=== PATIENT | male | born 1940 | race Caucasian/White ===

== ENCOUNTER 2016-08-11 14:45 | Inpatient (IN) | payer OTHER ==
[2016-08-11 14:54] VITALS: BMI 21.6
--- NOTE | 2016-08-11 15:48 | PDOC ---
History of Present Illness - General History Source: Patient Exam Limitations: No Limitations - History of Present Illness Initial Comments: 08/11/16 16:45 The patient is a 76 year old male, with a significant past medical history of multiple falls, pacemaker, and HTN who was sent to the emergency department with worsening AMS over the past year. The patient is here with his son-in-law who notes his mental status has worsened and is unable to remember his name, where he is oriented, and often not finishing thoughts/sentences. Son-in-law reports also that he has not been able to remember to take his medication and has been falling multiple times lately and gait has been worsening over the past few weeks. Son-in-law denies any previous dementia diagnosis but knotes he is forgetful.. Son-in-law also notes that the patient has been urinating frequently. The patient denies any complaints of pain or discmofort. He denies any recent fevers, chills, headache or dizziness. He denies any recent nausea, vomit, diarrhea or constipation. He denies any recent chest pain or shortness of breath. Pts history may b elimited due to his dementia/mental status changes. Allergies: NKA Past surgical history: None reported. Social History: Nonsmoker. Denies EtOH use and recreational drug use. Primary Care Physician: <Artem Yadav - Last Filed: 08/11/16 16:45> <Jaylan Fletcher - Last Filed: 08/13/16 09:12> - General Chief Complaint: Altered Mental Status Stated Complaint: (PCP SENT) ASSESSMENT Time Seen by Provider: 08/11/16 15:33 Past History <Artem Yadav - Last Filed: 08/11/16 16:45> - Past Medical History Cardiac Disorders: Yes Dementia: Yes (AMS) HTN: Yes - Surgical History Cardiac Surgery: Yes (PACEMAKER) - Psycho/Social/Smoking Cessation Hx Anxiety: No Suicidal Ideation: No Smoking History: Never smoked Hx Alcohol Use: No Drug/Substance Use Hx: No Substance Use Type: None <Jaylan Fletcher - Last Filed: 08/13/16 09:12> - Past Medical History Allergies/Adverse Reactions: Allergies Allergy/AdvReac Type Severity Reaction Status Date / Time No Known Allergies Allergy Verified 08/11/16 14:54 Home Medications: Ambulatory Orders Atorvastatin Ca [Lipitor] 10 mg PO HS 08/11/16 Carvedilol 25 mg PO BID 08/11/16 Hydralazine HCl [Apresoline -] 25 mg PO BID 08/11/16 Isosorbide Mononitrate [Isosorbide Mononitrate ER] 30 mg PO DAILY 08/11/16 Levothyroxine [Synthroid -] 75 mcg PO DAILY 08/11/16 Review of Systems - Review of Systems Able to Perform ROS?: No (Dementia ) <Artem Yadav - Last Filed: 08/11/16 16:45> *Physical Exam - Vital Signs Last Vital Signs Temp Pulse Resp BP Pulse Ox 97.3 F L 98 H 20 174/96 100 08/11/16 14:49 08/11/16 14:49 08/11/16 14:49 08/11/16 14:49 08/11/16 14:49 - Physical Exam Comments: 08/11/16 16:45 GENERAL: The patient is awake and alert x 0. Nontoxic - in no acute distress. HEAD: Normocephalic, atraumatic. EYES: extraocular movements intact, pupils 3mm and symmetrically reactive, sclera anicteric, conjunctiva clear, visual lomeli intact ENT: Normal voice, Moist mucous membranes. NECK: Normal range of motion, supple LUNGS: Breath sounds equal, clear to auscultation bilaterally. No wheezes, no rhonchi, no rales. HEART: Regular rate and rhythm, without murmur, rub or gallop. ABDOMEN: large suprapubic mass that is minimally tender EXTREMITIES: Normal range of motion, no edema. NEUROLOGICAL: No facial asymmetry, Normal speech, movingall 4 extremities spontaneously and symmetrically PSYCH: Normal mood, normal affect. SKIN: Warm, Dry, normal turgor. <Artem Yadav - Last Filed: 08/11/16 16:45> - Vital Signs Last Vital Signs Temp Pulse Resp BP Pulse Ox 97.3 F L 98 H 20 174/96 100 08/11/16 14:49 08/11/16 14:49 08/11/16 14:49 08/11/16 14:49 08/11/16 14:49 <Jaylan Fletcher - Last Filed: 08/13/16 09:12> Heart Score/ECG Review - ECG Impressions Comment:: 08/11/16 17:16 Twelve-lead EKG was performed and reviewed by me. There is normal sinus rhythm with a normal rate. Rate of 88 The axis is normal. The intervals are normal. There are no ST or T wave abnormalities. <Jaylan Fletcher - Last Filed: 08/13/16 09:12> ED Treatment Course - LABORATORY CBC & Chemistry Diagram: 08/13/16 07:20 08/13/16 07:20 <Jaylan Fletcher - Last Filed: 08/13/16 09:12> Medical Decision Making - Medical Decision Making 08/11/16 16:41 76y M hx of htn, ams, sent by PMD for evaluation of worwsening mental status changes, unstable gait for a few months. pt also noted to be urinaty frequently , on exam pt had a large distended bladder seen on exam and on bedside ultrasound rivas was placed ?htn/ams/urinary sypmtoms --> normal pressure hydrocephalus? will obtain CT head will r/o urinary tract infection will ck cbc, cmp, cxr, ekg will dw PMD regarding disposition 08/11/16 17:[address] out [address] Cavazos to dispo patient 08/13/16 09:12 A portion of this note was documented by scribe services under my direction. I have reviewed the details of the note, within reason, and agree with the documentation with the following case summary and management plan written by me <Jaylan Fletcher - Last Filed: 08/13/16 09:12> *DC/Admit/Observation/Transfer - Attestations Scribe Attestion: 08/11/16 16:45 Documentation prepared by Artem Yadav, acting as biomedical equipment support specialist for Jaylan Fletcher MD. <Artem Yadav - Last Filed: 08/11/16 16:45> <Jaylan Fletcher - Last Filed: 08/13/16 09:12> Diagnosis at time of Disposition: Urine retention, Uremia Acute renal failure Qualifiers: Acute renal failure type: unspecified Qualified Code(s): N17.9 - Acute kidney failure, unspecified Altered mental status Qualifiers: Altered mental status type: delirium Qualified Code(s): R41.0 - Disorientation , unspecified - Discharge Dispostion Condition at time of disposition: Guarded - Referrals
[2016-08-11 16:56] LABS: BASOPHIL 0.6 % (0-2.0); EOSINOPHIL 0.4 % (0-4.5); MCH 28.9 pg (25.7-33.7); MCHC 33.2 g/dl (32.0-35.9); NEUTROPHILS 77.8 % (42.8-82.8); PLATELET COUNT 199 K/MM3 (134-434); RDW 15.5 % (11.9-15.9); WHITE BLOOD COUNT 7.5 K/mm3 (4.0-10.0)
[2016-08-11 17:30] LABS: URINE APPEARANCE CLEAR; URINE BILIRUBIN NEGATIVE (NEGATIVE); URINE COLOR LTYELLOW; URINE GLUCOSE (UA) NEGATIVE (NEGATIVE); URINE KETONE NEGATIVE (NEGATIVE); URINE LEUK ESTERASE NEGATIVE (NEGATIVE); URINE NITRITE NEGATIVE (NEGATIVE); URINE PROTEIN NEGATIVE (NEGATIVE); URINE UROBILINOGEN NEGATIVE E.U./dl (0.2-1.0)
[2016-08-11 17:31] LABS: ANION GAP 20 (8-16); BILIRUBIN,TOTAL 0.9 mg/dL (0.2-1.0); CALCIUM 8.9 mg/dL (8.5-10.1); CO2 19 mmol/L (21-32); GLUCOSE,RANDOM 101 mg/dL (74-106); SGOT/AST 13 U/L (15-37); SGPT/ALT 23 U/L (12-78); TOT PROT 7.8 g/dl (6.4-8.2)
[2016-08-11 17:36] LABS: ALK PHOS 62 U/L (45-117)
[2016-08-11 17:40] LABS: CREATININE 7.6 mg/dL (0.7-1.3)
--- NOTE | 2016-08-11 17:46 | PDOC ---
*Physical Exam - Vital Signs Last Vital Signs Temp Pulse Resp BP Pulse Ox 97.3 F L 98 H 20 174/96 100 08/11/16 14:49 08/11/16 14:49 08/11/16 14:49 08/11/16 14:49 08/11/16 14:49 ED Treatment Course - LABORATORY CBC & Chemistry Diagram: 08/11/16 16:39 08/11/16 16:39 - ADDITIONAL ORDERS Additional order review: Laboratory Results 08/11/16 16:39 Sodium 139 Potassium 4.6 Chloride 100 Carbon Dioxide 19 L Anion Gap 20 H BUN 109 H* Creatinine 7.6 H* Creat Clearance w eGFR 6.96 Random Glucose 101 Calcium 8.9 Total Bilirubin 0.9 AST 13 L ALT 23 Alkaline Phosphatase 62 Total Protein 7.8 Albumin 4.0 08/11/16 16:39 RBC 4.39 MCV 87.0 MCHC 33.2 RDW 15.5 MPV 9.0 Neutrophils % 77.8 Lymphocytes % 12.0 Monocytes % 9.2 Eosinophils % 0.4 Basophils % 0.6 Medical Decision Making - Medical Decision Making 08/11/16 17:48 Patient endorsed to me by Dr. Fletcher at 17:30, presenting with AMS. I was just notified of extremely elevated creatinine by the lab. Potassium is wnl. Confusion was likely due to uremia, and the failure is likely due to obstruction (bladder was extremely distended on arrival, improved with rivas placement. I have discussed with Dr. Garza. Will send urine lytes. 08/11/16 18:38 Case d/w Dr. Wilcox. Will admit. Results d/w patient and son-in-law at bedside. *DC/Admit/Observation/Transfer Diagnosis at time of Disposition: Urine retention, Uremia Acute renal failure Qualifiers: Acute renal failure type: unspecified Qualified Code(s): N17.9 - Acute kidney failure, unspecified Altered mental status Qualifiers: Altered mental status type: delirium Qualified Code(s): R41.0 - Disorientation , unspecified - Discharge Dispostion Condition at time of disposition: Guarded Admit: Yes - Referrals Referrals: Hi Wilcox MD [Primary Care Provider] - - Patient Instructions - Post Discharge Activity
[2016-08-11] MEDS ORDERED: SODIUM CHLORIDE 500 ML IV STA (17:47)
[2016-08-11 18:13] LABS: URINE BLOOD 1+ (NEGATIVE)
[2016-08-11 18:14] LABS: URINE MUCUS RARE; URINE RBC 1 /hpf (0-3); URINE WBC 1 /hpf (3-5)
[2016-08-11] MEDS ORDERED: ACETAMINOPHEN 325 MG TABLET (FP) PO PRN (18:36)
[2016-08-11] MEDS ORDERED: ATORVASTATIN CA 10 MG TABLET (FP) PO ONE ×2 (18:43→22:45)
[2016-08-11] MEDS: SODIUM CHLORIDE 1,000 ML IV SCH (19:00)
[2016-08-11] MEDS: hydrALAZINE HCL 25 MG TABLET (FP) PO SCH (22:52)
[2016-08-11] MEDS: CARVEDILOL 25 MG TABLET (FP) PO SCH (22:52)
[2016-08-11] MEDS: HEPARIN NA (PORCINE) 5,000 UNITS/ML 1ML VIAL SQ SCH (22:52)
[2016-08-12] MEDS: LEVOTHYROXINE NA 75 MCG TABLET (FP) PO SCH (06:31)
[2016-08-12 08:21] LABS: BASOPHIL 1.2 % (0-2.0); EOSINOPHIL 3.8 % (0-4.5); MCHC 33.6 g/dl (32.0-35.9); MEAN CELL VOLUME 86.3 fl (80-96); MEAN PLT VOLUME 8.9 fl (7.5-11.1); NEUTROPHILS 60.1 % (42.8-82.8); PLATELET COUNT 172 K/MM3 (134-434); RDW 15.1 % (11.9-15.9); WHITE BLOOD COUNT 5.2 K/mm3 (4.0-10.0)
[2016-08-12 08:30] LABS: ALBUMIN 3.1 g/dl (3.4-5.0); ANION GAP 12 (8-16); BILIRUBIN,TOTAL 0.7 mg/dL (0.2-1.0); CO2 21 mmol/L (21-32); CREATININE 4.4 mg/dL (0.7-1.3); GLUCOSE,RANDOM 90 mg/dL (74-106); SGOT/AST 11 U/L (15-37); SGPT/ALT 18 U/L (12-78); TOT PROT 6.2 g/dl (6.4-8.2)
[2016-08-12 08:33] LABS: ALK PHOS 49 U/L (45-117)
[2016-08-12 08:39] LABS: FREE T4 0.99 ng/dl (0.76-1.16); THYROID STIMULATING HORMONE 6.32 uIU/ml (0.358-3.74)
[2016-08-12] MEDS: HEPARIN NA (PORCINE) 5,000 UNITS/ML 1ML VIAL SQ SCH ×2 (09:15→22:31)
[2016-08-12] MEDS: CARVEDILOL 25 MG TABLET (FP) PO SCH ×2 (09:15→22:31)
[2016-08-12] MEDS: hydrALAZINE HCL 25 MG TABLET (FP) PO SCH ×2 (09:15→22:31)
[2016-08-12] MEDS: ISOSORBIDE MONONITRATE 30 MG TAB.SR.24H (FP) PO SCH (09:15)
[2016-08-12] MEDS: SODIUM CHLORIDE 1,000 ML IV SCH ×3 (10:45→20:35)
--- NOTE | 2016-08-12 11:05 | EKG ---
Test Reason : Blood Pressure : / mmHG Vent. Rate : 088 BPM Atrial Rate : 088 BPM P-R Int : 174 ms QRS Dur : 088 ms QT Int : 394 ms P-R-T Axes : 074 049 071 degrees QTc Int : 476 ms NORMAL SINUS RHYTHM ANTERIOR INFARCT , AGE UNDETERMINED ABNORMAL ECG WHEN COMPARED WITH ECG OF 02-JUN-2004 07:36, NON-SPECIFIC CHANGE IN ST SEGMENT IN LATERAL LEADS NONSPECIFIC T WAVE ABNORMALITY NO LONGER EVIDENT IN INFERIOR LEADS T WAVE INVERSION NO LONGER EVIDENT IN LATERAL LEADS Confirmed by ROBERT PANTOJA MD ([id number]) on 08/12/2016 11:05:09 AM Referred By: Confirmed By:ROBERT PANTOJA MD
--- NOTE | 2016-08-12 13:22 | CONSULT ---
Consult Consult Specialty:: Nephrology Reason for Consultation:: LOC - History of Present Illness Chief Complaint: sent in for altered mental status History of Present Illness: Pt is a 76 year old male with pmhx of falls, PPM, And HTN who was sent in for altered mental status. I was called to evaluate him for LOC. He was found to have a distended bladder. Rivas catheter was placed in ER and he had about 1900 cc of urine. His renal function is improving overnight. He appears more awake and alert today than he was yesterday. I did discuss the case with the ER physicians last night. He denies shortness of breath. - History Source History Provided By: Medical Record - Past Medical History Cardio/Vascular: Yes: HTN, Hyperlipdemia Endocrine: Yes: Hypothyroidism - Past Surgical History Past Surgical History: Yes: Permanent Pacemaker - Alcohol/Substance Use Hx Alcohol Use: No - Smoking History Smoking history: Never smoked Home Medications - Allergies Allergies/Adverse Reactions: Allergies Allergy/AdvReac Type Severity Reaction Status Date / Time No Known Allergies Allergy Verified 08/11/16 14:54 - Home Medications Home Medications: Ambulatory Orders Atorvastatin Ca [Lipitor] 10 mg PO HS 08/11/16 Carvedilol 25 mg PO BID 08/11/16 Hydralazine HCl [Apresoline -] 25 mg PO BID 08/11/16 Isosorbide Mononitrate [Isosorbide Mononitrate ER] 30 mg PO DAILY 08/11/16 Levothyroxine [Synthroid -] 75 mcg PO DAILY 08/11/16 Family Disease History - Family Disease History Family History: Unable to Obtain Review of Systems Unable to obtain ROS, reason: poor historian - Review of Systems Eyes: reports: No Symptoms HENT: reports: No Symptoms Neck: reports: No Symptoms Cardiovascular: reports: No Symptoms Respiratory: reports: No Symptoms Gastrointestinal: reports: No Symptoms Genitourinary: reports: No Symptoms Musculoskeletal: reports: No Symptoms Integumentary: reports: No Symptoms Physical Exam Vital Signs: Vital Signs Temperature 99.0 F 08/12/16 09:05 Pulse Rate 80 08/12/16 09:05 Respiratory Rate 18 08/12/16 09:05 Blood Pressure 133/70 08/12/16 09:05 O2 Sat by Pulse Oximetry (%) 96 08/11/16 20:03 Constitutional: Yes: Calm Eyes: Yes: Conjunctiva Clear HENT: Yes: Atraumatic Neck: Yes: Supple Cardiovascular: Yes: S1, S2 Respiratory: Yes: CTA Bilaterally Gastrointestinal: Yes: Normal Bowel Sounds, Soft Renal/: Yes: Rivas Present Musculoskeletal: Yes: WNL Extremities: Yes: WNL Edema: No Neurological: Yes: Oriented Psychiatric: Yes: Oriented Labs: CBC, BMP 08/12/16 06:35 08/12/16 06:35 Laboratory Tests 08/11/16 08/11/16 08/11/16 16:30 16:39 16:39 WBC 7.5 Hgb 12.7 Plt Count 199 Sodium Potassium Chloride Carbon Dioxide Anion Gap BUN 109 H* Creatinine 7.6 H* B-Natriuretic Peptide Urine Color Ltyellow Urine Appearance Clear Urine pH 5.0 Ur Specific [place] 1.010 Urine Protein Negative Urine Glucose (UA) Negative Urine Ketones Negative Urine Blood 1+ H Urine Nitrite Negative Urine Bilirubin Negative Urine Urobilinogen Negative Ur Leukocyte Esterase Negative 08/12/16 08/12/16 06:35 06:35 WBC 5.2 D Hgb 11.1 L D Plt Count 172 Sodium 143 Potassium 4.2 Chloride 110 H Carbon Dioxide 21 Anion Gap 12 BUN 86 H D Creatinine 4.4 H D B-Natriuretic Peptide 1140.72 H Urine Color Urine Appearance Urine pH Ur Specific [place] Urine Protein Urine Glucose (UA) Urine Ketones Urine Blood Urine Nitrite Urine Bilirubin Urine Urobilinogen Ur Leukocyte Esterase Imaging - Results Chest X-ray: Report Reviewed Cat Scan: Report Reviewed Problem List - Problems (1) Acute renal failure Code(s): N17.9 - ACUTE KIDNEY FAILURE, UNSPECIFIED Qualifiers: Acute renal failure type: unspecified Qualified Code(s): N17.9 - Acute kidney failure, unspecified (2) Altered mental status Code(s): R41.82 - ALTERED MENTAL STATUS, UNSPECIFIED Qualifiers: Altered mental status type: delirium Qualified Code(s): R41.0 - Disorientation, unspecified (3) Uremia Code(s): N19 - UNSPECIFIED KIDNEY FAILURE (4) Urine retention Code(s): R33.9 - RETENTION OF URINE, UNSPECIFIED (5) Hypertension Code(s): I10 - ESSENTIAL (PRIMARY) HYPERTENSION Assessment/Plan Current Medications Generic Name Dose Route Start Last Admin Trade Name Freq PRN Reason Stop Dose Admin Acetaminophen 650 mg 08/11/16 18:36 Tylenol - PO Q6H PRN FEVER OR PAIN Carvedilol 25 mg 08/11/16 22:00 08/12/16 09:15 Coreg - PO 25 mg BID NEYMAR Administration Heparin Sodium (Porcine) 5,000 unit 08/11/16 22:00 08/12/16 09:15 Heparin - SQ 5,000 unit BID NEYMAR Administration Hydralazine HCl 25 mg 08/11/16 22:00 08/12/16 09:15 Apresoline - PO 25 mg BID NEYMAR Administration Sodium Chloride 1,000 mls @ 100 mls/hr 08/11/16 18:45 08/12/16 10:45 Normal Saline - IV 100 mls/hr ASDIR NEYMAR Administration Isosorbide Mononitrate 30 mg 08/12/16 10:00 08/12/16 09:15 Imdur - PO 30 mg DAILY NEYMAR Administration Levothyroxine Sodium 75 mcg 08/12/16 07:00 08/12/16 06:31 Synthroid - PO 75 mcg DAILY@0700 NEYMAR Administration Impression 1. LOC 2. obstructive uropathy 3. HTN 4. altered mental status 5. hypothyroidism 6. PPM 7. hyperlipidemia Plan - LOC secondary to obstruction - monitor urine ouput and observe for post obstructive diuresis - agree with fluid overnight, will change ns to 1/2 ns - monitor blood pressure - check ultrasound kidneys and bladder - repeat labs in am - pt need a urology evaluation - keep rivas in place - will follow urine studies Dr Garza
[2016-08-12] MEDS ORDERED: SODIUM CHLORIDE 0.45% 1,000 ML IV SCH (13:30)
[2016-08-12] MEDS ORDERED: SODIUM CHLORIDE 500 ML IV STA (14:19)
--- NOTE | 2016-08-12 15:41 | HP ---
Admitting History and Physical - Primary Care Physician PCP: Hi Wilcox - Admission Chief Complaint: I feel fine History of Present Illness: Mr Cunha is a 76 year old male with suspected dementia who was brought in for 6 months of worsening mental status. I cannot obtain an HPI from the patient secondary to suspected dementia. He says today he feels well, he says that yesterday his stomach was distended on both sides but that has now resolved. When asked about other complaints, his responses become non-sensical. He does say he is feeling well today and asked how long he needs to stay in the hospital. The only other question he answers appropriately is when asked about surgeries he points to his pacemaker and says "this thing". History Source: Patient, Medical Record Limitations to Obtaining History: Clinical Condition - Past Medical History Cardiovascular: Yes: HTN, Hyperlipdemia Endocrine: Yes: Hypothyroidism - Past Surgical History Past Surgical History: Yes: Permanent Pacemaker - Smoking History Smoking history: Never smoked - Alcohol/Substance Use Hx Alcohol Use: No - Social History Usual Living Arrangement: Yes: With Child ADL: Family Assistance Home Medications - Allergies Allergies/Adverse Reactions: Allergies Allergy/AdvReac Type Severity Reaction Status Date / Time No Known Allergies Allergy Verified 08/11/16 14:54 - Home Medications Home Medications: Ambulatory Orders Atorvastatin Ca [Lipitor] 10 mg PO HS 08/11/16 Carvedilol 25 mg PO BID 08/11/16 Hydralazine HCl [Apresoline -] 25 mg PO BID 08/11/16 Isosorbide Mononitrate [Isosorbide Mononitrate ER] 30 mg PO DAILY 08/11/16 Levothyroxine [Synthroid -] 75 mcg PO DAILY 08/11/16 Family Disease History - Family Disease History Family History: Unable to Obtain Review of Systems Unable to obtain ROS, reason: dementia/uremia Physical Examination Vital Signs: Vital Signs Temperature 99.0 F 08/12/16 09:05 Pulse Rate 80 08/12/16 09:05 Respiratory Rate 18 08/12/16 09:05 Blood Pressure 133/70 08/12/16 09:05 O2 Sat by Pulse Oximetry (%) 96 08/11/16 20:03 Constitutional: Yes: No Distress, Calm, Thin Eyes: Yes: Conjunctiva Clear, PERRL HENT: Yes: Atraumatic, Normocephalic Cardiovascular: Yes: Regular Rate and Rhythm. No: Gallop, Murmur, Rub Respiratory: Yes: Regular, CTA Bilaterally. No: Rales, Rhonchi, Wheezes Gastrointestinal: Yes: Normal Bowel Sounds, Soft. No: Distention, Tenderness Extremities: Yes: WNL Edema: No Labs: CBC, BMP 08/12/16 06:35 08/12/16 06:35 Imaging - Results Chest X-ray: Report Reviewed, Image Reviewed Cat Scan: Report Reviewed EKG: Report Reviewed, Image Reviewed Problem List - Problems (1) Acute renal failure Assessment/Plan: -patient presents with ARF, unclear cause -nephrology consulted and case discussed -ultrasound ordered -continue IVF -renal function improved with hydration -monitor Code(s): N17.9 - ACUTE KIDNEY FAILURE, UNSPECIFIED Qualifiers: Acute renal failure type: unspecified Qualified Code(s): N17.9 - Acute kidney failure, unspecified (2) Acute metabolic encephalopathy Assessment/Plan: -secondary to ARF/uremia -monitor for improvement Code(s): G93.41 - METABOLIC ENCEPHALOPATHY (3) Hypertension Assessment/Plan: -continue coreg and hydralazine Code(s): I10 - ESSENTIAL (PRIMARY) HYPERTENSION (4) Hypothyroid Assessment/Plan: -elevated TSH but normal FT4 -continue synthroid Code(s): E03.9 - HYPOTHYROIDISM, UNSPECIFIED (5) Dementia Assessment/Plan: -unclear if history of dementia vs metabolic encephalopathy or combination of two -monitor for improvement Code(s): F03.90 - UNSPECIFIED DEMENTIA WITHOUT BEHAVIORAL DISTURBANCE
[2016-08-12 18:15] LABS: URINE APPEARANCE CLEAR; URINE BILIRUBIN NEGATIVE (NEGATIVE); URINE COLOR LTYELLOW; URINE GLUCOSE (UA) NEGATIVE (NEGATIVE); URINE KETONE NEGATIVE (NEGATIVE); URINE NITRITE NEGATIVE (NEGATIVE); URINE UROBILINOGEN NEGATIVE E.U./dl (0.2-1.0)
[2016-08-12 18:16] LABS: URINE BLOOD 3+ (NEGATIVE); URINE LEUK ESTERASE 1+ (NEGATIVE); URINE PROTEIN 1+ (NEGATIVE)
[2016-08-12 18:17] LABS: URINE BACTERIA RARE /hpf (NONE SEEN); URINE HYALINE CAST 1 /lpf; URINE MUCUS RARE; URINE RBC 20 /hpf (0-3); URINE WBC 14 /hpf (3-5)
[2016-08-13] MEDS: LEVOTHYROXINE NA 75 MCG TABLET (FP) PO SCH (06:22)
[2016-08-13] MEDS: SODIUM CHLORIDE 1,000 ML IV SCH ×2 (07:52→15:10)
[2016-08-13 08:29] LABS: BASOPHIL 1.3 % (0-2.0); EOSINOPHIL 4.4 % (0-4.5); MCH 28.9 pg (25.7-33.7); MCHC 32.7 g/dl (32.0-35.9); MEAN CELL VOLUME 88.1 fl (80-96); MEAN PLT VOLUME 8.7 fl (7.5-11.1); NEUTROPHILS 59.1 % (42.8-82.8); PLATELET COUNT 163 K/MM3 (134-434); RDW 15.9 % (11.9-15.9); WHITE BLOOD COUNT 5.5 K/mm3 (4.0-10.0)
[2016-08-13 09:01] LABS: ALK PHOS 48 U/L (45-117); ANION GAP 11 (8-16); BILIRUBIN,TOTAL 0.4 mg/dL (0.2-1.0); CALCIUM 7.7 mg/dL (8.5-10.1); CO2 21 mmol/L (21-32); CREATININE 2.5 mg/dL (0.7-1.3); GLUCOSE,RANDOM 155 mg/dL (74-106); MAGNESIUM 1.9 mg/dL (1.8-2.4); PHOSPHOROUS 3.1 mg/dL (2.5-4.9); SGOT/AST 13 U/L (15-37); SGPT/ALT 17 U/L (12-78)
[2016-08-13] MEDS: HEPARIN NA (PORCINE) 5,000 UNITS/ML 1ML VIAL SQ SCH ×2 (10:58→22:59)
[2016-08-13] MEDS: ISOSORBIDE MONONITRATE 30 MG TAB.SR.24H (FP) PO SCH (10:59)
[2016-08-13] MEDS: CARVEDILOL 25 MG TABLET (FP) PO SCH ×2 (10:59→22:58)
[2016-08-13] MEDS: hydrALAZINE HCL 25 MG TABLET (FP) PO SCH ×2 (10:59→22:58)
--- NOTE | 2016-08-13 12:34 | PN ---
Progress Note, Physician Chief Complaint: Patient says he is feeling fine. Denies cp, sob, n/v. Asking when he can go home. - Current Medication List Current Medications: Active Medications Acetaminophen (Tylenol -) 650 mg PO Q6H PRN PRN Reason: FEVER OR PAIN Carvedilol (Coreg -) 25 mg PO BID [facility] Last Admin: 08/13/16 10:59 Dose: 25 mg Heparin Sodium (Porcine) (Heparin -) 5,000 unit SQ BID [facility] Last Admin: 08/13/16 10:58 Dose: 5,000 unit Hydralazine HCl (Apresoline -) 25 mg PO BID [facility] Last Admin: 08/13/16 10:59 Dose: 25 mg Sodium Chloride (Normal Saline -) 1,000 mls @ 100 mls/hr IV ASDIR [facility] Last Admin: 08/13/16 07:52 Dose: 100 mls/hr Isosorbide Mononitrate (Imdur -) 30 mg PO DAILY [facility] Last Admin: 08/13/16 10:59 Dose: 30 mg Levothyroxine Sodium (Synthroid -) 75 mcg PO DAILY@0700 [facility] Last Admin: 08/13/16 06:22 Dose: 75 mcg - Objective Vital Signs: Vital Signs Temperature 98.2 F 08/13/16 10:45 Pulse Rate 74 08/13/16 10:45 Respiratory Rate 20 08/13/16 10:45 Blood Pressure 152/72 08/13/16 10:45 O2 Sat by Pulse Oximetry (%) 92 L 08/13/16 09:00 Constitutional: Yes: Well Nourished, No Distress, Calm Cardiovascular: Yes: Regular Rate and Rhythm. No: Gallop, Murmur, Rub Respiratory: Yes: Regular, CTA Bilaterally. No: Rales, Rhonchi, Wheezes Gastrointestinal: Yes: Normal Bowel Sounds, Soft. No: Distention, Tenderness Extremities: Yes: WNL Edema: No Labs: CBC, BMP 08/13/16 07:20 08/13/16 07:20 Problem List - Problems (1) Acute renal failure Code(s): N17.9 - ACUTE KIDNEY FAILURE, UNSPECIFIED Qualifiers: Acute renal failure type: unspecified Qualified Code(s): N17.9 - Acute kidney failure, unspecified (2) Acute metabolic encephalopathy Code(s): G93.41 - METABOLIC ENCEPHALOPATHY (3) Hypertension Code(s): I10 - ESSENTIAL (PRIMARY) HYPERTENSION (4) Hypothyroid Code(s): E03.9 - HYPOTHYROIDISM, UNSPECIFIED (5) Dementia Code(s): F03.90 - UNSPECIFIED DEMENTIA WITHOUT BEHAVIORAL DISTURBANCE Assessment/Plan Problems (1) Acute renal failure Assessment/Plan: -significantly improved -secondary to obstruction -case d/w nephrology -urology consulted -rivas to remain in place Code(s): N17.9 - ACUTE KIDNEY FAILURE, UNSPECIFIED Qualifiers: Acute renal failure type: unspecified Qualified Code(s): N17.9 - Acute kidney failure, unspecified (2) Acute metabolic encephalopathy Assessment/Plan: -mental status improving -as above Code(s): G93.41 - METABOLIC ENCEPHALOPATHY (3) Hypertension Assessment/Plan: -continue coreg and hydralazine Code(s): I10 - ESSENTIAL (PRIMARY) HYPERTENSION (4) Hypothyroid Assessment/Plan: -elevated TSH but normal FT4 -continue synthroid Code(s): E03.9 - HYPOTHYROIDISM, UNSPECIFIED (5) Dementia Assessment/Plan: -mental status improving -unclear if baseline -continue to monitor Code(s): F03.90 - UNSPECIFIED DEMENTIA WITHOUT BEHAVIORAL DISTURBANCE
--- NOTE | 2016-08-13 15:03 | CON.GU ---
Consult Consult Specialty:: urology Referred by:: medicine Reason for Consultation:: urinary retention and azotemia - History of Present Illness Chief Complaint: urinary retention and azotemia History of Present Illness: 76 year old male with altered mental status and chronic dementia, who presents in acute renal failure with urinary retention and BPH. Rivas cath is placed with brisk output and creatinine is decreasing - History Source History Provided By: Medical Record Limitations to Obtaining History: Dementia - Past Medical History Cardio/Vascular: Yes: HTN, Hyperlipdemia Renal/: Yes: BPH Endocrine: Yes: Hypothyroidism - Past Surgical History Past Surgical History: Yes: Permanent Pacemaker - Alcohol/Substance Use Hx Alcohol Use: No - Smoking History Smoking history: Never smoked - Social History ADL: Family Assistance Home Medications - Allergies Allergies/Adverse Reactions: Allergies Allergy/AdvReac Type Severity Reaction Status Date / Time No Known Allergies Allergy Verified 08/11/16 14:54 - Home Medications Home Medications: Ambulatory Orders Atorvastatin Ca [Lipitor] 10 mg PO HS 08/11/16 Carvedilol 25 mg PO BID 08/11/16 Hydralazine HCl [Apresoline -] 25 mg PO BID 08/11/16 Isosorbide Mononitrate [Isosorbide Mononitrate ER] 30 mg PO DAILY 08/11/16 Levothyroxine [Synthroid -] 75 mcg PO DAILY 08/11/16 Review of Systems Unable to obtain ROS, reason: dementia Physical Exam- Vital Signs: Vital Signs Temperature 98.2 F 08/13/16 10:45 Pulse Rate 74 08/13/16 10:45 Respiratory Rate 20 08/13/16 10:45 Blood Pressure 152/72 08/13/16 10:45 O2 Sat by Pulse Oximetry (%) 92 L 08/13/16 09:00 Constitutional: Yes: No Distress Kidneys: No: Flank Pain Left, FLank Pain Right Pelvis: No: Bladder Non Palpable, Bladder Distended Prostate Exam: Yes: Symmetrical, Other (enlarged) Labs: CBC, BMP 08/13/16 07:20 08/13/16 07:20 Imaging - Results Ultrasound: Report Reviewed Problem List - Problems (1) Benign localized hyperplasia of prostate with urinary retention Assessment/Plan: creatinine is improving with indwelling rivas. once creatinine nadirs, patient should be scheduled for a TURP. will follow Code(s): N40.1 - BENIGN PROSTATIC HYPERPLASIA WITH LOWER URINARY TRACT SYMP
--- NOTE | 2016-08-13 16:33 | PN ---
Progress Note, Physician History of Present Illness: Pt seen and examined at bedside. He is awake and alert. He has no complaints. - Current Medication List Current Medications: Active Medications Acetaminophen (Tylenol -) 650 mg PO Q6H PRN PRN Reason: FEVER OR PAIN Carvedilol (Coreg -) 25 mg PO BID [facility] Last Admin: 08/13/16 10:59 Dose: 25 mg Heparin Sodium (Porcine) (Heparin -) 5,000 unit SQ BID [facility] Last Admin: 08/13/16 10:58 Dose: 5,000 unit Hydralazine HCl (Apresoline -) 25 mg PO BID [facility] Last Admin: 08/13/16 10:59 Dose: 25 mg Sodium Chloride (Normal Saline -) 1,000 mls @ 100 mls/hr IV ASDIR [facility] Last Admin: 08/13/16 15:10 Dose: Not Given Isosorbide Mononitrate (Imdur -) 30 mg PO DAILY [facility] Last Admin: 08/13/16 10:59 Dose: 30 mg Levothyroxine Sodium (Synthroid -) 75 mcg PO DAILY@0700 [facility] Last Admin: 08/13/16 06:22 Dose: 75 mcg - Objective Vital Signs: Vital Signs Temperature 98.1 F 08/13/16 14:50 Pulse Rate 66 08/13/16 14:50 Respiratory Rate 22 08/13/16 14:50 Blood Pressure 138/64 08/13/16 14:50 O2 Sat by Pulse Oximetry (%) 92 L 08/13/16 09:00 Constitutional: Yes: Calm Eyes: Yes: Conjunctiva Clear HENT: Yes: Atraumatic Neck: Yes: Supple Cardiovascular: Yes: S1, S2 Respiratory: Yes: CTA Bilaterally Gastrointestinal: Yes: Normal Bowel Sounds, Soft Genitourinary: Yes: Rivas Present Musculoskeletal: Yes: WNL Edema: No Neurological: Yes: Oriented Psychiatric: Yes: Oriented Labs: CBC, BMP 08/13/16 07:20 08/13/16 07:20 Problem List - Problems (1) Acute renal failure Code(s): N17.9 - ACUTE KIDNEY FAILURE, UNSPECIFIED Qualifiers: Acute renal failure type: unspecified Qualified Code(s): N17.9 - Acute kidney failure, unspecified (2) Altered mental status Code(s): R41.82 - ALTERED MENTAL STATUS, UNSPECIFIED Qualifiers: Altered mental status type: delirium Qualified Code(s): R41.0 - Disorientation, unspecified (3) Uremia Code(s): N19 - UNSPECIFIED KIDNEY FAILURE (4) Urine retention Code(s): R33.9 - RETENTION OF URINE, UNSPECIFIED (5) Hypertension Code(s): I10 - ESSENTIAL (PRIMARY) HYPERTENSION Assessment/Plan Current Medications Generic Name Dose Route Start Last Admin Trade Name Freq PRN Reason Stop Dose Admin Acetaminophen 650 mg 08/11/16 18:36 Tylenol - PO Q6H PRN FEVER OR PAIN Carvedilol 25 mg 08/11/16 22:00 08/13/16 10:59 Coreg - PO 25 mg BID NEYMAR Administration Heparin Sodium (Porcine) 5,000 unit 08/11/16 22:00 08/13/16 10:58 Heparin - SQ 5,000 unit BID NEYMAR Administration Hydralazine HCl 25 mg 08/11/16 22:00 08/13/16 10:59 Apresoline - PO 25 mg BID [facility]YMAR Administration Sodium Chloride 1,000 mls @ 100 mls/hr 08/12/16 14:30 08/13/16 15:10 Normal Saline - IV Not Given ASDIR NEYMAR Isosorbide Mononitrate 30 mg 08/12/16 10:00 08/13/16 10:59 Imdur - PO 30 mg DAILY [facility] Administration Levothyroxine Sodium 75 mcg 08/12/16 07:00 08/13/16 06:22 Synthroid - PO 75 mcg DAILY@0700 NEY[facility] Administration Impression 1. LOC 2. obstructive uropathy 3. HTN 4. altered mental status 5. hypothyroidism 6. PPM 7. hyperlipidemia Plan - renal function is improving - monitor output - will change fluids to 1/2 ns (we kept him on NS yesterday as blood pressure was low) - urology input appreciated, will need TURP - monitor blood pressure - repeat labs in am - keep rivas in place Dr Garza
[2016-08-13] MEDS: SODIUM CHLORIDE 0.45% 1,000 ML IV SCH (17:10)
[2016-08-14] MEDS: LEVOTHYROXINE NA 75 MCG TABLET (FP) PO SCH (06:06)
[2016-08-14] MEDS: SODIUM CHLORIDE 0.45% 1,000 ML IV SCH ×3 (06:08→17:26)
[2016-08-14 07:44] LABS: BASOPHIL 0.9 % (0-2.0); EOSINOPHIL 3.7 % (0-4.5); MCH 28.8 pg (25.7-33.7); MEAN CELL VOLUME 87.5 fl (80-96); MEAN PLT VOLUME 8.9 fl (7.5-11.1); NEUTROPHILS 67.8 % (42.8-82.8); PLATELET COUNT 175 K/MM3 (134-434); RDW 16.1 % (11.9-15.9); WHITE BLOOD COUNT 6.4 K/mm3 (4.0-10.0)
[2016-08-14 08:29] LABS: ANION GAP 9 (8-16); CALCIUM 7.9 mg/dL (8.5-10.1); CO2 24 mmol/L (21-32); CREATININE 1.9 mg/dL (0.7-1.3); GLUCOSE,RANDOM 119 mg/dL (74-106); MAGNESIUM 1.8 mg/dL (1.8-2.4); PHOSPHOROUS 2.3 mg/dL (2.5-4.9)
--- NOTE | 2016-08-14 09:18 | PN ---
Progress Note (short form) - Note Progress Note: PATIENT COMFORTABLE / CONFUSED AT TIMES / WANTING TO GO HOME. NO RESPIRATORY / NO CARDIAC DISTRESS. Selected Entries 08/13/16 08/14/16 21:00 06:13 Temperature 98.2 F Pulse Rate 71 Respiratory 18 Rate Blood Pressure 144/98 O2 Sat by Pulse 96 Oximetry (%) Oxygen Delivery Room Air Method Laboratory Tests 08/14/16 08/14/16 06:00 06:00 WBC 6.4 RBC 4.00 Hgb 11.5 L Hct 34.9 L Plt Count 175 Sodium 145 Potassium 4.5 Chloride 112 H Carbon Dioxide 24 Anion Gap 9 BUN 41 H D Creatinine 1.9 H D Random Glucose 119 H D Calcium 7.9 L Phosphorus 2.3 L D Magnesium 1.8 P/E / AWAKE / SOMEWHAT AGITATED HEENT <> NECK SUPPLE COR <> S 1 S 2 HS DISTANT <> NO M OR G CHEST <> FEW SCATTERED RHONCHI AT BASES ABD <> SOFT / NONTENDER. EXT <> NO CALF TENDERNESS IMP <> BLADDER OUTLET OBSTRUCTION BPH LOC HTN HYPOTHYROIDISM DEMENTIA SSS / S/P PPM PLAN <> FOLLOWUP CARDIOLOGY CONSULT PRE-PROCEDURE REQUESTED. NO CHANGE IN MEDS UNLESS ORDERED BY CARDIOLOGY. ENDOCRINE CONSULT WITH DEMENTIA & HYPOTHYROIDISM.
--- NOTE | 2016-08-14 09:59 | CON.CARD ---
Consult Consult Specialty:: cardio Referred by:: roxie Reason for Consultation:: preop - History of Present Illness Chief Complaint: retention History of Present Illness: 76 yo male here with LOC and urinary retention. has BPH. rivas in, with plan for TURP per . we were asked to provide preop CV risk assessment +/- periop mgmt recs. not a reliable historian at the moment as he thinks he is kidnapped in someone' s house. ? if his memory is intact--states he has no cp or sob at home or here. 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--says it's at [address] (our practice)-- will check office records PMH: dementia falls s/p PPM HTN HPL - Past Medical History Cardio/Vascular: Yes: HTN, Hyperlipdemia Renal/: Yes: BPH Endocrine: Yes: Hypothyroidism - Past Surgical History Past Surgical History: Yes: Permanent Pacemaker - Alcohol/Substance Use Hx Alcohol Use: No - Smoking History Smoking history: Never smoked - Social History ADL: Family Assistance Home Medications - Allergies Allergies/Adverse Reactions: Allergies Allergy/AdvReac Type Severity Reaction Status Date / Time No Known Allergies Allergy Verified 08/11/16 14:54 - Home Medications Home Medications: Ambulatory Orders Atorvastatin Ca [Lipitor] 10 mg PO HS 08/11/16 Carvedilol 25 mg PO BID 08/11/16 Hydralazine HCl [Apresoline -] 25 mg PO BID 08/11/16 Isosorbide Mononitrate [Isosorbide Mononitrate ER] 30 mg PO DAILY 08/11/16 Levothyroxine [Synthroid -] 75 mcg PO DAILY 08/11/16 Family Disease History - Family Disease History Family History: Unable to Obtain Review of Systems - Review of Systems Constitutional: denies: Chills, Fever Eyes: denies: Eye Pain HENT: denies: Nasal Congestion Neck: denies: Stiffness Cardiovascular: denies: Palpitations Respiratory: denies: Orthopnea, PND Gastrointestinal: denies: Diarrhea, Rectal Bleeding Genitourinary: denies: Burning, Hematuria Musculoskeletal: denies: Muscle Pain Integumentary: denies: Rash Neurological: denies: Numbness, Seizure, Syncope Endocrine: denies: Excessive Sweating Hematology/Lymphatic: denies: Excessive Bleeding Vital Signs: Vital Signs Temperature 98.2 F 08/14/16 06:13 Pulse Rate 71 08/14/16 06:13 Respiratory Rate 18 08/14/16 06:13 Blood Pressure 144/98 08/14/16 06:13 O2 Sat by Pulse Oximetry (%) 96 08/13/16 21:00 Constitutional: Yes: Well Nourished, No Distress Eyes: No: Sclera Icterus HENT: No: Nasal Congestion Neck: No: Decreased ROM Respiratory: Yes: CTA Bilaterally. No: Accessory Muscle Use, Rales, Wheezes Gastrointestinal: Yes: Normal Bowel Sounds. No: Distention, Hepatomegaly, Palpable Mass, Tenderness Cardiovascular: Yes: Regular Rate and Rhythm JVD: No Carotid Bruit: No PMI: Non-Displaced Heart Sounds: Yes: S1, S2. No: Gallop Murmur: No: Systolic Murmur, Diastolic Murmur Musculoskeletal: Yes: Other (No kyphosis) Extremities: No: Cold, Cyanosis Edema: No Peripheral Pulses: 2+ Left Carotid, 2+ Right Carotid, 2+ Left Doralis Pedis, 2+ Right Dorsalis Pedis Integumentary: No: Jaundice Neurological: Yes: Alert. No: Oriented (x3) Psychiatric: No: Agitated - Other Data Labs, Other Data: CBC, BMP 08/14/16 06:00 08/14/16 06:00 Laboratory Tests 08/12/16 08/12/16 08/13/16 06:35 06:35 07:20 WBC Hgb Plt Count Sodium Potassium Carbon Dioxide BUN Creatinine AST 13 L ALT 17 B-Natriuretic Peptide 1140.72 H TSH 6.32 H 08/14/16 08/14/16 06:00 06:00 WBC 6.4 Hgb 11.5 L Plt Count 175 Sodium 145 Potassium 4.5 Carbon Dioxide 24 BUN 41 H D Creatinine 1.9 H D AST ALT B-Natriuretic Peptide TSH Imaging - Results Chest X-ray: Report Reviewed (clear lungs/pleura; + hyperinflation) Assessment/Plan CXR: clear ECG: NSR; ? old ASMI previously seen; prior TWIs anterolateral leads now normalized preop CV eval: -past CV history uncertain--no documented h/o CHF, CAD or CVA -hence at this time RCRI appears to be 0 -unknown functional status -no signs or sx's of active ischemic or structural heart dz, no murmur on exam and no chf findings -appears to be at low risk for periop CV complications from TURP, certainly no clinical predictors of high surgical risk -may proceed without further testing abnormal ECG: -nonspecific findings on 08/11 ecg vs prior (pseudonormalization of anterolateral T waves) -no sx's of ACS/angina -troponin negative--no further w/u indicated at present time -will review office records for completeness of care here (if he sees us for cardio) -can do routine echo but not required prior to surgery in absence of sx's of chf or other cv process LOC/acute urinary retention: -creat improving progressively s/p rivas -per HTN: -bp mostly controlled -cont home regimen HPL: -per ER med list pt on atorva at home, not receiving here -per outpt f/u with PMD h/o PPM: -? when/where last checked--routine outpt f/u rec'd hypothyroidism, TSH 6: -per pmd
[2016-08-14] MEDS: ISOSORBIDE MONONITRATE 30 MG TAB.SR.24H (FP) PO SCH (10:36)
[2016-08-14] MEDS: HEPARIN NA (PORCINE) 5,000 UNITS/ML 1ML VIAL SQ SCH ×2 (10:36→22:15)
[2016-08-14] MEDS: CARVEDILOL 25 MG TABLET (FP) PO SCH ×2 (10:36→22:15)
[2016-08-14] MEDS: hydrALAZINE HCL 25 MG TABLET (FP) PO SCH ×2 (10:36→22:15)
[2016-08-14 11:34] LABS: TROPONIN I < 0.02 ng/ml (0.00-0.05)
--- NOTE | 2016-08-14 16:50 | PN ---
Progress Note, Physician History of Present Illness: Pt seen and examined at bedside. He is awake and appears comfortable. - Current Medication List Current Medications: Active Medications Acetaminophen (Tylenol -) 650 mg PO Q6H PRN PRN Reason: FEVER OR PAIN Carvedilol (Coreg -) 25 mg PO BID [facility] Last Admin: 08/14/16 10:36 Dose: 25 mg Heparin Sodium (Porcine) (Heparin -) 5,000 unit SQ BID [facility] Last Admin: 08/14/16 10:36 Dose: 5,000 unit Hydralazine HCl (Apresoline -) 25 mg PO BID [facility] Last Admin: 08/14/16 10:36 Dose: 25 mg Sodium Chloride (1/2 Normal Saline) 1,000 mls @ 75 mls/hr IV ASDIR [facility] Last Admin: 08/14/16 06:08 Dose: 75 mls/hr Isosorbide Mononitrate (Imdur -) 30 mg PO DAILY [facility] Last Admin: 08/14/16 10:36 Dose: 30 mg Levothyroxine Sodium (Synthroid -) 75 mcg PO DAILY@0700 [facility] Last Admin: 08/14/16 06:06 Dose: 75 mcg - Objective Vital Signs: Vital Signs Temperature 97.9 F 08/14/16 16:06 Pulse Rate 73 08/14/16 16:06 Respiratory Rate 20 08/14/16 16:06 Blood Pressure 143/63 08/14/16 16:06 O2 Sat by Pulse Oximetry (%) 96 08/14/16 09:00 Constitutional: Yes: Calm Eyes: Yes: Conjunctiva Clear HENT: Yes: Atraumatic Neck: Yes: Supple Cardiovascular: Yes: S1, S2 Respiratory: Yes: CTA Bilaterally Gastrointestinal: Yes: Normal Bowel Sounds, Soft Genitourinary: Yes: Rivas Present Musculoskeletal: Yes: WNL Edema: No Neurological: Yes: Confusion Labs: CBC, BMP 08/14/16 06:00 08/14/16 06:00 Problem List - Problems (1) Acute renal failure Code(s): N17.9 - ACUTE KIDNEY FAILURE, UNSPECIFIED Qualifiers: Acute renal failure type: unspecified Qualified Code(s): N17.9 - Acute kidney failure, unspecified (2) Altered mental status Code(s): R41.82 - ALTERED MENTAL STATUS, UNSPECIFIED Qualifiers: Altered mental status type: delirium Qualified Code(s): R41.0 - Disorientation, unspecified (3) Uremia Code(s): N19 - UNSPECIFIED KIDNEY FAILURE (4) Urine retention Code(s): R33.9 - RETENTION OF URINE, UNSPECIFIED (5) Hypertension Code(s): I10 - ESSENTIAL (PRIMARY) HYPERTENSION Assessment/Plan Current Medications Generic Name Dose Route Start Last Admin Trade Name Freq PRN Reason Stop Dose Admin Acetaminophen 650 mg 08/11/16 18:36 Tylenol - PO Q6H PRN FEVER OR PAIN Carvedilol 25 mg 08/11/16 22:00 08/14/16 10:36 Coreg - PO 25 mg BID [facility] Administration Heparin Sodium (Porcine) 5,000 unit 08/11/16 22:00 08/14/16 10:36 Heparin - SQ 5,000 unit BID [facility]YMAR Administration Hydralazine HCl 25 mg 08/11/16 22:00 08/14/16 10:36 Apresoline - PO 25 mg BID [facility] Administration Sodium Chloride 1,000 mls @ 75 mls/hr 08/13/16 16:45 08/14/16 06:08 1/2 Normal Saline IV 75 mls/hr ASDIR [facility]YMAR Administration Isosorbide Mononitrate 30 mg 08/12/16 10:00 08/14/16 10:36 Imdur - PO 30 mg DAILY [facility] Administration Levothyroxine Sodium 75 mcg 08/12/16 07:00 08/14/16 06:06 Synthroid - PO 75 mcg DAILY@0700 [facility] Administration Impression 1. LOC 2. obstructive uropathy 3. HTN 4. altered mental status 5. hypothyroidism 6. PPM 7. hyperlipidemia Plan - renal function stabilizing - keep rivas in place - cont fluids - repeat labs in am - discussed with family - urology input appreciated, will need TURP - monitor blood pressure Dr Garza
[2016-08-15] MEDS: LEVOTHYROXINE NA 75 MCG TABLET (FP) PO SCH (06:11)
[2016-08-15] MEDS: SODIUM CHLORIDE 0.45% 1,000 ML IV SCH ×2 (06:13→16:05)
[2016-08-15 07:30] LABS: BASOPHIL 1.2 % (0-2.0); EOSINOPHIL 4.6 % (0-4.5); MCH 28.8 pg (25.7-33.7); MCHC 32.8 g/dl (32.0-35.9); MEAN CELL VOLUME 87.6 fl (80-96); MEAN PLT VOLUME 9.1 fl (7.5-11.1); PLATELET COUNT 195 K/MM3 (134-434); RDW 16.1 % (11.9-15.9); WHITE BLOOD COUNT 6.6 K/mm3 (4.0-10.0)
[2016-08-15 07:45] LABS: ANION GAP 9 (8-16); BILIRUBIN,TOTAL 0.3 mg/dL (0.2-1.0); CALCIUM 7.4 mg/dL (8.5-10.1); CO2 24 mmol/L (21-32); CREATININE 1.7 mg/dL (0.7-1.3); GLUCOSE,RANDOM 112 mg/dL (74-106); PHOSPHOROUS 2.2 mg/dL (2.5-4.9); SGOT/AST 14 U/L (15-37); SGPT/ALT 21 U/L (12-78)
[2016-08-15 07:46] LABS: ALK PHOS 61 U/L (45-117)
--- NOTE | 2016-08-15 08:02 | PN ---
Progress Note (short form) - Note Progress Note: PATIENT FOR TURP IN AM. MARTINEZ IN PLACE . PATIENT IN NO DISTRESS. PERIODS OF CONFUSION AND AGITATION WORSE THAN YESTERDAY. CARDIOLOGY NOTE APPRECIATED . MEDICALLY & CARDIAC CLEARED FOR PROCEDURE. BP ELEVATED POSSIBLY A RESULT OF AGITATION. Selected Entries Laboratory Tests Selected Entries 08/15/16 06:00 Temperature 98.3 F Pulse Rate 81 Respiratory 20 Rate Blood Pressure 176/75 Laboratory Tests 08/15/16 08/15/16 06:00 06:00 WBC 6.6 RBC 3.80 L Hgb 10.9 L Hct 33.3 L Plt Count 195 Sodium 145 Potassium 4.4 Chloride 112 H Carbon Dioxide 24 Anion Gap 9 BUN 33 H Creatinine 1.7 H Random Glucose 112 H Calcium 7.4 L Phosphorus 2.2 L Total Bilirubin 0.3 D AST 14 L ALT 21 D Alkaline Phosphatase 61 D Total Protein 6.0 L Albumin 3.0 L P/E <> AGITATED / IN CHAIR / IN HALLWAY. HEENT <> NECK SUPPLE / CAROTIDS 2 + COR <> S 1 S 2 NO M / NO GALLOPS. CHEST <> RHONCHI AT BASES. ABD <> SOFT / NONTENDER. EXT <> NO CALF TENDERNESS / NO STASIS EDEMA IMP <> BLADDER OUTLET OBSTRUCTION BPH LOC HTN HYPOTHYROIDISM DEMENTIA SSS / S/P PPM PLAN <> FOLLOWUP / FOR TURP CARDIOLOGY FOLLOWUP RENAL CONSULT REQUESTED <> ADJUST IV FLUIDS / BP ELEVATION / LOW PHOSPHOROUS. XANAX ORDERED FOR AGITATION. FOLLOW BP TODAY. NEURO CONSULT REQUESTED .
[2016-08-15] MEDS: ALPRAZolam 0.25 MG TABLET PO PRN ×3 (08:18→21:31)
[2016-08-15] MEDS: ISOSORBIDE MONONITRATE 30 MG TAB.SR.24H (FP) PO SCH (10:03)
[2016-08-15] MEDS: CARVEDILOL 25 MG TABLET (FP) PO SCH ×2 (10:03→21:33)
[2016-08-15] MEDS: hydrALAZINE HCL 25 MG TABLET (FP) PO SCH ×2 (10:03→21:34)
[2016-08-15] MEDS: HEPARIN NA (PORCINE) 5,000 UNITS/ML 1ML VIAL SQ SCH ×2 (10:03→21:34)
--- NOTE | 2016-08-15 15:43 | PN ---
Progress Note, Physician History of Present Illness: Pt seen and examined at bedside. He remains confused. - Current Medication List Current Medications: Active Medications Acetaminophen (Tylenol -) 650 mg PO Q6H PRN PRN Reason: FEVER OR PAIN Alprazolam (Xanax -) 0.25 mg PO Q8H PRN PRN Reason: ANXIETY Last Admin: 08/15/16 08:18 Dose: 0.25 mg Carvedilol (Coreg -) 25 mg PO BID [facility] Last Admin: 08/15/16 10:03 Dose: 25 mg Heparin Sodium (Porcine) (Heparin -) 5,000 unit SQ BID [facility] Last Admin: 08/15/16 10:03 Dose: 5,000 unit Hydralazine HCl (Apresoline -) 25 mg PO BID [facility] Last Admin: 08/15/16 10:03 Dose: 25 mg Sodium Chloride (1/2 Normal Saline) 1,000 mls @ 83 mls/hr IV ASDIR [facility] Last Admin: 08/15/16 06:13 Dose: 83 mls/hr Isosorbide Mononitrate (Imdur -) 30 mg PO DAILY [facility] Last Admin: 08/15/16 10:03 Dose: 30 mg Levothyroxine Sodium (Synthroid -) 75 mcg PO DAILY@0700 [facility] Last Admin: 08/15/16 06:11 Dose: 75 mcg - Objective Vital Signs: Vital Signs Temperature 98.0 F 08/15/16 09:00 Pulse Rate 68 08/15/16 09:00 Respiratory Rate 20 08/15/16 09:00 Blood Pressure 178/66 08/15/16 09:00 O2 Sat by Pulse Oximetry (%) 97 08/15/16 10:00 Constitutional: Yes: Calm Eyes: Yes: Conjunctiva Clear HENT: Yes: Atraumatic Cardiovascular: Yes: S1, S2 Respiratory: Yes: CTA Bilaterally Gastrointestinal: Yes: Soft Genitourinary: Yes: Bernal Present Musculoskeletal: Yes: WNL Edema: No Neurological: Yes: Confusion Labs: CBC, BMP 08/15/16 06:00 08/15/16 06:00 Problem List - Problems (1) Acute renal failure Code(s): N17.9 - ACUTE KIDNEY FAILURE, UNSPECIFIED Qualifiers: Acute renal failure type: unspecified Qualified Code(s): N17.9 - Acute kidney failure, unspecified (2) Altered mental status Code(s): R41.82 - ALTERED MENTAL STATUS, UNSPECIFIED Qualifiers: Altered mental status type: delirium Qualified Code(s): R41.0 - Disorientation, unspecified (3) Uremia Code(s): N19 - UNSPECIFIED KIDNEY FAILURE (4) Urine retention Code(s): R33.9 - RETENTION OF URINE, UNSPECIFIED (5) Hypertension Code(s): I10 - ESSENTIAL (PRIMARY) HYPERTENSION Assessment/Plan Current Medications Generic Name Dose Route Start Last Admin Trade Name Freq PRN Reason Stop Dose Admin Acetaminophen 650 mg 08/11/16 18:36 Tylenol - PO Q6H PRN FEVER OR PAIN Alprazolam 0.25 mg 08/15/16 08:02 08/15/16 08:18 Xanax - PO 0.25 mg Q8H PRN Administration ANXIETY Carvedilol 25 mg 08/11/16 22:00 08/15/16 10:03 Coreg - PO 25 mg BID [facility] Administration Heparin Sodium (Porcine) 5,000 unit 08/11/16 22:00 08/15/16 10:03 Heparin - SQ 5,000 unit BID [facility] Administration Hydralazine HCl 25 mg 08/11/16 22:00 08/15/16 10:03 Apresoline - PO 25 mg BID [facility] Administration Sodium Chloride 1,000 mls @ 83 mls/hr 08/14/16 16:51 08/15/16 06:13 1/2 Normal Saline IV 83 mls/hr ASDIR [facility]MAR Administration Isosorbide Mononitrate 30 mg 08/12/16 10:00 08/15/16 10:03 Imdur - PO 30 mg DAILY [facility] Administration Levothyroxine Sodium 75 mcg 08/12/16 07:00 08/15/16 06:11 Synthroid - PO 75 mcg DAILY@0700 [facility] Administration Impression 1. LOC 2. obstructive uropathy 3. HTN 4. altered mental status 5. hypothyroidism 6. PPM 7. hyperlipidemia Plan - renal function is improving - can decrease rate of fluids - urology follow up - repeat labs in am - TURP this week - monitor blood pressure Dr Garza
[2016-08-15] MEDS ORDERED: diazePAM 5 MG TABLET PO ONE (23:45)
[2016-08-16] MEDS: SODIUM CHLORIDE 0.45% 1,000 ML IV SCH (04:15)
[2016-08-16] MEDS: LEVOTHYROXINE NA 75 MCG TABLET (FP) PO SCH ×2 (06:25→08:04)
[2016-08-16 08:09] LABS: ANION GAP 9 (8-16); CALCIUM 7.7 mg/dL (8.5-10.1); CO2 23 mmol/L (21-32); GLUCOSE,RANDOM 112 mg/dL (74-106)
[2016-08-16 08:10] LABS: CREATININE 1.8 mg/dL (0.7-1.3)
[2016-08-16 10:36] LABS: INR 1.13 (0.82-1.09); PROTHROMBIN TIME (PATIENT) 12.5 SEC (9.98-11.88)
[2016-08-16] MEDS: HEPARIN NA (PORCINE) 5,000 UNITS/ML 1ML VIAL SQ SCH ×2 (10:56→23:00)
[2016-08-16] MEDS: CARVEDILOL 25 MG TABLET (FP) PO SCH ×3 (10:57→23:00)
[2016-08-16] MEDS: hydrALAZINE HCL 25 MG TABLET (FP) PO SCH ×3 (10:58→23:00)
[2016-08-16] MEDS: ISOSORBIDE MONONITRATE 30 MG TAB.SR.24H (FP) PO SCH (11:20)
--- NOTE | 2016-08-16 11:48 | PN ---
Progress Note, Physician Chief Complaint: preop History of Present Illness: very sleepy, received sedation meds overnight. in jack vest - Current Medication List Current Medications: Active Medications Acetaminophen (Tylenol -) 650 mg PO Q6H PRN PRN Reason: FEVER OR PAIN Last Admin: 08/15/16 21:34 Dose: 650 mg Alprazolam (Xanax -) 0.25 mg PO Q8H PRN PRN Reason: ANXIETY Last Admin: 08/15/16 21:31 Dose: 0.25 mg Carvedilol (Coreg -) 25 mg PO BID [facility] Last Admin: 08/16/16 11:20 Dose: 25 mg Heparin Sodium (Porcine) (Heparin -) 5,000 unit SQ BID [facility] Last Admin: 08/16/16 10:56 Dose: 5,000 unit Hydralazine HCl (Apresoline -) 25 mg PO BID [facility] Last Admin: 08/16/16 11:20 Dose: 25 mg Sodium Chloride (1/2 Normal Saline) 1,000 mls @ 50 mls/hr IV ASDIR [facility] Last Admin: 08/16/16 04:15 Dose: 50 mls/hr Isosorbide Mononitrate (Imdur -) 30 mg PO DAILY [facility] Last Admin: 08/16/16 11:20 Dose: 30 mg Levothyroxine Sodium (Synthroid -) 75 mcg PO DAILY@0700 [facility] Last Admin: 08/16/16 08:04 Dose: Not Given - Objective Vital Signs: Vital Signs Temperature 98.1 F 08/16/16 07:00 Pulse Rate 80 08/16/16 07:00 Respiratory Rate 22 08/16/16 07:00 Blood Pressure 150/71 08/16/16 07:00 O2 Sat by Pulse Oximetry (%) 95 08/15/16 21:00 Constitutional: Yes: Well Nourished, No Distress, Calm Cardiovascular: Yes: Regular Rate and Rhythm, S1, S2. No: Gallop, Murmur Respiratory: Yes: Regular, CTA Bilaterally (anteriorly (not deep breaths)). No : Accessory Muscle Use Extremities: No: Cold Edema: No Neurological: No: Alert, Oriented, Seizure Psychiatric: No: Agitated Labs: CBC, BMP 08/15/16 06:00 08/16/16 06:30 INR, PTT INR 1.13 (0.82-1.09) 08/16/16 09:53 Assessment/Plan CXR: clear ECG: NSR; ? old ASMI previously seen; prior TWIs anterolateral leads now normalized preop CV eval: -past CV history uncertain--no documented h/o CHF, CAD or CVA, pt not followed by us in office -RCRI appears to be 0 -unknown functional status -no signs or sx's of active ischemic or structural heart dz, no murmur on exam and no chf findings -he is at low estimated risk for periop CV complications from TURP, certainly no clinical predictors of high surgical risk -may proceed without further testing abnormal ECG: -nonspecific findings on 08/11 ecg vs prior (pseudonormalization of anterolateral T waves) -no sx's of ACS/angina -troponin negative--no further w/u indicated at present time -will review office records for completeness of care here (if he sees us for cardio) -can do routine echo but not required prior to surgery in absence of sx's of chf or other cv process (ordered while here) LOC/acute urinary retention: -creat improving progressively s/p rivas -per HTN: -bp's variable, pt agitation episodes confounds -cont home regimen for now, observe trend HPL: -per ER med list pt on atorva at home, not receiving here -per outpt f/u with PMD h/o PPM: -? when/where last checked--routine outpt f/u rec'd hypothyroidism, TSH 6: -per pmd
[2016-08-16] MEDS ORDERED: HALOPERIDOL LACTATE 5 MG/ML IM PRN (13:35)
--- NOTE | 2016-08-16 15:17 | PN ---
Progress Note, Physician History of Present Illness: Pt seen and examined at bedside.He is increasingly confused. - Current Medication List Current Medications: Active Medications Acetaminophen (Tylenol -) 650 mg PO Q6H PRN PRN Reason: FEVER OR PAIN Last Admin: 08/15/16 21:34 Dose: 650 mg Alprazolam (Xanax -) 0.25 mg PO Q8H PRN PRN Reason: ANXIETY Last Admin: 08/15/16 21:31 Dose: 0.25 mg Carvedilol (Coreg -) 25 mg PO BID [facility] Last Admin: 08/16/16 10:57 Dose: Not Given Haloperidol (Haldol Injection (Fast Acting) -) 2 mg IM Q4H PRN PRN Reason: AGITATION Last Admin: 08/16/16 13:58 Dose: 2 mg Heparin Sodium (Porcine) (Heparin -) 5,000 unit SQ BID [facility] Last Admin: 08/16/16 10:56 Dose: 5,000 unit Hydralazine HCl (Apresoline -) 25 mg PO BID [facility] Last Admin: 08/16/16 10:58 Dose: Not Given Sodium Chloride (1/2 Normal Saline) 1,000 mls @ 50 mls/hr IV ASDIR [facility] Last Admin: 08/16/16 04:15 Dose: 50 mls/hr Isosorbide Mononitrate (Imdur -) 30 mg PO DAILY [facility] Last Admin: 08/16/16 11:20 Dose: Not Given Levothyroxine Sodium (Synthroid -) 75 mcg PO DAILY@0700 [facility] Last Admin: 08/16/16 08:04 Dose: Not Given - Objective Vital Signs: Vital Signs Temperature 98.1 F 08/16/16 07:00 Pulse Rate 80 08/16/16 07:00 Respiratory Rate 22 08/16/16 07:00 Blood Pressure 150/71 08/16/16 07:00 O2 Sat by Pulse Oximetry (%) 95 08/15/16 21:00 Constitutional: Yes: Calm Eyes: Yes: Conjunctiva Clear HENT: Yes: Atraumatic Neck: Yes: Supple Cardiovascular: Yes: S1, S2 Respiratory: Yes: CTA Bilaterally Gastrointestinal: Yes: Normal Bowel Sounds Genitourinary: Yes: Rivas Present Musculoskeletal: Yes: WNL Edema: No Neurological: Yes: Confusion Labs: CBC, BMP 08/15/16 06:00 08/16/16 06:30 INR, PTT INR 1.13 (0.82-1.09) 08/16/16 09:53 Problem List - Problems (1) Acute renal failure Code(s): N17.9 - ACUTE KIDNEY FAILURE, UNSPECIFIED Qualifiers: Acute renal failure type: unspecified Qualified Code(s): N17.9 - Acute kidney failure, unspecified (2) Altered mental status Code(s): R41.82 - ALTERED MENTAL STATUS, UNSPECIFIED Qualifiers: Altered mental status type: delirium Qualified Code(s): R41.0 - Disorientation, unspecified (3) Uremia Code(s): N19 - UNSPECIFIED KIDNEY FAILURE (4) Urine retention Code(s): R33.9 - RETENTION OF URINE, UNSPECIFIED (5) Hypertension Code(s): I10 - ESSENTIAL (PRIMARY) HYPERTENSION Assessment/Plan Current Medications Generic Name Dose Route Start Last Admin Trade Name Freq PRN Reason Stop Dose Admin Acetaminophen 650 mg 08/11/16 18:36 08/15/16 21:34 Tylenol - PO 650 mg Q6H PRN Administration FEVER OR PAIN Alprazolam 0.25 mg 08/15/16 08:02 08/15/16 21:31 Xanax - PO 0.25 mg Q8H PRN Administration ANXIETY Carvedilol 25 mg 08/11/16 22:00 08/16/16 10:57 Coreg - PO Not Given BID [facility] Haloperidol 2 mg 08/16/16 13:35 08/16/16 13:58 Haldol Injection (Fast Acting) - IM 2 mg Q4H PRN Administration AGITATION Heparin Sodium (Porcine) 5,000 unit 08/11/16 22:00 08/16/16 10:56 Heparin - SQ 5,000 unit BID [facility] Administration Hydralazine HCl 25 mg 08/11/16 22:00 08/16/16 10:58 Apresoline - PO Not Given BID [facility] Sodium Chloride 1,000 mls @ 50 mls/hr 08/15/16 15:43 08/16/16 04:15 1/2 Normal Saline IV 50 mls/hr ASDIR [facility] Administration Isosorbide Mononitrate 30 mg 08/12/16 10:00 08/16/16 11:20 Imdur - PO Not Given DAILY [facility] Levothyroxine Sodium 75 mcg 08/12/16 07:00 08/16/16 08:04 Synthroid - PO Not Given DAILY@0700 [facility] Impression 1. LOC 2. obstructive uropathy 3. HTN 4. altered mental status 5. hypothyroidism 6. PPM 7. hyperlipidemia Plan - pt was pulling on rivas and it had to be changed - he was not getting fluids as he pullsed IV - discussed with attending, pt will be evaluated by neuro - repeat labs in am - cont fluids if possible - TURP this week - monitor blood pressure Dr Garza
--- NOTE | 2016-08-16 15:50 | PN ---
Progress Note, Physician Chief Complaint: Mr Cunha is very confused today. Unable to obtain subjective, patient very aggressive. - Current Medication List Current Medications: Active Medications Acetaminophen (Tylenol -) 650 mg PO Q6H PRN PRN Reason: FEVER OR PAIN Last Admin: 08/15/16 21:34 Dose: 650 mg Alprazolam (Xanax -) 0.25 mg PO Q8H PRN PRN Reason: ANXIETY Last Admin: 08/15/16 21:31 Dose: 0.25 mg Carvedilol (Coreg -) 25 mg PO BID [facility] Last Admin: 08/16/16 10:57 Dose: Not Given Haloperidol (Haldol Injection (Fast Acting) -) 2 mg IM Q4H PRN PRN Reason: AGITATION Last Admin: 08/16/16 13:58 Dose: 2 mg Heparin Sodium (Porcine) (Heparin -) 5,000 unit SQ BID [facility] Last Admin: 08/16/16 10:56 Dose: 5,000 unit Hydralazine HCl (Apresoline -) 25 mg PO BID [facility] Last Admin: 08/16/16 10:58 Dose: Not Given Sodium Chloride (1/2 Normal Saline) 1,000 mls @ 50 mls/hr IV ASDIR [facility] Last Admin: 08/16/16 04:15 Dose: 50 mls/hr Isosorbide Mononitrate (Imdur -) 30 mg PO DAILY [facility] Last Admin: 08/16/16 11:20 Dose: Not Given Levothyroxine Sodium (Synthroid -) 75 mcg PO DAILY@0700 [facility] Last Admin: 08/16/16 08:04 Dose: Not Given - Objective Vital Signs: Vital Signs Temperature 98.1 F 08/16/16 07:00 Pulse Rate 80 08/16/16 07:00 Respiratory Rate 22 08/16/16 07:00 Blood Pressure 150/71 08/16/16 07:00 O2 Sat by Pulse Oximetry (%) 95 08/15/16 21:00 Constitutional: Yes: Other (agitated) Cardiovascular: Yes: Regular Rate and Rhythm. No: Gallop, Murmur, Rub Respiratory: Yes: Other (unable to hear, patient) Gastrointestinal: Yes: Normal Bowel Sounds, Soft. No: Distention, Tenderness Extremities: Yes: WNL Edema: No Labs: CBC, BMP 08/15/16 06:00 08/16/16 06:30 INR, PTT INR 1.13 (0.82-1.09) 08/16/16 09:53 Problem List - Problems (1) Acute renal failure Code(s): N17.9 - ACUTE KIDNEY FAILURE, UNSPECIFIED Qualifiers: Acute renal failure type: unspecified Qualified Code(s): N17.9 - Acute kidney failure, unspecified (2) Acute metabolic encephalopathy Code(s): G93.41 - METABOLIC ENCEPHALOPATHY (3) Hypertension Code(s): I10 - ESSENTIAL (PRIMARY) HYPERTENSION (4) Hypothyroid Code(s): E03.9 - HYPOTHYROIDISM, UNSPECIFIED (5) Dementia Code(s): F03.90 - UNSPECIFIED DEMENTIA WITHOUT BEHAVIORAL DISTURBANCE Assessment/Plan Problems (1) Acute renal failure Assessment/Plan: -renal function stabilized -planning for TURP, secondary to obstruction -however patient very confused today -family not consenting until mental status evaluated -continue rivas -case d/w nephrology and urology Code(s): N17.9 - ACUTE KIDNEY FAILURE, UNSPECIFIED Qualifiers: Acute renal failure type: unspecified Qualified Code(s): N17.9 - Acute kidney failure, unspecified (2) Acute metabolic encephalopathy Assessment/Plan: -mental status worsened since Tuesday -neurology consulted -leilani chiu Code(s): G93.41 - METABOLIC ENCEPHALOPATHY (3) Hypertension Assessment/Plan: -continue coreg and hydralazine Code(s): I10 - ESSENTIAL (PRIMARY) HYPERTENSION (4) Hypothyroid Assessment/Plan: -elevated TSH but normal FT4 -continue synthroid -endocrinology consulted Code(s): E03.9 - HYPOTHYROIDISM, UNSPECIFIED (5) Dementia Assessment/Plan: -mental status worsened since Tuesday -as above Code(s): F03.90 - UNSPECIFIED DEMENTIA WITHOUT BEHAVIORAL DISTURBANCE
[2016-08-16] MEDS: ALPRAZolam 0.25 MG TABLET PO PRN (16:52)
[2016-08-17] MEDS: LEVOTHYROXINE NA 75 MCG TABLET (FP) PO SCH (06:22)
[2016-08-17] MEDS: SODIUM CHLORIDE 0.45% 1,000 ML IV SCH ×2 (06:23→15:45)
[2016-08-17 07:09] LABS: BASOPHIL 1.1 % (0-2.0); EOSINOPHIL 4.2 % (0-4.5); MCHC 33.5 g/dl (32.0-35.9); MEAN CELL VOLUME 86.6 fl (80-96); MEAN PLT VOLUME 8.6 fl (7.5-11.1); NEUTROPHILS 64.2 % (42.8-82.8); PLATELET COUNT 160 K/MM3 (134-434); RDW 16.2 % (11.9-15.9); WHITE BLOOD COUNT 8.2 K/mm3 (4.0-10.0)
[2016-08-17 07:26] LABS: ANION GAP 7 (8-16); CALCIUM 7.6 mg/dL (8.5-10.1); CO2 25 mmol/L (21-32); CREATININE 1.7 mg/dL (0.7-1.3); GLUCOSE,RANDOM 100 mg/dL (74-106); MAGNESIUM 1.5 mg/dL (1.8-2.4); PHOSPHOROUS 2.8 mg/dL (2.5-4.9)
--- NOTE | 2016-08-17 07:47 | PN ---
Progress Note (short form) - Note Progress Note: PATIENT REMAINS CONFUSED BUT LESS AGITATED . NEURO WAS CONSULTED ON WEEKEND BUT STILL HAS NOT SEEN PATIENT. NEURO RECONSULTED TODAY . PATIENT REMAINS WITH MARTINEZ IN PLACE WITH BLADDER OUTLET OBSTRUCTION / BPH . TURP IS ON HOLD IN LIEU OF PATIENT'S MENTAL STATUS . FAMILY WANTS MS IMPROVEMENT BEFORE CONSENTING TO TURP. Laboratory Tests Selected Entries Selected Entries 08/17/16 06:00 Temperature 98.0 F Pulse Rate 76 Respiratory 18 Rate Blood Pressure 157/68 Laboratory Tests 08/17/16 08/17/16 06:25 06:25 WBC 8.2 RBC 3.92 L Hgb 11.4 L Hct 34.0 L MCV 86.6 MCHC 33.5 RDW 16.2 H Plt Count 160 Sodium 143 Potassium 3.8 Chloride 111 H Carbon Dioxide 25 Anion Gap 7 L BUN 29 H Creatinine 1.7 H Random Glucose 100 Calcium 7.6 L Phosphorus 2.8 D Magnesium 1.5 L Laboratory Tests P/E <> CONFUSED / IN NO DISTRESS. HEENT <> NECK SUPPLE / CAROTIDS 2 + COR <> S 1 S 2 NO M / NO GALLOPS. CHEST <> FEW SCATTERED RHONCHI AT BASES. ABD <> SOFT / NONTENDER NO DISTENTION EXT <> NO CALF TENDERNESS / NO STASIS EDEMA IMP <> BLADDER OUTLET OBSTRUCTION BPH LOC HTN HYPOTHYROIDISM DEMENTIA SSS / S/P PPM PLAN <> NEURO CONSULT FOR DEMENTIA / MEDICATION ADJUSTMENTS. LABS STABLE EXCEPT FOR LOW MG++ WILL REPLACE . MARTINEZ IN PLACE DRAINING CLEAR URINE. FOLLOWUP FOR TURP PENDING MS NAIMA .
[2016-08-17] MEDS ORDERED: MAGNESIUM SULF 50% (8.12 MEQ/2 ML-1 GM VIAL) IVPB ONE (07:48)
[2016-08-17] MEDS: ALPRAZolam 0.25 MG TABLET PO PRN ×2 (08:46→22:03)
[2016-08-17] MEDS: HEPARIN NA (PORCINE) 5,000 UNITS/ML 1ML VIAL SQ SCH ×2 (09:03→22:04)
[2016-08-17] MEDS: ISOSORBIDE MONONITRATE 30 MG TAB.SR.24H (FP) PO SCH (09:03)
[2016-08-17] MEDS: CARVEDILOL 25 MG TABLET (FP) PO SCH ×2 (09:03→22:03)
[2016-08-17] MEDS: hydrALAZINE HCL 25 MG TABLET (FP) PO SCH ×2 (09:03→22:03)
[2016-08-17] MEDS ORDERED: THIAMINE HCL IVPB ONE (14:30)
[2016-08-17] MEDS ORDERED: SODIUM CHLORIDE IVPB ONE (14:30)
--- NOTE | 2016-08-17 15:02 | PN ---
Progress Note, Physician History of Present Illness: Pt seen and examined at bedside. He remains confused. - Current Medication List Current Medications: Active Medications Acetaminophen (Tylenol -) 650 mg PO Q6H PRN PRN Reason: FEVER OR PAIN Last Admin: 08/15/16 21:34 Dose: 650 mg Alprazolam (Xanax -) 0.25 mg PO Q8H PRN PRN Reason: ANXIETY Last Admin: 08/17/16 08:46 Dose: 0.25 mg Carvedilol (Coreg -) 25 mg PO BID [facility] Last Admin: 08/17/16 09:03 Dose: 25 mg Haloperidol (Haldol Injection (Fast Acting) -) 2 mg IM Q4H PRN PRN Reason: AGITATION Last Admin: 08/16/16 13:58 Dose: 2 mg Heparin Sodium (Porcine) (Heparin -) 5,000 unit SQ BID [facility] Last Admin: 08/17/16 09:03 Dose: 5,000 unit Hydralazine HCl (Apresoline -) 25 mg PO BID [facility] Last Admin: 08/17/16 09:03 Dose: 25 mg Sodium Chloride (1/2 Normal Saline) 1,000 mls @ 50 mls/hr IV ASDIR [facility] Last Admin: 08/17/16 06:23 Dose: 50 mls/hr Thiamine HCl 250 mg/ Sodium (Chloride) 102.5 mls @ 102.5 mls/hr IVPB Q8H-IV [facility] Stop: 08/20/16 17:59 Thiamine HCl 250 mg/ Sodium (Chloride) 102.5 mls @ 102.5 mls/hr IVPB ONCE ONE Stop: 08/17/16 15:29 Isosorbide Mononitrate (Imdur -) 30 mg PO DAILY [facility] Last Admin: 08/17/16 09:03 Dose: 30 mg Levothyroxine Sodium (Synthroid -) 75 mcg PO DAILY@0700 [facility] Last Admin: 08/17/16 06:22 Dose: 75 mcg - Objective Vital Signs: Vital Signs Temperature 99 F 08/17/16 13:30 Pulse Rate 79 08/17/16 13:30 Respiratory Rate 16 08/17/16 13:30 Blood Pressure 105/42 08/17/16 13:30 O2 Sat by Pulse Oximetry (%) 96 08/17/16 09:00 Constitutional: Yes: Calm Eyes: Yes: Conjunctiva Clear HENT: Yes: Atraumatic Cardiovascular: Yes: S1, S2 Respiratory: Yes: CTA Bilaterally Gastrointestinal: Yes: Normal Bowel Sounds, Soft Genitourinary: Yes: Rivas Present Musculoskeletal: Yes: WNL Edema: No Neurological: Yes: Confusion Labs: CBC, BMP 08/17/16 06:25 08/17/16 06:25 INR, PTT INR 1.13 (0.82-1.09) 08/16/16 09:53 Problem List - Problems (1) Acute renal failure Code(s): N17.9 - ACUTE KIDNEY FAILURE, UNSPECIFIED Qualifiers: Acute renal failure type: unspecified Qualified Code(s): N17.9 - Acute kidney failure, unspecified (2) Altered mental status Code(s): R41.82 - ALTERED MENTAL STATUS, UNSPECIFIED Qualifiers: Altered mental status type: delirium Qualified Code(s): R41.0 - Disorientation, unspecified (3) Uremia Code(s): N19 - UNSPECIFIED KIDNEY FAILURE (4) Urine retention Code(s): R33.9 - RETENTION OF URINE, UNSPECIFIED (5) Hypertension Code(s): I10 - ESSENTIAL (PRIMARY) HYPERTENSION Assessment/Plan Current Medications Generic Name Dose Route Start Last Admin Trade Name Freq PRN Reason Stop Dose Admin Acetaminophen 650 mg 08/11/16 18:36 08/15/16 21:34 Tylenol - PO 650 mg Q6H PRN Administration FEVER OR PAIN Alprazolam 0.25 mg 08/15/16 08:02 08/17/16 08:46 Xanax - PO 0.25 mg Q8H PRN Administration ANXIETY Carvedilol 25 mg 08/11/16 22:00 08/17/16 09:03 Coreg - PO 25 mg BID [facility] Administration Haloperidol 2 mg 08/16/16 13:35 08/16/16 13:58 Haldol Injection (Fast Acting) - IM 2 mg Q4H PRN Administration AGITATION Heparin Sodium (Porcine) 5,000 unit 08/11/16 22:00 08/17/16 09:03 Heparin - SQ 5,000 unit BID [facility] Administration Hydralazine HCl 25 mg 08/11/16 22:00 08/17/16 09:03 Apresoline - PO 25 mg BID [facility] Administration Sodium Chloride 1,000 mls @ 50 mls/hr 08/15/16 15:43 08/17/16 06:23 1/2 Normal Saline IV 50 mls/hr ASDIR [facility] Administration Thiamine HCl 250 mg/ Sodium 102.5 mls @ 102.5 mls/hr 08/17/16 18:00 Chloride IVPB 08/20/16 17:59 Q8H-IV [facility] Thiamine HCl 250 mg/ Sodium 102.5 mls @ 102.5 mls/hr 08/17/16 14:30 Chloride IVPB 08/17/16 15:29 ONCE ONE Isosorbide Mononitrate 30 mg 08/12/16 10:00 08/17/16 09:03 Imdur - PO 30 mg DAILY [facility] Administration Levothyroxine Sodium 75 mcg 08/12/16 07:00 08/17/16 06:22 Synthroid - PO 75 mcg DAILY@0700 [facility] Administration Impression 1. LOC 2. obstructive uropathy 3. HTN 4. altered mental status 5. hypothyroidism 6. PPM 7. hyperlipidemia Plan - keep rivas in place - urology follow up - renal function is improving - cont with fluids - urine us clear - TURP this week - monitor blood pressure Dr Garza
[2016-08-17 16:05] LABS: THYROID STIMULATING HORMONE 6.5 uIU/ml (0.358-3.74)
[2016-08-17] MEDS: THIAMINE HCL IVPB SCH (17:33)
[2016-08-17] MEDS: SODIUM CHLORIDE IVPB SCH (17:33)
[2016-08-18] MEDS: SODIUM CHLORIDE IVPB SCH ×3 (01:04→18:27)
[2016-08-18] MEDS: THIAMINE HCL IVPB SCH ×3 (01:04→18:27)
[2016-08-18] MEDS: LEVOTHYROXINE NA 75 MCG TABLET (FP) PO SCH (06:17)
[2016-08-18 06:51] LABS: BASOPHIL 1.1 % (0-2.0); EOSINOPHIL 3.7 % (0-4.5); MCH 28.9 pg (25.7-33.7); MEAN CELL VOLUME 87.7 fl (80-96); MEAN PLT VOLUME 8.5 fl (7.5-11.1); NEUTROPHILS 62.2 % (42.8-82.8); PLATELET COUNT 156 K/MM3 (134-434); RDW 16.1 % (11.9-15.9)
[2016-08-18 07:20] LABS: ALBUMIN 2.7 g/dl (3.4-5.0); ANION GAP 9 (8-16); BILIRUBIN,TOTAL 0.3 mg/dL (0.2-1.0); CALCIUM 7.5 mg/dL (8.5-10.1); CO2 24 mmol/L (21-32); GLUCOSE,RANDOM 106 mg/dL (74-106); SGOT/AST 17 U/L (15-37); SGPT/ALT 20 U/L (12-78); TOT PROT 5.8 g/dl (6.4-8.2)
[2016-08-18 07:21] LABS: ALK PHOS 52 U/L (45-117)
[2016-08-18] MEDS: HEPARIN NA (PORCINE) 5,000 UNITS/ML 1ML VIAL SQ SCH ×2 (10:44→21:09)
[2016-08-18] MEDS: CARVEDILOL 25 MG TABLET (FP) PO SCH ×2 (10:45→21:09)
[2016-08-18] MEDS: ISOSORBIDE MONONITRATE 30 MG TAB.SR.24H (FP) PO SCH (10:45)
[2016-08-18] MEDS: hydrALAZINE HCL 25 MG TABLET (FP) PO SCH ×2 (10:45→21:09)
--- NOTE | 2016-08-18 13:12 | PN ---
Progress Note, Physician History of Present Illness: Pt seen and examined at bedside. He appears calmer today. - Current Medication List Current Medications: Active Medications Acetaminophen (Tylenol -) 650 mg PO Q6H PRN PRN Reason: FEVER OR PAIN Last Admin: 08/15/16 21:34 Dose: 650 mg Alprazolam (Xanax -) 0.25 mg PO Q8H PRN PRN Reason: ANXIETY Last Admin: 08/17/16 22:03 Dose: 0.25 mg Carvedilol (Coreg -) 25 mg PO BID [facility] Last Admin: 08/18/16 10:45 Dose: 25 mg Haloperidol (Haldol Injection (Fast Acting) -) 2 mg IM Q4H PRN PRN Reason: AGITATION Last Admin: 08/16/16 13:58 Dose: 2 mg Heparin Sodium (Porcine) (Heparin -) 5,000 unit SQ BID [facility] Last Admin: 08/18/16 10:44 Dose: 5,000 unit Hydralazine HCl (Apresoline -) 25 mg PO BID [facility] Last Admin: 08/18/16 10:45 Dose: 25 mg Sodium Chloride (1/2 Normal Saline) 1,000 mls @ 50 mls/hr IV ASDIR [facility] Last Admin: 08/17/16 15:45 Dose: Not Given Thiamine HCl 250 mg/ Sodium (Chloride) 102.5 mls @ 102.5 mls/hr IVPB Q8H-IV [facility] Stop: 08/20/16 17:59 Last Admin: 08/18/16 10:41 Dose: 102.5 mls/hr Isosorbide Mononitrate (Imdur -) 30 mg PO DAILY [facility] Last Admin: 08/18/16 10:45 Dose: 30 mg Levothyroxine Sodium (Synthroid -) 75 mcg PO DAILY@0700 [facility] Last Admin: 08/18/16 06:17 Dose: 75 mcg - Objective Vital Signs: Vital Signs Temperature 97.4 F L 08/18/16 06:00 Pulse Rate 75 08/18/16 06:00 Respiratory Rate 20 08/18/16 09:00 Blood Pressure 138/50 08/18/16 06:00 O2 Sat by Pulse Oximetry (%) 90 L 08/18/16 09:00 Constitutional: Yes: Calm Eyes: Yes: Conjunctiva Clear HENT: Yes: Atraumatic Neck: Yes: Supple Cardiovascular: Yes: S1, S2 Respiratory: Yes: CTA Bilaterally Gastrointestinal: Yes: Normal Bowel Sounds, Soft Genitourinary: Yes: Bernal Present Musculoskeletal: Yes: WNL Edema: No Neurological: Yes: Oriented Psychiatric: Yes: Oriented Labs: CBC, BMP 08/18/16 05:35 08/18/16 05:35 INR, PTT INR 1.13 (0.82-1.09) 08/16/16 09:53 Problem List - Problems (1) Acute renal failure Code(s): N17.9 - ACUTE KIDNEY FAILURE, UNSPECIFIED Qualifiers: Acute renal failure type: unspecified Qualified Code(s): N17.9 - Acute kidney failure, unspecified (2) Altered mental status Code(s): R41.82 - ALTERED MENTAL STATUS, UNSPECIFIED Qualifiers: Altered mental status type: delirium Qualified Code(s): R41.0 - Disorientation, unspecified (3) Uremia Code(s): N19 - UNSPECIFIED KIDNEY FAILURE (4) Urine retention Code(s): R33.9 - RETENTION OF URINE, UNSPECIFIED (5) Hypertension Code(s): I10 - ESSENTIAL (PRIMARY) HYPERTENSION Assessment/Plan Current Medications Generic Name Dose Route Start Last Admin Trade Name Freq PRN Reason Stop Dose Admin Acetaminophen 650 mg 08/11/16 18:36 08/15/16 21:34 Tylenol - PO 650 mg Q6H PRN Administration FEVER OR PAIN Alprazolam 0.25 mg 08/15/16 08:02 08/17/16 22:03 Xanax - PO 0.25 mg Q8H PRN Administration ANXIETY Carvedilol 25 mg 08/11/16 22:00 08/18/16 10:45 Coreg - PO 25 mg BID [facility] Administration Haloperidol 2 mg 08/16/16 13:35 08/16/16 13:58 Haldol Injection (Fast Acting) - IM 2 mg Q4H PRN Administration AGITATION Heparin Sodium (Porcine) 5,000 unit 08/11/16 22:00 08/18/16 10:44 Heparin - SQ 5,000 unit BID [facility] Administration Hydralazine HCl 25 mg 08/11/16 22:00 08/18/16 10:45 Apresoline - PO 25 mg BID [facility] Administration Sodium Chloride 1,000 mls @ 50 mls/hr 08/15/16 15:43 08/17/16 15:45 1/2 Normal Saline IV Not Given ASDIR [facility] Thiamine HCl 250 mg/ Sodium 102.5 mls @ 102.5 mls/hr 08/17/16 18:00 08/18/16 10 :41 Chloride IVPB 08/20/16 17:59 102.5 mls/hr Q8H-IV [facility] Administration Isosorbide Mononitrate 30 mg 08/12/16 10:00 08/18/16 10:45 Imdur - PO 30 mg DAILY [facility] Administration Levothyroxine Sodium 75 mcg 08/12/16 07:00 08/18/16 06:17 Synthroid - PO 75 mcg DAILY@0700 [facility] Administration Impression 1. LOC 2. obstructive uropathy 3. HTN 4. altered mental status 5. hypothyroidism 6. PPM 7. hyperlipidemia Plan - cont with fluids - repeat labs in am - neuro eval pending - urology follow up - urine us clear - TURP this week - monitor blood pressure Dr Garza
--- NOTE | 2016-08-18 13:47 | PN ---
Progress Note, Physician Chief Complaint: Mr Cunha is confused today but calmer. However unable to obtain subjective - Current Medication List Current Medications: Active Medications Acetaminophen (Tylenol -) 650 mg PO Q6H PRN PRN Reason: FEVER OR PAIN Last Admin: 08/15/16 21:34 Dose: 650 mg Alprazolam (Xanax -) 0.25 mg PO Q8H PRN PRN Reason: ANXIETY Last Admin: 08/17/16 22:03 Dose: 0.25 mg Carvedilol (Coreg -) 25 mg PO BID [facility] Last Admin: 08/18/16 10:45 Dose: 25 mg Haloperidol (Haldol Injection (Fast Acting) -) 2 mg IM Q4H PRN PRN Reason: AGITATION Last Admin: 08/16/16 13:58 Dose: 2 mg Heparin Sodium (Porcine) (Heparin -) 5,000 unit SQ BID [facility] Last Admin: 08/18/16 10:44 Dose: 5,000 unit Hydralazine HCl (Apresoline -) 25 mg PO BID [facility] Last Admin: 08/18/16 10:45 Dose: 25 mg Thiamine HCl 250 mg/ Sodium (Chloride) 102.5 mls @ 102.5 mls/hr IVPB Q8H-IV [facility] Stop: 08/20/16 17:59 Last Admin: 08/18/16 10:41 Dose: 102.5 mls/hr Sodium Chloride (1/2 Normal Saline) 1,000 mls @ 75 mls/hr IV ASDIR [facility] Isosorbide Mononitrate (Imdur -) 30 mg PO DAILY [facility] Last Admin: 08/18/16 10:45 Dose: 30 mg Levothyroxine Sodium (Synthroid -) 75 mcg PO DAILY@0700 [facility] Last Admin: 08/18/16 06:17 Dose: 75 mcg - Objective Vital Signs: Vital Signs Temperature 97.4 F L 08/18/16 06:00 Pulse Rate 75 08/18/16 06:00 Respiratory Rate 20 08/18/16 09:00 Blood Pressure 138/50 08/18/16 06:00 O2 Sat by Pulse Oximetry (%) 90 L 08/18/16 09:00 Constitutional: Yes: Well Nourished, No Distress, Calm Cardiovascular: Yes: Regular Rate and Rhythm. No: Gallop, Murmur, Rub Respiratory: Yes: Regular, CTA Bilaterally. No: Rales, Rhonchi, Wheezes Gastrointestinal: Yes: Normal Bowel Sounds, Soft. No: Distention, Tenderness Extremities: Yes: WNL Edema: No Labs: CBC, BMP 08/18/16 05:35 08/18/16 05:35 INR, PTT INR 1.13 (0.82-1.09) 08/16/16 09:53 Problem List - Problems (1) Acute renal failure Code(s): N17.9 - ACUTE KIDNEY FAILURE, UNSPECIFIED Qualifiers: Acute renal failure type: unspecified Qualified Code(s): N17.9 - Acute kidney failure, unspecified (2) Acute metabolic encephalopathy Code(s): G93.41 - METABOLIC ENCEPHALOPATHY (3) Hypertension Code(s): I10 - ESSENTIAL (PRIMARY) HYPERTENSION (4) Hypothyroid Code(s): E03.9 - HYPOTHYROIDISM, UNSPECIFIED (5) Dementia Code(s): F03.90 - UNSPECIFIED DEMENTIA WITHOUT BEHAVIORAL DISTURBANCE Assessment/Plan Problems (1) Acute renal failure Assessment/Plan: -renal function stable -rivas in place -will d/w family about intervention Code(s): N17.9 - ACUTE KIDNEY FAILURE, UNSPECIFIED Qualifiers: Acute renal failure type: unspecified Qualified Code(s): N17.9 - Acute kidney failure, unspecified (2) Acute metabolic encephalopathy Assessment/Plan: -improved today -awaiting neurology assistance Code(s): G93.41 - METABOLIC ENCEPHALOPATHY (3) Hypertension Assessment/Plan: -continue coreg and hydralazine Code(s): I10 - ESSENTIAL (PRIMARY) HYPERTENSION (4) Hypothyroid Assessment/Plan: -elevated TSH but normal FT4 -continue synthroid -endocrinology consulted Code(s): E03.9 - HYPOTHYROIDISM, UNSPECIFIED (5) Dementia Assessment/Plan: improved today but still confused Code(s): F03.90 - UNSPECIFIED DEMENTIA WITHOUT BEHAVIORAL DISTURBANCE
[2016-08-18] MEDS: SODIUM CHLORIDE 0.45% 1,000 ML IV SCH (14:59)
--- NOTE | 2016-08-18 18:31 | CONSULT ---
Consult - text type - Consultation Consultation Note: NEUROLOGY CONSULTATION is greatly appreciated: This 76 yo RH man lives with his daughter (?) and her family. PMH sig for Hypothyroidism, HTN, Chol, ASHD, S/P PPM. Maintained on L-Thyroxine, atorvastatin, carvedilol, hydralazine and isordil. Son-in-law described 1 year of progressive cognitive decline with increasing falls. Has not been able to medicate himself. Admitted with urinary obstruction (Bernal drained 1900 cc); Obstructive nephropathy (Cr/BUN= 7.6/103, and probable prostatic cancer (PSA= 25.3). CT of head (reviewed): Moderately severe, diffuse atrophy; ex vacuo hydrocephalus; and diffuse microvascular changes. TSH=6.5; T4=.99; J59=822; and RPR is neg. [place]: Restrained. No bruits. No evidence of head trauma. s/p PPM. Bernal in [place]. NEURO: Awake, alert, uncooperative. Speech fluent but confused. Does not know he is in the hospital, nor the month or year. Claims he lives with his father and grandfather. + Glabella, snout, suck. [id number]. Full lomeli to threat. Ful EOM's. Swallows H2O without difficulty. Moves all fours well and with apparently normal and symmetrical strength. Normal reflexes. Toes downgoing. No cogwheel rigidity. Withdraws all four to touch. IMP: Non-focal exam sig for moderately severe, B/L, Cerebral dysfunction (OMS, Chronic). Most c/w Alzheimers. Will worsen with toxic-metabolic encephalopathy such as infection, uremia , dehydration, hypothyroidism, etc. SUGGEST: Continue Rx for nephropathy, Prostatic CA, infection, hypothyroidism. Continue thiamine parenterally as ordered. When stable medically, begin Donepezil 5 mg after breakfast. If sedation is required, use quetiapine 12.5 mg q 8 hrs PRN agitation/insomnia (can gradually increase if necessary and tolerated). 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 Thank you very much, Camden Murguia MD
[2016-08-18] MEDS: POLYETHYLENE GLYCOL 3350 119 GM BTL PO SCH (21:08)
[2016-08-18] MEDS: DOCUSATE SODIUM 100 MG CAPSULE (FP) PO SCH (21:09)
[2016-08-19] MEDS: SODIUM CHLORIDE 0.45% 1,000 ML IV SCH ×3 (00:23→22:57)
[2016-08-19] MEDS: THIAMINE HCL IVPB SCH ×3 (01:21→18:41)
[2016-08-19] MEDS: SODIUM CHLORIDE IVPB SCH ×3 (01:21→18:41)
[2016-08-19] MEDS: ALPRAZolam 0.25 MG TABLET PO PRN (03:45)
[2016-08-19] MEDS: LEVOTHYROXINE NA 75 MCG TABLET (FP) PO SCH (06:14)
[2016-08-19 07:38] LABS: EOSINOPHIL 3.3 % (0-4.5); MCH 29.1 pg (25.7-33.7); MCHC 33.3 g/dl (32.0-35.9); MEAN CELL VOLUME 87.4 fl (80-96); MEAN PLT VOLUME 8.9 fl (7.5-11.1); NEUTROPHILS 65.8 % (42.8-82.8); PLATELET COUNT 164 K/MM3 (134-434); RDW 16.1 % (11.9-15.9); WHITE BLOOD COUNT 8.1 K/mm3 (4.0-10.0)
[2016-08-19 08:38] LABS: ANION GAP 9 (8-16); CALCIUM 7.7 mg/dL (8.5-10.1); CO2 23 mmol/L (21-32); CREATININE 1.8 mg/dL (0.7-1.3); GLUCOSE,RANDOM 108 mg/dL (74-106); MAGNESIUM 1.8 mg/dL (1.8-2.4); PHOSPHOROUS 2.9 mg/dL (2.5-4.9)
[2016-08-19] MEDS: CARVEDILOL 25 MG TABLET (FP) PO SCH ×2 (10:20→23:02)
[2016-08-19] MEDS: ISOSORBIDE MONONITRATE 30 MG TAB.SR.24H (FP) PO SCH (10:20)
[2016-08-19] MEDS: HEPARIN NA (PORCINE) 5,000 UNITS/ML 1ML VIAL SQ SCH ×2 (10:21→23:02)
[2016-08-19] MEDS: hydrALAZINE HCL 25 MG TABLET (FP) PO SCH ×2 (10:21→23:02)
[2016-08-19] MEDS: DOCUSATE SODIUM 100 MG CAPSULE (FP) PO SCH ×2 (10:21→23:02)
--- NOTE | 2016-08-19 12:30 | PN ---
Progress Note, Physician Chief Complaint: Mr Cunha remains confused but calm in bed. However RN says patient is very restless and continues to try to get up. Unable to obtain subjective, says there is candy all over the floor and he does not know how it got there. - Current Medication List Current Medications: Active Medications Acetaminophen (Tylenol -) 650 mg PO Q6H PRN PRN Reason: FEVER OR PAIN Last Admin: 08/15/16 21:34 Dose: 650 mg Alprazolam (Xanax -) 0.25 mg PO Q8H PRN PRN Reason: ANXIETY Last Admin: 08/19/16 03:45 Dose: 0.25 mg Carvedilol (Coreg -) 25 mg PO BID [facility] Last Admin: 08/19/16 10:20 Dose: 25 mg Docusate Sodium (Colace -) 100 mg PO BID [facility] Last Admin: 08/19/16 10:21 Dose: 100 mg Donepezil HCl (Aricept -) 5 mg PO DAILY [facility] Heparin Sodium (Porcine) (Heparin -) 5,000 unit SQ BID [facility] Last Admin: 08/19/16 10:21 Dose: 5,000 unit Hydralazine HCl (Apresoline -) 25 mg PO BID [facility] Last Admin: 08/19/16 10:21 Dose: 25 mg Thiamine HCl 250 mg/ Sodium (Chloride) 102.5 mls @ 102.5 mls/hr IVPB Q8H-IV [facility] Stop: 08/20/16 17:59 Last Admin: 08/19/16 10:20 Dose: 102.5 mls/hr Sodium Chloride (1/2 Normal Saline) 1,000 mls @ 75 mls/hr IV ASDIR [facility] Last Admin: 08/19/16 00:23 Dose: 75 mls/hr Isosorbide Mononitrate (Imdur -) 30 mg PO DAILY [facility] Last Admin: 08/19/16 10:20 Dose: 30 mg Levothyroxine Sodium (Synthroid -) 75 mcg PO DAILY@0700 [facility] Last Admin: 08/19/16 06:14 Dose: 75 mcg Polyethylene Glycol (Miralax (For Daily Use) -) 17 gm PO BID [facility] Last Admin: 08/18/16 21:08 Dose: 17 grams Quetiapine Fumarate (Seroquel -) 12.5 mg PO Q8H PRN PRN Reason: AGITATION - Objective Vital Signs: Vital Signs Temperature 98.4 F 08/19/16 07:26 Pulse Rate 70 08/19/16 07:26 Respiratory Rate 20 08/19/16 07:26 Blood Pressure 152/73 08/19/16 07:26 O2 Sat by Pulse Oximetry (%) 96 08/18/16 21:00 Constitutional: Yes: No Distress, Calm Cardiovascular: Yes: Regular Rate and Rhythm. No: Gallop, Murmur, Rub Respiratory: Yes: Regular, CTA Bilaterally. No: Rales, Rhonchi, Wheezes Gastrointestinal: Yes: Normal Bowel Sounds, Soft. No: Distention, Tenderness Extremities: Yes: WNL Edema: No Labs: CBC, BMP 08/19/16 06:10 08/19/16 06:00 INR, PTT INR 1.13 (0.82-1.09) 08/16/16 09:53 Problem List - Problems (1) Acute renal failure Code(s): N17.9 - ACUTE KIDNEY FAILURE, UNSPECIFIED Qualifiers: Acute renal failure type: unspecified Qualified Code(s): N17.9 - Acute kidney failure, unspecified (2) Acute metabolic encephalopathy Code(s): G93.41 - METABOLIC ENCEPHALOPATHY (3) Hypertension Code(s): I10 - ESSENTIAL (PRIMARY) HYPERTENSION (4) Hypothyroid Code(s): E03.9 - HYPOTHYROIDISM, UNSPECIFIED (5) Dementia Code(s): F03.90 - UNSPECIFIED DEMENTIA WITHOUT BEHAVIORAL DISTURBANCE Assessment/Plan Problems (1) Acute renal failure Assessment/Plan: -renal function stable -rivas in place -will benefit from TURP, secondary to obstruction -however patient is refusing intervention -if continues to decline, will have to discharge with rivas Code(s): N17.9 - ACUTE KIDNEY FAILURE, UNSPECIFIED Qualifiers: Acute renal failure type: unspecified Qualified Code(s): N17.9 - Acute kidney failure, unspecified (2) Acute metabolic encephalopathy Assessment/Plan: -suspect patient is at baseline and has significant dementia Code(s): G93.41 - METABOLIC ENCEPHALOPATHY (3) Hypertension Assessment/Plan: -continue coreg and hydralazine Code(s): I10 - ESSENTIAL (PRIMARY) HYPERTENSION (4) Hypothyroid Assessment/Plan: -elevated TSH but normal FT4 -continue synthroid -endocrinology consulted Code(s): E03.9 - HYPOTHYROIDISM, UNSPECIFIED (5) Dementia Assessment/Plan: -appreciate neurology assistance -start aricept -prn seroquel Code(s): F03.90 - UNSPECIFIED DEMENTIA WITHOUT BEHAVIORAL DISTURBANCE
[2016-08-19] MEDS: POLYETHYLENE GLYCOL 3350 119 GM BTL PO SCH ×2 (14:26→23:03)
[2016-08-19] MEDS: DONEPEZIL HCL 5 MG TABLET (FP) PO SCH (14:27)
[2016-08-19] MEDS: QUEtiapine FUMARATE 25 MG TABLET (FP) PO PRN (14:29)
--- NOTE | 2016-08-19 14:44 | PN ---
Progress Note, Physician History of Present Illness: Pt seen and examined. He remains confused. - Current Medication List Current Medications: Active Medications Acetaminophen (Tylenol -) 650 mg PO Q6H PRN PRN Reason: FEVER OR PAIN Last Admin: 08/15/16 21:34 Dose: 650 mg Alprazolam (Xanax -) 0.25 mg PO Q8H PRN PRN Reason: ANXIETY Last Admin: 08/19/16 03:45 Dose: 0.25 mg Carvedilol (Coreg -) 25 mg PO BID [facility] Last Admin: 08/19/16 10:20 Dose: 25 mg Docusate Sodium (Colace -) 100 mg PO BID [facility] Last Admin: 08/19/16 10:21 Dose: 100 mg Donepezil HCl (Aricept -) 5 mg PO DAILY [facility] Last Admin: 08/19/16 14:27 Dose: 5 mg Heparin Sodium (Porcine) (Heparin -) 5,000 unit SQ BID [facility] Last Admin: 08/19/16 10:21 Dose: 5,000 unit Hydralazine HCl (Apresoline -) 25 mg PO BID [facility] Last Admin: 08/19/16 10:21 Dose: 25 mg Thiamine HCl 250 mg/ Sodium (Chloride) 102.5 mls @ 102.5 mls/hr IVPB Q8H-IV [facility] Stop: 08/20/16 17:59 Last Admin: 08/19/16 10:20 Dose: 102.5 mls/hr Sodium Chloride (1/2 Normal Saline) 1,000 mls @ 75 mls/hr IV ASDIR [facility] Last Admin: 08/19/16 14:31 Dose: Not Given Isosorbide Mononitrate (Imdur -) 30 mg PO DAILY [facility] Last Admin: 08/19/16 10:20 Dose: 30 mg Levothyroxine Sodium (Synthroid -) 75 mcg PO DAILY@0700 [facility] Last Admin: 08/19/16 06:14 Dose: 75 mcg Polyethylene Glycol (Miralax (For Daily Use) -) 17 gm PO BID [facility] Last Admin: 08/19/16 14:26 Dose: Not Given Quetiapine Fumarate (Seroquel -) 12.5 mg PO Q8H PRN PRN Reason: AGITATION Last Admin: 08/19/16 14:29 Dose: 12.5 mg - Objective Vital Signs: Vital Signs Temperature 98.1 F 07/06/17 13:47 Pulse Rate 76 08/19/16 13:47 Respiratory Rate 17 08/19/16 13:47 Blood Pressure 156/75 08/19/16 13:47 O2 Sat by Pulse Oximetry (%) 96 08/19/16 09:00 Constitutional: Yes: Calm Eyes: Yes: Conjunctiva Clear HENT: Yes: Atraumatic Cardiovascular: Yes: S1, S2 Respiratory: Yes: CTA Bilaterally Gastrointestinal: Yes: Normal Bowel Sounds, Soft Genitourinary: Yes: Bernal Present Musculoskeletal: Yes: WNL Edema: No Neurological: Yes: Confusion Labs: CBC, BMP 08/19/16 06:10 08/19/16 06:00 INR, PTT INR 1.13 (0.82-1.09) 08/16/16 09:53 Problem List - Problems (1) Acute renal failure Code(s): N17.9 - ACUTE KIDNEY FAILURE, UNSPECIFIED Qualifiers: Acute renal failure type: unspecified Qualified Code(s): N17.9 - Acute kidney failure, unspecified (2) Altered mental status Code(s): R41.82 - ALTERED MENTAL STATUS, UNSPECIFIED Qualifiers: Altered mental status type: delirium Qualified Code(s): R41.0 - Disorientation, unspecified (3) Uremia Code(s): N19 - UNSPECIFIED KIDNEY FAILURE (4) Urine retention Code(s): R33.9 - RETENTION OF URINE, UNSPECIFIED (5) Hypertension Code(s): I10 - ESSENTIAL (PRIMARY) HYPERTENSION Assessment/Plan Current Medications Generic Name Dose Route Start Last Admin Trade Name Jeffrey PRN Reason Stop Dose Admin Acetaminophen 650 mg 08/11/16 18:36 08/15/16 21:34 Tylenol - PO 650 mg Q6H PRN Administration FEVER OR PAIN Alprazolam 0.25 mg 08/15/16 08:02 08/19/16 03:45 Xanax - PO 0.25 mg Q8H PRN Administration ANXIETY Carvedilol 25 mg 08/11/16 22:00 08/19/16 10:20 Coreg - PO 25 mg BID [facility] Administration Docusate Sodium 100 mg 08/18/16 22:00 08/19/16 10:21 Colace - PO 100 mg BID [facility] Administration Donepezil HCl 5 mg 08/19/16 12:30 08/19/16 14:27 Aricept - PO 5 mg DAILY [facility] Administration Heparin Sodium (Porcine) 5,000 unit 08/11/16 22:00 08/19/16 10:21 Heparin - SQ 5,000 unit BID [facility] Administration Hydralazine HCl 25 mg 08/11/16 22:00 08/19/16 10:21 Apresoline - PO 25 mg BID [facility] Administration Thiamine HCl 250 mg/ Sodium 102.5 mls @ 102.5 mls/hr 08/17/16 18:00 08/19/16 10 :20 Chloride IVPB 08/20/16 17:59 102.5 mls/hr Q8H-IV [facility] Administration Sodium Chloride 1,000 mls @ 75 mls/hr 08/18/16 13:12 08/19/16 14:31 1/2 Normal Saline IV Not Given ASDIR [facility] Isosorbide Mononitrate 30 mg 08/12/16 10:00 08/19/16 10:20 Imdur - PO 30 mg DAILY [facility] Administration Levothyroxine Sodium 75 mcg 08/12/16 07:00 08/19/16 06:14 Synthroid - PO 75 mcg DAILY@0700 [facility] Administration Polyethylene Glycol 17 gm 08/18/16 22:00 08/19/16 14:26 Miralax (For Daily Use) - PO Not Given BID [facility] Quetiapine Fumarate 12.5 mg 08/19/16 12:22 08/19/16 14:29 Seroquel - PO 12.5 mg Q8H PRN Administration AGITATION Impression 1. LOC 2. obstructive uropathy 3. HTN 4. altered mental status 5. hypothyroidism 6. PPM 7. hyperlipidemia Plan - renal function stabilizing - neuro input appreciated - urology follow up - possible TURP if pt/family agree - cont fluids - check bmp in am Dr Garza
[2016-08-19] MEDS ORDERED: risperiDONE 0.5 MG TABLET (FP) PO PRN (19:47)
[2016-08-19] MEDS ORDERED: risperiDONE 0.5 MG TABLET (FP) PO SCH (22:00)
[2016-08-20] MEDS: QUEtiapine FUMARATE 25 MG TABLET (FP) PO PRN ×2 (00:33→11:06)
[2016-08-20] MEDS: SODIUM CHLORIDE IVPB SCH ×2 (02:09→11:04)
[2016-08-20] MEDS: THIAMINE HCL IVPB SCH ×2 (02:09→11:04)
[2016-08-20] MEDS: ALPRAZolam 0.25 MG TABLET PO PRN ×2 (02:33→04:26)
[2016-08-20] MEDS: LEVOTHYROXINE NA 75 MCG TABLET (FP) PO SCH (06:05)
[2016-08-20 07:24] LABS: BASOPHIL 1.2 % (0-2.0); EOSINOPHIL 2.4 % (0-4.5); MCH 29.2 pg (25.7-33.7); MCHC 33.5 g/dl (32.0-35.9); MEAN CELL VOLUME 87.2 fl (80-96); MEAN PLT VOLUME 9.1 fl (7.5-11.1); NEUTROPHILS 74.4 % (42.8-82.8); PLATELET COUNT 191 K/MM3 (134-434); RDW 15.9 % (11.9-15.9); WHITE BLOOD COUNT 8.7 K/mm3 (4.0-10.0)
[2016-08-20 08:26] LABS: ANION GAP 11 (8-16); CALCIUM 8.5 mg/dL (8.5-10.1); CO2 22 mmol/L (21-32); CREATININE 1.6 mg/dL (0.7-1.3); GLUCOSE,RANDOM 98 mg/dL (74-106); MAGNESIUM 1.9 mg/dL (1.8-2.4); PHOSPHOROUS 3.2 mg/dL (2.5-4.9)
[2016-08-20] MEDS ORDERED: PT OWN MED DRAWER 7, Y5N ONE ×2 (10:35→13:19)
[2016-08-20] MEDS: DOCUSATE SODIUM 100 MG CAPSULE (FP) PO SCH ×2 (11:01→22:24)
[2016-08-20] MEDS: CARVEDILOL 25 MG TABLET (FP) PO SCH ×2 (11:01→22:24)
[2016-08-20] MEDS: ISOSORBIDE MONONITRATE 30 MG TAB.SR.24H (FP) PO SCH (11:01)
[2016-08-20] MEDS: DONEPEZIL HCL 5 MG TABLET (FP) PO SCH (11:01)
[2016-08-20] MEDS: hydrALAZINE HCL 25 MG TABLET (FP) PO SCH ×2 (11:01→22:24)
[2016-08-20] MEDS: HEPARIN NA (PORCINE) 5,000 UNITS/ML 1ML VIAL SQ SCH ×2 (11:02→21:30)
[2016-08-20] MEDS: POLYETHYLENE GLYCOL 3350 119 GM BTL PO SCH ×2 (11:02→21:33)
--- NOTE | 2016-08-20 12:15 | PN ---
Progress Note, Physician Chief Complaint: Unable to obtain, patient very confused - Current Medication List Current Medications: Active Medications Acetaminophen (Tylenol -) 650 mg PO Q6H PRN PRN Reason: FEVER OR PAIN Last Admin: 08/15/16 21:34 Dose: 650 mg Alprazolam (Xanax -) 0.25 mg PO Q8H PRN PRN Reason: ANXIETY Last Admin: 08/20/16 04:26 Dose: 0.25 mg Carvedilol (Coreg -) 25 mg PO BID [facility] Last Admin: 08/20/16 11:01 Dose: 25 mg Docusate Sodium (Colace -) 100 mg PO BID [facility] Last Admin: 08/20/16 11:01 Dose: 100 mg Donepezil HCl (Aricept -) 5 mg PO DAILY [facility] Last Admin: 08/20/16 11:01 Dose: 5 mg Heparin Sodium (Porcine) (Heparin -) 5,000 unit SQ BID [facility] Last Admin: 08/20/16 11:02 Dose: 5,000 unit Hydralazine HCl (Apresoline -) 25 mg PO BID [facility] Last Admin: 08/20/16 11:01 Dose: 25 mg Thiamine HCl 250 mg/ Sodium (Chloride) 102.5 mls @ 102.5 mls/hr IVPB Q8H-IV [facility] Stop: 08/20/16 17:59 Last Admin: 08/20/16 11:04 Dose: 102.5 mls/hr Sodium Chloride (1/2 Normal Saline) 1,000 mls @ 75 mls/hr IV ASDIR [facility] Last Admin: 08/19/16 22:57 Dose: 75 mls/hr Isosorbide Mononitrate (Imdur -) 30 mg PO DAILY [facility] Last Admin: 08/20/16 11:01 Dose: 30 mg Levothyroxine Sodium (Synthroid -) 75 mcg PO DAILY@0700 [facility] Last Admin: 08/20/16 06:05 Dose: 75 mcg Polyethylene Glycol (Miralax (For Daily Use) -) 17 gm PO BID [facility] Last Admin: 08/20/16 11:02 Dose: Not Given Quetiapine Fumarate (Seroquel -) 12.5 mg PO Q8H PRN PRN Reason: AGITATION Last Admin: 08/20/16 11:06 Dose: 12.5 mg Risperidone (Risperdal -) 0.5 mg PO HS [facility] Last Admin: 08/19/16 23:03 Dose: 0.5 mg Risperidone (Risperdal -) 0.5 mg PO Q6H PRN Last Admin: 08/20/16 11:02 Dose: 0.5 mg - Objective Vital Signs: Vital Signs Temperature 97.7 F 08/20/16 06:00 Pulse Rate 80 08/20/16 06:00 Respiratory Rate 20 08/20/16 06:00 Blood Pressure 184/79 08/20/16 06:00 O2 Sat by Pulse Oximetry (%) 96 08/19/16 21:00 Constitutional: Yes: Calm, Other (confused) Cardiovascular: Yes: Regular Rate and Rhythm. No: Gallop, Murmur, Rub Gastrointestinal: Yes: Normal Bowel Sounds, Soft. No: Distention, Tenderness Extremities: Yes: WNL Edema: No Labs: CBC, BMP 08/20/16 05:50 08/20/16 05:50 INR, PTT INR 1.13 (0.82-1.09) 08/16/16 09:53 Problem List - Problems (1) Acute renal failure Code(s): N17.9 - ACUTE KIDNEY FAILURE, UNSPECIFIED Qualifiers: Acute renal failure type: unspecified Qualified Code(s): N17.9 - Acute kidney failure, unspecified (2) Acute metabolic encephalopathy Code(s): G93.41 - METABOLIC ENCEPHALOPATHY (3) Hypertension Code(s): I10 - ESSENTIAL (PRIMARY) HYPERTENSION (4) Hypothyroid Code(s): E03.9 - HYPOTHYROIDISM, UNSPECIFIED (5) Dementia Code(s): F03.90 - UNSPECIFIED DEMENTIA WITHOUT BEHAVIORAL DISTURBANCE Assessment/Plan Problems (1) Acute renal failure Assessment/Plan: -renal function stable -rivas in place -will benefit from TURP, secondary to obstruction -however patient is refusing intervention -planning on discharge with rivas Code(s): N17.9 - ACUTE KIDNEY FAILURE, UNSPECIFIED Qualifiers: Acute renal failure type: unspecified Qualified Code(s): N17.9 - Acute kidney failure, unspecified (2) Acute metabolic encephalopathy Assessment/Plan: -suspect patient is at baseline and has significant dementia Code(s): G93.41 - METABOLIC ENCEPHALOPATHY (3) Hypertension Assessment/Plan: -continue coreg and hydralazine Code(s): I10 - ESSENTIAL (PRIMARY) HYPERTENSION (4) Hypothyroid Assessment/Plan: -elevated TSH but normal FT4 -continue synthroid Code(s): E03.9 - HYPOTHYROIDISM, UNSPECIFIED (5) Dementia Assessment/Plan: -appreciate neurology assistance -start aricept -prn seroquel -will consult psychiatry as well Code(s): F03.90 - UNSPECIFIED DEMENTIA WITHOUT BEHAVIORAL DISTURBANCE
[2016-08-20 13:53] LABS: URINE APPEARANCE CLOUDY; URINE BILIRUBIN NEGATIVE (NEGATIVE); URINE COLOR LTYELLOW; URINE GLUCOSE (UA) NEGATIVE (NEGATIVE); URINE KETONE NEGATIVE (NEGATIVE); URINE NITRITE POSITIVE (NEGATIVE); URINE PROTEIN NEGATIVE (NEGATIVE); URINE UROBILINOGEN NEGATIVE E.U./dl (0.2-1.0)
[2016-08-20 14:59] LABS: URINE BLOOD 2+ (NEGATIVE); URINE LEUK ESTERASE 3+ (NEGATIVE)
--- NOTE | 2016-08-20 15:03 | PN ---
Progress Note, Physician History of Present Illness: Pt seen and examined at bedside. He remains confused. - Current Medication List Current Medications: Active Medications Acetaminophen (Tylenol -) 650 mg PO Q6H PRN PRN Reason: FEVER OR PAIN Last Admin: 08/15/16 21:34 Dose: 650 mg Alprazolam (Xanax -) 0.25 mg PO Q8H PRN PRN Reason: ANXIETY Last Admin: 08/20/16 04:26 Dose: 0.25 mg Carvedilol (Coreg -) 25 mg PO BID [facility] Last Admin: 08/20/16 11:01 Dose: 25 mg Docusate Sodium (Colace -) 100 mg PO BID [facility] Last Admin: 08/20/16 11:01 Dose: 100 mg Donepezil HCl (Aricept -) 5 mg PO DAILY [facility] Last Admin: 08/20/16 11:01 Dose: 5 mg Heparin Sodium (Porcine) (Heparin -) 5,000 unit SQ BID [facility] Last Admin: 08/20/16 11:02 Dose: 5,000 unit Hydralazine HCl (Apresoline -) 25 mg PO BID [facility] Last Admin: 08/20/16 11:01 Dose: 25 mg Thiamine HCl 250 mg/ Sodium (Chloride) 102.5 mls @ 102.5 mls/hr IVPB Q8H-IV [facility] Stop: 08/20/16 17:59 Last Admin: 08/20/16 11:04 Dose: 102.5 mls/hr Sodium Chloride (1/2 Normal Saline) 1,000 mls @ 75 mls/hr IV ASDIR [facility] Last Admin: 08/19/16 22:57 Dose: 75 mls/hr Isosorbide Mononitrate (Imdur -) 30 mg PO DAILY [facility] Last Admin: 08/20/16 11:01 Dose: 30 mg Levothyroxine Sodium (Synthroid -) 75 mcg PO DAILY@0700 [facility] Last Admin: 08/20/16 06:05 Dose: 75 mcg Polyethylene Glycol (Miralax (For Daily Use) -) 17 gm PO BID [facility] Last Admin: 08/20/16 11:02 Dose: Not Given Quetiapine Fumarate (Seroquel -) 12.5 mg PO Q8H PRN PRN Reason: AGITATION Last Admin: 08/20/16 11:06 Dose: 12.5 mg Risperidone (Risperdal -) 0.5 mg PO HS [facility] Last Admin: 08/19/16 23:03 Dose: 0.5 mg Risperidone (Risperdal -) 0.5 mg PO Q6H PRN Last Admin: 08/20/16 11:02 Dose: 0.5 mg - Objective Vital Signs: Vital Signs Temperature 97.7 F 08/20/16 06:00 Pulse Rate 77 08/20/16 10:00 Respiratory Rate 20 08/20/16 10:00 Blood Pressure 173/78 08/20/16 10:00 O2 Sat by Pulse Oximetry (%) 96 08/19/16 21:00 Constitutional: Yes: Anxious Eyes: Yes: Conjunctiva Clear HENT: Yes: Atraumatic Cardiovascular: Yes: WNL Respiratory: Yes: Regular Genitourinary: Yes: Rivas Present Musculoskeletal: Yes: WNL Edema: No Neurological: Yes: Confusion Labs: CBC, BMP 08/20/16 05:50 08/20/16 05:50 INR, PTT INR 1.13 (0.82-1.09) 08/16/16 09:53 Problem List - Problems (1) Acute renal failure Code(s): N17.9 - ACUTE KIDNEY FAILURE, UNSPECIFIED Qualifiers: Acute renal failure type: unspecified Qualified Code(s): N17.9 - Acute kidney failure, unspecified (2) Altered mental status Code(s): R41.82 - ALTERED MENTAL STATUS, UNSPECIFIED Qualifiers: Altered mental status type: delirium Qualified Code(s): R41.0 - Disorientation, unspecified (3) Uremia Code(s): N19 - UNSPECIFIED KIDNEY FAILURE (4) Urine retention Code(s): R33.9 - RETENTION OF URINE, UNSPECIFIED (5) Hypertension Code(s): I10 - ESSENTIAL (PRIMARY) HYPERTENSION Assessment/Plan Current Medications Generic Name Dose Route Start Last Admin Trade Name Freq PRN Reason Stop Dose Admin Acetaminophen 650 mg 08/11/16 18:36 08/15/16 21:34 Tylenol - PO 650 mg Q6H PRN Administration FEVER OR PAIN Alprazolam 0.25 mg 08/15/16 08:02 08/20/16 04:26 Xanax - PO 0.25 mg Q8H PRN Administration ANXIETY Carvedilol 25 mg 08/11/16 22:00 08/20/16 11:01 Coreg - PO 25 mg BID [facility] Administration Docusate Sodium 100 mg 08/18/16 22:00 08/20/16 11:01 Colace - PO 100 mg BID [facility] Administration Donepezil HCl 5 mg 08/19/16 12:30 08/20/16 11:01 Aricept - PO 5 mg DAILY [facility] Administration Heparin Sodium (Porcine) 5,000 unit 08/11/16 22:00 08/20/16 11:02 Heparin - SQ 5,000 unit BID [facility] Administration Hydralazine HCl 25 mg 08/11/16 22:00 08/20/16 11:01 Apresoline - PO 25 mg BID [facility] Administration Thiamine HCl 250 mg/ Sodium 102.5 mls @ 102.5 mls/hr 08/17/16 18:00 08/20/16 11 :04 Chloride IVPB 08/20/16 17:59 102.5 mls/hr Q8H-IV [facility] Administration Sodium Chloride 1,000 mls @ 75 mls/hr 08/18/16 13:12 08/19/16 22:57 1/2 Normal Saline IV 75 mls/hr ASDIR [facility] Administration Isosorbide Mononitrate 30 mg 08/12/16 10:00 08/20/16 11:01 Imdur - PO 30 mg DAILY [facility] Administration Levothyroxine Sodium 75 mcg 08/12/16 07:00 08/20/16 06:05 Synthroid - PO 75 mcg DAILY@0700 [facility] Administration Polyethylene Glycol 17 gm 08/18/16 22:00 08/20/16 11:02 Miralax (For Daily Use) - PO Not Given BID [facility] Quetiapine Fumarate 12.5 mg 08/19/16 12:22 08/20/16 11:06 Seroquel - PO 12.5 mg Q8H PRN Administration AGITATION Risperidone 0.5 mg 08/19/16 22:00 08/19/16 23:03 Risperdal - PO 0.5 mg HS [facility] Administration Risperidone 0.5 mg 08/19/16 19:47 08/20/16 11:02 Risperdal - PO 0.5 mg Q6H PRN Administration Impression 1. LOC 2. obstructive uropathy 3. HTN 4. altered mental status 5. hypothyroidism 6. PPM 7. hyperlipidemia Plan - will decrease rate of fluids - maintain rivas - pt refusing TURP - discussed with medical team - check bmp in am Dr Garza
[2016-08-20 15:07] LABS: URINE BACTERIA MODERATE /hpf (NONE SEEN); URINE RBC 21 /hpf (0-3); URINE WBC 253 /hpf (3-5)
[2016-08-20] MEDS: CEFTRIAXONE 50 ML IVPB SCH (16:13)
[2016-08-20] MEDS: SODIUM CHLORIDE 0.45% 1,000 ML IV SCH (16:13)
--- NOTE | 2016-08-20 16:25 | CON.PSY ---
Psychiatry Consult Chief Complaint: agitation, Symptoms: reports: Impaired Concentration, Memory Impairment, Irritability, Disorganized/Disruptive Thoughts - Previous Psychiatric Treatment Outpatient: None Inpatient: None - Previous Substance Abuse Treatment Outpatient: None - Current Medications Current Medications: Active Medications Acetaminophen (Tylenol -) 650 mg PO Q6H PRN PRN Reason: FEVER OR PAIN Last Admin: 08/15/16 21:34 Dose: 650 mg Carvedilol (Coreg -) 25 mg PO BID [facility] Last Admin: 08/20/16 11:01 Dose: 25 mg Docusate Sodium (Colace -) 100 mg PO BID [facility] Last Admin: 08/20/16 11:01 Dose: 100 mg Heparin Sodium (Porcine) (Heparin -) 5,000 unit SQ BID [facility] Last Admin: 08/20/16 11:02 Dose: 5,000 unit Hydralazine HCl (Apresoline -) 25 mg PO BID [facility] Last Admin: 08/20/16 11:01 Dose: 25 mg Thiamine HCl 250 mg/ Sodium (Chloride) 102.5 mls @ 102.5 mls/hr IVPB Q8H-IV [facility] Stop: 08/20/16 17:59 Last Admin: 08/20/16 11:04 Dose: 102.5 mls/hr Sodium Chloride (1/2 Normal Saline) 1,000 mls @ 75 mls/hr IV ASDIR [facility] Last Admin: 08/20/16 16:13 Dose: 75 mls/hr Ceftriaxone Sodium (Rocephin 1gm Ivpb (Pre-Docked)) 50 mls @ 100 mls/hr IVPB DAILY [facility] Last Admin: 08/20/16 16:13 Dose: 100 mls/hr Isosorbide Mononitrate (Imdur -) 30 mg PO DAILY [facility] Last Admin: 08/20/16 11:01 Dose: 30 mg Levothyroxine Sodium (Synthroid -) 75 mcg PO DAILY@0700 [facility] Last Admin: 08/20/16 06:05 Dose: 75 mcg Polyethylene Glycol (Miralax (For Daily Use) -) 17 gm PO BID [facility] Last Admin: 08/20/16 11:02 Dose: Not Given Quetiapine Fumarate (Seroquel -) 50 mg PO BID [facility] - Allergies Allergies: Allergies Allergy/AdvReac Type Severity Reaction Status Date / Time No Known Allergies Allergy Verified 08/11/16 14:54 - Current Living Status Usual Living Arrangement: Alone - Current Mental Status Evaluation Appearance: Disheveled Attitude: Guarded - Affect Affect: Constrictive Appropriateness: Not Appropriate - Mood Mood: Irritable - Speech/Language Expressive: Delayed - Psychomotor Activity Psychomotor Activity: Hyperactive - Thought Process Thought Process: Circumstantial - Thought Content Hallucinations: Absent Delusions: Absent - Self Perception Self Perception: Depersonalization - Cognition Attention: Diminished Orientation: Time Memory, Immediate Recall: Impaired Memory, Short Term: 0/3 Memory, Remote with Promptin/3 - Concentration Serial Sevens Intact: No Simple Calculations Intact: No - Abstraction Proverb Interpretation: Impaired Judgement: Moderately Impaired - Insight Insight: Impaired - Impulse Control Impulse Control: Severly Impaired - Suicidal Ideation Suicidal Ideation: No - Homicidal Ideation Homicidal Ideation: No Assessment/Plan !0n Seroquel 50mg po bid Ativan prn
[2016-08-20] MEDS ORDERED: QUEtiapine FUMARATE 50 MG TABLET PO ONE (17:00)
[2016-08-20] MEDS: QUEtiapine FUMARATE 50 MG TABLET PO SCH (22:24)
[2016-08-21] MEDS: SODIUM CHLORIDE 0.45% 1,000 ML IV SCH ×2 (04:23→18:44)
[2016-08-21] MEDS: LEVOTHYROXINE NA 75 MCG TABLET (FP) PO SCH (07:00)
[2016-08-21 07:49] LABS: BASOPHIL 1.3 % (0-2.0); MCH 29.2 pg (25.7-33.7); MCHC 33.4 g/dl (32.0-35.9); MEAN CELL VOLUME 87.4 fl (80-96); MEAN PLT VOLUME 8.9 fl (7.5-11.1); NEUTROPHILS 62.5 % (42.8-82.8); PLATELET COUNT 194 K/MM3 (134-434); WHITE BLOOD COUNT 7.6 K/mm3 (4.0-10.0)
--- NOTE | 2016-08-21 07:57 | PN ---
Progress Note (short form) - Note Progress Note: PATIENT RESTING IN BED / LESS AGITATED . SEEN BY PSYCH <> ON SEROQUEL. FAMILY RELUCTANT TO CONSENT FOR TURP . SUSPECTED UTI / ON RECEPHIN. Laboratory Tests Selected Entries 08/20/16 08/21/16 22:00 06:00 Temperature 98 F Pulse Rate 66 Respiratory 20 Rate Blood Pressure 184/67 Laboratory Tests 08/20/16 08/20/16 05:50 05:50 WBC 8.7 RBC 4.00 Hgb 11.7 D Hct 34.9 L Plt Count 191 Sodium 144 Potassium 4.4 Chloride 111 H Carbon Dioxide 22 Anion Gap 11 BUN 33 H Creatinine 1.6 H Random Glucose 98 Calcium 8.5 Phosphorus 3.2 Magnesium 1.9 Laboratory Tests P/E <> AWAKE / LESS AGITATED. HEENT <> NECK SUPPLE / CAROTIDS 2 + COR <> S 1 S 2 NO M / NO GALLOPS. CHEST <> RHONCHI AT BASES. ABD <> SOFT / NONTENDER / NO REBOUND. EXT <> NO CALF TENDERNESS IMP <> UTI BLADDER OUTLET OBSTRUCTION BPH LOC HTN HYPOTHYROIDISM DEMENTIA ASHD SSS / S/P PPM PLAN <> SAME HTN / CARDIAC MEDS . PSYCH CONSULT APPRECIATED . CONTINUE SEROQUEL. CONTINUE I.V.ANTIBIOTICS WITH ROCEPHIN PENDING URINE CULTURE. CARDIOLOGY FOLLOWUP.
[2016-08-21 08:13] LABS: ANION GAP 9 (8-16); CALCIUM 8.6 mg/dL (8.5-10.1); CO2 25 mmol/L (21-32); CREATININE 1.7 mg/dL (0.7-1.3); GLUCOSE,RANDOM 77 mg/dL (74-106); PHOSPHOROUS 4.3 mg/dL (2.5-4.9)
[2016-08-21] MEDS ORDERED: PT OWN MED DRAWER 7, Y5N ONE (10:21)
--- NOTE | 2016-08-21 11:16 | PN ---
Progress Note (short form) - Note Progress Note: RENAL Pt is awake and alert confused, does not know his name Last Vital Signs Temp Pulse Resp BP Pulse Ox 98.3 F 75 20 183/76 96 08/21/16 10:47 08/21/16 10:47 08/21/16 10:47 08/21/16 10:47 08/20/16 21:00 lungs clear anteriorly cvs s1s2 rr abd soft ext no edema neuro confused CBC, BMP 08/21/16 06:30 08/21/16 06:30 Current Medications Generic Name Dose Route Start Last Admin Trade Name Freq PRN Reason Stop Dose Admin Acetaminophen 650 mg 08/11/16 18:36 08/15/16 21:34 Tylenol - PO 650 mg Q6H PRN Administration FEVER OR PAIN Carvedilol 25 mg 08/11/16 22:00 08/20/16 22:24 Coreg - PO Not Given BID [facility] Docusate Sodium 100 mg 08/18/16 22:00 08/20/16 22:24 Colace - PO Not Given BID [facility] Heparin Sodium (Porcine) 5,000 unit 08/11/16 22:00 08/20/16 21:30 Heparin - SQ 5,000 unit BID [facility] Administration Hydralazine HCl 25 mg 08/11/16 22:00 08/20/16 22:24 Apresoline - PO Not Given BID [facility]MAR Sodium Chloride 1,000 mls @ 75 mls/hr 08/18/16 13:12 08/21/16 04:23 1/2 Normal Saline IV 75 mls/hr ASDIR NEYMAR Administration Ceftriaxone Sodium 50 mls @ 100 mls/hr 08/20/16 15:30 08/20/16 16:13 Rocephin 1gm Ivpb (Pre-Docked) IVPB 100 mls/hr DAILY [facility] Administration Isosorbide Mononitrate 30 mg 08/12/16 10:00 08/20/16 11:01 Imdur - PO 30 mg DAILY [facility] Administration Levothyroxine Sodium 75 mcg 08/12/16 07:00 08/21/16 07:00 Synthroid - PO Not Given DAILY@0700 [facility] Lorazepam 1 mg 08/20/16 16:19 08/20/16 21:41 Ativan Injection - IM 1 mg BID PRN Administration ANXIETY Polyethylene Glycol 17 gm 08/18/16 22:00 08/20/16 21:33 Miralax (For Daily Use) - PO Not Given BID [facility] Quetiapine Fumarate 50 mg 08/20/16 22:00 08/20/16 22:24 Seroquel - PO Not Given BID [facility] Impression 1. LOC 2. obstructive uropathy 3. HTN 4. altered mental status 5. hypothyroidism 6. PPM 7. hyperlipidemia Plan continue current plan Is patient able to refuse TURP? Pt had no hydronephrosis on sono but did have an enlarged prostate, perhaps can do well with alpha blockers MV
[2016-08-21] MEDS: CEFTRIAXONE 50 ML IVPB SCH (11:39)
[2016-08-21] MEDS: HEPARIN NA (PORCINE) 5,000 UNITS/ML 1ML VIAL SQ SCH ×2 (11:40→22:06)
[2016-08-21] MEDS: ISOSORBIDE MONONITRATE 30 MG TAB.SR.24H (FP) PO SCH (11:40)
[2016-08-21] MEDS: CARVEDILOL 25 MG TABLET (FP) PO SCH ×2 (11:40→22:06)
[2016-08-21] MEDS: DOCUSATE SODIUM 100 MG CAPSULE (FP) PO SCH ×2 (11:40→22:06)
[2016-08-21] MEDS: QUEtiapine FUMARATE 50 MG TABLET PO SCH ×2 (11:40→22:06)
[2016-08-21] MEDS: hydrALAZINE HCL 25 MG TABLET (FP) PO SCH ×2 (11:40→22:06)
[2016-08-21] MEDS: POLYETHYLENE GLYCOL 3350 119 GM BTL PO SCH ×2 (11:52→22:17)
--- NOTE | 2016-08-21 17:14 | PN ---
Progress Note (short form) - Note Progress Note: Chief Complaint: preop History of Present Illness: hypertensive today. per nursing patient did not take cardiac meds last night. limited ros from patient, but appears comfortable. denies cp, palps. Remains on IVF. Current Medications Acetaminophen (Tylenol -) 650 mg PO Q6H PRN PRN Reason: FEVER OR PAIN Last Admin: 08/15/16 21:34 Dose: 650 mg Carvedilol (Coreg -) 25 mg PO BID [facility] Last Admin: 08/21/16 11:40 Dose: 25 mg Docusate Sodium (Colace -) 100 mg PO BID [facility] Last Admin: 08/21/16 11:40 Dose: 100 mg Heparin Sodium (Porcine) (Heparin -) 5,000 unit SQ BID [facility] Last Admin: 08/21/16 11:40 Dose: 5,000 unit Hydralazine HCl (Apresoline -) 25 mg PO BID [facility] Last Admin: 08/21/16 11:40 Dose: 25 mg Sodium Chloride (1/2 Normal Saline) 1,000 mls @ 75 mls/hr IV ASDIR [facility] Last Admin: 08/21/16 04:23 Dose: 75 mls/hr Ceftriaxone Sodium (Rocephin 1gm Ivpb (Pre-Docked)) 50 mls @ 100 mls/hr IVPB DAILY [facility] Last Admin: 08/21/16 11:39 Dose: 100 mls/hr Isosorbide Mononitrate (Imdur -) 30 mg PO DAILY [facility] Last Admin: 08/21/16 11:40 Dose: 30 mg Levothyroxine Sodium (Synthroid -) 75 mcg PO DAILY@0700 [facility] Last Admin: 08/21/16 07:00 Dose: Not Given Lorazepam (Ativan Injection -) 1 mg IM BID PRN PRN Reason: ANXIETY Last Admin: 08/20/16 21:41 Dose: 1 mg Polyethylene Glycol (Miralax (For Daily Use) -) 17 gm PO BID [facility] Last Admin: 08/21/16 11:52 Dose: 17 grams Quetiapine Fumarate (Seroquel -) 50 mg PO BID [facility] Last Admin: 08/21/16 11:40 Dose: 50 mg Vital Signs - 24 hr 08/20/16 08/20/16 08/20/16 18:00 21:00 22:00 Temperature 98.0 F 98 F Pulse Rate 80 83 Respiratory 20 20 20 Rate Blood Pressure 148/72 160/98 O2 Sat by Pulse 96 Oximetry (%) 08/21/16 08/21/16 08/21/16 06:00 10:47 14:15 Temperature 98.3 F 98.5 F Pulse Rate 66 75 83 Respiratory 20 20 20 Rate Blood Pressure 184/67 183/76 136/63 O2 Sat by Pulse Oximetry (%) Intake & Output 08/19/16 08/20/16 08/21/16 08/22/16 07:59 07:59 07:59 07:59 Intake Total 2260 1900 1750 485 Output Total 2650 3600 2700 500 Balance -390 -1700 -950 -15 Constitutional: Yes: Well Nourished, No Distress, Calm Cardiovascular: Yes: Regular Rate and Rhythm, S1, S2. No: Gallop, Murmur Respiratory: Yes: Regular, CTA Bilaterally (anteriorly (not deep breaths)). No : Accessory Muscle Use Extremities: No: Cold Edema: No Neurological: No: Alert, Oriented, Seizure Psychiatric: No: Agitated Labs: CBC, BMP 08/21/16 06:30 08/21/16 06:30 Assessment/Plan CXR: clear ECG: NSR; ? old ASMI previously seen; prior TWIs anterolateral leads now normalized echo 05/2014: mod reduced lvef, global hk, nl rv s/f, no sig valve path 76 yo with htn, hld, ckd, hypothyroid, icd (medtronic, dual chamber, battery change 05/2012), systolic chf (mod reduced lvef) p/w progressive confusion over the course of months and noted to have LOC/urinary retention. preop CV eval: -past CV history uncertain--no documented h/o CHF, CAD or CVA, pt not followed by us in office -RCRI appears to be 0 -unknown functional status -no signs or sx's of active ischemic or structural heart dz, no murmur on exam and no chf findings -he is at low estimated risk for periop CV complications from TURP, certainly no clinical predictors of high surgical risk -may proceed without further testing abnormal ECG: -nonspecific findings on 08/11 ecg vs prior (pseudonormalization of anterolateral T waves) -no sx's of ACS/angina -troponin negative--no further w/u indicated at present time systolic chf: - Echo shows moderately reduced lvef. Unclear if this is ICM vs NICM. Several times Dr. Whatley has discussed cad eval with stress test or cath but pt has consistently declined. - Not on diuretics as outpatient. Remains euvolemic despite IVF. - Continue coreg, hydralazine, imdur. He is not on titi/arb, spironolactone 2/2 ckd and hyperkalemia. CKD/LOC/acute urinary retention: - bline Cr ~ 2.0 -creat improving progressively s/p rivas -per HTN: -bp's variable, pt agitation episodes confounds -cont home regimen for now, observe trend. Today's (08/21) elevated pressures likely 2/2 having missed bp meds last night. HPL: -per ER med list pt on atorva at home, not receiving here -per outpt f/u with PMD h/o ICD: -up to date with office checks. routine outpt f/u rec'd hypothyroidism, TSH 6: -per pmd uti/obstruction - per pmd/renal/urology
[2016-08-22] MEDS: LEVOTHYROXINE NA 75 MCG TABLET (FP) PO SCH (06:09)
--- NOTE | 2016-08-22 08:20 | PN ---
Progress Note (short form) - Note Progress Note: PATIENT MORE AGITATED THIS MORNING. BP ELEVATED . SEEN BY PSYCHIATRY AND PLACED ON SEROQUEL. MARTINEZ IN PLACE / DRAINING CLEAR URINE. Selected Entries 08/22/16 06:00 Temperature 97.8 F Pulse Rate 80 Respiratory 20 Rate Blood Pressure 191/66 Laboratory Tests 08/21/16 08/21/16 06:30 06:30 WBC 7.6 RBC 4.40 Hgb 12.8 Hct 38.5 Plt Count 194 Sodium 143 Potassium 4.3 Chloride 109 H Carbon Dioxide 25 Anion Gap 9 BUN 34 H Creatinine 1.7 H Random Glucose 77 D Calcium 8.6 Phosphorus 4.3 D Magnesium 2.0 Laboratory Tests Laboratory Tests P/E <> AWAKE / AGITATED. HEENT <> NECK SUPPLE / CAROTIDS 2 + COR <> S 1 S 2 NO M / NO GALLOPS. CHEST <> CLEAR P & A ABD <> SOFT / NONTENDER / NO REBOUND. EXT <> NO CALF TENDERNESS IMP <> UTI BLADDER OUTLET OBSTRUCTION BPH LOC HTN HYPOTHYROIDISM DEMENTIA ASHD SSS / S/P PPM PLAN <> RECHECK BP WHEN LESS AGITATED. FOR NOW CONTINUE SAME MEDS . SEROQUEL PER PSYCHIATRY. I.V.ANTIBIOTICS WITH ROCEPHIN. URINE CULTURE PENDING.
[2016-08-22 09:21] LABS: ALBUMIN 3.4 g/dl (3.4-5.0); ANION GAP 11 (8-16); BILIRUBIN,TOTAL 0.7 mg/dL (0.2-1.0); CO2 26 mmol/L (21-32); CREATININE 1.7 mg/dL (0.7-1.3); GLUCOSE,RANDOM 122 mg/dL (74-106); SGOT/AST 50 U/L (15-37); SGPT/ALT 32 U/L (12-78); TOT PROT 7.2 g/dl (6.4-8.2)
[2016-08-22 09:22] LABS: ALK PHOS 62 U/L (45-117)
[2016-08-22] MEDS: DOCUSATE SODIUM 100 MG CAPSULE (FP) PO SCH ×2 (10:37→21:16)
[2016-08-22] MEDS: ISOSORBIDE MONONITRATE 30 MG TAB.SR.24H (FP) PO SCH (10:37)
[2016-08-22] MEDS: QUEtiapine FUMARATE 50 MG TABLET PO SCH ×2 (10:37→21:16)
[2016-08-22] MEDS: hydrALAZINE HCL 25 MG TABLET (FP) PO SCH ×2 (10:37→21:20)
[2016-08-22] MEDS: CEFTRIAXONE 50 ML IVPB SCH ×2 (10:38→12:31)
[2016-08-22] MEDS: HEPARIN NA (PORCINE) 5,000 UNITS/ML 1ML VIAL SQ SCH ×2 (10:38→21:15)
[2016-08-22] MEDS: CARVEDILOL 25 MG TABLET (FP) PO SCH ×2 (10:38→21:20)
--- NOTE | 2016-08-22 12:37 | PN ---
Progress Note (short form) - Note Progress Note: RENAL Pt is awake and alert confused, lungs clear anteriorly cvs s1s2 rr abd soft ext no edema neuro confused CBC, BMP 08/21/16 06:30 08/22/16 07:15 Current Medications Generic Name Dose Route Start Last Admin Trade Name Freq PRN Reason Stop Dose Admin Acetaminophen 650 mg 08/11/16 18:36 08/15/16 21:34 Tylenol - PO 650 mg Q6H PRN Administration FEVER OR PAIN Carvedilol 25 mg 08/11/16 22:00 08/22/16 10:38 Coreg - PO 25 mg BID [facility] Administration Docusate Sodium 100 mg 08/18/16 22:00 08/22/16 10:37 Colace - PO 100 mg BID [facility] Administration Heparin Sodium (Porcine) 5,000 unit 08/11/16 22:00 08/22/16 10:38 Heparin - SQ 5,000 unit BID [facility] Administration Hydralazine HCl 25 mg 08/11/16 22:00 08/22/16 10:37 Apresoline - PO 25 mg BID [facility] Administration Sodium Chloride 1,000 mls @ 75 mls/hr 08/18/16 13:12 08/21/16 18:44 1/2 Normal Saline IV 75 mls/hr ASDIR [facility] Administration Ceftriaxone Sodium 50 mls @ 100 mls/hr 08/20/16 15:30 08/22/16 12:31 Rocephin 1gm Ivpb (Pre-Docked) IVPB 100 mls/hr DAILY [facility] Administration Isosorbide Mononitrate 30 mg 08/12/16 10:00 08/22/16 10:37 Imdur - PO 30 mg DAILY [facility] Administration Levothyroxine Sodium 75 mcg 08/12/16 07:00 08/22/16 06:09 Synthroid - PO Not Given DAILY@0700 [facility] Lorazepam 1 mg 08/20/16 16:19 08/21/16 20:44 Ativan Injection - IM 1 mg BID PRN Administration ANXIETY Polyethylene Glycol 17 gm 08/18/16 22:00 08/21/16 22:17 Miralax (For Daily Use) - PO Not Given BID [facility] Quetiapine Fumarate 50 mg 08/20/16 22:00 08/22/16 10:37 Seroquel - PO 50 mg BID [facility] Administration Impression 1. LOC- non proteinuric 2. obstructive uropathy 3. HTN 4. altered mental status 5. hypothyroidism 6. PPM 7. hyperlipidemia Plan continue current plan start flomax MV
[2016-08-22] MEDS: TAMSULOSIN HCL 0.4 MG CAP.ER.24H (FP) PO ONE ×3 (14:29→18:31)
[2016-08-22] MEDS: POLYETHYLENE GLYCOL 3350 119 GM BTL PO SCH ×2 (14:33→21:16)
[2016-08-22] MEDS: SODIUM CHLORIDE 0.45% 1,000 ML IV SCH (16:00)
[2016-08-23] MEDS: SODIUM CHLORIDE 0.45% 1,000 ML IV SCH (05:46)
[2016-08-23] MEDS: LEVOTHYROXINE NA 75 MCG TABLET (FP) PO SCH (06:09)
[2016-08-23] MEDS: DOCUSATE SODIUM 100 MG CAPSULE (FP) PO SCH ×2 (10:04→21:51)
[2016-08-23] MEDS: ISOSORBIDE MONONITRATE 30 MG TAB.SR.24H (FP) PO SCH (10:04)
[2016-08-23] MEDS: hydrALAZINE HCL 25 MG TABLET (FP) PO SCH ×2 (10:04→21:51)
[2016-08-23] MEDS: CARVEDILOL 25 MG TABLET (FP) PO SCH ×2 (10:04→21:51)
[2016-08-23] MEDS: CEFTRIAXONE 50 ML IVPB SCH (10:05)
[2016-08-23] MEDS: HEPARIN NA (PORCINE) 5,000 UNITS/ML 1ML VIAL SQ SCH ×2 (10:05→21:52)
[2016-08-23] MEDS: QUEtiapine FUMARATE 50 MG TABLET PO SCH ×2 (10:05→21:54)
[2016-08-23] MEDS ORDERED: PT OWN MED DRAWER 7, Y5N ONE ×2 (10:07→20:42)
[2016-08-23] MEDS: POLYETHYLENE GLYCOL 3350 119 GM BTL PO SCH ×2 (10:10→21:54)
--- NOTE | 2016-08-23 12:24 | PN ---
Progress Note, Physician Chief Complaint: chf History of Present Illness: very sleepy, not rousable/communicative this am breathing at normal rate, appears comfortable - Current Medication List Current Medications: Active Medications Acetaminophen (Tylenol -) 650 mg PO Q6H PRN PRN Reason: FEVER OR PAIN Last Admin: 08/15/16 21:34 Dose: 650 mg Carvedilol (Coreg -) 25 mg PO BID [facility] Last Admin: 08/23/16 10:04 Dose: 25 mg Docusate Sodium (Colace -) 100 mg PO BID [facility] Last Admin: 08/23/16 10:04 Dose: 100 mg Heparin Sodium (Porcine) (Heparin -) 5,000 unit SQ BID [facility] Last Admin: 08/23/16 10:05 Dose: 5,000 unit Hydralazine HCl (Apresoline -) 25 mg PO BID [facility] Last Admin: 08/23/16 10:04 Dose: 25 mg Sodium Chloride (1/2 Normal Saline) 1,000 mls @ 75 mls/hr IV ASDIR [facility] Last Admin: 08/23/16 05:46 Dose: 75 mls/hr Ceftriaxone Sodium (Rocephin 1gm Ivpb (Pre-Docked)) 50 mls @ 100 mls/hr IVPB DAILY [facility] Last Admin: 08/23/16 10:05 Dose: 100 mls/hr Isosorbide Mononitrate (Imdur -) 30 mg PO DAILY [facility] Last Admin: 08/23/16 10:04 Dose: 30 mg Levothyroxine Sodium (Synthroid -) 75 mcg PO DAILY@0700 [facility] Last Admin: 08/23/16 06:09 Dose: Not Given Lorazepam (Ativan Injection -) 1 mg IM BID PRN PRN Reason: ANXIETY Last Admin: 08/23/16 10:26 Dose: 1 mg Polyethylene Glycol (Miralax (For Daily Use) -) 17 gm PO BID [facility] Last Admin: 08/23/16 10:10 Dose: 17 grams Quetiapine Fumarate (Seroquel -) 50 mg PO BID [facility] Last Admin: 08/23/16 10:05 Dose: 50 mg - Objective Vital Signs: Vital Signs Temperature 98.9 F 08/23/16 06:00 Pulse Rate 75 08/23/16 06:00 Respiratory Rate 20 08/23/16 09:00 Blood Pressure 147/72 08/23/16 06:00 O2 Sat by Pulse Oximetry (%) 95 08/23/16 09:00 Constitutional: Yes: Well Nourished, No Distress, Calm Cardiovascular: Yes: Regular Rate and Rhythm (decr intensity), S1, S2. No: JVD , Gallop, Murmur Respiratory: Yes: Regular, CTA Bilaterally (not deep breaths). No: Accessory Muscle Use Extremities: No: Cold Edema: No Neurological: No: Alert, Oriented Psychiatric: No: Agitated Labs: CBC, BMP 08/21/16 06:30 08/22/16 07:15 INR, PTT INR 1.13 (0.82-1.09) 08/16/16 09:53 Assessment/Plan CXR: clear Echo 08/30 (here): moderately decr'd LVSF (global); nl RV size; normal LA; mild AI ECG: NSR; ? old ASMI previously seen; prior TWIs anterolateral leads now normalized preop CV eval: -past CV history uncertain--no documented h/o CHF, CAD or CVA, pt not followed by us in office -RCRI appears to be 0 -unknown functional status -no signs or sx's of active ischemic or structural heart dz, no murmur on exam and no chf findings -he is at low estimated risk for periop CV complications from TURP, certainly no clinical predictors of high surgical risk -may proceed without further testing abnormal ECG: -nonspecific findings on 08/11 ecg vs prior (pseudonormalization of anterolateral T waves) -no sx's of ACS/angina -troponin negative--no further w/u indicated at present time chronic syst chf: -appears well-compensated, euvolemic -on coreg, hydral, nitrates as outpt--cont same LOC/acute urinary retention: -creat improving progressively s/p rivas -per /renal HTN: -bp's variable, pt agitation episodes confounds -overall mostly controlled here -same meds, observe trend HPL: -per ER med list pt on atorva at home, not receiving here -per outpt f/u with PMD h/o PPM: -? when/where last checked--routine outpt f/u rec'd hypothyroidism, TSH 6: -per pmd
--- NOTE | 2016-08-23 12:31 | PN ---
Progress Note, Physician Chief Complaint: Unable to obtain secondary to confusion but no longer agitated - Current Medication List Current Medications: Active Medications Acetaminophen (Tylenol -) 650 mg PO Q6H PRN PRN Reason: FEVER OR PAIN Last Admin: 08/15/16 21:34 Dose: 650 mg Carvedilol (Coreg -) 25 mg PO BID [facility] Last Admin: 08/23/16 10:04 Dose: 25 mg Docusate Sodium (Colace -) 100 mg PO BID [facility] Last Admin: 08/23/16 10:04 Dose: 100 mg Heparin Sodium (Porcine) (Heparin -) 5,000 unit SQ BID [facility] Last Admin: 08/23/16 10:05 Dose: 5,000 unit Hydralazine HCl (Apresoline -) 25 mg PO BID [facility] Last Admin: 08/23/16 10:04 Dose: 25 mg Sodium Chloride (1/2 Normal Saline) 1,000 mls @ 75 mls/hr IV ASDIR [facility] Last Admin: 08/23/16 05:46 Dose: 75 mls/hr Ceftriaxone Sodium (Rocephin 1gm Ivpb (Pre-Docked)) 50 mls @ 100 mls/hr IVPB DAILY [facility] Last Admin: 08/23/16 10:05 Dose: 100 mls/hr Isosorbide Mononitrate (Imdur -) 30 mg PO DAILY [facility] Last Admin: 08/23/16 10:04 Dose: 30 mg Levothyroxine Sodium (Synthroid -) 75 mcg PO DAILY@0700 [facility] Last Admin: 08/23/16 06:09 Dose: Not Given Lorazepam (Ativan Injection -) 1 mg IM BID PRN PRN Reason: ANXIETY Last Admin: 08/23/16 10:26 Dose: 1 mg Polyethylene Glycol (Miralax (For Daily Use) -) 17 gm PO BID [facility] Last Admin: 08/23/16 10:10 Dose: 17 grams Quetiapine Fumarate (Seroquel -) 50 mg PO BID [facility] Last Admin: 08/23/16 10:05 Dose: 50 mg - Objective Vital Signs: Vital Signs Temperature 98.9 F 08/23/16 06:00 Pulse Rate 75 08/23/16 06:00 Respiratory Rate 20 08/23/16 09:00 Blood Pressure 147/72 08/23/16 06:00 O2 Sat by Pulse Oximetry (%) 95 08/23/16 09:00 Constitutional: Yes: No Distress, Calm Cardiovascular: Yes: Regular Rate and Rhythm. No: Gallop, Murmur, Rub Respiratory: Yes: Regular, CTA Bilaterally. No: Rales, Rhonchi, Wheezes Gastrointestinal: Yes: Normal Bowel Sounds, Soft. No: Distention, Tenderness Extremities: Yes: WNL Edema: No Labs: CBC, BMP 08/21/16 06:30 08/22/16 07:15 INR, PTT INR 1.13 (0.82-1.09) 08/16/16 09:53 Problem List - Problems (1) Acute renal failure Code(s): N17.9 - ACUTE KIDNEY FAILURE, UNSPECIFIED Qualifiers: Acute renal failure type: unspecified Qualified Code(s): N17.9 - Acute kidney failure, unspecified (2) Acute metabolic encephalopathy Code(s): G93.41 - METABOLIC ENCEPHALOPATHY (3) Hypertension Code(s): I10 - ESSENTIAL (PRIMARY) HYPERTENSION (4) Hypothyroid Code(s): E03.9 - HYPOTHYROIDISM, UNSPECIFIED (5) Dementia Code(s): F03.90 - UNSPECIFIED DEMENTIA WITHOUT BEHAVIORAL DISTURBANCE Assessment/Plan Problems (1) Acute renal failure Assessment/Plan: -appreciate nephrology assistance -stable -continue IVF -monitor for improvement Code(s): N17.9 - ACUTE KIDNEY FAILURE, UNSPECIFIED Qualifiers: Acute renal failure type: unspecified Qualified Code(s): N17.9 - Acute kidney failure, unspecified (2) Acute metabolic encephalopathy Assessment/Plan: -suspect patient is at baseline and has significant dementia Code(s): G93.41 - METABOLIC ENCEPHALOPATHY (3) Hypertension Assessment/Plan: -continue coreg and hydralazine Code(s): I10 - ESSENTIAL (PRIMARY) HYPERTENSION (4) Hypothyroid Assessment/Plan: -elevated TSH but normal FT4 -continue synthroid Code(s): E03.9 - HYPOTHYROIDISM, UNSPECIFIED (5) Dementia Assessment/Plan: -appreciate neurology and psychiatry assistance -continue seroquel and aricept Code(s): F03.90 - UNSPECIFIED DEMENTIA WITHOUT BEHAVIORAL DISTURBANCE (6) E coli UTI -pansensitive -change rocephin to keflex dispo -possible discharge tomorrow
[2016-08-23] MEDS ORDERED: SODIUM CHLORIDE 0.45% 1,000 ML IV SCH (13:23)
--- NOTE | 2016-08-23 13:23 | PN ---
Progress Note, Physician History of Present Illness: Pt seen and examined at bedside. He remains confused. - Current Medication List Current Medications: Active Medications Acetaminophen (Tylenol -) 650 mg PO Q6H PRN PRN Reason: FEVER OR PAIN Last Admin: 08/15/16 21:34 Dose: 650 mg Carvedilol (Coreg -) 25 mg PO BID [facility] Last Admin: 08/23/16 10:04 Dose: 25 mg Cephalexin HCl (Keflex -) 500 mg PO BID [facility] Docusate Sodium (Colace -) 100 mg PO BID [facility] Last Admin: 08/23/16 10:04 Dose: 100 mg Heparin Sodium (Porcine) (Heparin -) 5,000 unit SQ BID [facility] Last Admin: 08/23/16 10:05 Dose: 5,000 unit Hydralazine HCl (Apresoline -) 25 mg PO BID [facility] Last Admin: 08/23/16 10:04 Dose: 25 mg Sodium Chloride (1/2 Normal Saline) 1,000 mls @ 75 mls/hr IV ASDIR [facility] Last Admin: 08/23/16 05:46 Dose: 75 mls/hr Isosorbide Mononitrate (Imdur -) 30 mg PO DAILY [facility] Last Admin: 08/23/16 10:04 Dose: 30 mg Levothyroxine Sodium (Synthroid -) 75 mcg PO DAILY@0700 [facility] Last Admin: 08/23/16 06:09 Dose: Not Given Lorazepam (Ativan Injection -) 1 mg IM BID PRN PRN Reason: ANXIETY Last Admin: 08/23/16 10:26 Dose: 1 mg Polyethylene Glycol (Miralax (For Daily Use) -) 17 gm PO BID [facility] Last Admin: 08/23/16 10:10 Dose: 17 grams Quetiapine Fumarate (Seroquel -) 50 mg PO BID [facility] Last Admin: 08/23/16 10:05 Dose: 50 mg - Objective Vital Signs: Vital Signs Temperature 97.5 F L 08/23/16 10:00 Pulse Rate 75 08/23/16 10:00 Respiratory Rate 18 08/23/16 10:00 Blood Pressure 117/61 08/23/16 10:00 O2 Sat by Pulse Oximetry (%) 95 08/23/16 09:00 Constitutional: Yes: Calm Eyes: Yes: Conjunctiva Clear HENT: Yes: Atraumatic Cardiovascular: Yes: S1, S2 Gastrointestinal: Yes: Soft Genitourinary: Yes: Rivas Present Edema: No Integumentary: Yes: WNL Neurological: Yes: Confusion Labs: CBC, BMP 08/21/16 06:30 08/22/16 07:15 INR, PTT INR 1.13 (0.82-1.09) 08/16/16 09:53 Problem List - Problems (1) Acute renal failure Code(s): N17.9 - ACUTE KIDNEY FAILURE, UNSPECIFIED Qualifiers: Qualified Code(s): N17.9 - Acute kidney failure, unspecified (2) Altered mental status Code(s): R41.82 - ALTERED MENTAL STATUS, UNSPECIFIED Qualifiers: Qualified Code(s): R41.0 - Disorientation, unspecified (3) Uremia Code(s): N19 - UNSPECIFIED KIDNEY FAILURE (4) Urine retention Code(s): R33.9 - RETENTION OF URINE, UNSPECIFIED (5) Hypertension Code(s): I10 - ESSENTIAL (PRIMARY) HYPERTENSION Assessment/Plan Current Medications Generic Name Dose Route Start Last Admin Trade Name Freq PRN Reason Stop Dose Admin Acetaminophen 650 mg 08/11/16 18:36 08/15/16 21:34 Tylenol - PO 650 mg Q6H PRN Administration FEVER OR PAIN Carvedilol 25 mg 08/11/16 22:00 08/23/16 10:04 Coreg - PO 25 mg BID [facility] Administration Cephalexin HCl 500 mg 08/23/16 22:00 Keflex - PO BID [facility] Docusate Sodium 100 mg 08/18/16 22:00 08/23/16 10:04 Colace - PO 100 mg BID [facility] Administration Heparin Sodium (Porcine) 5,000 unit 08/11/16 22:00 08/23/16 10:05 Heparin - SQ 5,000 unit BID [facility] Administration Hydralazine HCl 25 mg 08/11/16 22:00 08/23/16 10:04 Apresoline - PO 25 mg BID [facility] Administration Sodium Chloride 1,000 mls @ 75 mls/hr 08/18/16 13:12 08/23/16 05:46 1/2 Normal Saline IV 75 mls/hr ASDIR [facility] Administration Isosorbide Mononitrate 30 mg 08/12/16 10:00 08/23/16 10:04 Imdur - PO 30 mg DAILY [facility] Administration Levothyroxine Sodium 75 mcg 08/12/16 07:00 08/23/16 06:09 Synthroid - PO Not Given DAILY@0700 [facility] Lorazepam 1 mg 08/20/16 16:19 08/23/16 10:26 Ativan Injection - IM 1 mg BID PRN Administration ANXIETY Polyethylene Glycol 17 gm 08/18/16 22:00 08/23/16 10:10 Miralax (For Daily Use) - PO 17 grams BID [facility] Administration Quetiapine Fumarate 50 mg 08/20/16 22:00 08/23/16 10:05 Seroquel - PO 50 mg BID [facility] Administration Impression 1. LOC 2. obstructive uropathy 3. HTN 4. altered mental status 5. hypothyroidism 6. PPM 7. hyperlipidemia Plan - can decrease fluids further - monitor renal function - abx for UTI - rivas care - check bmp in am Dr Garza
[2016-08-23] MEDS: CEPHALEXIN MONOHYDRATE 500 MG CAPSULE (UD) PO SCH (21:53)
[2016-08-24] MEDS: LEVOTHYROXINE NA 75 MCG TABLET (FP) PO SCH (07:01)
[2016-08-24 08:25] LABS: BASOPHIL 0.2 % (0-2.0); EOSINOPHIL 3.5 % (0-4.5); MCH 28.6 pg (25.7-33.7); MCHC 32.8 g/dl (32.0-35.9); MEAN CELL VOLUME 87.2 fl (80-96); NEUTROPHILS 59.9 % (42.8-82.8); PLATELET COUNT 203 K/MM3 (134-434); RDW 16.1 % (11.9-15.9); WHITE BLOOD COUNT 6.9 K/mm3 (4.0-10.0)
[2016-08-24 08:50] LABS: ANION GAP 10 (8-16); CALCIUM 8.6 mg/dL (8.5-10.1); CO2 24 mmol/L (21-32); CREATININE 1.6 mg/dL (0.7-1.3); GLUCOSE,RANDOM 106 mg/dL (74-106); MAGNESIUM 2.1 mg/dL (1.8-2.4); PHOSPHOROUS 4.3 mg/dL (2.5-4.9)
[2016-08-24] MEDS: DOCUSATE SODIUM 100 MG CAPSULE (FP) PO SCH ×2 (11:01→22:11)
[2016-08-24] MEDS: CARVEDILOL 25 MG TABLET (FP) PO SCH ×2 (11:01→22:11)
[2016-08-24] MEDS: QUEtiapine FUMARATE 50 MG TABLET PO SCH ×3 (11:01→22:13)
[2016-08-24] MEDS: ISOSORBIDE MONONITRATE 30 MG TAB.SR.24H (FP) PO SCH (11:01)
[2016-08-24] MEDS: hydrALAZINE HCL 25 MG TABLET (FP) PO SCH ×2 (11:01→22:10)
[2016-08-24] MEDS: POLYETHYLENE GLYCOL 3350 119 GM BTL PO SCH ×2 (11:02→22:12)
[2016-08-24] MEDS: CEPHALEXIN MONOHYDRATE 500 MG CAPSULE (UD) PO SCH ×2 (11:02→22:12)
[2016-08-24] MEDS: HEPARIN NA (PORCINE) 5,000 UNITS/ML 1ML VIAL SQ SCH ×2 (11:02→22:11)
--- NOTE | 2016-08-24 12:35 | PN ---
Progress Note, Physician Chief Complaint: Unable to obtain secondary to confusion but patient calmer today. - Current Medication List Current Medications: Active Medications Acetaminophen (Tylenol -) 650 mg PO Q6H PRN PRN Reason: FEVER OR PAIN Last Admin: 08/15/16 21:34 Dose: 650 mg Carvedilol (Coreg -) 25 mg PO BID [facility] Last Admin: 08/24/16 11:01 Dose: 25 mg Cephalexin HCl (Keflex -) 500 mg PO BID [facility] Last Admin: 08/24/16 11:02 Dose: 500 mg Docusate Sodium (Colace -) 100 mg PO BID [facility] Last Admin: 08/24/16 11:01 Dose: 100 mg Heparin Sodium (Porcine) (Heparin -) 5,000 unit SQ BID [facility] Last Admin: 08/24/16 11:02 Dose: 5,000 unit Hydralazine HCl (Apresoline -) 25 mg PO BID [facility] Last Admin: 08/24/16 11:01 Dose: 25 mg Sodium Chloride (1/2 Normal Saline) 1,000 mls @ 42 mls/hr IV ASDIR [facility] Last Admin: 08/23/16 23:00 Dose: 42 mls/hr Isosorbide Mononitrate (Imdur -) 30 mg PO DAILY [facility] Last Admin: 08/24/16 11:01 Dose: 30 mg Levothyroxine Sodium (Synthroid -) 75 mcg PO DAILY@0700 [facility] Last Admin: 08/24/16 07:01 Dose: Not Given Lorazepam (Ativan -) 1 mg PO BID PRN PRN Reason: ANXIETY Polyethylene Glycol (Miralax (For Daily Use) -) 17 gm PO BID [facility] Last Admin: 08/24/16 11:02 Dose: 17 grams Quetiapine Fumarate (Seroquel -) 50 mg PO Q8H [facility] - Objective Vital Signs: Vital Signs Temperature 98.2 F 08/24/16 06:00 Pulse Rate 110 H 08/24/16 06:00 Respiratory Rate 20 08/24/16 06:00 Blood Pressure 155/68 08/24/16 06:00 O2 Sat by Pulse Oximetry (%) 92 L 08/23/16 21:00 Constitutional: Yes: No Distress Cardiovascular: Yes: Regular Rate and Rhythm. No: Gallop, Murmur, Rub Respiratory: Yes: Regular, CTA Bilaterally. No: Rales, Rhonchi, Wheezes Gastrointestinal: Yes: Normal Bowel Sounds, Soft. No: Distention, Tenderness Extremities: Yes: WNL Edema: No Labs: CBC, BMP 08/24/16 07:35 08/24/16 07:35 INR, PTT INR 1.13 (0.82-1.09) 08/16/16 09:53 Problem List - Problems (1) Acute renal failure Code(s): N17.9 - ACUTE KIDNEY FAILURE, UNSPECIFIED Qualifiers: Acute renal failure type: unspecified Qualified Code(s): N17.9 - Acute kidney failure, unspecified (2) Acute metabolic encephalopathy Code(s): G93.41 - METABOLIC ENCEPHALOPATHY (3) Hypertension Code(s): I10 - ESSENTIAL (PRIMARY) HYPERTENSION (4) Hypothyroid Code(s): E03.9 - HYPOTHYROIDISM, UNSPECIFIED (5) Dementia Code(s): F03.90 - UNSPECIFIED DEMENTIA WITHOUT BEHAVIORAL DISTURBANCE Assessment/Plan Problems (1) Acute renal failure Assessment/Plan: -case d/w nephrology -suspect at baseline -stop IVF -monitor renal function Code(s): N17.9 - ACUTE KIDNEY FAILURE, UNSPECIFIED Qualifiers: Acute renal failure type: unspecified Qualified Code(s): N17.9 - Acute kidney failure, unspecified (2) Acute metabolic encephalopathy Assessment/Plan: -suspect patient is at baseline and has significant dementia Code(s): G93.41 - METABOLIC ENCEPHALOPATHY (3) Hypertension Assessment/Plan: -continue coreg and hydralazine Code(s): I10 - ESSENTIAL (PRIMARY) HYPERTENSION (4) Hypothyroid Assessment/Plan: -elevated TSH but normal FT4 -continue synthroid Code(s): E03.9 - HYPOTHYROIDISM, UNSPECIFIED (5) Dementia Assessment/Plan: -appreciate neurology and psychiatry assistance -still with agitation -increase seroquel to 50mg q8h Code(s): F03.90 - UNSPECIFIED DEMENTIA WITHOUT BEHAVIORAL DISTURBANCE (6) E coli UTI -pansensitive -continue keflex -day 5 of antibiotics
--- NOTE | 2016-08-24 13:15 | PN ---
Progress Note, Physician History of Present Illness: Pt seen and examined at bedside. He remains confused. - Current Medication List Current Medications: Active Medications Acetaminophen (Tylenol -) 650 mg PO Q6H PRN PRN Reason: FEVER OR PAIN Last Admin: 08/15/16 21:34 Dose: 650 mg Carvedilol (Coreg -) 25 mg PO BID [facility] Last Admin: 08/24/16 11:01 Dose: 25 mg Cephalexin HCl (Keflex -) 500 mg PO BID [facility] Last Admin: 08/24/16 11:02 Dose: 500 mg Docusate Sodium (Colace -) 100 mg PO BID [facility] Last Admin: 08/24/16 11:01 Dose: 100 mg Heparin Sodium (Porcine) (Heparin -) 5,000 unit SQ BID [facility] Last Admin: 08/24/16 11:02 Dose: 5,000 unit Hydralazine HCl (Apresoline -) 25 mg PO BID [facility] Last Admin: 08/24/16 11:01 Dose: 25 mg Sodium Chloride (1/2 Normal Saline) 1,000 mls @ 42 mls/hr IV ASDIR [facility] Last Admin: 08/23/16 23:00 Dose: 42 mls/hr Isosorbide Mononitrate (Imdur -) 30 mg PO DAILY [facility] Last Admin: 08/24/16 11:01 Dose: 30 mg Levothyroxine Sodium (Synthroid -) 75 mcg PO DAILY@0700 [facility] Last Admin: 08/24/16 07:01 Dose: Not Given Lorazepam (Ativan -) 1 mg PO BID PRN PRN Reason: ANXIETY Polyethylene Glycol (Miralax (For Daily Use) -) 17 gm PO BID [facility] Last Admin: 08/24/16 11:02 Dose: 17 grams Quetiapine Fumarate (Seroquel -) 50 mg PO TID [facility] - Objective Vital Signs: Vital Signs Temperature 98.2 F 08/24/16 06:00 Pulse Rate 110 H 08/24/16 06:00 Respiratory Rate 20 08/24/16 06:00 Blood Pressure 155/68 08/24/16 06:00 O2 Sat by Pulse Oximetry (%) 92 L 08/23/16 21:00 Constitutional: Yes: Calm Eyes: Yes: Conjunctiva Clear HENT: Yes: Atraumatic Neck: Yes: Supple Cardiovascular: Yes: S1, S2 Respiratory: Yes: CTA Bilaterally Gastrointestinal: Yes: Normal Bowel Sounds, Soft Genitourinary: Yes: Rivas Present Musculoskeletal: Yes: WNL Edema: No Neurological: Yes: Confusion Labs: CBC, BMP 08/24/16 07:35 08/24/16 07:35 INR, PTT INR 1.13 (0.82-1.09) 08/16/16 09:53 Problem List - Problems (1) Acute renal failure Code(s): N17.9 - ACUTE KIDNEY FAILURE, UNSPECIFIED Qualifiers: Acute renal failure type: unspecified Qualified Code(s): N17.9 - Acute kidney failure, unspecified (2) Altered mental status Code(s): R41.82 - ALTERED MENTAL STATUS, UNSPECIFIED Qualifiers: Altered mental status type: delirium Qualified Code(s): R41.0 - Disorientation, unspecified (3) Uremia Code(s): N19 - UNSPECIFIED KIDNEY FAILURE (4) Urine retention Code(s): R33.9 - RETENTION OF URINE, UNSPECIFIED (5) Hypertension Code(s): I10 - ESSENTIAL (PRIMARY) HYPERTENSION Assessment/Plan Current Medications Generic Name Dose Route Start Last Admin Trade Name Freq PRN Reason Stop Dose Admin Acetaminophen 650 mg 08/11/16 18:36 08/15/16 21:34 Tylenol - PO 650 mg Q6H PRN Administration FEVER OR PAIN Carvedilol 25 mg 08/11/16 22:00 08/24/16 11:01 Coreg - PO 25 mg BID [facility]YMAR Administration Cephalexin HCl 500 mg 08/23/16 22:00 08/24/16 11:02 Keflex - PO 500 mg BID NEYMAR Administration Docusate Sodium 100 mg 08/18/16 22:00 08/24/16 11:01 Colace - PO 100 mg BID NEYMAR Administration Heparin Sodium (Porcine) 5,000 unit 08/11/16 22:00 08/24/16 11:02 Heparin - SQ 5,000 unit BID NEYMAR Administration Hydralazine HCl 25 mg 08/11/16 22:00 08/24/16 11:01 Apresoline - PO 25 mg BID NEYMAR Administration Sodium Chloride 1,000 mls @ 42 mls/hr 08/23/16 13:23 08/23/16 23:00 1/2 Normal Saline IV 42 mls/hr ASDIR NEYMAR Administration Isosorbide Mononitrate 30 mg 08/12/16 10:00 08/24/16 11:01 Imdur - PO 30 mg DAILY [facility]YMAR Administration Levothyroxine Sodium 75 mcg 08/12/16 07:00 08/24/16 07:01 Synthroid - PO Not Given DAILY@0700 NEYMAR Lorazepam 1 mg 08/24/16 12:31 Ativan - PO BID PRN ANXIETY Polyethylene Glycol 17 gm 08/18/16 22:00 08/24/16 11:02 Miralax (For Daily Use) - PO 17 grams BID [facility]YMAR Administration Quetiapine Fumarate 50 mg 08/24/16 14:00 Seroquel - PO TID NEYMAR Impression 1. LOC 2. obstructive uropathy 3. HTN 4. altered mental status 5. hypothyroidism 6. PPM 7. hyperlipidemia 8. urinary retention Plan - can stop fluids - monitor renal function - will follow PRN - discussed with medical attending - abx for UTI - rivas care Dr Garza
[2016-08-24] MEDS: SENNOSIDES 8.6MG TABLET (FP) PO SCH (22:13)
[2016-08-24] MEDS: LORazepam 1 MG TABLET PO PRN (22:14)
[2016-08-25] MEDS: LEVOTHYROXINE NA 75 MCG TABLET (FP) PO SCH ×2 (06:48→06:53)
[2016-08-25] MEDS: QUEtiapine FUMARATE 50 MG TABLET PO SCH ×4 (06:49→21:56)
[2016-08-25 07:40] LABS: BASOPHIL 1.3 % (0-2.0); EOSINOPHIL 1.7 % (0-4.5); MCH 29.1 pg (25.7-33.7); MCHC 33.1 g/dl (32.0-35.9); MEAN CELL VOLUME 87.7 fl (80-96); MEAN PLT VOLUME 8.6 fl (7.5-11.1); NEUTROPHILS 75.3 % (42.8-82.8); PLATELET COUNT 228 K/MM3 (134-434); RDW 16.2 % (11.9-15.9); WHITE BLOOD COUNT 8.7 K/mm3 (4.0-10.0)
[2016-08-25 08:17] LABS: ANION GAP 14 (8-16); CALCIUM 9.2 mg/dL (8.5-10.1); CO2 23 mmol/L (21-32); CREATININE 1.7 mg/dL (0.7-1.3); GLUCOSE,RANDOM 118 mg/dL (74-106); MAGNESIUM 2.3 mg/dL (1.8-2.4); PHOSPHOROUS 4.1 mg/dL (2.5-4.9)
--- NOTE | 2016-08-25 10:43 | PN ---
Progress Note, Physician Chief Complaint: Unable to obtain secondary to confusion, calm and slightly lethargic - Current Medication List Current Medications: Active Medications Acetaminophen (Tylenol -) 650 mg PO Q6H PRN PRN Reason: FEVER OR PAIN Last Admin: 08/15/16 21:34 Dose: 650 mg Carvedilol (Coreg -) 25 mg PO BID [facility] Last Admin: 08/24/16 22:11 Dose: 25 mg Cephalexin HCl (Keflex -) 500 mg PO BID [facility] Last Admin: 08/24/16 22:12 Dose: 500 mg Docusate Sodium (Colace -) 100 mg PO BID [facility] Last Admin: 08/24/16 22:11 Dose: Not Given Heparin Sodium (Porcine) (Heparin -) 5,000 unit SQ BID [facility] Last Admin: 08/24/16 22:11 Dose: 5,000 unit Hydralazine HCl (Apresoline -) 25 mg PO BID [facility] Last Admin: 08/24/16 22:10 Dose: 25 mg Isosorbide Mononitrate (Imdur -) 30 mg PO DAILY [facility] Last Admin: 08/24/16 11:01 Dose: 30 mg Levothyroxine Sodium (Synthroid -) 75 mcg PO DAILY@0700 [facility] Last Admin: 08/25/16 06:53 Dose: Not Given Lorazepam (Ativan -) 1 mg PO BID PRN PRN Reason: ANXIETY Last Admin: 08/24/16 22:14 Dose: 1 mg Polyethylene Glycol (Miralax (For Daily Use) -) 17 gm PO BID [facility] Last Admin: 08/24/16 22:12 Dose: 17 grams Quetiapine Fumarate (Seroquel -) 50 mg PO TID [facility] Last Admin: 08/25/16 06:53 Dose: Not Given Senna (Senna -) 1 tab PO BID [facility] Last Admin: 08/24/16 22:13 Dose: 1 tab - Objective Vital Signs: Vital Signs Temperature 97.7 F 08/25/16 06:00 Pulse Rate 91 H 08/25/16 06:00 Respiratory Rate 20 08/25/16 06:00 Blood Pressure 149/79 08/25/16 06:00 O2 Sat by Pulse Oximetry (%) 97 08/24/16 21:00 Constitutional: Yes: No Distress, Calm Cardiovascular: Yes: Regular Rate and Rhythm. No: Gallop, Murmur, Rub Respiratory: Yes: Regular, CTA Bilaterally. No: Rales, Rhonchi, Wheezes Gastrointestinal: Yes: Normal Bowel Sounds, Soft. No: Distention, Tenderness Extremities: Yes: WNL Edema: No Labs: CBC, BMP 08/25/16 06:15 08/25/16 06:15 INR, PTT INR 1.13 (0.82-1.09) 08/16/16 09:53 Problem List - Problems (1) Acute renal failure Code(s): N17.9 - ACUTE KIDNEY FAILURE, UNSPECIFIED Qualifiers: Acute renal failure type: unspecified Qualified Code(s): N17.9 - Acute kidney failure, unspecified (2) Acute metabolic encephalopathy Code(s): G93.41 - METABOLIC ENCEPHALOPATHY (3) Hypertension Code(s): I10 - ESSENTIAL (PRIMARY) HYPERTENSION (4) Hypothyroid Code(s): E03.9 - HYPOTHYROIDISM, UNSPECIFIED (5) Dementia Code(s): F03.90 - UNSPECIFIED DEMENTIA WITHOUT BEHAVIORAL DISTURBANCE Assessment/Plan Problems (1) Acute renal failure Assessment/Plan: -fluids stopped -suspect is at baseline -continue to monitor -will need rivas Code(s): N17.9 - ACUTE KIDNEY FAILURE, UNSPECIFIED Qualifiers: Acute renal failure type: unspecified Qualified Code(s): N17.9 - Acute kidney failure, unspecified (2) Acute metabolic encephalopathy Assessment/Plan: -suspect patient is at baseline and has significant dementia Code(s): G93.41 - METABOLIC ENCEPHALOPATHY (3) Hypertension Assessment/Plan: -continue coreg and hydralazine Code(s): I10 - ESSENTIAL (PRIMARY) HYPERTENSION (4) Hypothyroid Assessment/Plan: -elevated TSH but normal FT4 -continue synthroid Code(s): E03.9 - HYPOTHYROIDISM, UNSPECIFIED (5) Dementia Assessment/Plan: -more lethargic today -however seroquel increased yesterday -will monitor, suspect will adjust to higher dose Code(s): F03.90 - UNSPECIFIED DEMENTIA WITHOUT BEHAVIORAL DISTURBANCE (6) E coli UTI -pansensitive -continue keflex -day 6 of antibiotics
[2016-08-25] MEDS: DOCUSATE SODIUM 100 MG CAPSULE (FP) PO SCH ×2 (11:23→21:54)
[2016-08-25] MEDS: LORazepam 1 MG TABLET PO PRN (11:24)
[2016-08-25] MEDS: SENNOSIDES 8.6MG TABLET (FP) PO SCH ×2 (11:24→21:55)
[2016-08-25] MEDS: CARVEDILOL 25 MG TABLET (FP) PO SCH ×2 (11:25→21:54)
[2016-08-25] MEDS: ISOSORBIDE MONONITRATE 30 MG TAB.SR.24H (FP) PO SCH (11:25)
[2016-08-25] MEDS: CEPHALEXIN MONOHYDRATE 500 MG CAPSULE (UD) PO SCH ×2 (11:25→21:55)
[2016-08-25] MEDS: hydrALAZINE HCL 25 MG TABLET (FP) PO SCH ×2 (11:25→21:54)
[2016-08-25] MEDS: HEPARIN NA (PORCINE) 5,000 UNITS/ML 1ML VIAL SQ SCH ×3 (11:25→22:12)
[2016-08-25] MEDS: POLYETHYLENE GLYCOL 3350 119 GM BTL PO SCH ×2 (11:26→21:55)
[2016-08-26] MEDS: LEVOTHYROXINE NA 75 MCG TABLET (FP) PO SCH (06:10)
[2016-08-26] MEDS: QUEtiapine FUMARATE 50 MG TABLET PO SCH ×3 (06:10→21:12)
[2016-08-26 07:10] LABS: ANION GAP 11 (8-16); CALCIUM 9.1 mg/dL (8.5-10.1); CO2 24 mmol/L (21-32); CREATININE 2.1 mg/dL (0.7-1.3); GLUCOSE,RANDOM 149 mg/dL (74-106)
[2016-08-26] MEDS: SENNOSIDES 8.6MG TABLET (FP) PO SCH ×2 (09:03→21:12)
[2016-08-26] MEDS: CARVEDILOL 25 MG TABLET (FP) PO SCH ×2 (09:03→21:11)
[2016-08-26] MEDS: CEPHALEXIN MONOHYDRATE 500 MG CAPSULE (UD) PO SCH ×2 (09:03→21:12)
[2016-08-26] MEDS: hydrALAZINE HCL 25 MG TABLET (FP) PO SCH ×2 (09:03→21:11)
[2016-08-26] MEDS: ISOSORBIDE MONONITRATE 30 MG TAB.SR.24H (FP) PO SCH (09:03)
[2016-08-26] MEDS: DOCUSATE SODIUM 100 MG CAPSULE (FP) PO SCH ×2 (09:03→21:11)
[2016-08-26] MEDS: POLYETHYLENE GLYCOL 3350 119 GM BTL PO SCH ×2 (09:06→21:12)
[2016-08-26] MEDS: HEPARIN NA (PORCINE) 5,000 UNITS/ML 1ML VIAL SQ SCH ×2 (09:08→21:11)
--- NOTE | 2016-08-26 10:55 | PN ---
Progress Note, Physician Chief Complaint: Unable to obtain secondary to confusion, lethargic today but arousable - Current Medication List Current Medications: Active Medications Acetaminophen (Tylenol -) 650 mg PO Q6H PRN PRN Reason: FEVER OR PAIN Last Admin: 08/15/16 21:34 Dose: 650 mg Carvedilol (Coreg -) 25 mg PO BID [facility] Last Admin: 08/26/16 09:03 Dose: 25 mg Cephalexin HCl (Keflex -) 500 mg PO BID [facility] Last Admin: 08/26/16 09:03 Dose: 500 mg Docusate Sodium (Colace -) 100 mg PO BID [facility] Last Admin: 08/26/16 09:03 Dose: 100 mg Heparin Sodium (Porcine) (Heparin -) 5,000 unit SQ BID [facility] Last Admin: 08/26/16 09:08 Dose: 5,000 unit Hydralazine HCl (Apresoline -) 25 mg PO BID [facility] Last Admin: 08/26/16 09:03 Dose: 25 mg Isosorbide Mononitrate (Imdur -) 30 mg PO DAILY [facility] Last Admin: 08/26/16 09:03 Dose: 30 mg Levothyroxine Sodium (Synthroid -) 75 mcg PO DAILY@0700 [facility] Last Admin: 08/26/16 06:10 Dose: 75 mcg Lorazepam (Ativan -) 1 mg PO BID PRN PRN Reason: ANXIETY Last Admin: 08/25/16 11:24 Dose: 1 mg Polyethylene Glycol (Miralax (For Daily Use) -) 17 gm PO BID [facility] Last Admin: 08/26/16 09:06 Dose: 17 grams Quetiapine Fumarate (Seroquel -) 50 mg PO TID [facility] Last Admin: 08/26/16 06:10 Dose: 50 mg Senna (Senna -) 1 tab PO BID [facility] Last Admin: 08/26/16 09:03 Dose: 1 tab - Objective Vital Signs: Vital Signs Temperature 97.8 F 08/26/16 09:00 Pulse Rate 88 08/26/16 09:00 Respiratory Rate 20 08/26/16 09:00 Blood Pressure 142/68 08/26/16 09:00 O2 Sat by Pulse Oximetry (%) 97 08/25/16 21:00 Constitutional: Yes: Other (lethargic but arousable) Cardiovascular: Yes: Regular Rate and Rhythm. No: Gallop, Murmur, Rub Respiratory: Yes: Regular, CTA Bilaterally. No: Rales, Rhonchi, Wheezes Gastrointestinal: Yes: Normal Bowel Sounds, Soft. No: Distention, Tenderness Genitourinary: Yes: Bernal Present (with dark urine) Extremities: Yes: WNL Edema: No Labs: CBC, BMP 08/25/16 06:15 08/26/16 05:45 INR, PTT INR 1.13 (0.82-1.09) 08/16/16 09:53 Problem List - Problems (1) Acute renal failure Code(s): N17.9 - ACUTE KIDNEY FAILURE, UNSPECIFIED Qualifiers: Acute renal failure type: unspecified Qualified Code(s): N17.9 - Acute kidney failure, unspecified (2) Acute metabolic encephalopathy Code(s): G93.41 - METABOLIC ENCEPHALOPATHY (3) Hypertension Code(s): I10 - ESSENTIAL (PRIMARY) HYPERTENSION (4) Hypothyroid Code(s): E03.9 - HYPOTHYROIDISM, UNSPECIFIED (5) Dementia Code(s): F03.90 - UNSPECIFIED DEMENTIA WITHOUT BEHAVIORAL DISTURBANCE Assessment/Plan Problems (1) Acute renal failure Assessment/Plan: -creatinine increasing -also with dark urine -nephrology following, will discuss -may need IVF Code(s): N17.9 - ACUTE KIDNEY FAILURE, UNSPECIFIED Qualifiers: Acute renal failure type: unspecified Qualified Code(s): N17.9 - Acute kidney failure, unspecified (2) Acute metabolic encephalopathy Assessment/Plan: -suspect patient is at baseline and has significant dementia Code(s): G93.41 - METABOLIC ENCEPHALOPATHY (3) Hypertension Assessment/Plan: -continue coreg and hydralazine Code(s): I10 - ESSENTIAL (PRIMARY) HYPERTENSION (4) Hypothyroid Assessment/Plan: -elevated TSH but normal FT4 -continue synthroid Code(s): E03.9 - HYPOTHYROIDISM, UNSPECIFIED (5) Dementia Assessment/Plan: -continue current management Code(s): F03.90 - UNSPECIFIED DEMENTIA WITHOUT BEHAVIORAL DISTURBANCE (6) E coli UTI -pansensitive -continue keflex -day 7 of antibiotics
[2016-08-26] MEDS: LORazepam 1 MG TABLET PO PRN ×2 (11:53→23:08)
--- NOTE | 2016-08-26 15:23 | PN ---
Progress Note, Physician History of Present Illness: Pt seen and examined at bedside. Recalled as his creatinine is rising again. Pt is restless and constantly pulling at the rivas catheter. - Current Medication List Current Medications: Active Medications Acetaminophen (Tylenol -) 650 mg PO Q6H PRN PRN Reason: FEVER OR PAIN Last Admin: 08/15/16 21:34 Dose: 650 mg Carvedilol (Coreg -) 25 mg PO BID [facility] Last Admin: 08/26/16 09:03 Dose: 25 mg Cephalexin HCl (Keflex -) 500 mg PO BID [facility] Last Admin: 08/26/16 09:03 Dose: 500 mg Docusate Sodium (Colace -) 100 mg PO BID [facility] Last Admin: 08/26/16 09:03 Dose: 100 mg Heparin Sodium (Porcine) (Heparin -) 5,000 unit SQ BID [facility] Last Admin: 08/26/16 09:08 Dose: 5,000 unit Hydralazine HCl (Apresoline -) 25 mg PO BID [facility] Last Admin: 08/26/16 09:03 Dose: 25 mg Isosorbide Mononitrate (Imdur -) 30 mg PO DAILY [facility] Last Admin: 08/26/16 09:03 Dose: 30 mg Levothyroxine Sodium (Synthroid -) 75 mcg PO DAILY@0700 [facility] Last Admin: 08/26/16 06:10 Dose: 75 mcg Lorazepam (Ativan -) 1 mg PO BID PRN PRN Reason: ANXIETY Last Admin: 08/26/16 11:53 Dose: 1 mg Polyethylene Glycol (Miralax (For Daily Use) -) 17 gm PO BID [facility] Last Admin: 08/26/16 09:06 Dose: 17 grams Quetiapine Fumarate (Seroquel -) 50 mg PO TID [facility] Last Admin: 08/26/16 13:27 Dose: 50 mg Senna (Senna -) 1 tab PO BID [facility] Last Admin: 08/26/16 09:03 Dose: 1 tab - Objective Vital Signs: Vital Signs Temperature 98.0 F 08/26/16 14:56 Pulse Rate 83 08/26/16 14:56 Respiratory Rate 18 08/26/16 14:56 Blood Pressure 130/65 08/26/16 14:56 O2 Sat by Pulse Oximetry (%) 97 08/25/16 21:00 Constitutional: Yes: Anxious Eyes: Yes: Conjunctiva Clear HENT: Yes: Atraumatic Cardiovascular: Yes: S1, S2 Gastrointestinal: Yes: Normal Bowel Sounds, Soft Genitourinary: Yes: Rivas Present Musculoskeletal: Yes: WNL Edema: No Neurological: Yes: Confusion Labs: CBC, BMP 08/25/16 06:15 08/26/16 05:45 INR, PTT INR 1.13 (0.82-1.09) 08/16/16 09:53 Problem List - Problems (1) Acute renal failure Code(s): N17.9 - ACUTE KIDNEY FAILURE, UNSPECIFIED Qualifiers: Acute renal failure type: unspecified Qualified Code(s): N17.9 - Acute kidney failure, unspecified (2) Altered mental status Code(s): R41.82 - ALTERED MENTAL STATUS, UNSPECIFIED Qualifiers: Altered mental status type: delirium Qualified Code(s): R41.0 - Disorientation, unspecified (3) Uremia Code(s): N19 - UNSPECIFIED KIDNEY FAILURE (4) Urine retention Code(s): R33.9 - RETENTION OF URINE, UNSPECIFIED (5) Hypertension Code(s): I10 - ESSENTIAL (PRIMARY) HYPERTENSION Assessment/Plan Current Medications Generic Name Dose Route Start Last Admin Trade Name Freq PRN Reason Stop Dose Admin Acetaminophen 650 mg 08/11/16 18:36 08/15/16 21:34 Tylenol - PO 650 mg Q6H PRN Administration FEVER OR PAIN Carvedilol 25 mg 08/11/16 22:00 08/26/16 09:03 Coreg - PO 25 mg BID [facility]MAR Administration Cephalexin HCl 500 mg 08/23/16 22:00 08/26/16 09:03 Keflex - PO 500 mg BID [facility] Administration Docusate Sodium 100 mg 08/18/16 22:00 08/26/16 09:03 Colace - PO 100 mg BID [facility]MAR Administration Heparin Sodium (Porcine) 5,000 unit 08/11/16 22:00 08/26/16 09:08 Heparin - SQ 5,000 unit BID [facility] Administration Hydralazine HCl 25 mg 08/11/16 22:00 08/26/16 09:03 Apresoline - PO 25 mg BID [facility] Administration Isosorbide Mononitrate 30 mg 08/12/16 10:00 08/26/16 09:03 Imdur - PO 30 mg DAILY [facility] Administration Levothyroxine Sodium 75 mcg 08/12/16 07:00 08/26/16 06:10 Synthroid - PO 75 mcg DAILY@0700 [facility] Administration Lorazepam 1 mg 08/24/16 12:31 08/26/16 11:53 Ativan - PO 1 mg BID PRN Administration ANXIETY Polyethylene Glycol 17 gm 08/18/16 22:00 08/26/16 09:06 Miralax (For Daily Use) - PO 17 grams BID [facility] Administration Quetiapine Fumarate 50 mg 08/24/16 14:00 08/26/16 13:27 Seroquel - PO 50 mg TID [facility] Administration Senna 1 tab 08/24/16 22:00 08/26/16 09:03 Senna - PO 1 tab BID [facility] Administration Impression 1. LOC 2. obstructive uropathy 3. HTN 4. altered mental status 5. hypothyroidism 6. PPM 7. hyperlipidemia 8. urinary retention Plan - will restart fluids - pt appears hypovolemic - monitor urine output and color - discussed with medical attending today - repeat labs in am - abx for UTI - rivas care Dr Garza
[2016-08-26] MEDS: SODIUM CHLORIDE 0.45% 1,000 ML IV SCH (16:08)
[2016-08-26] MEDS ORDERED: risperiDONE 1 MG TABLET (FP) PO ONE (19:30)
[2016-08-27] MEDS: LEVOTHYROXINE NA 75 MCG TABLET (FP) PO SCH (06:46)
[2016-08-27] MEDS: QUEtiapine FUMARATE 50 MG TABLET PO SCH ×3 (06:46→21:28)
[2016-08-27 06:58] LABS: BASOPHIL 2.2 % (0-2.0); EOSINOPHIL 2.3 % (0-4.5); MCH 29.4 pg (25.7-33.7); MCHC 33.8 g/dl (32.0-35.9); MEAN CELL VOLUME 87.1 fl (80-96); MEAN PLT VOLUME 8.5 fl (7.5-11.1); NEUTROPHILS 61.3 % (42.8-82.8); PLATELET COUNT 206 K/MM3 (134-434); WHITE BLOOD COUNT 7.3 K/mm3 (4.0-10.0)
[2016-08-27 07:21] LABS: ANION GAP 11 (8-16); CALCIUM 8.8 mg/dL (8.5-10.1); CO2 24 mmol/L (21-32); CREATININE 2.1 mg/dL (0.7-1.3); GLUCOSE,RANDOM 95 mg/dL (74-106); MAGNESIUM 2.6 mg/dL (1.8-2.4); PHOSPHOROUS 4.7 mg/dL (2.5-4.9)
--- NOTE | 2016-08-27 12:00 | PN ---
Progress Note, Physician Chief Complaint: Unable to obtain secondary to confusion, lethargic but arousable - Current Medication List Current Medications: Active Medications Acetaminophen (Tylenol -) 650 mg PO Q6H PRN PRN Reason: FEVER OR PAIN Last Admin: 08/15/16 21:34 Dose: 650 mg Carvedilol (Coreg -) 25 mg PO BID [facility] Last Admin: 08/26/16 21:11 Dose: 25 mg Cephalexin HCl (Keflex -) 500 mg PO BID [facility] Last Admin: 08/26/16 21:12 Dose: 500 mg Docusate Sodium (Colace -) 100 mg PO BID [facility] Last Admin: 08/26/16 21:11 Dose: 100 mg Heparin Sodium (Porcine) (Heparin -) 5,000 unit SQ BID [facility] Last Admin: 08/26/16 21:11 Dose: 5,000 unit Hydralazine HCl (Apresoline -) 25 mg PO BID [facility] Last Admin: 08/26/16 21:11 Dose: 25 mg Sodium Chloride (1/2 Normal Saline) 1,000 mls @ 75 mls/hr IV ASDIR [facility] Last Admin: 08/26/16 16:08 Dose: 75 mls/hr Isosorbide Mononitrate (Imdur -) 30 mg PO DAILY [facility] Last Admin: 08/26/16 09:03 Dose: 30 mg Levothyroxine Sodium (Synthroid -) 75 mcg PO DAILY@0700 [facility] Last Admin: 08/27/16 06:46 Dose: 75 mcg Lorazepam (Ativan -) 1 mg PO BID PRN PRN Reason: ANXIETY Last Admin: 08/26/16 23:08 Dose: 1 mg Polyethylene Glycol (Miralax (For Daily Use) -) 17 gm PO BID [facility] Last Admin: 08/26/16 21:12 Dose: 75 grams Quetiapine Fumarate (Seroquel -) 50 mg PO TID [facility] Last Admin: 08/27/16 06:46 Dose: 50 mg Senna (Senna -) 1 tab PO BID [facility] Last Admin: 08/26/16 21:12 Dose: 1 tab - Objective Vital Signs: Vital Signs Temperature 97.9 F 08/27/16 06:00 Pulse Rate 85 08/27/16 06:00 Respiratory Rate 18 08/27/16 06:00 Blood Pressure 114/63 08/27/16 06:00 O2 Sat by Pulse Oximetry (%) 95 08/26/16 21:00 Constitutional: Yes: Well Nourished, No Distress, Calm Cardiovascular: Yes: Regular Rate and Rhythm. No: Gallop, Murmur, Rub Respiratory: Yes: Regular, CTA Bilaterally. No: Rales, Rhonchi, Wheezes Gastrointestinal: Yes: Normal Bowel Sounds, Soft. No: Distention, Tenderness Extremities: Yes: WNL Edema: No Labs: CBC, BMP 08/27/16 05:40 08/27/16 05:40 INR, PTT INR 1.13 (0.82-1.09) 08/16/16 09:53 Problem List - Problems (1) Acute renal failure Code(s): N17.9 - ACUTE KIDNEY FAILURE, UNSPECIFIED Qualifiers: Acute renal failure type: unspecified Qualified Code(s): N17.9 - Acute kidney failure, unspecified (2) Acute metabolic encephalopathy Code(s): G93.41 - METABOLIC ENCEPHALOPATHY (3) Hypertension Code(s): I10 - ESSENTIAL (PRIMARY) HYPERTENSION (4) Hypothyroid Code(s): E03.9 - HYPOTHYROIDISM, UNSPECIFIED (5) Dementia Code(s): F03.90 - UNSPECIFIED DEMENTIA WITHOUT BEHAVIORAL DISTURBANCE Assessment/Plan Problems (1) Acute renal failure Assessment/Plan: -creatinine stable -IVF started by nephrology -urine clear today -continue IVF and monitor Code(s): N17.9 - ACUTE KIDNEY FAILURE, UNSPECIFIED Qualifiers: Acute renal failure type: unspecified Qualified Code(s): N17.9 - Acute kidney failure, unspecified (2) Acute metabolic encephalopathy Assessment/Plan: -suspect patient is at baseline and has significant dementia Code(s): G93.41 - METABOLIC ENCEPHALOPATHY (3) Hypertension Assessment/Plan: -continue coreg and hydralazine Code(s): I10 - ESSENTIAL (PRIMARY) HYPERTENSION (4) Hypothyroid Assessment/Plan: -elevated TSH but normal FT4 -continue synthroid Code(s): E03.9 - HYPOTHYROIDISM, UNSPECIFIED (5) Dementia Assessment/Plan: -continue current management Code(s): F03.90 - UNSPECIFIED DEMENTIA WITHOUT BEHAVIORAL DISTURBANCE (6) E coli UTI -pansensitive -continue keflex -day 8/14 of antibiotics
[2016-08-27] MEDS: CEPHALEXIN MONOHYDRATE 500 MG CAPSULE (UD) PO SCH ×2 (12:58→22:49)
[2016-08-27] MEDS: HEPARIN NA (PORCINE) 5,000 UNITS/ML 1ML VIAL SQ SCH ×2 (12:59→22:50)
[2016-08-27] MEDS: DOCUSATE SODIUM 100 MG CAPSULE (FP) PO SCH ×2 (12:59→22:50)
[2016-08-27] MEDS: LORazepam 1 MG TABLET PO PRN ×2 (12:59→23:08)
[2016-08-27] MEDS: hydrALAZINE HCL 25 MG TABLET (FP) PO SCH ×2 (12:59→22:50)
[2016-08-27] MEDS: SENNOSIDES 8.6MG TABLET (FP) PO SCH ×2 (12:59→22:50)
[2016-08-27] MEDS: ISOSORBIDE MONONITRATE 30 MG TAB.SR.24H (FP) PO SCH (12:59)
[2016-08-27] MEDS: CARVEDILOL 25 MG TABLET (FP) PO SCH ×3 (12:59→23:28)
[2016-08-27] MEDS: POLYETHYLENE GLYCOL 3350 119 GM BTL PO SCH ×2 (13:00→22:50)
--- NOTE | 2016-08-27 15:10 | PN ---
Progress Note (short form) - Note Progress Note: RENAL Pt is awake and alert confused, Last Vital Signs Temp Pulse Resp BP Pulse Ox 97.8 F 84 16 112/59 95 08/27/16 14:38 08/27/16 14:38 08/27/16 14:38 08/27/16 14:38 08/26/16 21:00 lungs clear anteriorly cvs s1s2 rr abd soft ext no edema neuro confused CBC, BMP 08/27/16 05:40 08/27/16 05:40 Current Medications Generic Name Dose Route Start Last Admin Trade Name Freq PRN Reason Stop Dose Admin Acetaminophen 650 mg 08/11/16 18:36 08/15/16 21:34 Tylenol - PO 650 mg Q6H PRN Administration FEVER OR PAIN Carvedilol 25 mg 08/11/16 22:00 08/27/16 12:59 Coreg - PO 25 mg BID [facility]MAR Administration Cephalexin HCl 500 mg 08/23/16 22:00 08/27/16 12:58 Keflex - PO 500 mg BID [facility] Administration Docusate Sodium 100 mg 08/18/16 22:00 08/27/16 12:59 Colace - PO 100 mg BID [facility] Administration Heparin Sodium (Porcine) 5,000 unit 08/11/16 22:00 08/27/16 12:59 Heparin - SQ 5,000 unit BID [facility] Administration Hydralazine HCl 25 mg 08/11/16 22:00 08/27/16 12:59 Apresoline - PO 25 mg BID [facility] Administration Sodium Chloride 1,000 mls @ 75 mls/hr 08/26/16 15:30 08/26/16 16:08 1/2 Normal Saline IV 75 mls/hr ASDIR [facility]MAR Administration Isosorbide Mononitrate 30 mg 08/12/16 10:00 08/27/16 12:59 Imdur - PO 30 mg DAILY [facility] Administration Levothyroxine Sodium 75 mcg 08/12/16 07:00 08/27/16 06:46 Synthroid - PO 75 mcg DAILY@0700 [facility] Administration Lorazepam 1 mg 08/24/16 12:31 08/27/16 12:59 Ativan - PO 1 mg BID PRN Administration ANXIETY Polyethylene Glycol 17 gm 08/18/16 22:00 08/27/16 13:00 Miralax (For Daily Use) - PO 17 grams BID [facility] Administration Quetiapine Fumarate 50 mg 08/24/16 14:00 08/27/16 06:46 Seroquel - PO 50 mg TID [facility] Administration Senna 1 tab 08/24/16 22:00 08/27/16 12:59 Senna - PO 1 tab BID [facility] Administration Impression 1. LOC 2. obstructive uropathy 3. HTN 4. altered mental status 5. hypothyroidism 6. PPM 7. hyperlipidemia 8. urinary retention Plan -continue fluids - restart flomax- was only given once - monitor urine output and color - repeat labs in am - abx for UTI - rivas care [facility]
[2016-08-27] MEDS: SODIUM CHLORIDE 0.45% 1,000 ML IV SCH (17:53)
[2016-08-28] MEDS: QUEtiapine FUMARATE 50 MG TABLET PO SCH ×2 (05:41→13:58)
[2016-08-28] MEDS: LEVOTHYROXINE NA 75 MCG TABLET (FP) PO SCH (06:46)
[2016-08-28 07:21] LABS: BASOPHIL 2.1 % (0-2.0); EOSINOPHIL 2.9 % (0-4.5); MCH 29.4 pg (25.7-33.7); MCHC 33.9 g/dl (32.0-35.9); MEAN CELL VOLUME 86.7 fl (80-96); MEAN PLT VOLUME 8.2 fl (7.5-11.1); NEUTROPHILS 66.4 % (42.8-82.8); PLATELET COUNT 191 K/MM3 (134-434); RDW 15.9 % (11.9-15.9); WHITE BLOOD COUNT 6.8 K/mm3 (4.0-10.0)
[2016-08-28 07:50] LABS: ANION GAP 9 (8-16); CALCIUM 8.6 mg/dL (8.5-10.1); CO2 25 mmol/L (21-32); GLUCOSE,RANDOM 96 mg/dL (74-106); MAGNESIUM 2.2 mg/dL (1.8-2.4); PHOSPHOROUS 3.4 mg/dL (2.5-4.9)
[2016-08-28 07:51] LABS: CREATININE 1.8 mg/dL (0.7-1.3)
[2016-08-28] MEDS: LORazepam 1 MG TABLET PO PRN (08:58)
[2016-08-28] MEDS: ISOSORBIDE MONONITRATE 30 MG TAB.SR.24H (FP) PO SCH (08:59)
[2016-08-28] MEDS: CEPHALEXIN MONOHYDRATE 500 MG CAPSULE (UD) PO SCH (08:59)
[2016-08-28] MEDS: CARVEDILOL 25 MG TABLET (FP) PO SCH (08:59)
[2016-08-28] MEDS: SENNOSIDES 8.6MG TABLET (FP) PO SCH (08:59)
[2016-08-28] MEDS: HEPARIN NA (PORCINE) 5,000 UNITS/ML 1ML VIAL SQ SCH (08:59)
[2016-08-28] MEDS: hydrALAZINE HCL 25 MG TABLET (FP) PO SCH (08:59)
[2016-08-28] MEDS: TAMSULOSIN HCL 0.4 MG CAP.ER.24H (FP) PO SCH (08:59)
[2016-08-28] MEDS: POLYETHYLENE GLYCOL 3350 119 GM BTL PO SCH (09:00)
[2016-08-28] MEDS: DOCUSATE SODIUM 100 MG CAPSULE (FP) PO SCH (09:00)
[2016-08-28] MEDS: SODIUM CHLORIDE 0.45% 1,000 ML IV SCH (09:01)
--- NOTE | 2016-08-28 13:20 | PN ---
Progress Note, Physician History of Present Illness: Renal f/u Pt in no distress He was agitated previously and had pulled out the rivas since yesterday but it has been since reinserted as was the IV Pt eating poorly No N/V or diarrhea as per nurse - Current Medication List Current Medications: Active Medications Acetaminophen (Tylenol -) 650 mg PO Q6H PRN PRN Reason: FEVER OR PAIN Last Admin: 08/15/16 21:34 Dose: 650 mg Carvedilol (Coreg -) 25 mg PO BID [facility] Last Admin: 08/28/16 08:59 Dose: 25 mg Cephalexin HCl (Keflex -) 500 mg PO BID [facility] Last Admin: 08/28/16 08:59 Dose: 500 mg Docusate Sodium (Colace -) 100 mg PO BID [facility] Last Admin: 08/28/16 09:00 Dose: 100 mg Heparin Sodium (Porcine) (Heparin -) 5,000 unit SQ BID [facility] Last Admin: 08/28/16 08:59 Dose: 5,000 unit Hydralazine HCl (Apresoline -) 25 mg PO BID [facility] Last Admin: 08/28/16 08:59 Dose: 25 mg Sodium Chloride (1/2 Normal Saline) 1,000 mls @ 75 mls/hr IV ASDIR [facility] Last Admin: 08/28/16 09:01 Dose: 75 mls/hr Isosorbide Mononitrate (Imdur -) 30 mg PO DAILY [facility] Last Admin: 08/28/16 08:59 Dose: 30 mg Levothyroxine Sodium (Synthroid -) 75 mcg PO DAILY@0700 [facility] Last Admin: 08/28/16 06:46 Dose: 75 mcg Lorazepam (Ativan -) 1 mg PO BID PRN PRN Reason: ANXIETY Last Admin: 08/28/16 08:58 Dose: 1 mg Polyethylene Glycol (Miralax (For Daily Use) -) 17 gm PO BID [facility] Last Admin: 08/28/16 09:00 Dose: 17 grams Quetiapine Fumarate (Seroquel -) 50 mg PO TID [facility] Last Admin: 08/28/16 05:41 Dose: 50 mg Senna (Senna -) 1 tab PO BID [facility] Last Admin: 08/28/16 08:59 Dose: 1 tab Tamsulosin HCl (Flomax -) 0.4 mg PO DAILY@0830 [facility] Last Admin: 08/28/16 08:59 Dose: 0.4 mg - Objective Vital Signs: Vital Signs Temperature 97.9 F 08/28/16 06:00 Pulse Rate 80 08/28/16 10:00 Respiratory Rate 18 08/28/16 10:00 Blood Pressure 160/78 08/28/16 10:00 O2 Sat by Pulse Oximetry (%) 94 L 08/27/16 21:00 Constitutional: Yes: No Distress Cardiovascular: Yes: S1, S2 Respiratory: Yes: CTA Bilaterally Gastrointestinal: Yes: Soft. No: Tenderness, Rebound Edema: No Labs: CBC, BMP 08/28/16 06:00 08/28/16 06:00 INR, PTT INR 1.13 (0.82-1.09) 08/16/16 09:53 Assessment/Plan Impression 1. LOC resolving 2. Obstructive uropathy 3. HTN 4. Altered mental status 5. Hypothyroidism 6. PPM 7. Hyperlipidemia 8. UTI Plan Continue with fluids IV Abx Rivas Rpt labs Dr Luong
--- NOTE | 2016-08-28 15:21 | PN ---
Progress Note (short form) - Note Progress Note: Patient seen and examined. Confused. Not agitated. Afebrile. - Current Medication List Current Medications: Active Medications Acetaminophen (Tylenol -) 650 mg PO Q6H PRN PRN Reason: FEVER OR PAIN Last Admin: 08/15/16 21:34 Dose: 650 mg Carvedilol (Coreg -) 25 mg PO BID [facility] Last Admin: 08/26/16 21:11 Dose: 25 mg Cephalexin HCl (Keflex -) 500 mg PO BID [facility] Last Admin: 08/26/16 21:12 Dose: 500 mg Docusate Sodium (Colace -) 100 mg PO BID [facility] Last Admin: 08/26/16 21:11 Dose: 100 mg Heparin Sodium (Porcine) (Heparin -) 5,000 unit SQ BID [facility] Last Admin: 08/26/16 21:11 Dose: 5,000 unit Hydralazine HCl (Apresoline -) 25 mg PO BID [facility] Last Admin: 08/26/16 21:11 Dose: 25 mg Sodium Chloride (1/2 Normal Saline) 1,000 mls @ 75 mls/hr IV ASDIR [facility] Last Admin: 08/26/16 16:08 Dose: 75 mls/hr Isosorbide Mononitrate (Imdur -) 30 mg PO DAILY [facility] Last Admin: 08/26/16 09:03 Dose: 30 mg Levothyroxine Sodium (Synthroid -) 75 mcg PO DAILY@0700 [facility] Last Admin: 08/27/16 06:46 Dose: 75 mcg Lorazepam (Ativan -) 1 mg PO BID PRN PRN Reason: ANXIETY Last Admin: 08/26/16 23:08 Dose: 1 mg Polyethylene Glycol (Miralax (For Daily Use) -) 17 gm PO BID [facility] Last Admin: 08/26/16 21:12 Dose: 75 grams Quetiapine Fumarate (Seroquel -) 50 mg PO TID [facility] Last Admin: 08/27/16 06:46 Dose: 50 mg Senna (Senna -) 1 tab PO BID [facility] Last Admin: 08/26/16 21:12 Dose: 1 tab - Objective Vital Signs: Vital Signs Period Temp Pulse Resp BP Sys/Ro Pulse Ox Last 24 Hr 97.9 F-98.4 F 80-85 16-20 138-160/74-89 94-97 Constitutional: Yes: Well Nourished, No Distress, Calm Cardiovascular: Yes: Regular Rate and Rhythm. No: Gallop, Murmur, Rub Respiratory: Yes: Regular, CTA Bilaterally. No: Rales, Rhonchi, Wheezes Gastrointestinal: Yes: Normal Bowel Sounds, Soft. No: Distention, Tenderness Extremities: Yes: WNL Edema: No Labs: CBC, BMP 08/28/16 06:00 08/28/16 06:00 Problem List - Problems (1) Acute renal failure Code(s): N17.9 - ACUTE KIDNEY FAILURE, UNSPECIFIED Qualifiers: Acute renal failure type: unspecified Qualified Code(s): N17.9 - Acute kidney failure, unspecified (2) Acute metabolic encephalopathy Code(s): G93.41 - METABOLIC ENCEPHALOPATHY (3) Hypertension Code(s): I10 - ESSENTIAL (PRIMARY) HYPERTENSION (4) Hypothyroid Code(s): E03.9 - HYPOTHYROIDISM, UNSPECIFIED (5) Dementia Code(s): F03.90 - UNSPECIFIED DEMENTIA WITHOUT BEHAVIORAL DISTURBANCE Assessment/Plan Problems (1) Acute renal failure Assessment/Plan: -creatinine improved as compared to yesterday -Continue IV fluids. Code(s): N17.9 - ACUTE KIDNEY FAILURE, UNSPECIFIED Qualifiers: Acute renal failure type: unspecified Qualified Code(s): N17.9 - Acute kidney failure, unspecified (2) Acute metabolic encephalopathy Assessment/Plan: -suspect patient is at baseline and has significant dementia Code(s): G93.41 - METABOLIC ENCEPHALOPATHY (3) Hypertension Assessment/Plan: -continue coreg and hydralazine Code(s): I10 - ESSENTIAL (PRIMARY) HYPERTENSION (4) Hypothyroid Assessment/Plan: -elevated TSH but normal FT4 -continue synthroid Code(s): E03.9 - HYPOTHYROIDISM, UNSPECIFIED (5) Dementia Assessment/Plan: -continue current management Code(s): F03.90 - UNSPECIFIED DEMENTIA WITHOUT BEHAVIORAL DISTURBANCE (6) E coli UTI -pansensitive -continue keflex -day 9/14 of antibiotics
[2016-08-29] MEDS: SENNOSIDES 8.6MG TABLET (FP) PO SCH ×4 (02:41→21:46)
[2016-08-29] MEDS: CEPHALEXIN MONOHYDRATE 500 MG CAPSULE (UD) PO SCH ×4 (02:41→21:46)
[2016-08-29] MEDS: hydrALAZINE HCL 25 MG TABLET (FP) PO SCH ×4 (02:41→21:46)
[2016-08-29] MEDS: DOCUSATE SODIUM 100 MG CAPSULE (FP) PO SCH ×4 (02:41→21:46)
[2016-08-29] MEDS: HEPARIN NA (PORCINE) 5,000 UNITS/ML 1ML VIAL SQ SCH ×4 (02:41→21:46)
[2016-08-29] MEDS: POLYETHYLENE GLYCOL 3350 119 GM BTL PO SCH ×3 (02:41→21:26)
[2016-08-29] MEDS: CARVEDILOL 25 MG TABLET (FP) PO SCH ×4 (02:41→21:46)
[2016-08-29] MEDS: QUEtiapine FUMARATE 50 MG TABLET PO SCH ×4 (02:42→21:27)
[2016-08-29] MEDS: LEVOTHYROXINE NA 75 MCG TABLET (FP) PO SCH (06:01)
[2016-08-29 08:25] LABS: BASOPHIL 0.9 % (0-2.0); EOSINOPHIL 4.1 % (0-4.5); MCH 29.1 pg (25.7-33.7); MCHC 33.3 g/dl (32.0-35.9); MEAN CELL VOLUME 87.5 fl (80-96); MEAN PLT VOLUME 8.3 fl (7.5-11.1); NEUTROPHILS 63.7 % (42.8-82.8); PLATELET COUNT 185 K/MM3 (134-434); RDW 16.2 % (11.9-15.9); WHITE BLOOD COUNT 6.1 K/mm3 (4.0-10.0)
[2016-08-29 08:43] LABS: ALBUMIN 2.9 g/dl (3.4-5.0); ANION GAP 9 (8-16); BILIRUBIN,TOTAL 0.6 mg/dL (0.2-1.0); CALCIUM 8.8 mg/dL (8.5-10.1); CO2 24 mmol/L (21-32); CREATININE 1.7 mg/dL (0.7-1.3); GLUCOSE,RANDOM 83 mg/dL (74-106); SGOT/AST 18 U/L (15-37); SGPT/ALT 22 U/L (12-78); TOT PROT 6.3 g/dl (6.4-8.2)
[2016-08-29 08:44] LABS: ALK PHOS 57 U/L (45-117)
[2016-08-29] MEDS ORDERED: PT OWN MED DRAWER 7, Y5N ONE (10:19)
[2016-08-29] MEDS: SODIUM CHLORIDE 0.45% 1,000 ML IV SCH ×3 (10:27→21:21)
[2016-08-29] MEDS: ISOSORBIDE MONONITRATE 30 MG TAB.SR.24H (FP) PO SCH (10:28)
[2016-08-29] MEDS: TAMSULOSIN HCL 0.4 MG CAP.ER.24H (FP) PO SCH (10:28)
--- NOTE | 2016-08-29 12:29 | PN ---
Progress Note, Physician History of Present Illness: Renal f/u Pt remains n no distress Pt still eating poorly and has N/V or diarrhea - Current Medication List Current Medications: Active Medications Acetaminophen (Tylenol -) 650 mg PO Q6H PRN PRN Reason: FEVER OR PAIN Last Admin: 08/15/16 21:34 Dose: 650 mg Carvedilol (Coreg -) 25 mg PO BID [facility] Last Admin: 08/29/16 10:28 Dose: 25 mg Cephalexin HCl (Keflex -) 500 mg PO BID [facility] Last Admin: 08/29/16 10:28 Dose: 500 mg Docusate Sodium (Colace -) 100 mg PO BID [facility] Last Admin: 08/29/16 10:28 Dose: 100 mg Heparin Sodium (Porcine) (Heparin -) 5,000 unit SQ BID [facility] Last Admin: 08/29/16 10:29 Dose: 5,000 unit Hydralazine HCl (Apresoline -) 25 mg PO BID [facility] Last Admin: 08/29/16 10:28 Dose: 25 mg Sodium Chloride (1/2 Normal Saline) 1,000 mls @ 75 mls/hr IV ASDIR [facility] Last Admin: 08/29/16 10:27 Dose: 75 mls/hr Isosorbide Mononitrate (Imdur -) 30 mg PO DAILY [facility] Last Admin: 08/29/16 10:28 Dose: 30 mg Levothyroxine Sodium (Synthroid -) 75 mcg PO DAILY@0700 [facility] Last Admin: 08/29/16 06:01 Dose: 75 mcg Lorazepam (Ativan -) 1 mg PO BID PRN PRN Reason: ANXIETY Last Admin: 08/28/16 08:58 Dose: 1 mg Polyethylene Glycol (Miralax (For Daily Use) -) 17 gm PO BID [facility] Last Admin: 08/29/16 10:28 Dose: 17 grams Quetiapine Fumarate (Seroquel -) 50 mg PO TID [facility] Last Admin: 08/29/16 06:01 Dose: 50 mg Senna (Senna -) 1 tab PO BID [facility] Last Admin: 08/29/16 10:28 Dose: 1 tab Tamsulosin HCl (Flomax -) 0.4 mg PO DAILY@0830 [facility] Last Admin: 08/29/16 10:28 Dose: 0.4 mg - Objective Vital Signs: Vital Signs Temperature 97.5 F L 08/29/16 06:00 Pulse Rate 75 08/29/16 06:00 Respiratory Rate 18 08/29/16 06:00 Blood Pressure 156/73 08/29/16 06:00 O2 Sat by Pulse Oximetry (%) 97 08/28/16 09:00 Cardiovascular: Yes: S1, S2 Respiratory: Yes: CTA Bilaterally Gastrointestinal: Yes: Soft. No: Tenderness, Rebound Edema: No Labs: CBC, BMP 08/29/16 07:30 08/29/16 07:30 INR, PTT INR 1.13 (0.82-1.09) 08/16/16 09:53 Assessment/Plan Impression 1. LOC resolving 2. Obstructive uropathy 3. HTN 4. Altered mental status 5. Hypothyroidism 6. PPM 7. Hyperlipidemia 8. UTI Plan Continue with present fluids IV Abx Bernal to gravity Rpt labs in am Dr Luong
--- NOTE | 2016-08-29 14:24 | PN ---
Progress Note (short form) - Note Progress Note: Patient seen and examined. Confused but improved mental status as compared to yesterday. Calm not agitated. Afebrile. Denies chest pain, shortness of breath. - Current Medication List Current Medications: Active Medications Acetaminophen (Tylenol -) 650 mg PO Q6H PRN PRN Reason: FEVER OR PAIN Last Admin: 08/15/16 21:34 Dose: 650 mg Carvedilol (Coreg -) 25 mg PO BID [facility] Last Admin: 08/26/16 21:11 Dose: 25 mg Cephalexin HCl (Keflex -) 500 mg PO BID [facility] Last Admin: 08/26/16 21:12 Dose: 500 mg Docusate Sodium (Colace -) 100 mg PO BID [facility] Last Admin: 08/26/16 21:11 Dose: 100 mg Heparin Sodium (Porcine) (Heparin -) 5,000 unit SQ BID [facility] Last Admin: 08/26/16 21:11 Dose: 5,000 unit Hydralazine HCl (Apresoline -) 25 mg PO BID [facility] Last Admin: 08/26/16 21:11 Dose: 25 mg Sodium Chloride (1/2 Normal Saline) 1,000 mls @ 75 mls/hr IV ASDIR [facility] Last Admin: 08/26/16 16:08 Dose: 75 mls/hr Isosorbide Mononitrate (Imdur -) 30 mg PO DAILY [facility] Last Admin: 08/26/16 09:03 Dose: 30 mg Levothyroxine Sodium (Synthroid -) 75 mcg PO DAILY@0700 [facility] Last Admin: 08/27/16 06:46 Dose: 75 mcg Lorazepam (Ativan -) 1 mg PO BID PRN PRN Reason: ANXIETY Last Admin: 08/26/16 23:08 Dose: 1 mg Polyethylene Glycol (Miralax (For Daily Use) -) 17 gm PO BID [facility] Last Admin: 08/26/16 21:12 Dose: 75 grams Quetiapine Fumarate (Seroquel -) 50 mg PO TID [facility] Last Admin: 08/27/16 06:46 Dose: 50 mg Senna (Senna -) 1 tab PO BID [facility] Last Admin: 08/26/16 21:12 Dose: 1 tab - Objective Vital Signs: Vital Signs Period Temp Pulse Resp BP Sys/Ro Pulse Ox Last 24 Hr 97.9 F-98.4 F 80-85 16-20 138-160/74-89 94-97 Constitutional: Yes: Well Nourished, No Distress, Calm Cardiovascular: Yes: Regular Rate and Rhythm. No: Gallop, Murmur, Rub Respiratory: Yes: Regular, CTA Bilaterally. No: Rales, Rhonchi, Wheezes Gastrointestinal: Yes: Normal Bowel Sounds, Soft. No: Distention, Tenderness Extremities: Yes: WNL Edema: No Labs: CBC, BMP 08/29/16 07:30 08/29/16 07:30 Problem List - Problems (1) Acute renal failure Code(s): N17.9 - ACUTE KIDNEY FAILURE, UNSPECIFIED Qualifiers: Acute renal failure type: unspecified Qualified Code(s): N17.9 - Acute kidney failure, unspecified (2) Acute metabolic encephalopathy Code(s): G93.41 - METABOLIC ENCEPHALOPATHY (3) Hypertension Code(s): I10 - ESSENTIAL (PRIMARY) HYPERTENSION (4) Hypothyroid Code(s): E03.9 - HYPOTHYROIDISM, UNSPECIFIED (5) Dementia Code(s): F03.90 - UNSPECIFIED DEMENTIA WITHOUT BEHAVIORAL DISTURBANCE Assessment/Plan Problems (1) Acute renal failure Assessment/Plan: -Improving -Continue IV fluids. Code(s): N17.9 - ACUTE KIDNEY FAILURE, UNSPECIFIED Qualifiers: Acute renal failure type: unspecified Qualified Code(s): N17.9 - Acute kidney failure, unspecified (2) Acute metabolic encephalopathy Assessment/Plan: -suspect patient is at baseline and has significant dementia Code(s): G93.41 - METABOLIC ENCEPHALOPATHY (3) Hypertension Assessment/Plan: -continue coreg and hydralazine Code(s): I10 - ESSENTIAL (PRIMARY) HYPERTENSION (4) Hypothyroid Assessment/Plan: -elevated TSH but normal FT4 -continue synthroid Code(s): E03.9 - HYPOTHYROIDISM, UNSPECIFIED (5) Dementia Assessment/Plan: -continue current management Code(s): F03.90 - UNSPECIFIED DEMENTIA WITHOUT BEHAVIORAL DISTURBANCE (6) E coli UTI -pansensitive -continue keflex -day 9/14 of antibiotics
[2016-08-29] MEDS: LORazepam 1 MG TABLET PO PRN (21:27)
[2016-08-30] MEDS: QUEtiapine FUMARATE 50 MG TABLET PO SCH ×7 (06:36→21:58)
[2016-08-30] MEDS: LEVOTHYROXINE NA 75 MCG TABLET (FP) PO SCH ×2 (06:36→06:40)
[2016-08-30] MEDS: LORazepam 1 MG TABLET PO PRN (08:20)
[2016-08-30 08:24] LABS: BASOPHIL 1.3 % (0-2.0); EOSINOPHIL 3.9 % (0-4.5); MCH 29.3 pg (25.7-33.7); MCHC 33.3 g/dl (32.0-35.9); MEAN CELL VOLUME 87.9 fl (80-96); MEAN PLT VOLUME 8.3 fl (7.5-11.1); NEUTROPHILS 64.3 % (42.8-82.8); PLATELET COUNT 205 K/MM3 (134-434); RDW 16.1 % (11.9-15.9); WHITE BLOOD COUNT 7.5 K/mm3 (4.0-10.0)
[2016-08-30 08:45] LABS: ANION GAP 9 (8-16); CO2 25 mmol/L (21-32); CREATININE 1.7 mg/dL (0.7-1.3); GLUCOSE,RANDOM 107 mg/dL (74-106)
--- NOTE | 2016-08-30 09:33 | PN ---
Progress Note (short form) - Note Progress Note: RENAL Pt is awake and alert confused, appears to be cleaning his gums with a blanket Last Vital Signs Temp Pulse Resp BP Pulse Ox 97.9 F 73 20 149/69 98 08/30/16 07:29 08/30/16 07:29 08/30/16 07:29 08/30/16 07:29 08/29/16 19:45 lungs clear anteriorly cvs s1s2 rr abd soft ext no edema neuro confused CBC, BMP 08/30/16 06:40 08/30/16 06:40 Current Medications Generic Name Dose Route Start Last Admin Trade Name Freq PRN Reason Stop Dose Admin Acetaminophen 650 mg 08/11/16 18:36 08/15/16 21:34 Tylenol - PO 650 mg Q6H PRN Administration FEVER OR PAIN Carvedilol 25 mg 08/11/16 22:00 08/29/16 21:46 Coreg - PO Not Given BID [facility] Cephalexin HCl 500 mg 08/23/16 22:00 08/29/16 21:46 Keflex - PO Not Given BID [facility] Docusate Sodium 100 mg 08/18/16 22:00 08/29/16 21:46 Colace - PO Not Given BID [facility] Heparin Sodium (Porcine) 5,000 unit 08/11/16 22:00 08/29/16 21:46 Heparin - SQ Not Given BID [facility] Hydralazine HCl 25 mg 08/11/16 22:00 08/29/16 21:46 Apresoline - PO Not Given BID [facility] Sodium Chloride 1,000 mls @ 75 mls/hr 08/26/16 15:30 08/29/16 21:21 1/2 Normal Saline IV 75 mls/hr ASDIR [facility] Administration Isosorbide Mononitrate 30 mg 08/12/16 10:00 08/29/16 10:28 Imdur - PO 30 mg DAILY [facility] Administration Levothyroxine Sodium 75 mcg 08/12/16 07:00 08/30/16 06:40 Synthroid - PO Not Given DAILY@0700 [facility] Lorazepam 1 mg 08/24/16 12:31 08/30/16 08:20 Ativan - PO 1 mg BID PRN Administration ANXIETY Polyethylene Glycol 17 gm 08/18/16 22:00 08/29/16 21:26 Miralax (For Daily Use) - PO Not Given BID [facility] Quetiapine Fumarate 50 mg 08/24/16 14:00 08/30/16 08:20 Seroquel - PO 50 mg TID [facility] Administration Senna 1 tab 08/24/16 22:00 08/29/16 21:46 Senna - PO Not Given BID [facility] Tamsulosin HCl 0.4 mg 08/28/16 08:30 08/29/16 10:28 Flomax - PO 0.4 mg DAILY@0830 [facility] Administration Impression 1. LOC improved 2. obstructive uropathy 3. HTN 4. altered mental status 5. hypothyroidism 6. PPM 7. hyperlipidemia 8. urinary retention Plan - continue fluids - monitor urine output and color - repeat labs in am - rivas care [facility]
[2016-08-30] MEDS: TAMSULOSIN HCL 0.4 MG CAP.ER.24H (FP) PO SCH ×3 (12:47→15:13)
[2016-08-30] MEDS: hydrALAZINE HCL 25 MG TABLET (FP) PO SCH ×4 (12:54→21:58)
[2016-08-30] MEDS: DOCUSATE SODIUM 100 MG CAPSULE (FP) PO SCH ×4 (12:55→21:58)
[2016-08-30] MEDS: CARVEDILOL 25 MG TABLET (FP) PO SCH ×4 (12:55→21:58)
[2016-08-30] MEDS: CEPHALEXIN MONOHYDRATE 500 MG CAPSULE (UD) PO SCH ×4 (12:56→21:58)
[2016-08-30] MEDS: POLYETHYLENE GLYCOL 3350 119 GM BTL PO SCH ×3 (12:56→22:15)
[2016-08-30] MEDS: ISOSORBIDE MONONITRATE 30 MG TAB.SR.24H (FP) PO SCH ×3 (12:56→15:12)
[2016-08-30] MEDS: SENNOSIDES 8.6MG TABLET (FP) PO SCH ×4 (12:57→21:58)
[2016-08-30] MEDS: HEPARIN NA (PORCINE) 5,000 UNITS/ML 1ML VIAL SQ SCH ×2 (13:07→21:58)
[2016-08-30] MEDS: SODIUM CHLORIDE 0.45% 1,000 ML IV SCH (14:38)
--- NOTE | 2016-08-30 15:28 | PN ---
Progress Note (short form) - Note Progress Note: Progress Note, Physician Chief Complaint: chf History of Present Illness: awake and alert but confused and not answering questions appropriately - Current Medication List Current Medications Generic Name Dose Route Start Last Admin Trade Name Jeffrey PRN Reason Stop Dose Admin Acetaminophen 650 mg 08/11/16 18:36 08/15/16 21:34 Tylenol - PO 650 mg Q6H PRN Administration FEVER OR PAIN Carvedilol 25 mg 08/11/16 22:00 08/30/16 15:13 Coreg - PO 25 mg BID [facility] Administration Cephalexin HCl 500 mg 08/23/16 22:00 08/30/16 15:14 Keflex - PO 500 mg BID [facility] Administration Docusate Sodium 100 mg 08/18/16 22:00 08/30/16 15:14 Colace - PO 100 mg BID [facility] Administration Heparin Sodium (Porcine) 5,000 unit 08/11/16 22:00 08/30/16 13:07 Heparin - SQ 5,000 unit BID [facility] Administration Hydralazine HCl 25 mg 08/11/16 22:00 08/30/16 15:13 Apresoline - PO 25 mg BID [facility] Administration Sodium Chloride 1,000 mls @ 75 mls/hr 08/26/16 15:30 08/30/16 14:38 1/2 Normal Saline IV Not Given ASDIR [facility] Isosorbide Mononitrate 30 mg 08/12/16 10:00 08/30/16 15:12 Imdur - PO 30 mg DAILY [facility] Administration Levothyroxine Sodium 75 mcg 08/12/16 07:00 08/30/16 06:40 Synthroid - PO Not Given DAILY@0700 [facility] Polyethylene Glycol 17 gm 08/18/16 22:00 08/30/16 15:09 Miralax (For Daily Use) - PO 17 grams BID [facility] Administration Quetiapine Fumarate 50 mg 08/24/16 14:00 08/30/16 15:14 Seroquel - PO 50 mg TID [facility] Administration Senna 1 tab 08/24/16 22:00 08/30/16 15:13 Senna - PO 1 tab BID [facility] Administration Tamsulosin HCl 0.4 mg 08/28/16 08:30 08/30/16 15:13 Flomax - PO 0.4 mg DAILY@0830 [facility] Administration - Objective Vital Signs: Vital Signs Period Temp Pulse Resp BP Sys/Ro Pulse Ox Last 24 Hr 97.4 F-98.6 F 73-84 16-20 117-181/68-86 98 Constitutional: Yes: Well Nourished, No Distress, Calm Cardiovascular: Yes: Regular Rate and Rhythm (decr intensity), S1, S2. No: JVD , Gallop, Murmur Respiratory: Yes: Regular, CTA Bilaterally. No: Accessory Muscle Use Extremities: No: Cold Edema: No Neurological: awake, alert, confused Psychiatric: No: Agitated no jaundice diaphoresis Labs: CBC, BMP 08/30/16 06:40 08/30/16 06:40 echo 05/2014: mod reduced lvef, global hk, nl rv, no sig valve path Echo 08/30 (here): moderately decr'd LVSF (global); nl RV size; normal LA; mild AI ECG: NSR; ? old ASMI previously seen; prior TWIs anterolateral leads now normalized Assessment/Plan 76 m hx htn, hld, ckd, hypothyroid, icd (medtronic, dual), syst chf, here with loc, uti, ams. chronic syst chf: -pt has hx of syst chf, unclear if ischemic cardiomyopathy but pt has denied cad hx in past. Rec'd ischemic eval as outpt but pt refused on multiple occasions. -appears well-compensated, euvolemic -on coreg, hydral, nitrates as outpt--cont same -not on titi/arb/spironolactone 2/2 ckd and hyperkalemia in past ckd/LOC/urinary retention/uti: -creat improving progressively s/p rivas -per /renal HTN: -bp's variable, pt agitation episodes confounds -overall mostly controlled here -cont same meds, observe trend HLD: -per ER med list pt on atorva at home, not receiving here -per outpt f/u with PMD ICD: -normal check in office 04/2016
--- NOTE | 2016-08-30 16:31 | PN ---
Progress Note, Physician Chief Complaint: Unable to obtain. Patient sitting up and eating with assistance but non-verbal. - Current Medication List Current Medications: Active Medications Acetaminophen (Tylenol -) 650 mg PO Q6H PRN PRN Reason: FEVER OR PAIN Last Admin: 08/15/16 21:34 Dose: 650 mg Carvedilol (Coreg -) 25 mg PO BID [facility] Last Admin: 08/30/16 15:13 Dose: 25 mg Cephalexin HCl (Keflex -) 500 mg PO BID [facility] Last Admin: 08/30/16 15:14 Dose: 500 mg Docusate Sodium (Colace -) 100 mg PO BID [facility] Last Admin: 08/30/16 15:14 Dose: 100 mg Heparin Sodium (Porcine) (Heparin -) 5,000 unit SQ BID [facility] Last Admin: 08/30/16 13:07 Dose: 5,000 unit Hydralazine HCl (Apresoline -) 25 mg PO BID [facility] Last Admin: 08/30/16 15:13 Dose: 25 mg Sodium Chloride (1/2 Normal Saline) 1,000 mls @ 75 mls/hr IV ASDIR [facility] Last Admin: 08/30/16 14:38 Dose: Not Given Isosorbide Mononitrate (Imdur -) 30 mg PO DAILY [facility] Last Admin: 08/30/16 15:12 Dose: 30 mg Levothyroxine Sodium (Synthroid -) 75 mcg PO DAILY@0700 [facility] Last Admin: 08/30/16 06:40 Dose: Not Given Polyethylene Glycol (Miralax (For Daily Use) -) 17 gm PO BID [facility] Last Admin: 08/30/16 15:09 Dose: 17 grams Quetiapine Fumarate (Seroquel -) 50 mg PO TID [facility] Last Admin: 08/30/16 15:14 Dose: 50 mg Senna (Senna -) 1 tab PO BID [facility] Last Admin: 08/30/16 15:13 Dose: 1 tab Tamsulosin HCl (Flomax -) 0.4 mg PO DAILY@0830 [facility] Last Admin: 08/30/16 15:13 Dose: 0.4 mg - Objective Vital Signs: Vital Signs Temperature 97.4 F L 08/30/16 13:58 Pulse Rate 73 08/30/16 13:58 Respiratory Rate 16 08/30/16 13:58 Blood Pressure 117/68 08/30/16 13:58 O2 Sat by Pulse Oximetry (%) 98 08/29/16 19:45 Constitutional: Yes: Well Nourished, No Distress, Calm Cardiovascular: Yes: Regular Rate and Rhythm. No: Gallop, Murmur, Rub Respiratory: Yes: Regular, CTA Bilaterally. No: Rales, Rhonchi, Wheezes Gastrointestinal: Yes: Normal Bowel Sounds, Soft. No: Distention, Tenderness Extremities: Yes: WNL Edema: No Labs: CBC, BMP 08/30/16 06:40 08/30/16 06:40 INR, PTT INR 1.13 (0.82-1.09) 08/16/16 09:53 Problem List - Problems (1) Acute renal failure Code(s): N17.9 - ACUTE KIDNEY FAILURE, UNSPECIFIED Qualifiers: Acute renal failure type: unspecified Qualified Code(s): N17.9 - Acute kidney failure, unspecified (2) Acute metabolic encephalopathy Code(s): G93.41 - METABOLIC ENCEPHALOPATHY (3) Hypertension Code(s): I10 - ESSENTIAL (PRIMARY) HYPERTENSION (4) Hypothyroid Code(s): E03.9 - HYPOTHYROIDISM, UNSPECIFIED (5) Dementia Code(s): F03.90 - UNSPECIFIED DEMENTIA WITHOUT BEHAVIORAL DISTURBANCE Assessment/Plan Problems (1) Acute renal failure Assessment/Plan: -creatinine at baseline -trial off of IVF Code(s): N17.9 - ACUTE KIDNEY FAILURE, UNSPECIFIED Qualifiers: Acute renal failure type: unspecified Qualified Code(s): N17.9 - Acute kidney failure, unspecified (2) Acute metabolic encephalopathy Assessment/Plan: -suspect patient is at baseline and has significant dementia Code(s): G93.41 - METABOLIC ENCEPHALOPATHY (3) Hypertension Assessment/Plan: -continue coreg and hydralazine Code(s): I10 - ESSENTIAL (PRIMARY) HYPERTENSION (4) Hypothyroid Assessment/Plan: -elevated TSH but normal FT4 -continue synthroid Code(s): E03.9 - HYPOTHYROIDISM, UNSPECIFIED (5) Dementia Assessment/Plan: -continue current management Code(s): F03.90 - UNSPECIFIED DEMENTIA WITHOUT BEHAVIORAL DISTURBANCE (6) E coli UTI -pansensitive -continue keflex -day 1114 of antibiotics
--- NOTE | 2016-08-30 16:47 | HOSP ---
Subjective - Review of Symptoms Events since last encounter: Code 99 was called at 4:34PM at 4:42PM Code kumar called On entering the room, the patient was unresponsive. The patient was place on 15L of O2 with venti mask. A pulse was obtained, but it was irregular. A bedside monitor showed Afib. O2 sat was 92 on 15 L venti. The patient eventually became responsive to sternal rub and began moving all extremities The following were ordered: cbc, cmp, cardiac enzymes, ekg, abg (WNL), head ct Dr. Murguia was reconsulted. Physical Examination Vital Signs: Vital Signs Temperature 97.4 F L 08/30/16 13:58 Pulse Rate 73 08/30/16 13:58 Respiratory Rate 16 08/30/16 13:58 Blood Pressure 117/68 08/30/16 13:58 O2 Sat by Pulse Oximetry (%) 98 08/29/16 19:45 Labs: CBC, BMP 08/30/16 06:40 08/30/16 06:40 Visit type - Emergency Visit Emergency Visit: No - New Patient This patient is new to me today: Yes Date on this admission: 08/31/16 - Critical Care Critical Care patient: No
[2016-08-30 16:48] LABS: ALLENS TEST POSITIVE; ART PUNCT SITE LEFT RADIAL; ARTERIAL BLOOD GAS BASE EXCESS -1.3 meq/l (-2-2); ARTERIAL BLOOD GAS HCO3 22.5 meq/L (22-26)
[2016-08-30 16:49] LABS: LPM/O2% 100%; PT. ON O2? YES; TYPE OF O2 NON-REBREATHER
[2016-08-30 22:46] LABS: EOSINOPHIL 1.3 % (0-4.5); MCH 28.7 pg (25.7-33.7); MCHC 32.7 g/dl (32.0-35.9); MEAN CELL VOLUME 87.7 fl (80-96); MEAN PLT VOLUME 8.7 fl (7.5-11.1); NEUTROPHILS 70.3 % (42.8-82.8); PLATELET COUNT 215 K/MM3 (134-434); WHITE BLOOD COUNT 5.7 K/mm3 (4.0-10.0)
[2016-08-30 23:09] LABS: URINE APPEARANCE CLEAR; URINE BILIRUBIN NEGATIVE (NEGATIVE); URINE COLOR LTYELLOW; URINE GLUCOSE (UA) NEGATIVE (NEGATIVE); URINE KETONE NEGATIVE (NEGATIVE); URINE NITRITE NEGATIVE (NEGATIVE); URINE UROBILINOGEN NEGATIVE mg/dL (0.2-1.0)
[2016-08-30 23:13] LABS: URINE BLOOD 2+ (NEGATIVE); URINE LEUK ESTERASE TRACE (NEGATIVE); URINE PROTEIN 1+ (NEGATIVE)
[2016-08-30 23:20] LABS: URINE BACTERIA RARE /hpf (NONE SEEN); URINE MUCUS RARE; URINE RBC 57 /hpf (0-3); URINE WBC 6 /hpf (3-5)
[2016-08-30 23:22] LABS: MAGNESIUM 2.3 mg/dL (1.8-2.4); PHOSPHOROUS 4.4 mg/dL (2.5-4.9)
[2016-08-30 23:23] LABS: ALBUMIN 3.3 g/dl (3.4-5.0); ANION GAP 9 (8-16); BILIRUBIN,TOTAL 0.6 mg/dL (0.2-1.0); CO2 28 mmol/L (21-32); CREATININE 1.8 mg/dL (0.7-1.3); GLUCOSE,RANDOM 105 mg/dL (74-106); SGOT/AST 22 U/L (15-37); SGPT/ALT 24 U/L (12-78); TOT PROT 6.8 g/dl (6.4-8.2)
[2016-08-30 23:26] LABS: ALK PHOS 63 U/L (45-117); TROPONIN I < 0.02 ng/ml (0.00-0.05)
[2016-08-31] MEDS: QUEtiapine FUMARATE 50 MG TABLET PO SCH ×5 (06:28→21:53)
[2016-08-31] MEDS: LEVOTHYROXINE NA 75 MCG TABLET (FP) PO SCH (06:29)
[2016-08-31 08:18] LABS: BASOPHIL 1.4 % (0-2.0); EOSINOPHIL 2.7 % (0-4.5); MCH 29.2 pg (25.7-33.7); MCHC 33.2 g/dl (32.0-35.9); MEAN CELL VOLUME 87.9 fl (80-96); MEAN PLT VOLUME 8.9 fl (7.5-11.1); NEUTROPHILS 65.9 % (42.8-82.8); PLATELET COUNT 210 K/MM3 (134-434); RDW 16.1 % (11.9-15.9); WHITE BLOOD COUNT 6.1 K/mm3 (4.0-10.0)
[2016-08-31 08:40] LABS: ANION GAP 8 (8-16); CALCIUM 8.7 mg/dL (8.5-10.1); CO2 27 mmol/L (21-32); CREATININE 1.7 mg/dL (0.7-1.3); GLUCOSE,RANDOM 96 mg/dL (74-106); MAGNESIUM 2.4 mg/dL (1.8-2.4); PHOSPHOROUS 3.8 mg/dL (2.5-4.9)
[2016-08-31] MEDS ORDERED: PT OWN MED DRAWER 7, Y5N ONE (08:42)
[2016-08-31] MEDS: SENNOSIDES 8.6MG TABLET (FP) PO SCH ×3 (09:25→21:54)
[2016-08-31] MEDS: DOCUSATE SODIUM 100 MG CAPSULE (FP) PO SCH ×3 (09:25→21:55)
[2016-08-31] MEDS: hydrALAZINE HCL 25 MG TABLET (FP) PO SCH ×3 (09:25→21:54)
[2016-08-31] MEDS: CEPHALEXIN MONOHYDRATE 500 MG CAPSULE (UD) PO SCH ×3 (09:25→21:52)
[2016-08-31] MEDS: ISOSORBIDE MONONITRATE 30 MG TAB.SR.24H (FP) PO SCH (09:25)
[2016-08-31] MEDS: CARVEDILOL 25 MG TABLET (FP) PO SCH ×3 (09:25→21:53)
[2016-08-31] MEDS: HEPARIN NA (PORCINE) 5,000 UNITS/ML 1ML VIAL SQ SCH ×2 (09:26→21:24)
[2016-08-31] MEDS: POLYETHYLENE GLYCOL 3350 119 GM BTL PO SCH ×2 (09:26→21:24)
[2016-08-31] MEDS: TAMSULOSIN HCL 0.4 MG CAP.ER.24H (FP) PO SCH (09:26)
--- NOTE | 2016-08-31 11:21 | PN ---
Progress Note (short form) - Note Progress Note: Progress Note, Physician Chief Complaint: chf History of Present Illness: lethargic, not answering questions - Current Medication List Current Medications Generic Name Dose Route Start Last Admin Trade Name Jeffrey PRN Reason Stop Dose Admin Acetaminophen 650 mg 08/11/16 18:36 08/15/16 21:34 Tylenol - PO 650 mg Q6H PRN Administration FEVER OR PAIN Carvedilol 25 mg 08/11/16 22:00 08/31/16 09:25 Coreg - PO 25 mg BID NEYMAR Administration Cephalexin HCl 500 mg 08/23/16 22:00 08/31/16 09:25 Keflex - PO 500 mg BID NEYMAR Administration Docusate Sodium 100 mg 08/18/16 22:00 08/31/16 09:25 Colace - PO 100 mg BID NEYMAR Administration Heparin Sodium (Porcine) 5,000 unit 08/11/16 22:00 08/31/16 09:26 Heparin - SQ Not Given BID NEYMAR Hydralazine HCl 25 mg 08/11/16 22:00 08/31/16 09:25 Apresoline - PO 25 mg BID NEYMAR Administration Sodium Chloride 1,000 mls @ 75 mls/hr 08/26/16 15:30 08/30/16 14:38 1/2 Normal Saline IV Not Given ASDIR NEYMAR Isosorbide Mononitrate 30 mg 08/12/16 10:00 08/31/16 09:25 Imdur - PO 30 mg DAILY NEYMAR Administration Levothyroxine Sodium 75 mcg 08/12/16 07:00 08/31/16 06:29 Synthroid - PO 75 mcg DAILY@0700 NEYMAR Administration Polyethylene Glycol 17 gm 08/18/16 22:00 08/31/16 09:26 Miralax (For Daily Use) - PO 17 grams BID NEYMAR Administration Quetiapine Fumarate 50 mg 08/24/16 14:00 08/31/16 06:28 Seroquel - PO 50 mg TID NEYMAR Administration Senna 1 tab 08/24/16 22:00 08/31/16 09:25 Senna - PO 1 tab BID NEYMAR Administration Tamsulosin HCl 0.4 mg 08/28/16 08:30 08/31/16 09:26 Flomax - PO 0.4 mg DAILY@0830 NEYMAR Administration - Objective Vital Signs: Vital Signs Period Temp Pulse Resp BP Sys/Ro Pulse Ox Last 24 Hr 97.4 F-98.5 F 66-89 16-18 104-137/56-89 98-98 Constitutional: Yes: No Distress, Calm Cardiovascular: Yes: Regular Rate and Rhythm (decr intensity), S1, S2. No: JVD , Gallop, Murmur Respiratory: Yes: Regular, CTA Bilaterally. No: Accessory Muscle Use Extremities: No: Cold Edema: No Neurological: lethargic Psychiatric: No: Agitated no jaundice diaphoresis Labs: CBC, BMP 08/31/16 05:55 08/31/16 05:55 echo 05/2014: mod reduced lvef, global hk, nl rv, no sig valve path Echo 08/30 (here): moderately decr'd LVSF (global); nl RV size; normal LA; mild AI ECG: NSR; ? old ASMI previously seen; prior TWIs anterolateral leads now normalized tele: sr Assessment/Plan 76 m hx htn, hld, ckd, hypothyroid, icd (medtronic, dual), syst chf, here with loc, uti, ams. chronic syst chf: -pt has hx of syst chf, unclear if ischemic cardiomyopathy but pt has denied cad hx in past. Rec'd ischemic eval as outpt but pt refused on multiple occasions. -appears well-compensated, euvolemic -on coreg, hydral, nitrates as outpt--cont same -not on titi/arb/spironolactone 2/2 ckd and hyperkalemia in past ckd/LOC/urinary retention/uti: -creat improving progressively s/p rivas -per /renal HTN: -bp's variable, pt agitation episodes confounds -overall mostly controlled here -cont same meds, observe trend HLD: -per ER med list pt on atorva at home, not receiving here -per outpt f/u with PMD ICD: -normal check in office 04/2016 ams: -code kumar 08/30 for worse lethargy -head ct w/o acute changes -possibly due to dementia with loc/uti -neuro following
--- NOTE | 2016-08-31 13:24 | PN ---
Progress Note, Physician Chief Complaint: Patient arousable but not communicative today. - Current Medication List Current Medications: Active Medications Acetaminophen (Tylenol -) 650 mg PO Q6H PRN PRN Reason: FEVER OR PAIN Last Admin: 08/15/16 21:34 Dose: 650 mg Carvedilol (Coreg -) 25 mg PO BID [facility] Last Admin: 08/31/16 09:25 Dose: 25 mg Cephalexin HCl (Keflex -) 500 mg PO BID [facility] Last Admin: 08/31/16 09:25 Dose: 500 mg Docusate Sodium (Colace -) 100 mg PO BID [facility] Last Admin: 08/31/16 09:25 Dose: 100 mg Heparin Sodium (Porcine) (Heparin -) 5,000 unit SQ BID [facility] Last Admin: 08/31/16 09:26 Dose: Not Given Hydralazine HCl (Apresoline -) 25 mg PO BID [facility] Last Admin: 08/31/16 09:25 Dose: 25 mg Sodium Chloride (1/2 Normal Saline) 1,000 mls @ 75 mls/hr IV ASDIR [facility] Last Admin: 08/30/16 14:38 Dose: Not Given Isosorbide Mononitrate (Imdur -) 30 mg PO DAILY [facility] Last Admin: 08/31/16 09:25 Dose: 30 mg Levothyroxine Sodium (Synthroid -) 75 mcg PO DAILY@0700 [facility] Last Admin: 08/31/16 06:29 Dose: 75 mcg Polyethylene Glycol (Miralax (For Daily Use) -) 17 gm PO BID [facility] Last Admin: 08/31/16 09:26 Dose: 17 grams Quetiapine Fumarate (Seroquel -) 50 mg PO TID [facility] Last Admin: 08/31/16 06:28 Dose: 50 mg Senna (Senna -) 1 tab PO BID [facility] Last Admin: 08/31/16 09:25 Dose: 1 tab Tamsulosin HCl (Flomax -) 0.4 mg PO DAILY@0830 [facility] Last Admin: 08/31/16 09:26 Dose: 0.4 mg - Objective Vital Signs: Vital Signs Temperature 98 F 08/31/16 06:00 Pulse Rate 66 08/31/16 08:30 Respiratory Rate 18 08/31/16 08:30 Blood Pressure 119/66 08/31/16 08:30 O2 Sat by Pulse Oximetry (%) 98 08/31/16 06:00 Constitutional: Yes: No Distress, Calm Cardiovascular: Yes: Regular Rate and Rhythm. No: Gallop, Murmur, Rub Respiratory: Yes: Regular, CTA Bilaterally. No: Rales, Rhonchi, Wheezes Gastrointestinal: Yes: Normal Bowel Sounds, Soft. No: Distention, Tenderness Extremities: Yes: WNL Edema: No Labs: CBC, BMP 08/31/16 05:55 08/31/16 05:55 INR, PTT INR 1.13 (0.82-1.09) 08/16/16 09:53 Problem List - Problems (1) Acute renal failure Code(s): N17.9 - ACUTE KIDNEY FAILURE, UNSPECIFIED Qualifiers: Acute renal failure type: unspecified Qualified Code(s): N17.9 - Acute kidney failure, unspecified (2) Acute metabolic encephalopathy Code(s): G93.41 - METABOLIC ENCEPHALOPATHY (3) Hypertension Code(s): I10 - ESSENTIAL (PRIMARY) HYPERTENSION (4) Hypothyroid Code(s): E03.9 - HYPOTHYROIDISM, UNSPECIFIED (5) Dementia Code(s): F03.90 - UNSPECIFIED DEMENTIA WITHOUT BEHAVIORAL DISTURBANCE Assessment/Plan Problems (1) Acute renal failure Assessment/Plan: -stable off of IVF -continue to monitor Code(s): N17.9 - ACUTE KIDNEY FAILURE, UNSPECIFIED Qualifiers: Acute renal failure type: unspecified Qualified Code(s): N17.9 - Acute kidney failure, unspecified (2) Acute metabolic encephalopathy Assessment/Plan: -suspect patient is at baseline and has significant dementia Code(s): G93.41 - METABOLIC ENCEPHALOPATHY (3) Hypertension Assessment/Plan: -continue coreg and hydralazine Code(s): I10 - ESSENTIAL (PRIMARY) HYPERTENSION (4) Hypothyroid Assessment/Plan: -elevated TSH but normal FT4 -continue synthroid Code(s): E03.9 - HYPOTHYROIDISM, UNSPECIFIED (5) Dementia Assessment/Plan: -continue current management -neurology reconsulted -ativan stopped Code(s): F03.90 - UNSPECIFIED DEMENTIA WITHOUT BEHAVIORAL DISTURBANCE (6) E coli UTI -pansensitive -continue keflex -day 12/14 of antibiotics -repeat UA showing partially treated UTI
--- NOTE | 2016-08-31 16:52 | PN ---
Progress Note (short form) - Note Progress Note: RENAL arousable comfortable Last Vital Signs Temp Pulse Resp BP Pulse Ox 98 F 82 18 163/81 98 08/31/16 06:00 08/31/16 14:14 08/31/16 14:14 08/31/16 14:14 08/31/16 06:00 lungs clear anteriorly cvs s1s2 rr abd soft ext no edema neuro confused CBC, BMP 08/31/16 05:55 08/31/16 05:55 Current Medications Generic Name Dose Route Start Last Admin Trade Name Freq PRN Reason Stop Dose Admin Acetaminophen 650 mg 08/11/16 18:36 08/15/16 21:34 Tylenol - PO 650 mg Q6H PRN Administration FEVER OR PAIN Carvedilol 25 mg 08/11/16 22:00 08/31/16 09:25 Coreg - PO 25 mg BID NEYMAR Administration Cephalexin HCl 500 mg 08/23/16 22:00 08/31/16 09:25 Keflex - PO 500 mg BID NEYMAR Administration Docusate Sodium 100 mg 08/18/16 22:00 08/31/16 09:25 Colace - PO 100 mg BID NEYMAR Administration Heparin Sodium (Porcine) 5,000 unit 08/11/16 22:00 08/31/16 09:26 Heparin - SQ Not Given BID NEYMAR Hydralazine HCl 25 mg 08/11/16 22:00 08/31/16 09:25 Apresoline - PO 25 mg BID NEYMAR Administration Isosorbide Mononitrate 30 mg 08/12/16 10:00 08/31/16 09:25 Imdur - PO 30 mg DAILY NEYMAR Administration Levothyroxine Sodium 75 mcg 08/12/16 07:00 08/31/16 06:29 Synthroid - PO 75 mcg DAILY@0700 NEYMAR Administration Polyethylene Glycol 17 gm 08/18/16 22:00 08/31/16 09:26 Miralax (For Daily Use) - PO 17 grams BID NEYMAR Administration Quetiapine Fumarate 50 mg 08/24/16 14:00 08/31/16 15:11 Seroquel - PO 50 mg TID NEYMAR Administration Senna 1 tab 08/24/16 22:00 08/31/16 09:25 Senna - PO 1 tab BID NEYMAR Administration Tamsulosin HCl 0.4 mg 08/28/16 08:30 08/31/16 09:26 Flomax - PO 0.4 mg DAILY@0830 NEYMAR Administration Impression 1. LOC improved 2. obstructive uropathy 3. HTN 4. altered mental status 5. hypothyroidism 6. PPM 7. hyperlipidemia 8. urinary retention s/p rivas insertion Plan - continue current management - rivas care MV
[2016-08-31] MEDS: SODIUM CHLORIDE 0.45% 1,000 ML IV SCH (21:55)
[2016-09-01] MEDS: QUEtiapine FUMARATE 50 MG TABLET PO SCH ×3 (05:15→22:00)
[2016-09-01] MEDS: LEVOTHYROXINE NA 75 MCG TABLET (FP) PO SCH (06:47)
[2016-09-01 07:19] LABS: BASOPHIL 1.3 % (0-2.0); EOSINOPHIL 2.6 % (0-4.5); MCH 28.5 pg (25.7-33.7); MCHC 32.5 g/dl (32.0-35.9); MEAN CELL VOLUME 87.6 fl (80-96); MEAN PLT VOLUME 9.1 fl (7.5-11.1); NEUTROPHILS 70.1 % (42.8-82.8); PLATELET COUNT 259 K/MM3 (134-434); WHITE BLOOD COUNT 9.6 K/mm3 (4.0-10.0)
[2016-09-01 07:47] LABS: ANION GAP 9 (8-16); CALCIUM 9.4 mg/dL (8.5-10.1); CO2 27 mmol/L (21-32); CREATININE 1.9 mg/dL (0.7-1.3); GLUCOSE,RANDOM 119 mg/dL (74-106); MAGNESIUM 2.5 mg/dL (1.8-2.4); PHOSPHOROUS 3.8 mg/dL (2.5-4.9)
--- NOTE | 2016-09-01 11:07 | PN ---
Progress Note (short form) - Note Progress Note: Progress Note, Physician Chief Complaint: chf History of Present Illness: alert, awake, but confused, not answering questions appropriately - Current Medication List Current Medications Generic Name Dose Route Start Last Admin Trade Name Freq PRN Reason Stop Dose Admin Acetaminophen 650 mg 08/11/16 18:36 08/15/16 21:34 Tylenol - PO 650 mg Q6H PRN Administration FEVER OR PAIN Carvedilol 25 mg 08/11/16 22:00 08/31/16 21:53 Coreg - PO 25 mg BID NEYMAR Administration Cephalexin HCl 500 mg 08/23/16 22:00 08/31/16 21:52 Keflex - PO 500 mg BID NEYMAR Administration Docusate Sodium 100 mg 08/18/16 22:00 08/31/16 21:55 Colace - PO 100 mg BID NEYMAR Administration Heparin Sodium (Porcine) 5,000 unit 08/11/16 22:00 08/31/16 21:24 Heparin - SQ 5,000 unit BID NEYMAR Administration Hydralazine HCl 25 mg 08/11/16 22:00 08/31/16 21:54 Apresoline - PO 25 mg BID NEYMAR Administration Isosorbide Mononitrate 30 mg 08/12/16 10:00 08/31/16 09:25 Imdur - PO 30 mg DAILY NEYMAR Administration Levothyroxine Sodium 75 mcg 08/12/16 07:00 09/01/16 06:47 Synthroid - PO Not Given DAILY@0700 NEYMAR Polyethylene Glycol 17 gm 08/18/16 22:00 08/31/16 21:24 Miralax (For Daily Use) - PO 17 grams BID NEYMAR Administration Quetiapine Fumarate 50 mg 08/24/16 14:00 09/01/16 05:15 Seroquel - PO 50 mg TID NEYMAR Administration Senna 1 tab 08/24/16 22:00 08/31/16 21:54 Senna - PO 1 tab BID NEYMAR Administration Tamsulosin HCl 0.4 mg 08/28/16 08:30 08/31/16 09:26 Flomax - PO 0.4 mg DAILY@0830 NEYMAR Administration - Objective Vital Signs: Vital Signs Period Temp Pulse Resp BP Sys/Ro Pulse Ox Last 24 Hr 98.1 F-99.1 F 75-84 16-18 126-163/59-81 95 Constitutional: Yes: No Distress, Calm Cardiovascular: Yes: Regular Rate and Rhythm (decr intensity), S1, S2. No: JVD , Gallop, Murmur Respiratory: Yes: Regular, CTA Bilaterally. No: Accessory Muscle Use Extremities: No: Cold Edema: No Neurological: awake, confused Psychiatric: No: Agitated no jaundice diaphoresis Labs: CBC, BMP 09/01/16 05:35 09/01/16 05:35 echo 05/2014: mod reduced lvef, global hk, nl rv, no sig valve path Echo 08/30 (here): moderately decr'd LVSF (global); nl RV size; normal LA; mild AI ECG: NSR; ? old ASMI previously seen; prior TWIs anterolateral leads now normalized tele: sr, nsvt 13 beats Assessment/Plan 76 m hx htn, hld, ckd, hypothyroid, icd (medtronic, dual), syst chf, here with loc, uti, ams. chronic syst chf: -pt has hx of syst chf, unclear if ischemic cardiomyopathy but pt has denied cad hx in past. Rec'd ischemic eval as outpt but pt refused on multiple occasions. -appears well-compensated, euvolemic -on coreg, hydral, nitrates as outpt--cont same -not on titi/arb/spironolactone 2/2 ckd and hyperkalemia in past ckd/LOC/urinary retention/uti: -creat improving progressively s/p rivas -per /renal HTN: -overall mostly controlled here -cont same meds HLD: -per ER med list pt on atorva at home, not receiving here -per outpt f/u with PMD ICD: -normal check in office 04/2016 ams: -code kumar 08/30 for worse lethargy -head ct w/o acute changes -possibly due to dementia with loc/uti -neuro following nsvt: -brief run on tele (13 beats) 09/01/16 -mg, k unremarkable -cont coreg, monitor on tele
[2016-09-01] MEDS: hydrALAZINE HCL 25 MG TABLET (FP) PO SCH ×2 (12:16→22:00)
[2016-09-01] MEDS: ISOSORBIDE MONONITRATE 30 MG TAB.SR.24H (FP) PO SCH (12:16)
[2016-09-01] MEDS: SENNOSIDES 8.6MG TABLET (FP) PO SCH ×2 (12:16→22:00)
[2016-09-01] MEDS: CARVEDILOL 25 MG TABLET (FP) PO SCH ×2 (12:16→22:00)
[2016-09-01] MEDS: TAMSULOSIN HCL 0.4 MG CAP.ER.24H (FP) PO SCH (12:34)
[2016-09-01] MEDS: CEPHALEXIN MONOHYDRATE 500 MG CAPSULE (UD) PO SCH ×2 (12:34→22:00)
[2016-09-01] MEDS: DOCUSATE SODIUM 100 MG CAPSULE (FP) PO SCH ×2 (12:34→22:00)
[2016-09-01] MEDS: POLYETHYLENE GLYCOL 3350 119 GM BTL PO SCH ×2 (12:36→22:01)
[2016-09-01] MEDS: HEPARIN NA (PORCINE) 5,000 UNITS/ML 1ML VIAL SQ SCH ×2 (12:38→22:00)
--- NOTE | 2016-09-01 12:50 | PN ---
Progress Note, Physician Chief Complaint: Patient sitting in chair, calm but not communicative. - Current Medication List Current Medications: Active Medications Acetaminophen (Tylenol -) 650 mg PO Q6H PRN PRN Reason: FEVER OR PAIN Last Admin: 08/15/16 21:34 Dose: 650 mg Carvedilol (Coreg -) 25 mg PO BID [facility] Last Admin: 09/01/16 12:16 Dose: 25 mg Cephalexin HCl (Keflex -) 500 mg PO BID [facility] Last Admin: 09/01/16 12:34 Dose: 500 mg Docusate Sodium (Colace -) 100 mg PO BID [facility] Last Admin: 09/01/16 12:34 Dose: Not Given Heparin Sodium (Porcine) (Heparin -) 5,000 unit SQ BID [facility] Last Admin: 09/01/16 12:38 Dose: 5,000 unit Hydralazine HCl (Apresoline -) 25 mg PO BID [facility] Last Admin: 09/01/16 12:16 Dose: 25 mg Isosorbide Mononitrate (Imdur -) 30 mg PO DAILY [facility] Last Admin: 09/01/16 12:16 Dose: 30 mg Levothyroxine Sodium (Synthroid -) 75 mcg PO DAILY@0700 [facility] Last Admin: 09/01/16 06:47 Dose: Not Given Polyethylene Glycol (Miralax (For Daily Use) -) 17 gm PO BID [facility] Last Admin: 09/01/16 12:36 Dose: Not Given Quetiapine Fumarate (Seroquel -) 50 mg PO TID [facility] Last Admin: 09/01/16 05:15 Dose: 50 mg Senna (Senna -) 1 tab PO BID [facility] Last Admin: 09/01/16 12:16 Dose: 1 tab Tamsulosin HCl (Flomax -) 0.4 mg PO DAILY@0830 [facility] Last Admin: 09/01/16 12:34 Dose: Not Given - Objective Vital Signs: Vital Signs Temperature 98.1 F 09/01/16 06:00 Pulse Rate 78 09/01/16 06:00 Respiratory Rate 16 09/01/16 06:00 Blood Pressure 126/70 09/01/16 06:00 O2 Sat by Pulse Oximetry (%) 95 08/31/16 20:13 Constitutional: Yes: No Distress, Calm, Thin Cardiovascular: Yes: Regular Rate and Rhythm. No: Gallop, Murmur, Rub Respiratory: Yes: Regular, CTA Bilaterally. No: Rales, Rhonchi, Wheezes Gastrointestinal: Yes: Normal Bowel Sounds, Soft. No: Distention, Tenderness Extremities: Yes: WNL Edema: No Labs: CBC, BMP 09/01/16 05:35 09/01/16 05:35 INR, PTT INR 1.13 (0.82-1.09) 08/16/16 09:53 Problem List - Problems (1) Acute renal failure Code(s): N17.9 - ACUTE KIDNEY FAILURE, UNSPECIFIED Qualifiers: Acute renal failure type: unspecified Qualified Code(s): N17.9 - Acute kidney failure, unspecified (2) Acute metabolic encephalopathy Code(s): G93.41 - METABOLIC ENCEPHALOPATHY (3) Hypertension Code(s): I10 - ESSENTIAL (PRIMARY) HYPERTENSION (4) Hypothyroid Code(s): E03.9 - HYPOTHYROIDISM, UNSPECIFIED (5) Dementia Code(s): F03.90 - UNSPECIFIED DEMENTIA WITHOUT BEHAVIORAL DISTURBANCE Assessment/Plan Problems (1) Acute renal failure Assessment/Plan: -stable off of IVF -continue to monitor -appreciate nephrology assistance Code(s): N17.9 - ACUTE KIDNEY FAILURE, UNSPECIFIED Qualifiers: Acute renal failure type: unspecified Qualified Code(s): N17.9 - Acute kidney failure, unspecified (2) Acute metabolic encephalopathy Assessment/Plan: -suspect patient is at baseline and has significant dementia Code(s): G93.41 - METABOLIC ENCEPHALOPATHY (3) Hypertension Assessment/Plan: -continue coreg and hydralazine Code(s): I10 - ESSENTIAL (PRIMARY) HYPERTENSION (4) Hypothyroid Assessment/Plan: -elevated TSH but normal FT4 -continue synthroid Code(s): E03.9 - HYPOTHYROIDISM, UNSPECIFIED (5) Dementia Assessment/Plan: -continue current management -controlled today -no ativan Code(s): F03.90 - UNSPECIFIED DEMENTIA WITHOUT BEHAVIORAL DISTURBANCE (6) E coli UTI -pansensitive -continue keflex -day 13/14 of antibiotics -repeat UA showing partially treated UTI
--- NOTE | 2016-09-01 16:03 | PN ---
Progress Note (short form) - Note Progress Note: RENAL arousable comfortable speaks Last Vital Signs Temp Pulse Resp BP Pulse Ox 98.3 F 78 16 123/68 95 09/01/16 14:00 09/01/16 14:00 09/01/16 14:00 09/01/16 14:00 08/31/16 20:13 lungs clear anteriorly cvs s1s2 rr abd soft ext no edema neuro confused CBC, BMP 09/01/16 05:35 09/01/16 05:35 Current Medications Generic Name Dose Route Start Last Admin Trade Name Freq PRN Reason Stop Dose Admin Acetaminophen 650 mg 08/11/16 18:36 08/15/16 21:34 Tylenol - PO 650 mg Q6H PRN Administration FEVER OR PAIN Carvedilol 25 mg 08/11/16 22:00 09/01/16 12:16 Coreg - PO 25 mg BID NEYMAR Administration Cephalexin HCl 500 mg 08/23/16 22:00 09/01/16 12:34 Keflex - PO 500 mg BID NEYMAR Administration Docusate Sodium 100 mg 08/18/16 22:00 09/01/16 12:34 Colace - PO Not Given BID NEYMAR Heparin Sodium (Porcine) 5,000 unit 08/11/16 22:00 09/01/16 12:38 Heparin - SQ 5,000 unit BID NEYMAR Administration Hydralazine HCl 25 mg 08/11/16 22:00 09/01/16 12:16 Apresoline - PO 25 mg BID NEYMAR Administration Isosorbide Mononitrate 30 mg 08/12/16 10:00 09/01/16 12:16 Imdur - PO 30 mg DAILY NEYMAR Administration Levothyroxine Sodium 75 mcg 08/12/16 07:00 09/01/16 06:47 Synthroid - PO Not Given DAILY@0700 NEYMAR Polyethylene Glycol 17 gm 08/18/16 22:00 09/01/16 12:36 Miralax (For Daily Use) - PO Not Given BID COUNTS [facility]CLUDE 234 BEDS AT [facility] Quetiapine Fumarate 50 mg 08/24/16 14:00 09/01/16 13:27 Seroquel - PO 50 mg TID NEYMAR Administration Senna 1 tab 08/24/16 22:00 09/01/16 12:16 Senna - PO 1 tab BID NEYMAR Administration Tamsulosin HCl 0.4 mg 08/28/16 08:30 09/01/16 12:34 Flomax - PO Not Given DAILY@0830 NEYMAR Impression 1. LOC improved 2. obstructive uropathy 3. HTN 4. altered mental status 5. hypothyroidism 6. PPM 7. hyperlipidemia 8. urinary retention s/p rivas insertion Plan - continue current management - rivas care - increase tamsulosin to 0.8 and consider finasteride MV
[2016-09-02] MEDS: LEVOTHYROXINE NA 75 MCG TABLET (FP) PO SCH (06:11)
[2016-09-02] MEDS: QUEtiapine FUMARATE 50 MG TABLET PO SCH ×3 (06:11→21:23)
[2016-09-02 07:33] LABS: EOSINOPHIL 2.6 % (0-4.5); MCH 29.2 pg (25.7-33.7); MCHC 33.7 g/dl (32.0-35.9); MEAN CELL VOLUME 86.6 fl (80-96); NEUTROPHILS 58.5 % (42.8-82.8); PLATELET COUNT 224 K/MM3 (134-434); RDW 16.1 % (11.9-15.9); WHITE BLOOD COUNT 7.2 K/mm3 (4.0-10.0)
[2016-09-02 07:41] LABS: ANION GAP 11 (8-16); CALCIUM 8.8 mg/dL (8.5-10.1); CO2 25 mmol/L (21-32); GLUCOSE,RANDOM 101 mg/dL (74-106); MAGNESIUM 2.5 mg/dL (1.8-2.4)
[2016-09-02 07:43] LABS: CREATININE 2.3 mg/dL (0.7-1.3); PHOSPHOROUS 3.9 mg/dL (2.5-4.9)
[2016-09-02] MEDS: SENNOSIDES 8.6MG TABLET (FP) PO SCH ×2 (09:33→21:36)
[2016-09-02] MEDS: DOCUSATE SODIUM 100 MG CAPSULE (FP) PO SCH ×2 (09:33→21:29)
[2016-09-02] MEDS: POLYETHYLENE GLYCOL 3350 119 GM BTL PO SCH ×2 (09:33→21:36)
[2016-09-02] MEDS: TAMSULOSIN HCL 0.4 MG CAP.ER.24H (FP) PO SCH (09:33)
[2016-09-02] MEDS: CARVEDILOL 25 MG TABLET (FP) PO SCH ×2 (09:38→21:24)
[2016-09-02] MEDS: ISOSORBIDE MONONITRATE 30 MG TAB.SR.24H (FP) PO SCH (09:38)
[2016-09-02] MEDS: CEPHALEXIN MONOHYDRATE 500 MG CAPSULE (UD) PO SCH ×2 (09:38→21:24)
[2016-09-02] MEDS: hydrALAZINE HCL 25 MG TABLET (FP) PO SCH ×2 (09:39→21:24)
[2016-09-02] MEDS: HEPARIN NA (PORCINE) 5,000 UNITS/ML 1ML VIAL SQ SCH ×2 (09:40→21:23)
--- NOTE | 2016-09-02 09:55 | PN ---
Progress Note (short form) - Note Progress Note: RENAL awake and alert comfortable trying to take his mittens off Last Vital Signs Temp Pulse Resp BP Pulse Ox 98.3 F 101 H 20 100/62 96 09/02/16 02:33 09/02/16 02:33 09/02/16 02:33 09/02/16 02:33 09/02/16 06:00 lungs clear anteriorly cvs s1s2 rr abd soft ext no edema neuro confused CBC, BMP 09/02/16 05:35 09/02/16 05:35 Current Medications Generic Name Dose Route Start Last Admin Trade Name Freq PRN Reason Stop Dose Admin Acetaminophen 650 mg 08/11/16 18:36 08/15/16 21:34 Tylenol - PO 650 mg Q6H PRN Administration FEVER OR PAIN Carvedilol 25 mg 08/11/16 22:00 09/02/16 09:38 Coreg - PO 25 mg BID NEYMAR Administration Cephalexin HCl 500 mg 08/23/16 22:00 09/02/16 09:38 Keflex - PO 500 mg BID NEYMAR Administration Docusate Sodium 100 mg 08/18/16 22:00 09/02/16 09:33 Colace - PO Not Given BID NEYMAR Heparin Sodium (Porcine) 5,000 unit 08/11/16 22:00 09/02/16 09:40 Heparin - SQ 5,000 unit BID NEYMAR Administration Hydralazine HCl 25 mg 08/11/16 22:00 09/02/16 09:39 Apresoline - PO 25 mg BID NEYMAR Administration Isosorbide Mononitrate 30 mg 08/12/16 10:00 09/02/16 09:38 Imdur - PO 30 mg DAILY NEYMAR Administration Levothyroxine Sodium 75 mcg 08/12/16 07:00 09/02/16 06:11 Synthroid - PO 75 mcg DAILY@0700 NEYMAR Administration Polyethylene Glycol 17 gm 08/18/16 22:00 09/02/16 09:33 Miralax (For Daily Use) - PO Not Given BID [facility] Quetiapine Fumarate 50 mg 08/24/16 14:00 09/02/16 06:11 Seroquel - PO 50 mg TID NEYMAR Administration Senna 1 tab 08/24/16 22:00 09/02/16 09:33 Senna - PO Not Given BID [facility] Tamsulosin HCl 0.8 mg 09/01/16 16:03 09/02/16 09:33 Flomax - PO Not Given DAILY@0830 NEYMAR Impression 1. LOC again worsened 2. obstructive uropathy 3. HTN 4. altered mental status 5. hypothyroidism 6. PPM 7. hyperlipidemia 8. urinary retention s/p rivas insertion Plan would reinsert rivas and encourage fluids adjust BP meds to avoid hypotension MV
--- NOTE | 2016-09-02 11:11 | PN ---
Progress Note (short form) - Note Progress Note: Progress Note, Physician Chief Complaint: chf History of Present Illness: alert, awake, but confused, not answering questions appropriately - Current Medication List Current Medications Generic Name Dose Route Start Last Admin Trade Name Freq PRN Reason Stop Dose Admin Acetaminophen 650 mg 08/11/16 18:36 08/15/16 21:34 Tylenol - PO 650 mg Q6H PRN Administration FEVER OR PAIN Carvedilol 25 mg 08/11/16 22:00 09/02/16 09:38 Coreg - PO 25 mg BID [facility]YMAR Administration Cephalexin HCl 500 mg 08/23/16 22:00 09/02/16 09:38 Keflex - PO 500 mg BID [facility]YMAR Administration Docusate Sodium 100 mg 08/18/16 22:00 09/02/16 09:33 Colace - PO Not Given BID [facility] Heparin Sodium (Porcine) 5,000 unit 08/11/16 22:00 09/02/16 09:40 Heparin - SQ 5,000 unit BID NEYMAR Administration Hydralazine HCl 25 mg 08/11/16 22:00 09/02/16 09:39 Apresoline - PO 25 mg BID NEYMAR Administration Isosorbide Mononitrate 30 mg 08/12/16 10:00 09/02/16 09:38 Imdur - PO 30 mg DAILY [facility] Administration Levothyroxine Sodium 75 mcg 08/12/16 07:00 09/02/16 06:11 Synthroid - PO 75 mcg DAILY@0700 NEYMAR Administration Polyethylene Glycol 17 gm 08/18/16 22:00 09/02/16 09:33 Miralax (For Daily Use) - PO Not Given BID [facility] Quetiapine Fumarate 50 mg 08/24/16 14:00 09/02/16 06:11 Seroquel - PO 50 mg TID [facility] Administration Senna 1 tab 08/24/16 22:00 09/02/16 09:33 Senna - PO Not Given BID [facility] Tamsulosin HCl 0.8 mg 09/01/16 16:03 09/02/16 09:33 Flomax - PO Not Given DAILY@0830 [facility] - Objective Vital Signs: Vital Signs Period Temp Pulse Resp BP Sys/Ro Pulse Ox Last 24 Hr 97.7 F-98.6 F 78-101 16-20 100-154/62-70 96-96 Constitutional: Yes: No Distress, Calm Cardiovascular: Yes: Regular Rate and Rhythm (decr intensity), S1, S2. No: JVD , Gallop, Murmur Respiratory: Yes: Regular, CTA Bilaterally. No: Accessory Muscle Use Extremities: No: Cold Edema: No Neurological: awake, confused Psychiatric: No: Agitated no jaundice diaphoresis Labs: CBC, BMP 09/02/16 05:35 09/02/16 05:35 echo 05/2014: mod reduced lvef, global hk, nl rv, no sig valve path Echo 08/30 (here): moderately decr'd LVSF (global); nl RV size; normal LA; mild AI ECG: NSR; ? old ASMI previously seen; prior TWIs anterolateral leads now normalized tele: sr Assessment/Plan 76 m hx htn, hld, ckd, hypothyroid, icd (medtronic, dual), syst chf, here with loc, uti, ams. chronic syst chf: -pt has hx of syst chf, unclear if ischemic cardiomyopathy but pt has denied cad hx in past. Rec'd ischemic eval as outpt but pt refused on multiple occasions. -appears well-compensated, euvolemic -on coreg, hydral, nitrates as outpt--cont same -not on titi/arb/spironolactone 2/2 ckd and hyperkalemia in past ckd/LOC/urinary retention/uti: -creat improving progressively s/p rivas, now rising again -per /renal HTN: -overall mostly controlled here -cont same meds HLD: -per ER med list pt on atorva at home, not receiving here -per outpt f/u with PMD ICD: -normal check in office 04/2016 ams: -code kumar 08/30 for worse lethargy -head ct w/o acute changes -possibly due to dementia with loc/uti -neuro following nsvt: -brief run on tele (13 beats) 09/01/16, no recurrence -mg, k unremarkable -cont coreg, pt has ICD can dc tele
--- NOTE | 2016-09-02 12:44 | PN ---
Progress Note, Physician Chief Complaint: Patient talking today, pleasantly confused. Unable to obtain subjective. - Current Medication List Current Medications: Active Medications Acetaminophen (Tylenol -) 650 mg PO Q6H PRN PRN Reason: FEVER OR PAIN Last Admin: 08/15/16 21:34 Dose: 650 mg Carvedilol (Coreg -) 25 mg PO BID ON LICENSE OF [facility] Last Admin: 09/02/16 09:38 Dose: 25 mg Cephalexin HCl (Keflex -) 500 mg PO BID ON LICENSE OF [facility] Last Admin: 09/02/16 09:38 Dose: 500 mg Docusate Sodium (Colace -) 100 mg PO BID ON LICENSE OF [facility] Last Admin: 09/02/16 09:33 Dose: Not Given Heparin Sodium (Porcine) (Heparin -) 5,000 unit SQ BID ON LICENSE OF [facility] Last Admin: 09/02/16 09:40 Dose: 5,000 unit Hydralazine HCl (Apresoline -) 25 mg PO BID ON [facility] OF [facility] Last Admin: 09/02/16 09:39 Dose: 25 mg Isosorbide Mononitrate (Imdur -) 30 mg PO DAILY ON [facility] OF [facility] Last Admin: 09/02/16 09:38 Dose: 30 mg Levothyroxine Sodium (Synthroid -) 75 mcg PO DAILY@0700 ON LICENSE OF [facility] Last Admin: 09/02/16 06:11 Dose: 75 mcg Polyethylene Glycol (Miralax (For Daily Use) -) 17 gm PO BID ON LICENSE OF [facility] Last Admin: 09/02/16 09:33 Dose: Not Given Quetiapine Fumarate (Seroquel -) 50 mg PO TID ON LICENSE OF [facility] Last Admin: 09/02/16 06:11 Dose: 50 mg Senna (Senna -) 1 tab PO BID ON [facility] OF [facility] Last Admin: 09/02/16 09:33 Dose: Not Given Tamsulosin HCl (Flomax -) 0.8 mg PO DAILY@0830 ON LICENSE OF [facility] Last Admin: 09/02/16 09:33 Dose: Not Given - Objective Vital Signs: Vital Signs Temperature 98.6 F 09/02/16 08:30 Pulse Rate 90 09/02/16 08:30 Respiratory Rate 20 09/02/16 08:30 Blood Pressure 154/70 09/02/16 08:30 O2 Sat by Pulse Oximetry (%) 96 09/02/16 06:00 Constitutional: Yes: No Distress, Calm, Thin Cardiovascular: Yes: Regular Rate and Rhythm. No: Gallop, Murmur, Rub Respiratory: Yes: Regular, CTA Bilaterally. No: Rales, Rhonchi, Wheezes Gastrointestinal: Yes: Normal Bowel Sounds, Soft. No: Distention, Tenderness Extremities: Yes: WNL Edema: No Labs: CBC, BMP 09/02/16 05:35 09/02/16 05:35 INR, PTT INR 1.13 (0.82-1.09) 08/16/16 09:53 Problem List - Problems (1) Acute renal failure Code(s): N17.9 - ACUTE KIDNEY FAILURE, UNSPECIFIED Qualifiers: Acute renal failure type: unspecified Qualified Code(s): N17.9 - Acute kidney failure, unspecified (2) Acute metabolic encephalopathy Code(s): G93.41 - METABOLIC ENCEPHALOPATHY (3) Hypertension Code(s): I10 - ESSENTIAL (PRIMARY) HYPERTENSION (4) Hypothyroid Code(s): E03.9 - HYPOTHYROIDISM, UNSPECIFIED (5) Dementia Code(s): F03.90 - UNSPECIFIED DEMENTIA WITHOUT BEHAVIORAL DISTURBANCE Assessment/Plan Problems (1) Acute renal failure Assessment/Plan: -patient removed rivas yesterday -trialed without rivas, did not void -renal function worsened -replace rivas, IVF's ordered Code(s): N17.9 - ACUTE KIDNEY FAILURE, UNSPECIFIED Qualifiers: Acute renal failure type: unspecified Qualified Code(s): N17.9 - Acute kidney failure, unspecified (2) Acute metabolic encephalopathy Assessment/Plan: -suspect patient is at baseline and has significant dementia Code(s): G93.41 - METABOLIC ENCEPHALOPATHY (3) Hypertension Assessment/Plan: -continue coreg and hydralazine Code(s): I10 - ESSENTIAL (PRIMARY) HYPERTENSION (4) Hypothyroid Assessment/Plan: -elevated TSH but normal FT4 -continue synthroid Code(s): E03.9 - HYPOTHYROIDISM, UNSPECIFIED (5) Dementia Assessment/Plan: -continue current management -controlled today -no ativan Code(s): F03.90 - UNSPECIFIED DEMENTIA WITHOUT BEHAVIORAL DISTURBANCE (6) E coli UTI -pansensitive -continue keflex -day 14/14 of antibiotics -will recheck urinalysis in the morning and see if can stop antibiotics
[2016-09-02] MEDS: QUEtiapine FUMARATE 25 MG TABLET (FP) PO PRN (17:20)
--- NOTE | 2016-09-02 17:39 | PN ---
Mental Health Exam - Mental Status Exam Alert and Oriented to: Time (disorientated), Place (disorientated), Person ( disorientated, does not know daughter lei. ) Cognitive Function: Impaired Patient Appearance: Disheveled Mood: Angry, Hostile (grabbing arna of daughter not letting go. ), Suspicious ( Believes that we are stealing from him. ), Anxious, Irritable Affect: Inappropriate Patient Behavior: Aggressive, Combative, Suspicious, Belligerent, Impulsive, Resitive to Care Speech Pattern: Inappropriate, Garbled Voice Loudness: Mildly Loud Thought Process: Loose Associations, Disorganized, Disoriented Thought Disorder: Paranoid Ideation (that we are stealing from him. ) Hallucinations: Denies Suicidal Ideation: None Homicidal Ideation: Current (evident by his actions.) Insight/Judgement: Impaired Sleep: Difficulty falling asleep Appetite: Weight loss Muscle strength/Tone: Normal Gait/Station: Deferred (sittingh in wc with jack vest restraint.)
--- NOTE | 2016-09-02 17:49 | PN ---
Progress Note, Physician Chief Complaint: combatibe, "beligerent with altered mental status...pulled rivas out per RN... Grabbing at staff or objects, using his full strength. - Current Medication List Current Medications: Active Medications Acetaminophen (Tylenol -) 650 mg PO Q6H PRN PRN Reason: FEVER OR PAIN Last Admin: 08/15/16 21:34 Dose: 650 mg Carvedilol (Coreg -) 25 mg PO BID [facility] Last Admin: 09/02/16 09:38 Dose: 25 mg Cephalexin HCl (Keflex -) 500 mg PO BID [facility] Last Admin: 09/02/16 09:38 Dose: 500 mg Docusate Sodium (Colace -) 100 mg PO BID [facility] Last Admin: 09/02/16 09:33 Dose: Not Given Heparin Sodium (Porcine) (Heparin -) 5,000 unit SQ BID [facility] Last Admin: 09/02/16 09:40 Dose: 5,000 unit Hydralazine HCl (Apresoline -) 25 mg PO BID [facility] Last Admin: 09/02/16 09:39 Dose: 25 mg Isosorbide Mononitrate (Imdur -) 30 mg PO DAILY [facility] Last Admin: 09/02/16 09:38 Dose: 30 mg Levothyroxine Sodium (Synthroid -) 75 mcg PO DAILY@0700 [facility] Last Admin: 09/02/16 06:11 Dose: 75 mcg Polyethylene Glycol (Miralax (For Daily Use) -) 17 gm PO BID [facility] Last Admin: 09/02/16 09:33 Dose: Not Given Quetiapine Fumarate (Seroquel -) 50 mg PO TID [facility] Last Admin: 09/02/16 14:10 Dose: 50 mg Senna (Senna -) 1 tab PO BID [facility] Last Admin: 09/02/16 09:33 Dose: Not Given Tamsulosin HCl (Flomax -) 0.8 mg PO DAILY@0830 [facility] Last Admin: 09/02/16 09:33 Dose: Not Given - Objective Vital Signs: Vital Signs Temperature 97.9 F 09/02/16 14:14 Pulse Rate 83 09/02/16 14:14 Respiratory Rate 18 09/02/16 14:14 Blood Pressure 94/52 09/02/16 14:14 O2 Sat by Pulse Oximetry (%) 96 09/02/16 06:00 Neurological: Yes: Oriented (disorientated.), Dysarthria Psychiatric: Yes: Oriented (disorientated.) Labs: CBC, BMP 09/02/16 05:35 09/02/16 05:35 INR, PTT INR 1.13 (0.82-1.09) 08/16/16 09:53 Problem List - Problems (1) Altered mental status Code(s): R41.82 - ALTERED MENTAL STATUS, UNSPECIFIED Qualifiers: Altered mental status type: delirium Qualified Code(s): R41.0 - Disorientation, unspecified (2) Dementia Code(s): F03.90 - UNSPECIFIED DEMENTIA WITHOUT BEHAVIORAL DISTURBANCE Qualifiers: Alzheimer's disease onset: unspecified onset Dementia behavioral disturbance: with behavioral disturbance Assessment/Plan 77yo male who has vanessa kumar called 08/30 after im admin of a benzodiazepine. Patient last seen by Dr Spicer omn 08-20-16. Plan for seroquel 50mg po bid Client has acut erenal failure, decreased function. Echoli UTI, Encephalopathy. HTN, Per daughter client has memeory loss prior to hostipal worsening since 2 yrs ago. Answers 246 to inquiry how he is feeling. Continue seroquel 50mgs po tid may have seroquel 25mg po prn q 12 as needed for acute agitation. NO Ativan or benzodiazine for now.
[2016-09-03] MEDS: QUEtiapine FUMARATE 50 MG TABLET PO SCH ×3 (06:10→21:58)
[2016-09-03] MEDS: LEVOTHYROXINE NA 75 MCG TABLET (FP) PO SCH (06:11)
[2016-09-03 08:13] LABS: ANION GAP 9 (8-16); CALCIUM 9.1 mg/dL (8.5-10.1); CO2 29 mmol/L (21-32); CREATININE 2.5 mg/dL (0.7-1.3); GLUCOSE,RANDOM 98 mg/dL (74-106); MAGNESIUM 2.7 mg/dL (1.8-2.4); PHOSPHOROUS 4.4 mg/dL (2.5-4.9)
[2016-09-03 08:14] LABS: MCH 29.2 pg (25.7-33.7); MCHC 33.3 g/dl (32.0-35.9); MEAN CELL VOLUME 87.7 fl (80-96); MEAN PLT VOLUME 9.3 fl (7.5-11.1); PLATELET COUNT 226 K/MM3 (134-434); RDW 16.1 % (11.9-15.9); WHITE BLOOD COUNT 7.9 K/mm3 (4.0-10.0)
[2016-09-03] MEDS: TAMSULOSIN HCL 0.4 MG CAP.ER.24H (FP) PO SCH (09:06)
[2016-09-03] MEDS: CARVEDILOL 25 MG TABLET (FP) PO SCH ×2 (09:07→21:58)
[2016-09-03] MEDS: CEPHALEXIN MONOHYDRATE 500 MG CAPSULE (UD) PO SCH ×2 (09:07→21:58)
[2016-09-03] MEDS: hydrALAZINE HCL 25 MG TABLET (FP) PO SCH ×2 (09:07→21:58)
[2016-09-03] MEDS: DOCUSATE SODIUM 100 MG CAPSULE (FP) PO SCH ×2 (09:07→21:59)
[2016-09-03] MEDS: ISOSORBIDE MONONITRATE 30 MG TAB.SR.24H (FP) PO SCH (09:07)
[2016-09-03] MEDS: SENNOSIDES 8.6MG TABLET (FP) PO SCH ×2 (09:07→21:58)
[2016-09-03] MEDS: HEPARIN NA (PORCINE) 5,000 UNITS/ML 1ML VIAL SQ SCH ×2 (09:07→21:58)
[2016-09-03] MEDS: POLYETHYLENE GLYCOL 3350 119 GM BTL PO SCH ×2 (09:14→21:59)
--- NOTE | 2016-09-03 10:13 | PN ---
Progress Note (short form) - Note Progress Note: Progress Note, Physician Chief Complaint: chf History of Present Illness: alert, awake, but confused, not answering questions appropriately - Current Medication List Current Medications Generic Name Dose Route Start Last Admin Trade Name Freq PRN Reason Stop Dose Admin Acetaminophen 650 mg 08/11/16 18:36 08/15/16 21:34 Tylenol - PO 650 mg Q6H PRN Administration FEVER OR PAIN Carvedilol 25 mg 08/11/16 22:00 09/03/16 09:07 Coreg - PO 25 mg BID [facility] Administration Cephalexin HCl 500 mg 08/23/16 22:00 09/03/16 09:07 Keflex - PO 500 mg BID [facility] Administration Docusate Sodium 100 mg 08/18/16 22:00 09/03/16 09:07 Colace - PO Not Given BID [facility] Heparin Sodium (Porcine) 5,000 unit 08/11/16 22:00 09/03/16 09:07 Heparin - SQ 5,000 unit BID [facility] Administration Hydralazine HCl 25 mg 08/11/16 22:00 09/03/16 09:07 Apresoline - PO 25 mg BID [facility] Administration Isosorbide Mononitrate 30 mg 08/12/16 10:00 09/03/16 09:07 Imdur - PO 30 mg DAILY [facility] Administration Levothyroxine Sodium 75 mcg 08/12/16 07:00 09/03/16 06:11 Synthroid - PO 75 mcg DAILY@0700 [facility] Administration Polyethylene Glycol 17 gm 08/18/16 22:00 09/03/16 09:14 Miralax (For Daily Use) - PO Not Given BID [facility] Quetiapine Fumarate 50 mg 08/24/16 14:00 09/03/16 06:10 Seroquel - PO 50 mg TID [facility] Administration Quetiapine Fumarate 25 mg 09/02/16 17:50 09/02/16 17:20 Seroquel - PO 25 mg DAILY PRN Administration AGITATION Senna 1 tab 08/24/16 22:00 09/03/16 09:07 Senna - PO 1 tab BID [facility] Administration Tamsulosin HCl 0.8 mg 09/01/16 16:03 09/03/16 09:06 Flomax - PO 0.8 mg DAILY@0830 [facility] Administration - Objective Vital Signs: Vital Signs Period Temp Pulse Resp BP Sys/Ro Pulse Ox Last 24 Hr 97.4 F-98.4 F 75-99 18-20 94-133/52-68 96-97 Constitutional: Yes: No Distress, Calm Cardiovascular: Yes: Regular Rate and Rhythm (decr intensity), S1, S2. No: JVD , Gallop, Murmur Respiratory: Yes: Regular, CTA Bilaterally. No: Accessory Muscle Use Extremities: No: Cold Edema: No Neurological: awake, confused Psychiatric: No: Agitated no jaundice diaphoresis Labs: CBC, BMP 09/03/16 05:53 09/03/16 05:53 echo 05/2014: mod reduced lvef, global hk, nl rv, no sig valve path Echo 08/30 (here): moderately decr'd LVSF (global); nl RV size; normal LA; mild AI ECG: NSR; ? old ASMI previously seen; prior TWIs anterolateral leads now normalized Assessment/Plan 76 m hx htn, hld, ckd, hypothyroid, icd (medtronic, dual), syst chf, here with loc, uti, ams. chronic syst chf: -pt has hx of syst chf, unclear if ischemic cardiomyopathy but pt has denied cad hx in past. Rec'd ischemic eval as outpt but pt refused on multiple occasions. -appears well-compensated, euvolemic -on coreg, hydral, nitrates as outpt--cont same -not on titi/arb/spironolactone 2/2 ckd and hyperkalemia in past ckd/LOC/urinary retention/uti: -creat was improving progressively s/p rivas, now rising again -per /renal HTN: -overall mostly controlled here -cont same meds HLD: -per ER med list pt on atorva at home, not receiving here -per outpt f/u with PMD ICD: -normal check in office 04/2016 ams: -code kumar 08/30 for worse lethargy -head ct w/o acute changes -possibly due to dementia with loc/uti -neuro following nsvt: -brief run on tele (13 beats) 09/01/16, no recurrence -mg, k unremarkable -cont coreg, pt has ICD can dc tele
--- NOTE | 2016-09-03 11:08 | PN ---
Progress Note (short form) - Note Progress Note: RENAL awake and alert comfortable was being fed by nursing staff when I saw him Last Vital Signs Temp Pulse Resp BP Pulse Ox 97.6 F 83 20 132/66 96 09/03/16 08:00 09/03/16 08:00 09/03/16 08:00 09/03/16 08:00 09/03/16 09:00 lungs clear anteriorly cvs s1s2 rr abd soft ext no edema neuro confused CBC, BMP 09/03/16 05:53 09/03/16 05:53 Current Medications Generic Name Dose Route Start Last Admin Trade Name Freq PRN Reason Stop Dose Admin Acetaminophen 650 mg 08/11/16 18:36 08/15/16 21:34 Tylenol - PO 650 mg Q6H PRN Administration FEVER OR PAIN Carvedilol 25 mg 08/11/16 22:00 09/02/16 09:38 Coreg - PO 25 mg BID [facility] Administration Cephalexin HCl 500 mg 08/23/16 22:00 09/02/16 09:38 Keflex - PO 500 mg BID [facility] Administration Docusate Sodium 100 mg 08/18/16 22:00 09/02/16 09:33 Colace - PO Not Given BID [facility] Heparin Sodium (Porcine) 5,000 unit 08/11/16 22:00 09/02/16 09:40 Heparin - SQ 5,000 unit BID [facility] Administration Hydralazine HCl 25 mg 08/11/16 22:00 09/02/16 09:39 Apresoline - PO 25 mg BID [facility] Administration Isosorbide Mononitrate 30 mg 08/12/16 10:00 09/02/16 09:38 Imdur - PO 30 mg DAILY [facility] Administration Levothyroxine Sodium 75 mcg 08/12/16 07:00 09/02/16 06:11 Synthroid - PO 75 mcg DAILY@0700 [facility] Administration Polyethylene Glycol 17 gm 08/18/16 22:00 09/02/16 09:33 Miralax (For Daily Use) - PO Not Given BID [facility] Quetiapine Fumarate 50 mg 08/24/16 14:00 09/02/16 06:11 Seroquel - PO 50 mg TID [facility] Administration Senna 1 tab 08/24/16 22:00 09/02/16 09:33 Senna - PO Not Given BID [facility] Tamsulosin HCl 0.8 mg 09/01/16 16:03 09/02/16 09:33 Flomax - PO Not Given DAILY@0830 [facility] Impression 1. LOC again worsened 2. obstructive uropathy 3. HTN 4. altered mental status 5. hypothyroidism 6. PPM 7. hyperlipidemia 8. urinary retention s/p rivas insertion Plan restart fluids keep rivas catheter MV
[2016-09-03] MEDS: SODIUM CHLORIDE 0.45% 1,000 ML IV SCH (11:59)
--- NOTE | 2016-09-03 12:16 | PN ---
Progress Note, Physician Chief Complaint: Patient awake but non-verbal - Current Medication List Current Medications: Active Medications Acetaminophen (Tylenol -) 650 mg PO Q6H PRN PRN Reason: FEVER OR PAIN Last Admin: 08/15/16 21:34 Dose: 650 mg Carvedilol (Coreg -) 25 mg PO BID [facility] Last Admin: 09/03/16 09:07 Dose: 25 mg Cephalexin HCl (Keflex -) 500 mg PO BID [facility] Last Admin: 09/03/16 09:07 Dose: 500 mg Docusate Sodium (Colace -) 100 mg PO BID [facility] Last Admin: 09/03/16 09:07 Dose: Not Given Heparin Sodium (Porcine) (Heparin -) 5,000 unit SQ BID [facility] Last Admin: 09/03/16 09:07 Dose: 5,000 unit Hydralazine HCl (Apresoline -) 25 mg PO BID [facility] Last Admin: 09/03/16 09:07 Dose: 25 mg Sodium Chloride (1/2 Normal Saline) 1,000 mls @ 42 mls/hr IV ASDIR [facility] Last Admin: 09/03/16 11:59 Dose: 42 mls/hr Isosorbide Mononitrate (Imdur -) 30 mg PO DAILY [facility] Last Admin: 09/03/16 09:07 Dose: 30 mg Levothyroxine Sodium (Synthroid -) 75 mcg PO DAILY@0700 [facility] Last Admin: 09/03/16 06:11 Dose: 75 mcg Polyethylene Glycol (Miralax (For Daily Use) -) 17 gm PO BID [facility] Last Admin: 09/03/16 09:14 Dose: Not Given Quetiapine Fumarate (Seroquel -) 50 mg PO TID [facility] Last Admin: 09/03/16 06:10 Dose: 50 mg Quetiapine Fumarate (Seroquel -) 25 mg PO DAILY PRN PRN Reason: AGITATION Last Admin: 09/02/16 17:20 Dose: 25 mg Senna (Senna -) 1 tab PO BID [facility] Last Admin: 09/03/16 09:07 Dose: 1 tab Tamsulosin HCl (Flomax -) 0.8 mg PO DAILY@0830 [facility] Last Admin: 09/03/16 09:06 Dose: 0.8 mg - Objective Vital Signs: Vital Signs Temperature 97.6 F 09/03/16 08:00 Pulse Rate 83 09/03/16 08:00 Respiratory Rate 20 09/03/16 08:00 Blood Pressure 132/66 09/03/16 08:00 O2 Sat by Pulse Oximetry (%) 96 09/03/16 09:00 Constitutional: Yes: Well Nourished, No Distress, Calm Cardiovascular: Yes: Regular Rate and Rhythm. No: Gallop, Murmur, Rub Respiratory: Yes: Regular, CTA Bilaterally. No: Rales, Rhonchi, Wheezes Gastrointestinal: Yes: Normal Bowel Sounds, Soft. No: Distention, Tenderness Extremities: Yes: WNL Edema: No Labs: CBC, BMP 09/03/16 05:53 09/03/16 05:53 INR, PTT INR 1.13 (0.82-1.09) 08/16/16 09:53 Problem List - Problems (1) Acute renal failure Code(s): N17.9 - ACUTE KIDNEY FAILURE, UNSPECIFIED Qualifiers: Acute renal failure type: unspecified Qualified Code(s): N17.9 - Acute kidney failure, unspecified (2) Acute metabolic encephalopathy Code(s): G93.41 - METABOLIC ENCEPHALOPATHY (3) Hypertension Code(s): I10 - ESSENTIAL (PRIMARY) HYPERTENSION (4) Hypothyroid Code(s): E03.9 - HYPOTHYROIDISM, UNSPECIFIED (5) Dementia Code(s): F03.90 - UNSPECIFIED DEMENTIA WITHOUT BEHAVIORAL DISTURBANCE Qualifiers: Alzheimer's disease onset: unspecified onset Dementia behavioral disturbance: with behavioral disturbance Assessment/Plan Problems (1) Acute renal failure Assessment/Plan: -worsening today -rivas replaced -nephrology following, hydration restarted Code(s): N17.9 - ACUTE KIDNEY FAILURE, UNSPECIFIED Qualifiers: Acute renal failure type: unspecified Qualified Code(s): N17.9 - Acute kidney failure, unspecified (2) Acute metabolic encephalopathy Assessment/Plan: -suspect patient is at baseline and has significant dementia Code(s): G93.41 - METABOLIC ENCEPHALOPATHY (3) Hypertension Assessment/Plan: -continue coreg and hydralazine Code(s): I10 - ESSENTIAL (PRIMARY) HYPERTENSION (4) Hypothyroid Assessment/Plan: -elevated TSH but normal FT4 -continue synthroid Code(s): E03.9 - HYPOTHYROIDISM, UNSPECIFIED (5) Dementia Assessment/Plan: -continue current management -controlled today -no ativan Code(s): F03.90 - UNSPECIFIED DEMENTIA WITHOUT BEHAVIORAL DISTURBANCE (6) E coli UTI -check urinalysis to make sure resolved
[2016-09-03 15:18] LABS: URINE APPEARANCE CLEAR; URINE BILIRUBIN NEGATIVE (NEGATIVE); URINE BLOOD 2+ (NEGATIVE); URINE COLOR YELLOW; URINE GLUCOSE (UA) NEGATIVE (NEGATIVE); URINE KETONE NEGATIVE (NEGATIVE); URINE NITRITE NEGATIVE (NEGATIVE); URINE UROBILINOGEN NEGATIVE mg/dL (0.2-1.0)
[2016-09-03 15:22] LABS: URINE LEUK ESTERASE 1+ (NEGATIVE); URINE PROTEIN 1+ (NEGATIVE)
[2016-09-03 15:34] LABS: URINE MUCUS RARE; URINE RBC 108 /hpf (0-3); URINE WBC 3 /hpf (3-5)
[2016-09-04] MEDS: QUEtiapine FUMARATE 50 MG TABLET PO SCH ×4 (05:42→21:22)
[2016-09-04] MEDS: LEVOTHYROXINE NA 75 MCG TABLET (FP) PO SCH (07:04)
[2016-09-04] MEDS: TAMSULOSIN HCL 0.4 MG CAP.ER.24H (FP) PO SCH ×2 (08:44→10:45)
[2016-09-04] MEDS: SODIUM CHLORIDE 0.45% 1,000 ML IV SCH ×2 (09:18→13:47)
--- NOTE | 2016-09-04 09:46 | PN ---
Progress Note (short form) - Note Progress Note: RENAL awake and alert comfortable Last Vital Signs Temp Pulse Resp BP Pulse Ox 98.9 F 86 18 133/67 96 09/04/16 06:00 09/04/16 06:00 09/04/16 06:00 09/04/16 06:00 09/03/16 21:00 lungs clear anteriorly cvs s1s2 rr abd soft ext no edema neuro confused gu rivas in place, clear urine CBC, BMP 09/03/16 05:53 09/03/16 05:53 Current Medications Generic Name Dose Route Start Last Admin Trade Name Freq PRN Reason Stop Dose Admin Acetaminophen 650 mg 08/11/16 18:36 08/15/16 21:34 Tylenol - PO 650 mg Q6H PRN Administration FEVER OR PAIN Carvedilol 25 mg 08/11/16 22:00 09/03/16 21:58 Coreg - PO 25 mg BID [facility] Administration Cephalexin HCl 500 mg 08/23/16 22:00 09/03/16 21:58 Keflex - PO 500 mg BID [facility] Administration Docusate Sodium 100 mg 08/18/16 22:00 09/03/16 21:59 Colace - PO Not Given BID [facility] Heparin Sodium (Porcine) 5,000 unit 08/11/16 22:00 09/03/16 21:58 Heparin - SQ 5,000 unit BID [facility] Administration Hydralazine HCl 25 mg 08/11/16 22:00 09/03/16 21:58 Apresoline - PO 25 mg BID [facility] Administration Sodium Chloride 1,000 mls @ 42 mls/hr 09/03/16 11:15 09/04/16 09:18 1/2 Normal Saline IV 42 mls/hr ASDIR [facility] Administration Isosorbide Mononitrate 30 mg 08/12/16 10:00 09/03/16 09:07 Imdur - PO 30 mg DAILY [facility] Administration Levothyroxine Sodium 75 mcg 08/12/16 07:00 09/04/16 07:04 Synthroid - PO Not Given DAILY@0700 [facility] Polyethylene Glycol 17 gm 08/18/16 22:00 09/03/16 21:59 Miralax (For Daily Use) - PO 17 grams BID [facility] Administration Quetiapine Fumarate 50 mg 08/24/16 14:00 09/04/16 07:04 Seroquel - PO Not Given TID [facility] Quetiapine Fumarate 25 mg 09/02/16 17:50 09/02/16 17:20 Seroquel - PO 25 mg DAILY PRN Administration AGITATION Senna 1 tab 08/24/16 22:00 09/03/16 21:58 Senna - PO 1 tab BID [facility] Administration Tamsulosin HCl 0.8 mg 09/01/16 16:03 09/04/16 08:44 Flomax - PO Not Given DAILY@0830 [facility] Impression 1. LOC again worsened 2. obstructive uropathy 3. HTN 4. altered mental status 5. hypothyroidism 6. PPM 7. hyperlipidemia 8. urinary retention s/p rivas insertion Plan keep fluids keep rivas catheter avoid nephrotoxins MV
[2016-09-04] MEDS: hydrALAZINE HCL 25 MG TABLET (FP) PO SCH ×3 (09:50→22:14)
[2016-09-04] MEDS: SENNOSIDES 8.6MG TABLET (FP) PO SCH ×3 (09:50→22:17)
[2016-09-04] MEDS: CEPHALEXIN MONOHYDRATE 500 MG CAPSULE (UD) PO SCH ×3 (09:50→22:17)
[2016-09-04] MEDS: POLYETHYLENE GLYCOL 3350 119 GM BTL PO SCH ×3 (09:50→22:17)
[2016-09-04] MEDS: HEPARIN NA (PORCINE) 5,000 UNITS/ML 1ML VIAL SQ SCH ×2 (09:50→22:17)
[2016-09-04] MEDS: ISOSORBIDE MONONITRATE 30 MG TAB.SR.24H (FP) PO SCH ×2 (09:50→10:45)
[2016-09-04] MEDS: DOCUSATE SODIUM 100 MG CAPSULE (FP) PO SCH ×3 (09:50→22:14)
[2016-09-04] MEDS: CARVEDILOL 25 MG TABLET (FP) PO SCH ×3 (09:50→22:15)
--- NOTE | 2016-09-04 11:55 | PN ---
Progress Note, Physician Chief Complaint: Patient awake and verbal, but very inappropriate in his speech. Still refusing TURP. Daughter in room and case discussed. - Current Medication List Current Medications: Active Medications Acetaminophen (Tylenol -) 650 mg PO Q6H PRN PRN Reason: FEVER OR PAIN Last Admin: 08/15/16 21:34 Dose: 650 mg Carvedilol (Coreg -) 25 mg PO BID [facility] Last Admin: 09/04/16 10:46 Dose: 25 mg Cephalexin HCl (Keflex -) 500 mg PO BID [facility] Stop: 09/04/16 23:59 Last Admin: 09/04/16 10:46 Dose: 500 mg Docusate Sodium (Colace -) 100 mg PO BID [facility] Last Admin: 09/04/16 10:45 Dose: 100 mg Heparin Sodium (Porcine) (Heparin -) 5,000 unit SQ BID [facility] Last Admin: 09/04/16 09:50 Dose: 5,000 unit Hydralazine HCl (Apresoline -) 25 mg PO BID [facility] Last Admin: 09/04/16 10:46 Dose: 25 mg Sodium Chloride (1/2 Normal Saline) 1,000 mls @ 42 mls/hr IV ASDIR [facility] Last Admin: 09/04/16 09:18 Dose: 42 mls/hr Isosorbide Mononitrate (Imdur -) 30 mg PO DAILY [facility] Last Admin: 09/04/16 10:45 Dose: 30 mg Levothyroxine Sodium (Synthroid -) 75 mcg PO DAILY@0700 [facility] Last Admin: 09/04/16 07:04 Dose: Not Given Polyethylene Glycol (Miralax (For Daily Use) -) 17 gm PO BID [facility] Last Admin: 09/04/16 10:46 Dose: 17 grams Quetiapine Fumarate (Seroquel -) 50 mg PO TID [facility] Last Admin: 09/04/16 07:04 Dose: Not Given Quetiapine Fumarate (Seroquel -) 25 mg PO DAILY PRN PRN Reason: AGITATION Last Admin: 09/02/16 17:20 Dose: 25 mg Senna (Senna -) 1 tab PO BID [facility] Last Admin: 09/04/16 10:45 Dose: 1 tab Tamsulosin HCl (Flomax -) 0.8 mg PO DAILY@0830 [facility] Last Admin: 09/04/16 10:45 Dose: 0.8 mg - Objective Vital Signs: Vital Signs Temperature 8.9 F L 09/04/16 10:00 Pulse Rate 86 09/04/16 10:00 Respiratory Rate 18 09/04/16 10:00 Blood Pressure 128/57 09/04/16 10:00 O2 Sat by Pulse Oximetry (%) 96 09/03/16 21:00 Constitutional: Yes: Thin, Other (angry on exam) Cardiovascular: Yes: Regular Rate and Rhythm. No: Gallop, Murmur, Rub Respiratory: Yes: Regular, CTA Bilaterally. No: Rales, Rhonchi, Wheezes Gastrointestinal: Yes: Normal Bowel Sounds, Soft. No: Distention, Tenderness Extremities: Yes: WNL Edema: No Labs: CBC, BMP 09/03/16 05:53 09/03/16 05:53 INR, PTT INR 1.13 (0.82-1.09) 08/16/16 09:53 Problem List - Problems (1) Acute renal failure Code(s): N17.9 - ACUTE KIDNEY FAILURE, UNSPECIFIED Qualifiers: Acute renal failure type: unspecified Qualified Code(s): N17.9 - Acute kidney failure, unspecified (2) Acute metabolic encephalopathy Code(s): G93.41 - METABOLIC ENCEPHALOPATHY (3) Hypertension Code(s): I10 - ESSENTIAL (PRIMARY) HYPERTENSION (4) Hypothyroid Code(s): E03.9 - HYPOTHYROIDISM, UNSPECIFIED (5) Dementia Code(s): F03.90 - UNSPECIFIED DEMENTIA WITHOUT BEHAVIORAL DISTURBANCE Qualifiers: Alzheimer's disease onset: unspecified onset Dementia behavioral disturbance: with behavioral disturbance Assessment/Plan Problems (1) Acute renal failure Assessment/Plan: -continues to worsen -rivas replaced -nephrology following, continue IVF Code(s): N17.9 - ACUTE KIDNEY FAILURE, UNSPECIFIED Qualifiers: Acute renal failure type: unspecified Qualified Code(s): N17.9 - Acute kidney failure, unspecified (2) Acute metabolic encephalopathy Assessment/Plan: -suspect patient is at baseline and has significant dementia Code(s): G93.41 - METABOLIC ENCEPHALOPATHY (3) Hypertension Assessment/Plan: -continue coreg and hydralazine Code(s): I10 - ESSENTIAL (PRIMARY) HYPERTENSION (4) Hypothyroid Assessment/Plan: -elevated TSH but normal FT4 -continue synthroid Code(s): E03.9 - HYPOTHYROIDISM, UNSPECIFIED (5) Dementia Assessment/Plan: -continue current management -controlled today -no ativan Code(s): F03.90 - UNSPECIFIED DEMENTIA WITHOUT BEHAVIORAL DISTURBANCE (6) E coli UTI -repeat urinalysis shows minimal WBCs and no bacteria -discontinue keflex after tonight's dose
[2016-09-05] MEDS: LEVOTHYROXINE NA 75 MCG TABLET (FP) PO SCH (06:56)
[2016-09-05] MEDS: SODIUM CHLORIDE 0.45% 1,000 ML IV SCH ×2 (06:56→17:11)
[2016-09-05] MEDS: QUEtiapine FUMARATE 50 MG TABLET PO SCH ×3 (06:56→21:35)
[2016-09-05 08:05] LABS: BASOPHIL 1.2 % (0-2.0); EOSINOPHIL 2.4 % (0-4.5); MCH 29.3 pg (25.7-33.7); MCHC 33.4 g/dl (32.0-35.9); MEAN CELL VOLUME 87.8 fl (80-96); MEAN PLT VOLUME 8.4 fl (7.5-11.1); NEUTROPHILS 62.1 % (42.8-82.8); PLATELET COUNT 196 K/MM3 (134-434); RDW 16.4 % (11.9-15.9); WHITE BLOOD COUNT 6.9 K/mm3 (4.0-10.0)
[2016-09-05] MEDS: TAMSULOSIN HCL 0.4 MG CAP.ER.24H (FP) PO SCH (08:30)
[2016-09-05 08:36] LABS: ANION GAP 8 (8-16); CALCIUM 8.7 mg/dL (8.5-10.1); CO2 23 mmol/L (21-32); CREATININE 2.1 mg/dL (0.7-1.3); GLUCOSE,RANDOM 90 mg/dL (74-106); MAGNESIUM 2.5 mg/dL (1.8-2.4); PHOSPHOROUS 3.8 mg/dL (2.5-4.9)
--- NOTE | 2016-09-05 09:56 | PN ---
Progress Note (short form) - Note Progress Note: RENAL awake and alert comfortable Last Vital Signs Temp Pulse Resp BP Pulse Ox 97.8 F 74 20 144/61 96 09/05/16 06:00 09/05/16 06:00 09/05/16 06:00 09/05/16 06:00 09/04/16 09:00 lungs clear anteriorly cvs s1s2 rr abd soft ext no edema neuro confused gu rivas in place, clear urine CBC, BMP 09/05/16 07:29 09/05/16 07:29 CBC, BMP 09/05/16 07:29 09/05/16 07:29 Impression 1. LOC improved 2. obstructive uropathy 3. HTN 4. altered mental status 5. hypothyroidism 6. PPM 7. hyperlipidemia 8. urinary retention s/p rivas insertion Plan keep fluids keep rivas catheter avoid nephrotoxins Dr Garza returning tomorrow MV
[2016-09-05] MEDS: HEPARIN NA (PORCINE) 5,000 UNITS/ML 1ML VIAL SQ SCH ×2 (10:00→21:37)
--- NOTE | 2016-09-05 11:55 | PN ---
Progress Note, Physician Chief Complaint: Patient awake and verbal, unable to obtain subjective. - Current Medication List Current Medications: Active Medications Acetaminophen (Tylenol -) 650 mg PO Q6H PRN PRN Reason: FEVER OR PAIN Last Admin: 08/15/16 21:34 Dose: 650 mg Carvedilol (Coreg -) 25 mg PO BID COUNTS INCLUDE 234 BEDS AT THE [facility] Last Admin: 09/04/16 22:15 Dose: Not Given Docusate Sodium (Colace -) 100 mg PO BID COUNTS INCLUDE 234 BEDS AT THE [facility] Last Admin: 09/04/16 22:14 Dose: Not Given Heparin Sodium (Porcine) (Heparin -) 5,000 unit SQ BID COUNTS INCLUDE 234 BEDS AT THE [facility] Last Admin: 09/04/16 22:17 Dose: Not Given Hydralazine HCl (Apresoline -) 25 mg PO BID COUNTS INCLUDE 234 BEDS AT THE [facility] Last Admin: 09/04/16 22:14 Dose: Not Given Sodium Chloride (1/2 Normal Saline) 1,000 mls @ 42 mls/hr IV ASDIR COUNTS INCLUDE 234 BEDS AT THE [facility] Last Admin: 09/05/16 06:56 Dose: 42 mls/hr Isosorbide Mononitrate (Imdur -) 30 mg PO DAILY COUNTS INCLUDE 234 BEDS AT THE [facility] Last Admin: 09/04/16 10:45 Dose: 30 mg Levothyroxine Sodium (Synthroid -) 75 mcg PO DAILY@0700 COUNTS INCLUDE 234 BEDS AT THE [facility] Last Admin: 09/05/16 06:56 Dose: 75 mcg Polyethylene Glycol (Miralax (For Daily Use) -) 17 gm PO BID COUNTS INCLUDE 234 BEDS AT THE [facility] Last Admin: 09/04/16 22:17 Dose: Not Given Quetiapine Fumarate (Seroquel -) 50 mg PO TID COUNTS INCLUDE 234 BEDS AT THE [facility] Last Admin: 09/05/16 06:56 Dose: 50 mg Quetiapine Fumarate (Seroquel -) 25 mg PO DAILY PRN PRN Reason: AGITATION Last Admin: 09/02/16 17:20 Dose: 25 mg Senna (Senna -) 1 tab PO BID COUNTS INCLUDE 234 BEDS AT THE [facility] Last Admin: 09/04/16 22:17 Dose: Not Given Tamsulosin HCl (Flomax -) 0.8 mg PO DAILY@0830 COUNTS INCLUDE 234 BEDS AT THE [facility] Last Admin: 09/04/16 10:45 Dose: 0.8 mg - Objective Vital Signs: Vital Signs Temperature 97.8 F 09/05/16 06:00 Pulse Rate 74 09/05/16 06:00 Respiratory Rate 20 09/05/16 06:00 Blood Pressure 144/61 09/05/16 06:00 O2 Sat by Pulse Oximetry (%) 96 09/04/16 09:00 Constitutional: Yes: Well Nourished, No Distress, Calm Cardiovascular: Yes: Regular Rate and Rhythm. No: Gallop, Murmur, Rub Respiratory: Yes: Regular, CTA Bilaterally. No: Rales, Rhonchi, Wheezes Gastrointestinal: Yes: Normal Bowel Sounds, Soft. No: Distention, Tenderness Extremities: Yes: WNL Edema: No Labs: CBC, BMP 09/05/16 07:29 09/05/16 07:29 INR, PTT INR 1.13 (0.82-1.09) 08/16/16 09:53 Problem List - Problems (1) Acute renal failure Code(s): N17.9 - ACUTE KIDNEY FAILURE, UNSPECIFIED Qualifiers: Acute renal failure type: unspecified Qualified Code(s): N17.9 - Acute kidney failure, unspecified (2) Acute metabolic encephalopathy Code(s): G93.41 - METABOLIC ENCEPHALOPATHY (3) Hypertension Code(s): I10 - ESSENTIAL (PRIMARY) HYPERTENSION (4) Hypothyroid Code(s): E03.9 - HYPOTHYROIDISM, UNSPECIFIED (5) Dementia Code(s): F03.90 - UNSPECIFIED DEMENTIA WITHOUT BEHAVIORAL DISTURBANCE Qualifiers: Alzheimer's disease onset: unspecified onset Dementia behavioral disturbance: with behavioral disturbance Assessment/Plan Problems (1) Acute renal failure Assessment/Plan: -continue rivas placement and IVF -nephrology following -improved today Code(s): N17.9 - ACUTE KIDNEY FAILURE, UNSPECIFIED Qualifiers: Acute renal failure type: unspecified Qualified Code(s): N17.9 - Acute kidney failure, unspecified (2) Acute metabolic encephalopathy Assessment/Plan: -suspect patient is at baseline and has significant dementia Code(s): G93.41 - METABOLIC ENCEPHALOPATHY (3) Hypertension Assessment/Plan: -continue coreg and hydralazine Code(s): I10 - ESSENTIAL (PRIMARY) HYPERTENSION (4) Hypothyroid Assessment/Plan: -elevated TSH but normal FT4 -continue synthroid Code(s): E03.9 - HYPOTHYROIDISM, UNSPECIFIED (5) Dementia Assessment/Plan: -continue current management -controlled today -no ativan Code(s): F03.90 - UNSPECIFIED DEMENTIA WITHOUT BEHAVIORAL DISTURBANCE (6) E coli UTI -finished full course of keflex
[2016-09-05] MEDS: hydrALAZINE HCL 25 MG TABLET (FP) PO SCH ×2 (14:48→22:12)
[2016-09-05] MEDS: DOCUSATE SODIUM 100 MG CAPSULE (FP) PO SCH ×2 (14:48→22:12)
[2016-09-05] MEDS: POLYETHYLENE GLYCOL 3350 119 GM BTL PO SCH ×2 (14:48→22:12)
[2016-09-05] MEDS: ISOSORBIDE MONONITRATE 30 MG TAB.SR.24H (FP) PO SCH (14:48)
[2016-09-05] MEDS: CARVEDILOL 25 MG TABLET (FP) PO SCH ×2 (14:48→21:36)
[2016-09-05] MEDS: SENNOSIDES 8.6MG TABLET (FP) PO SCH ×2 (14:49→22:12)
[2016-09-06] MEDS: QUEtiapine FUMARATE 50 MG TABLET PO SCH ×3 (05:59→21:58)
[2016-09-06] MEDS: SODIUM CHLORIDE 0.45% 1,000 ML IV SCH ×2 (06:00→11:16)
[2016-09-06] MEDS: LEVOTHYROXINE NA 75 MCG TABLET (FP) PO SCH (06:02)
[2016-09-06 07:52] LABS: BASOPHIL 1.1 % (0-2.0); EOSINOPHIL 3.1 % (0-4.5); MCH 29.4 pg (25.7-33.7); MCHC 33.7 g/dl (32.0-35.9); MEAN CELL VOLUME 87.2 fl (80-96); MEAN PLT VOLUME 9.1 fl (7.5-11.1); NEUTROPHILS 62.4 % (42.8-82.8); PLATELET COUNT 200 K/MM3 (134-434); RDW 16.3 % (11.9-15.9); WHITE BLOOD COUNT 6.6 K/mm3 (4.0-10.0)
[2016-09-06 08:38] LABS: ANION GAP 9 (8-16); CALCIUM 8.6 mg/dL (8.5-10.1); CO2 24 mmol/L (21-32); CREATININE 1.9 mg/dL (0.7-1.3); GLUCOSE,RANDOM 89 mg/dL (74-106); MAGNESIUM 2.3 mg/dL (1.8-2.4); PHOSPHOROUS 3.3 mg/dL (2.5-4.9)
[2016-09-06] MEDS ORDERED: PT OWN MED DRAWER 7, Y5N ONE (10:40)
[2016-09-06] MEDS: hydrALAZINE HCL 25 MG TABLET (FP) PO SCH ×2 (11:15→21:58)
[2016-09-06] MEDS: SENNOSIDES 8.6MG TABLET (FP) PO SCH ×2 (11:15→21:58)
[2016-09-06] MEDS: DOCUSATE SODIUM 100 MG CAPSULE (FP) PO SCH ×2 (11:15→21:58)
[2016-09-06] MEDS: CARVEDILOL 25 MG TABLET (FP) PO SCH ×2 (11:15→21:58)
[2016-09-06] MEDS: HEPARIN NA (PORCINE) 5,000 UNITS/ML 1ML VIAL SQ SCH ×2 (11:15→21:58)
[2016-09-06] MEDS: ISOSORBIDE MONONITRATE 30 MG TAB.SR.24H (FP) PO SCH (11:15)
[2016-09-06] MEDS: TAMSULOSIN HCL 0.4 MG CAP.ER.24H (FP) PO SCH (11:15)
[2016-09-06] MEDS: POLYETHYLENE GLYCOL 3350 119 GM BTL PO SCH ×2 (11:16→21:59)
--- NOTE | 2016-09-06 12:31 | PN ---
Progress Note, Physician Chief Complaint: Unable to obtain, patient sitting in diaz and trying to take off mittens. - Current Medication List Current Medications: Active Medications Acetaminophen (Tylenol -) 650 mg PO Q6H PRN PRN Reason: FEVER OR PAIN Last Admin: 08/15/16 21:34 Dose: 650 mg Carvedilol (Coreg -) 25 mg PO BID [facility] Last Admin: 09/06/16 11:15 Dose: 25 mg Docusate Sodium (Colace -) 100 mg PO BID [facility] Last Admin: 09/06/16 11:15 Dose: 100 mg Heparin Sodium (Porcine) (Heparin -) 5,000 unit SQ BID [facility] Last Admin: 09/06/16 11:15 Dose: 5,000 unit Hydralazine HCl (Apresoline -) 25 mg PO BID [facility] Last Admin: 09/06/16 11:15 Dose: 25 mg Sodium Chloride (1/2 Normal Saline) 1,000 mls @ 42 mls/hr IV ASDIR [facility] Last Admin: 09/06/16 11:16 Dose: Not Given Isosorbide Mononitrate (Imdur -) 30 mg PO DAILY [facility] Last Admin: 09/06/16 11:15 Dose: 30 mg Levothyroxine Sodium (Synthroid -) 75 mcg PO DAILY@0700 [facility] Last Admin: 09/06/16 06:02 Dose: 75 mcg Polyethylene Glycol (Miralax (For Daily Use) -) 17 gm PO BID [facility] Last Admin: 09/06/16 11:16 Dose: 17 grams Quetiapine Fumarate (Seroquel -) 50 mg PO TID [facility] Last Admin: 09/06/16 05:59 Dose: 50 mg Quetiapine Fumarate (Seroquel -) 25 mg PO DAILY PRN PRN Reason: AGITATION Last Admin: 09/02/16 17:20 Dose: 25 mg Senna (Senna -) 1 tab PO BID [facility] Last Admin: 09/06/16 11:15 Dose: 1 tab Tamsulosin HCl (Flomax -) 0.8 mg PO DAILY@0830 [facility] Last Admin: 09/06/16 11:15 Dose: 0.8 mg - Objective Vital Signs: Vital Signs Temperature 98.2 F 09/06/16 06:00 Pulse Rate 60 09/06/16 06:00 Respiratory Rate 20 09/06/16 06:00 Blood Pressure 143/62 09/06/16 06:00 O2 Sat by Pulse Oximetry (%) 96 09/05/16 09:00 Constitutional: Yes: No Distress, Calm Cardiovascular: Yes: Regular Rate and Rhythm. No: Gallop, Murmur, Rub Respiratory: Yes: Regular, CTA Bilaterally. No: Rales, Rhonchi, Wheezes Gastrointestinal: Yes: Normal Bowel Sounds, Soft. No: Distention, Tenderness Extremities: Yes: WNL Edema: No Labs: CBC, BMP 09/06/16 06:30 09/06/16 06:30 INR, PTT INR 1.13 (0.82-1.09) 08/16/16 09:53 Problem List - Problems (1) Acute renal failure Code(s): N17.9 - ACUTE KIDNEY FAILURE, UNSPECIFIED Qualifiers: Acute renal failure type: unspecified Qualified Code(s): N17.9 - Acute kidney failure, unspecified (2) Acute metabolic encephalopathy Code(s): G93.41 - METABOLIC ENCEPHALOPATHY (3) Hypertension Code(s): I10 - ESSENTIAL (PRIMARY) HYPERTENSION (4) Hypothyroid Code(s): E03.9 - HYPOTHYROIDISM, UNSPECIFIED (5) Dementia Code(s): F03.90 - UNSPECIFIED DEMENTIA WITHOUT BEHAVIORAL DISTURBANCE Qualifiers: Alzheimer's disease onset: unspecified onset Dementia behavioral disturbance: with behavioral disturbance Assessment/Plan Problems (1) Acute renal failure Assessment/Plan: -continue rivas placement and IVF -nephrology following -improved today, approaching baseline Code(s): N17.9 - ACUTE KIDNEY FAILURE, UNSPECIFIED Qualifiers: Acute renal failure type: unspecified Qualified Code(s): N17.9 - Acute kidney failure, unspecified (2) Acute metabolic encephalopathy Assessment/Plan: -suspect patient is at baseline and has significant dementia Code(s): G93.41 - METABOLIC ENCEPHALOPATHY (3) Hypertension Assessment/Plan: -continue coreg and hydralazine Code(s): I10 - ESSENTIAL (PRIMARY) HYPERTENSION (4) Hypothyroid Assessment/Plan: -elevated TSH but normal FT4 -continue synthroid Code(s): E03.9 - HYPOTHYROIDISM, UNSPECIFIED (5) Dementia Assessment/Plan: -continue current management -controlled today -no ativan Code(s): F03.90 - UNSPECIFIED DEMENTIA WITHOUT BEHAVIORAL DISTURBANCE (6) E coli UTI -finished full course of keflex
--- NOTE | 2016-09-06 12:35 | PN ---
Progress Note, Physician History of Present Illness: Pt seen and examined at bedside. He is awake, confused and restless. - Current Medication List Current Medications: Active Medications Acetaminophen (Tylenol -) 650 mg PO Q6H PRN PRN Reason: FEVER OR PAIN Last Admin: 08/15/16 21:34 Dose: 650 mg Carvedilol (Coreg -) 25 mg PO BID [facility] Last Admin: 09/06/16 11:15 Dose: 25 mg Docusate Sodium (Colace -) 100 mg PO BID [facility] Last Admin: 09/06/16 11:15 Dose: 100 mg Heparin Sodium (Porcine) (Heparin -) 5,000 unit SQ BID [facility] Last Admin: 09/06/16 11:15 Dose: 5,000 unit Hydralazine HCl (Apresoline -) 25 mg PO BID [facility] Last Admin: 09/06/16 11:15 Dose: 25 mg Sodium Chloride (1/2 Normal Saline) 1,000 mls @ 42 mls/hr IV ASDIR [facility] Last Admin: 09/06/16 11:16 Dose: Not Given Isosorbide Mononitrate (Imdur -) 30 mg PO DAILY [facility] Last Admin: 09/06/16 11:15 Dose: 30 mg Levothyroxine Sodium (Synthroid -) 75 mcg PO DAILY@0700 [facility] Last Admin: 09/06/16 06:02 Dose: 75 mcg Polyethylene Glycol (Miralax (For Daily Use) -) 17 gm PO BID [facility] Last Admin: 09/06/16 11:16 Dose: 17 grams Quetiapine Fumarate (Seroquel -) 50 mg PO TID [facility] Last Admin: 09/06/16 05:59 Dose: 50 mg Quetiapine Fumarate (Seroquel -) 25 mg PO DAILY PRN PRN Reason: AGITATION Last Admin: 09/02/16 17:20 Dose: 25 mg Senna (Senna -) 1 tab PO BID [facility] Last Admin: 09/06/16 11:15 Dose: 1 tab Tamsulosin HCl (Flomax -) 0.8 mg PO DAILY@0830 [facility] Last Admin: 09/06/16 11:15 Dose: 0.8 mg - Objective Vital Signs: Vital Signs Temperature 98.2 F 09/06/16 06:00 Pulse Rate 60 09/06/16 06:00 Respiratory Rate 20 09/06/16 06:00 Blood Pressure 143/62 09/06/16 06:00 O2 Sat by Pulse Oximetry (%) 96 09/05/16 09:00 Constitutional: Yes: Anxious Eyes: Yes: Conjunctiva Clear HENT: Yes: Atraumatic Neck: Yes: Supple Cardiovascular: Yes: S1, S2 Respiratory: Yes: CTA Bilaterally Gastrointestinal: Yes: Soft Genitourinary: Yes: Rivas Present Edema: No Neurological: Yes: Confusion Labs: CBC, BMP 09/06/16 06:30 09/06/16 06:30 INR, PTT INR 1.13 (0.82-1.09) 08/16/16 09:53 Problem List - Problems (1) Acute renal failure Code(s): N17.9 - ACUTE KIDNEY FAILURE, UNSPECIFIED Qualifiers: Acute renal failure type: unspecified Qualified Code(s): N17.9 - Acute kidney failure, unspecified (2) Altered mental status Code(s): R41.82 - ALTERED MENTAL STATUS, UNSPECIFIED Qualifiers: Altered mental status type: delirium Qualified Code(s): R41.0 - Disorientation, unspecified (3) Uremia Code(s): N19 - UNSPECIFIED KIDNEY FAILURE (4) Urine retention Code(s): R33.9 - RETENTION OF URINE, UNSPECIFIED (5) Hypertension Code(s): I10 - ESSENTIAL (PRIMARY) HYPERTENSION Assessment/Plan Current Medications Generic Name Dose Route Start Last Admin Trade Name Freq PRN Reason Stop Dose Admin Acetaminophen 650 mg 08/11/16 18:36 08/15/16 21:34 Tylenol - PO 650 mg Q6H PRN Administration FEVER OR PAIN Carvedilol 25 mg 08/11/16 22:00 09/06/16 11:15 Coreg - PO 25 mg BID [facility] Administration Docusate Sodium 100 mg 08/18/16 22:00 09/06/16 11:15 Colace - PO 100 mg BID [facility] Administration Heparin Sodium (Porcine) 5,000 unit 08/11/16 22:00 09/06/16 11:15 Heparin - SQ 5,000 unit BID [facility] Administration Hydralazine HCl 25 mg 08/11/16 22:00 09/06/16 11:15 Apresoline - PO 25 mg BID [facility] Administration Sodium Chloride 1,000 mls @ 42 mls/hr 09/03/16 11:15 09/06/16 11:16 1/2 Normal Saline IV Not Given ASDIR [facility] Isosorbide Mononitrate 30 mg 08/12/16 10:00 09/06/16 11:15 Imdur - PO 30 mg DAILY [facility] Administration Levothyroxine Sodium 75 mcg 08/12/16 07:00 09/06/16 06:02 Synthroid - PO 75 mcg DAILY@0700 [facility] Administration Polyethylene Glycol 17 gm 08/18/16 22:00 09/06/16 11:16 Miralax (For Daily Use) - PO 17 grams BID [facility] Administration Quetiapine Fumarate 50 mg 08/24/16 14:00 09/06/16 05:59 Seroquel - PO 50 mg TID [facility] Administration Quetiapine Fumarate 25 mg 09/02/16 17:50 09/02/16 17:20 Seroquel - PO 25 mg DAILY PRN Administration AGITATION Senna 1 tab 08/24/16 22:00 09/06/16 11:15 Senna - PO 1 tab BID [facility] Administration Tamsulosin HCl 0.8 mg 09/01/16 16:03 09/06/16 11:15 Flomax - PO 0.8 mg DAILY@0830 [facility] Administration Impression 1. LOC 2. obstructive uropathy 3. HTN 4. altered mental status 5. hypothyroidism 6. PPM 7. hyperlipidemia 8. urinary retention Plan - renal function improving - cont with fluids - repeat labs in am - will follow PRN - rivas care Dr Garza
--- NOTE | 2016-09-06 15:29 | PN ---
Progress Note (short form) - Note Progress Note: Progress Note, Physician Chief Complaint: chf History of Present Illness: lethargic, not answering questions appropriately, no overnight events - Current Medication List Current Medications Generic Name Dose Route Start Last Admin Trade Name Freq PRN Reason Stop Dose Admin Acetaminophen 650 mg 08/11/16 18:36 08/15/16 21:34 Tylenol - PO 650 mg Q6H PRN Administration FEVER OR PAIN Carvedilol 25 mg 08/11/16 22:00 09/06/16 11:15 Coreg - PO 25 mg BID [facility] Administration Docusate Sodium 100 mg 08/18/16 22:00 09/06/16 11:15 Colace - PO 100 mg BID [facility] Administration Heparin Sodium (Porcine) 5,000 unit 08/11/16 22:00 09/06/16 11:15 Heparin - SQ 5,000 unit BID [facility] Administration Hydralazine HCl 25 mg 08/11/16 22:00 09/06/16 11:15 Apresoline - PO 25 mg BID [facility] Administration Sodium Chloride 1,000 mls @ 42 mls/hr 09/03/16 11:15 09/06/16 11:16 1/2 Normal Saline IV Not Given ASDIR [facility] Isosorbide Mononitrate 30 mg 08/12/16 10:00 09/06/16 11:15 Imdur - PO 30 mg DAILY [facility] Administration Levothyroxine Sodium 75 mcg 08/12/16 07:00 09/06/16 06:02 Synthroid - PO 75 mcg DAILY@0700 [facility] Administration Polyethylene Glycol 17 gm 08/18/16 22:00 09/06/16 11:16 Miralax (For Daily Use) - PO 17 grams BID [facility] Administration Quetiapine Fumarate 50 mg 08/24/16 14:00 09/06/16 14:14 Seroquel - PO Not Given TID [facility] Quetiapine Fumarate 25 mg 09/02/16 17:50 09/02/16 17:20 Seroquel - PO 25 mg DAILY PRN Administration AGITATION Senna 1 tab 08/24/16 22:00 09/06/16 11:15 Senna - PO 1 tab BID [facility] Administration Tamsulosin HCl 0.8 mg 09/01/16 16:03 09/06/16 11:15 Flomax - PO 0.8 mg DAILY@0830 [facility] Administration - Objective Vital Signs: Vital Signs Period Temp Pulse Resp BP Sys/Ro Pulse Ox Last 24 Hr 98.2 F-98.7 F 60-94 20-20 117-145/57-63 Constitutional: Yes: No Distress, Calm Cardiovascular: Yes: Regular Rate and Rhythm (decr intensity), S1, S2. No: JVD , Gallop, Murmur Respiratory: Yes: Regular, CTA Bilaterally. No: Accessory Muscle Use Extremities: No: Cold Edema: No Neurological: lethargic confused Psychiatric: No: Agitated no jaundice diaphoresis Labs: CBC, BMP 09/06/16 06:30 09/06/16 06:30 echo 05/2014: mod reduced lvef, global hk, nl rv, no sig valve path Echo 08/30 (here): moderately decr'd LVSF (global); nl RV size; normal LA; mild AI ECG: NSR; ? old ASMI previously seen; prior TWIs anterolateral leads now normalized Assessment/Plan 76 m hx htn, hld, ckd, hypothyroid, icd (medtronic, dual), syst chf, here with loc, uti, ams. chronic syst chf: -pt has hx of syst chf, unclear if ischemic cardiomyopathy but pt has denied cad hx in past. Rec'd ischemic eval as outpt but pt refused on multiple occasions. -appears well-compensated, euvolemic -on coreg, hydral, nitrates as outpt--cont same -not on titi/arb/spironolactone 2/2 ckd and hyperkalemia in past ckd/LOC/urinary retention/uti: -on ivfs, cr improving -renal following HTN: -cont same meds HLD: -per ER med list pt on atorva at home, not receiving here -per outpt f/u with PMD ICD: -normal check in office 04/2016 ams: -code kumar 08/30 for worse lethargy -head ct w/o acute changes -possibly due to dementia with loc/uti -neuro following nsvt: -brief run on tele (13 beats) 09/01/16, no recurrence -mg, k unremarkable -cont coreg, pt has ICD
[2016-09-07] MEDS: LEVOTHYROXINE NA 75 MCG TABLET (FP) PO SCH (06:39)
[2016-09-07] MEDS: QUEtiapine FUMARATE 50 MG TABLET PO SCH ×3 (06:39→22:29)
[2016-09-07 08:23] LABS: ANION GAP 11 (8-16); CALCIUM 8.2 mg/dL (8.5-10.1); CO2 21 mmol/L (21-32); CREATININE 1.9 mg/dL (0.7-1.3); GLUCOSE,RANDOM 95 mg/dL (74-106)
[2016-09-07] MEDS: TAMSULOSIN HCL 0.4 MG CAP.ER.24H (FP) PO SCH (11:30)
[2016-09-07] MEDS: hydrALAZINE HCL 25 MG TABLET (FP) PO SCH ×2 (11:30→22:29)
[2016-09-07] MEDS: CARVEDILOL 25 MG TABLET (FP) PO SCH ×2 (11:45→22:29)
[2016-09-07] MEDS: DOCUSATE SODIUM 100 MG CAPSULE (FP) PO SCH ×2 (11:45→22:29)
[2016-09-07] MEDS: SENNOSIDES 8.6MG TABLET (FP) PO SCH ×2 (11:46→22:29)
[2016-09-07] MEDS: POLYETHYLENE GLYCOL 3350 119 GM BTL PO SCH ×2 (11:46→22:32)
[2016-09-07] MEDS: ISOSORBIDE MONONITRATE 30 MG TAB.SR.24H (FP) PO SCH (11:46)
[2016-09-07] MEDS: HEPARIN NA (PORCINE) 5,000 UNITS/ML 1ML VIAL SQ SCH ×2 (11:46→22:29)
[2016-09-07] MEDS: SODIUM CHLORIDE 0.45% 1,000 ML IV SCH (11:46)
--- NOTE | 2016-09-07 14:11 | PN ---
Progress Note, Physician History of Present Illness: Pt seen and examined at bedside. He appears comfortable. - Current Medication List Current Medications: Active Medications Acetaminophen (Tylenol -) 650 mg PO Q6H PRN PRN Reason: FEVER OR PAIN Last Admin: 08/15/16 21:34 Dose: 650 mg Carvedilol (Coreg -) 25 mg PO BID [facility] Last Admin: 09/07/16 11:45 Dose: Not Given Docusate Sodium (Colace -) 100 mg PO BID [facility] Last Admin: 09/07/16 11:45 Dose: Not Given Heparin Sodium (Porcine) (Heparin -) 5,000 unit SQ BID [facility] Last Admin: 09/07/16 11:46 Dose: Not Given Hydralazine HCl (Apresoline -) 25 mg PO BID [facility] Last Admin: 09/07/16 11:30 Dose: Not Given Sodium Chloride (1/2 Normal Saline) 1,000 mls @ 42 mls/hr IV ASDIR [facility] Last Admin: 09/07/16 11:46 Dose: 42 mls/hr Isosorbide Mononitrate (Imdur -) 30 mg PO DAILY [facility] Last Admin: 09/07/16 11:46 Dose: Not Given Levothyroxine Sodium (Synthroid -) 75 mcg PO DAILY@0700 [facility] Last Admin: 09/07/16 06:39 Dose: 75 mcg Polyethylene Glycol (Miralax (For Daily Use) -) 17 gm PO BID [facility] Last Admin: 09/07/16 11:46 Dose: Not Given Quetiapine Fumarate (Seroquel -) 50 mg PO TID [facility] Last Admin: 09/07/16 06:39 Dose: 50 mg Quetiapine Fumarate (Seroquel -) 25 mg PO DAILY PRN PRN Reason: AGITATION Last Admin: 09/02/16 17:20 Dose: 25 mg Senna (Senna -) 1 tab PO BID [facility] Last Admin: 09/07/16 11:46 Dose: Not Given Tamsulosin HCl (Flomax -) 0.8 mg PO DAILY@0830 [facility] Last Admin: 09/07/16 11:30 Dose: Not Given - Objective Vital Signs: Vital Signs Temperature 97.5 F L 09/07/16 06:00 Pulse Rate 86 09/07/16 06:00 Respiratory Rate 18 09/07/16 06:00 Blood Pressure 149/86 09/07/16 06:00 O2 Sat by Pulse Oximetry (%) 96 09/06/16 21:00 Constitutional: Yes: Calm Eyes: Yes: Conjunctiva Clear HENT: Yes: Atraumatic Neck: Yes: Supple Cardiovascular: Yes: S1, S2 Respiratory: Yes: CTA Bilaterally Genitourinary: Yes: Rivas Present Musculoskeletal: Yes: WNL Edema: No Neurological: Yes: Confusion Labs: CBC, BMP 09/06/16 06:30 09/07/16 06:20 INR, PTT INR 1.13 (0.82-1.09) 08/16/16 09:53 Problem List - Problems (1) Acute renal failure Code(s): N17.9 - ACUTE KIDNEY FAILURE, UNSPECIFIED Qualifiers: Acute renal failure type: unspecified Qualified Code(s): N17.9 - Acute kidney failure, unspecified (2) Altered mental status Code(s): R41.82 - ALTERED MENTAL STATUS, UNSPECIFIED Qualifiers: Altered mental status type: delirium Qualified Code(s): R41.0 - Disorientation, unspecified (3) Uremia Code(s): N19 - UNSPECIFIED KIDNEY FAILURE (4) Urine retention Code(s): R33.9 - RETENTION OF URINE, UNSPECIFIED (5) Hypertension Code(s): I10 - ESSENTIAL (PRIMARY) HYPERTENSION Assessment/Plan Current Medications Generic Name Dose Route Start Last Admin Trade Name Freq PRN Reason Stop Dose Admin Acetaminophen 650 mg 08/11/16 18:36 08/15/16 21:34 Tylenol - PO 650 mg Q6H PRN Administration FEVER OR PAIN Carvedilol 25 mg 08/11/16 22:00 09/07/16 11:45 Coreg - PO Not Given BID [facility] Docusate Sodium 100 mg 08/18/16 22:00 09/07/16 11:45 Colace - PO Not Given BID [facility] Heparin Sodium (Porcine) 5,000 unit 08/11/16 22:00 09/07/16 11:46 Heparin - SQ Not Given BID [facility] Hydralazine HCl 25 mg 08/11/16 22:00 09/07/16 11:30 Apresoline - PO Not Given BID [facility] Sodium Chloride 1,000 mls @ 42 mls/hr 09/03/16 11:15 09/07/16 11:46 1/2 Normal Saline IV 42 mls/hr ASDIR [facility] Administration Isosorbide Mononitrate 30 mg 08/12/16 10:00 09/07/16 11:46 Imdur - PO Not Given DAILY [facility] Levothyroxine Sodium 75 mcg 08/12/16 07:00 09/07/16 06:39 Synthroid - PO 75 mcg DAILY@0700 [facility] Administration Polyethylene Glycol 17 gm 08/18/16 22:00 09/07/16 11:46 Miralax (For Daily Use) - PO Not Given BID [facility] Quetiapine Fumarate 50 mg 08/24/16 14:00 09/07/16 06:39 Seroquel - PO 50 mg TID [facility] Administration Quetiapine Fumarate 25 mg 09/02/16 17:50 09/02/16 17:20 Seroquel - PO 25 mg DAILY PRN Administration AGITATION Senna 1 tab 08/24/16 22:00 09/07/16 11:46 Senna - PO Not Given BID [facility] Tamsulosin HCl 0.8 mg 09/01/16 16:03 09/07/16 11:30 Flomax - PO Not Given DAILY@0830 [facility] Impression 1. LOC 2. obstructive uropathy 3. HTN 4. altered mental status 5. hypothyroidism 6. PPM 7. hyperlipidemia 8. urinary retention Plan - monitor renal function - cont fluids - encourage PO intake - will follow PRN - rivas care Dr Garza
--- NOTE | 2016-09-07 15:25 | PN ---
Progress Note, Physician Chief Complaint: Unable to obtain, patient with inappropriate speech - Current Medication List Current Medications: Active Medications Acetaminophen (Tylenol -) 650 mg PO Q6H PRN PRN Reason: FEVER OR PAIN Last Admin: 08/15/16 21:34 Dose: 650 mg Carvedilol (Coreg -) 25 mg PO BID [facility] Last Admin: 09/07/16 11:45 Dose: Not Given Docusate Sodium (Colace -) 100 mg PO BID [facility] Last Admin: 09/07/16 11:45 Dose: Not Given Heparin Sodium (Porcine) (Heparin -) 5,000 unit SQ BID [facility] Last Admin: 09/07/16 11:46 Dose: Not Given Hydralazine HCl (Apresoline -) 25 mg PO BID [facility] Last Admin: 09/07/16 11:30 Dose: Not Given Sodium Chloride (1/2 Normal Saline) 1,000 mls @ 42 mls/hr IV ASDIR [facility] Last Admin: 09/07/16 11:46 Dose: 42 mls/hr Isosorbide Mononitrate (Imdur -) 30 mg PO DAILY [facility] Last Admin: 09/07/16 11:46 Dose: Not Given Levothyroxine Sodium (Synthroid -) 75 mcg PO DAILY@0700 [facility] Last Admin: 09/07/16 06:39 Dose: 75 mcg Polyethylene Glycol (Miralax (For Daily Use) -) 17 gm PO BID [facility] Last Admin: 09/07/16 11:46 Dose: Not Given Quetiapine Fumarate (Seroquel -) 50 mg PO TID [facility] Last Admin: 09/07/16 06:39 Dose: 50 mg Quetiapine Fumarate (Seroquel -) 25 mg PO DAILY PRN PRN Reason: AGITATION Last Admin: 09/02/16 17:20 Dose: 25 mg Senna (Senna -) 1 tab PO BID [facility] Last Admin: 09/07/16 11:46 Dose: Not Given Tamsulosin HCl (Flomax -) 0.8 mg PO DAILY@0830 [facility] Last Admin: 09/07/16 11:30 Dose: Not Given - Objective Vital Signs: Vital Signs Temperature 97.5 F L 09/07/16 06:00 Pulse Rate 74 09/07/16 15:22 Respiratory Rate 18 09/07/16 15:22 Blood Pressure 122/54 09/07/16 15:22 O2 Sat by Pulse Oximetry (%) 96 09/06/16 21:00 Constitutional: Yes: No Distress, Calm, Thin Cardiovascular: Yes: Regular Rate and Rhythm. No: Gallop, Murmur, Rub Respiratory: Yes: Regular, CTA Bilaterally. No: Rales, Rhonchi, Wheezes Gastrointestinal: Yes: Normal Bowel Sounds, Soft. No: Distention, Tenderness Extremities: Yes: WNL Edema: No Labs: CBC, BMP 09/06/16 06:30 09/07/16 06:20 INR, PTT INR 1.13 (0.82-1.09) 08/16/16 09:53 Problem List - Problems (1) Acute renal failure Code(s): N17.9 - ACUTE KIDNEY FAILURE, UNSPECIFIED Qualifiers: Acute renal failure type: unspecified Qualified Code(s): N17.9 - Acute kidney failure, unspecified (2) Acute metabolic encephalopathy Code(s): G93.41 - METABOLIC ENCEPHALOPATHY (3) Hypertension Code(s): I10 - ESSENTIAL (PRIMARY) HYPERTENSION (4) Hypothyroid Code(s): E03.9 - HYPOTHYROIDISM, UNSPECIFIED (5) Dementia Code(s): F03.90 - UNSPECIFIED DEMENTIA WITHOUT BEHAVIORAL DISTURBANCE Qualifiers: Alzheimer's disease onset: unspecified onset Dementia behavioral disturbance: with behavioral disturbance Assessment/Plan Problems (1) Acute renal failure Assessment/Plan: -continue rivas placement and IVF -nephrology following -at baseline Code(s): N17.9 - ACUTE KIDNEY FAILURE, UNSPECIFIED Qualifiers: Acute renal failure type: unspecified Qualified Code(s): N17.9 - Acute kidney failure, unspecified (2) Acute metabolic encephalopathy Assessment/Plan: -suspect patient is at baseline and has significant dementia Code(s): G93.41 - METABOLIC ENCEPHALOPATHY (3) Hypertension Assessment/Plan: -continue coreg and hydralazine Code(s): I10 - ESSENTIAL (PRIMARY) HYPERTENSION (4) Hypothyroid Assessment/Plan: -elevated TSH but normal FT4 -continue synthroid Code(s): E03.9 - HYPOTHYROIDISM, UNSPECIFIED (5) Dementia Assessment/Plan: -continue current management -controlled today -no ativan Code(s): F03.90 - UNSPECIFIED DEMENTIA WITHOUT BEHAVIORAL DISTURBANCE (6) E coli UTI -finished full course of keflex
[2016-09-08] MEDS: QUEtiapine FUMARATE 50 MG TABLET PO SCH ×2 (06:52→13:08)
[2016-09-08] MEDS: LEVOTHYROXINE NA 75 MCG TABLET (FP) PO SCH (06:52)
[2016-09-08 08:18] LABS: BASOPHIL 1.5 % (0-2.0); EOSINOPHIL 3.6 % (0-4.5); MCH 29.5 pg (25.7-33.7); MCHC 33.7 g/dl (32.0-35.9); MEAN CELL VOLUME 87.4 fl (80-96); MEAN PLT VOLUME 8.4 fl (7.5-11.1); NEUTROPHILS 60.7 % (42.8-82.8); PLATELET COUNT 215 K/MM3 (134-434); RDW 16.2 % (11.9-15.9); WHITE BLOOD COUNT 6.4 K/mm3 (4.0-10.0)
[2016-09-08] MEDS: TAMSULOSIN HCL 0.4 MG CAP.ER.24H (FP) PO SCH (08:29)
[2016-09-08 08:56] LABS: ANION GAP 10 (8-16); CALCIUM 8.4 mg/dL (8.5-10.1); CO2 24 mmol/L (21-32); GLUCOSE,RANDOM 81 mg/dL (74-106); MAGNESIUM 2.4 mg/dL (1.8-2.4); PHOSPHOROUS 3.3 mg/dL (2.5-4.9)
[2016-09-08] MEDS: hydrALAZINE HCL 25 MG TABLET (FP) PO SCH ×2 (09:20→22:16)
[2016-09-08] MEDS: CARVEDILOL 25 MG TABLET (FP) PO SCH ×2 (09:20→22:16)
[2016-09-08] MEDS: SODIUM CHLORIDE 0.45% 1,000 ML IV SCH ×2 (09:20→13:07)
[2016-09-08] MEDS: HEPARIN NA (PORCINE) 5,000 UNITS/ML 1ML VIAL SQ SCH ×2 (09:21→22:16)
[2016-09-08] MEDS: ISOSORBIDE MONONITRATE 30 MG TAB.SR.24H (FP) PO SCH (09:21)
[2016-09-08] MEDS: DOCUSATE SODIUM 100 MG CAPSULE (FP) PO SCH ×2 (09:25→22:16)
[2016-09-08] MEDS: POLYETHYLENE GLYCOL 3350 119 GM BTL PO SCH ×2 (09:25→22:16)
[2016-09-08] MEDS: SENNOSIDES 8.6MG TABLET (FP) PO SCH ×2 (09:30→22:16)
--- NOTE | 2016-09-08 12:13 | PN ---
Progress Note (short form) - Note Progress Note: Progress Note, Physician Chief Complaint: chf History of Present Illness: awake, alert, confused, not answering questions appropriately, no overnight events - Current Medication List Current Medications Generic Name Dose Route Start Last Admin Trade Name Freq PRN Reason Stop Dose Admin Acetaminophen 650 mg 08/11/16 18:36 08/15/16 21:34 Tylenol - PO 650 mg Q6H PRN Administration FEVER OR PAIN Carvedilol 25 mg 08/11/16 22:00 09/08/16 09:20 Coreg - PO 25 mg BID [facility] Administration Docusate Sodium 100 mg 08/18/16 22:00 09/08/16 09:25 Colace - PO Not Given BID [facility] Heparin Sodium (Porcine) 5,000 unit 08/11/16 22:00 09/08/16 09:21 Heparin - SQ 5,000 unit BID [facility] Administration Hydralazine HCl 25 mg 08/11/16 22:00 09/08/16 09:20 Apresoline - PO 25 mg BID [facility] Administration Sodium Chloride 1,000 mls @ 42 mls/hr 09/03/16 11:15 09/08/16 09:20 1/2 Normal Saline IV 42 mls/hr ASDIR [facility] Administration Isosorbide Mononitrate 30 mg 08/12/16 10:00 09/08/16 09:21 Imdur - PO 30 mg DAILY [facility] Administration Levothyroxine Sodium 75 mcg 08/12/16 07:00 09/08/16 06:52 Synthroid - PO 75 mcg DAILY@0700 [facility] Administration Polyethylene Glycol 17 gm 08/18/16 22:00 09/08/16 09:25 Miralax (For Daily Use) - PO Not Given BID [facility] Quetiapine Fumarate 50 mg 08/24/16 14:00 09/08/16 06:52 Seroquel - PO 50 mg TID [facility] Administration Quetiapine Fumarate 25 mg 09/02/16 17:50 09/02/16 17:20 Seroquel - PO 25 mg DAILY PRN Administration AGITATION Senna 1 tab 08/24/16 22:00 09/08/16 09:30 Senna - PO 1 tab BID [facility] Administration Tamsulosin HCl 0.8 mg 09/01/16 16:03 09/08/16 08:29 Flomax - PO 0.8 mg DAILY@0830 [facility] Administration - Objective Vital Signs: Vital Signs Period Temp Pulse Resp BP Sys/Ro Pulse Ox Last 24 Hr 97.4 F-99 F 69-92 18-20 102-149/54-90 97 Constitutional: Yes: No Distress, Calm Cardiovascular: Yes: Regular Rate and Rhythm, S1, S2. No: JVD, Gallop, Murmur Respiratory: Yes: Regular, CTA Bilaterally. No: Accessory Muscle Use Extremities: No: Cold Edema: No Neurological: awake, confused Psychiatric: No: Agitated no jaundice diaphoresis Labs: CBC, BMP 09/08/16 07:38 09/08/16 07:38 echo 05/2014: mod reduced lvef, global hk, nl rv, no sig valve path Echo 08/30 (here): moderately decr'd LVSF (global); nl RV size; normal LA; mild AI ECG: NSR; ? old ASMI previously seen; prior TWIs anterolateral leads now normalized Assessment/Plan 76 m hx htn, hld, ckd, hypothyroid, icd (medtronic, dual), syst chf, here with loc, uti, ams. chronic syst chf: -pt has hx of syst chf, unclear if ischemic cardiomyopathy but pt has denied cad hx in past. Rec'd ischemic eval as outpt but pt refused on multiple occasions. -appears well-compensated -on coreg, hydral, nitrates as outpt--cont same -not on titi/arb/spironolactone 2/2 ckd and hyperkalemia in past ckd/LOC/urinary retention/uti: -on ivfs -renal following HTN: -cont same meds, bp controlled adequately HLD: -per ER med list pt on atorva at home, not receiving here -per outpt f/u ICD: -normal check in office 04/2016 ams: -code kumar 08/30 for worse lethargy -head ct w/o acute changes -possibly due to dementia with loc/uti -neuro following nsvt: -brief run on tele (13 beats) 09/01/16, no recurrence -mg, k unremarkable -cont coreg, pt has ICD
--- NOTE | 2016-09-08 12:32 | PN ---
Progress Note, Physician Chief Complaint: Unable to obtain secondary to dementia. - Current Medication List Current Medications: Active Medications Acetaminophen (Tylenol -) 650 mg PO Q6H PRN PRN Reason: FEVER OR PAIN Last Admin: 08/15/16 21:34 Dose: 650 mg Carvedilol (Coreg -) 25 mg PO BID [facility] Last Admin: 09/08/16 09:20 Dose: 25 mg Docusate Sodium (Colace -) 100 mg PO BID [facility] Last Admin: 09/08/16 09:25 Dose: Not Given Heparin Sodium (Porcine) (Heparin -) 5,000 unit SQ BID [facility] Last Admin: 09/08/16 09:21 Dose: 5,000 unit Hydralazine HCl (Apresoline -) 25 mg PO BID [facility] Last Admin: 09/08/16 09:20 Dose: 25 mg Sodium Chloride (1/2 Normal Saline) 1,000 mls @ 42 mls/hr IV ASDIR [facility] Last Admin: 09/08/16 09:20 Dose: 42 mls/hr Isosorbide Mononitrate (Imdur -) 30 mg PO DAILY [facility] Last Admin: 09/08/16 09:21 Dose: 30 mg Levothyroxine Sodium (Synthroid -) 75 mcg PO DAILY@0700 [facility] Last Admin: 09/08/16 06:52 Dose: 75 mcg Polyethylene Glycol (Miralax (For Daily Use) -) 17 gm PO BID [facility] Last Admin: 09/08/16 09:25 Dose: Not Given Quetiapine Fumarate (Seroquel -) 50 mg PO TID [facility] Last Admin: 09/08/16 06:52 Dose: 50 mg Quetiapine Fumarate (Seroquel -) 25 mg PO DAILY PRN PRN Reason: AGITATION Last Admin: 09/02/16 17:20 Dose: 25 mg Senna (Senna -) 1 tab PO BID [facility] Last Admin: 09/08/16 09:30 Dose: 1 tab Tamsulosin HCl (Flomax -) 0.8 mg PO DAILY@0830 [facility] Last Admin: 09/08/16 08:29 Dose: 0.8 mg - Objective Vital Signs: Vital Signs Temperature 97.4 F L 09/08/16 10:00 Pulse Rate 92 H 09/08/16 10:00 Respiratory Rate 20 09/08/16 10:00 Blood Pressure 102/59 09/08/16 10:00 O2 Sat by Pulse Oximetry (%) 97 09/07/16 21:00 Constitutional: Yes: No Distress, Calm, Thin Cardiovascular: Yes: Regular Rate and Rhythm. No: Gallop, Murmur, Rub Respiratory: Yes: Regular, CTA Bilaterally. No: Rales, Rhonchi, Wheezes Gastrointestinal: Yes: Normal Bowel Sounds, Soft. No: Distention, Tenderness Extremities: Yes: WNL Edema: No Labs: CBC, BMP 09/08/16 07:38 09/08/16 07:38 INR, PTT INR 1.13 (0.82-1.09) 08/16/16 09:53 Problem List - Problems (1) Acute renal failure Code(s): N17.9 - ACUTE KIDNEY FAILURE, UNSPECIFIED Qualifiers: Acute renal failure type: unspecified Qualified Code(s): N17.9 - Acute kidney failure, unspecified (2) Acute metabolic encephalopathy Code(s): G93.41 - METABOLIC ENCEPHALOPATHY (3) Hypertension Code(s): I10 - ESSENTIAL (PRIMARY) HYPERTENSION (4) Hypothyroid Code(s): E03.9 - HYPOTHYROIDISM, UNSPECIFIED (5) Dementia Code(s): F03.90 - UNSPECIFIED DEMENTIA WITHOUT BEHAVIORAL DISTURBANCE Qualifiers: Alzheimer's disease onset: unspecified onset Dementia behavioral disturbance: with behavioral disturbance Assessment/Plan Problems (1) Acute renal failure Assessment/Plan: -continue rivas placement and IVF -nephrology following -at baseline Code(s): N17.9 - ACUTE KIDNEY FAILURE, UNSPECIFIED Qualifiers: Acute renal failure type: unspecified Qualified Code(s): N17.9 - Acute kidney failure, unspecified (2) Acute metabolic encephalopathy Assessment/Plan: -suspect patient is at baseline and has significant dementia Code(s): G93.41 - METABOLIC ENCEPHALOPATHY (3) Hypertension Assessment/Plan: -continue coreg and hydralazine Code(s): I10 - ESSENTIAL (PRIMARY) HYPERTENSION (4) Hypothyroid Assessment/Plan: -elevated TSH but normal FT4 -continue synthroid Code(s): E03.9 - HYPOTHYROIDISM, UNSPECIFIED (5) Dementia Assessment/Plan: -continue current management -controlled today -no ativan Code(s): F03.90 - UNSPECIFIED DEMENTIA WITHOUT BEHAVIORAL DISTURBANCE (6) E coli UTI -finished full course of keflex
--- NOTE | 2016-09-08 12:53 | PN ---
Progress Note, Physician History of Present Illness: Pt seen and examined at bedside. He is awake but confused. - Current Medication List Current Medications: Active Medications Acetaminophen (Tylenol -) 650 mg PO Q6H PRN PRN Reason: FEVER OR PAIN Last Admin: 08/15/16 21:34 Dose: 650 mg Carvedilol (Coreg -) 25 mg PO BID [facility] Last Admin: 09/08/16 09:20 Dose: 25 mg Docusate Sodium (Colace -) 100 mg PO BID [facility] Last Admin: 09/08/16 09:25 Dose: Not Given Heparin Sodium (Porcine) (Heparin -) 5,000 unit SQ BID [facility] Last Admin: 09/08/16 09:21 Dose: 5,000 unit Hydralazine HCl (Apresoline -) 25 mg PO BID [facility] Last Admin: 09/08/16 09:20 Dose: 25 mg Sodium Chloride (1/2 Normal Saline) 1,000 mls @ 42 mls/hr IV ASDIR [facility] Last Admin: 09/08/16 09:20 Dose: 42 mls/hr Isosorbide Mononitrate (Imdur -) 30 mg PO DAILY [facility] Last Admin: 09/08/16 09:21 Dose: 30 mg Levothyroxine Sodium (Synthroid -) 75 mcg PO DAILY@0700 [facility] Last Admin: 09/08/16 06:52 Dose: 75 mcg Polyethylene Glycol (Miralax (For Daily Use) -) 17 gm PO BID [facility] Last Admin: 09/08/16 09:25 Dose: Not Given Quetiapine Fumarate (Seroquel -) 50 mg PO TID [facility] Last Admin: 09/08/16 06:52 Dose: 50 mg Quetiapine Fumarate (Seroquel -) 25 mg PO DAILY PRN PRN Reason: AGITATION Last Admin: 09/02/16 17:20 Dose: 25 mg Senna (Senna -) 1 tab PO BID [facility] Last Admin: 09/08/16 09:30 Dose: 1 tab Tamsulosin HCl (Flomax -) 0.8 mg PO DAILY@0830 [facility] Last Admin: 09/08/16 08:29 Dose: 0.8 mg - Objective Vital Signs: Vital Signs Temperature 97.4 F L 09/08/16 10:00 Pulse Rate 92 H 09/08/16 10:00 Respiratory Rate 20 09/08/16 10:00 Blood Pressure 102/59 09/08/16 10:00 O2 Sat by Pulse Oximetry (%) 97 09/08/16 09:00 Constitutional: Yes: Calm Eyes: Yes: Conjunctiva Clear HENT: Yes: Atraumatic Neck: Yes: Supple Cardiovascular: Yes: S1, S2 Genitourinary: Yes: Rivas Present Edema: No Neurological: Yes: Confusion Labs: CBC, BMP 09/08/16 07:38 09/08/16 07:38 INR, PTT INR 1.13 (0.82-1.09) 08/16/16 09:53 Problem List - Problems (1) Acute renal failure Code(s): N17.9 - ACUTE KIDNEY FAILURE, UNSPECIFIED Qualifiers: Acute renal failure type: unspecified Qualified Code(s): N17.9 - Acute kidney failure, unspecified (2) Altered mental status Code(s): R41.82 - ALTERED MENTAL STATUS, UNSPECIFIED Qualifiers: Altered mental status type: delirium Qualified Code(s): R41.0 - Disorientation, unspecified (3) Uremia Code(s): N19 - UNSPECIFIED KIDNEY FAILURE (4) Urine retention Code(s): R33.9 - RETENTION OF URINE, UNSPECIFIED (5) Hypertension Code(s): I10 - ESSENTIAL (PRIMARY) HYPERTENSION Assessment/Plan Current Medications Generic Name Dose Route Start Last Admin Trade Name Freq PRN Reason Stop Dose Admin Acetaminophen 650 mg 08/11/16 18:36 08/15/16 21:34 Tylenol - PO 650 mg Q6H PRN Administration FEVER OR PAIN Carvedilol 25 mg 08/11/16 22:00 09/08/16 09:20 Coreg - PO 25 mg BID [facility] Administration Docusate Sodium 100 mg 08/18/16 22:00 09/08/16 09:25 Colace - PO Not Given BID [facility] Heparin Sodium (Porcine) 5,000 unit 08/11/16 22:00 09/08/16 09:21 Heparin - SQ 5,000 unit BID [facility] Administration Hydralazine HCl 25 mg 08/11/16 22:00 09/08/16 09:20 Apresoline - PO 25 mg BID [facility] Administration Sodium Chloride 1,000 mls @ 42 mls/hr 09/03/16 11:15 09/08/16 09:20 1/2 Normal Saline IV 42 mls/hr ASDIR [facility] Administration Isosorbide Mononitrate 30 mg 08/12/16 10:00 09/08/16 09:21 Imdur - PO 30 mg DAILY [facility] Administration Levothyroxine Sodium 75 mcg 08/12/16 07:00 09/08/16 06:52 Synthroid - PO 75 mcg DAILY@0700 [facility] Administration Polyethylene Glycol 17 gm 08/18/16 22:00 09/08/16 09:25 Miralax (For Daily Use) - PO Not Given BID [facility] Quetiapine Fumarate 50 mg 08/24/16 14:00 09/08/16 06:52 Seroquel - PO 50 mg TID [facility] Administration Quetiapine Fumarate 25 mg 09/02/16 17:50 09/02/16 17:20 Seroquel - PO 25 mg DAILY PRN Administration AGITATION Senna 1 tab 08/24/16 22:00 09/08/16 09:30 Senna - PO 1 tab BID [facility] Administration Tamsulosin HCl 0.8 mg 09/01/16 16:03 09/08/16 08:29 Flomax - PO 0.8 mg DAILY@0830 [facility] Administration Impression 1. LOC 2. obstructive uropathy 3. HTN 4. altered mental status 5. hypothyroidism 6. PPM 7. hyperlipidemia 8. urinary retention Plan - creatinine has been at about 1.9 to 2 - maintain rivas - pt remains confused - encourage PO intake - will follow PRN Dr Garza
--- NOTE | 2016-09-08 14:51 | PN ---
Progress Note (short form) - Note Progress Note: Patient in restraints, cant gom to SNF in restraints. easily agitated, and un cooperative at this time. Plan :Start Ativan 1mg po TId
[2016-09-08] MEDS: OLANZapine 5 MG TABLET PO SCH (22:16)
[2016-09-09] MEDS: QUEtiapine FUMARATE 25 MG TABLET (FP) PO PRN (02:07)
[2016-09-09] MEDS: LEVOTHYROXINE NA 75 MCG TABLET (FP) PO SCH (06:53)
[2016-09-09 07:26] LABS: BASOPHIL 0.7 % (0-2.0); EOSINOPHIL 2.5 % (0-4.5); MCH 29.2 pg (25.7-33.7); MCHC 33.3 g/dl (32.0-35.9); MEAN CELL VOLUME 87.7 fl (80-96); MEAN PLT VOLUME 8.6 fl (7.5-11.1); NEUTROPHILS 60.8 % (42.8-82.8); PLATELET COUNT 201 K/MM3 (134-434); RDW 16.3 % (11.9-15.9); WHITE BLOOD COUNT 5.5 K/mm3 (4.0-10.0)
[2016-09-09 07:53] LABS: ANION GAP 9 (8-16); CALCIUM 8.8 mg/dL (8.5-10.1); CO2 27 mmol/L (21-32); GLUCOSE,RANDOM 88 mg/dL (74-106)
[2016-09-09 07:54] LABS: CREATININE 1.9 mg/dL (0.7-1.3)
[2016-09-09] MEDS: TAMSULOSIN HCL 0.4 MG CAP.ER.24H (FP) PO SCH (08:24)
[2016-09-09] MEDS: hydrALAZINE HCL 25 MG TABLET (FP) PO SCH ×2 (09:19→21:11)
[2016-09-09] MEDS: CARVEDILOL 25 MG TABLET (FP) PO SCH ×2 (09:19→21:11)
[2016-09-09] MEDS: SENNOSIDES 8.6MG TABLET (FP) PO SCH ×2 (09:19→21:11)
[2016-09-09] MEDS: ISOSORBIDE MONONITRATE 30 MG TAB.SR.24H (FP) PO SCH (09:19)
[2016-09-09] MEDS: OLANZapine 5 MG TABLET PO SCH ×2 (09:19→21:11)
[2016-09-09] MEDS: DOCUSATE SODIUM 100 MG CAPSULE (FP) PO SCH ×2 (09:19→21:11)
[2016-09-09] MEDS: HEPARIN NA (PORCINE) 5,000 UNITS/ML 1ML VIAL SQ SCH ×2 (09:21→21:11)
[2016-09-09] MEDS: POLYETHYLENE GLYCOL 3350 119 GM BTL PO SCH ×2 (09:21→21:11)
--- NOTE | 2016-09-09 13:08 | PN ---
Progress Note, Physician Chief Complaint: Unable to obtain secondary to dementia. - Current Medication List Current Medications: Active Medications Acetaminophen (Tylenol -) 650 mg PO Q6H PRN PRN Reason: FEVER OR PAIN Last Admin: 08/15/16 21:34 Dose: 650 mg Carvedilol (Coreg -) 25 mg PO BID [facility] Last Admin: 09/09/16 09:19 Dose: 25 mg Docusate Sodium (Colace -) 100 mg PO BID [facility] Last Admin: 09/09/16 09:19 Dose: 100 mg Heparin Sodium (Porcine) (Heparin -) 5,000 unit SQ BID [facility] Last Admin: 09/09/16 09:21 Dose: 5,000 unit Hydralazine HCl (Apresoline -) 25 mg PO BID [facility] Last Admin: 09/09/16 09:19 Dose: 25 mg Sodium Chloride (1/2 Normal Saline) 1,000 mls @ 42 mls/hr IV ASDIR [facility] Last Admin: 09/08/16 13:07 Dose: Not Given Isosorbide Mononitrate (Imdur -) 30 mg PO DAILY [facility] Last Admin: 09/09/16 09:19 Dose: 30 mg Levothyroxine Sodium (Synthroid -) 75 mcg PO DAILY@0700 [facility] Last Admin: 09/09/16 06:53 Dose: 75 mcg Olanzapine (Zyprexa -) 5 mg PO BID [facility] Last Admin: 09/09/16 09:19 Dose: 5 mg Polyethylene Glycol (Miralax (For Daily Use) -) 17 gm PO BID [facility] Last Admin: 09/09/16 09:21 Dose: Not Given Quetiapine Fumarate (Seroquel -) 25 mg PO DAILY PRN PRN Reason: AGITATION Last Admin: 09/09/16 02:07 Dose: 25 mg Senna (Senna -) 1 tab PO BID [facility] Last Admin: 09/09/16 09:19 Dose: 1 tab Tamsulosin HCl (Flomax -) 0.8 mg PO DAILY@0830 [facility] Last Admin: 09/09/16 08:24 Dose: 0.8 mg - Objective Vital Signs: Vital Signs Temperature 98.1 F 09/09/16 10:00 Pulse Rate 75 09/09/16 10:00 Respiratory Rate 18 09/09/16 10:00 Blood Pressure 160/73 09/09/16 10:00 O2 Sat by Pulse Oximetry (%) 98 09/09/16 09:00 Constitutional: Yes: No Distress, Calm, Thin Cardiovascular: Yes: Regular Rate and Rhythm. No: Gallop, Murmur, Rub Respiratory: Yes: Regular, CTA Bilaterally. No: Rales, Rhonchi, Wheezes Gastrointestinal: Yes: Normal Bowel Sounds, Soft. No: Distention, Tenderness Extremities: Yes: WNL Edema: No Labs: CBC, BMP 09/09/16 06:35 09/09/16 06:35 INR, PTT INR 1.13 (0.82-1.09) 08/16/16 09:53 Problem List - Problems (1) Acute renal failure Code(s): N17.9 - ACUTE KIDNEY FAILURE, UNSPECIFIED Qualifiers: Acute renal failure type: unspecified Qualified Code(s): N17.9 - Acute kidney failure, unspecified (2) Acute metabolic encephalopathy Code(s): G93.41 - METABOLIC ENCEPHALOPATHY (3) Hypertension Code(s): I10 - ESSENTIAL (PRIMARY) HYPERTENSION (4) Hypothyroid Code(s): E03.9 - HYPOTHYROIDISM, UNSPECIFIED (5) Dementia Code(s): F03.90 - UNSPECIFIED DEMENTIA WITHOUT BEHAVIORAL DISTURBANCE Qualifiers: Alzheimer's disease onset: unspecified onset Dementia behavioral disturbance: with behavioral disturbance Assessment/Plan Problems (1) Acute renal failure on CKD Code(s): N17.9 - ACUTE KIDNEY FAILURE, UNSPECIFIED Qualifiers: Acute renal failure type: unspecified Qualified Code(s): N17.9 - Acute kidney failure, unspecified (2) BPH with obstructive nephropathy (3) Hypertension Code(s): I10 - ESSENTIAL (PRIMARY) HYPERTENSION (4) Hypothyroid Code(s): E03.9 - HYPOTHYROIDISM, UNSPECIFIED (5) Dementia Code(s): F03.90 - UNSPECIFIED DEMENTIA WITHOUT BEHAVIORAL DISTURBANCE (6) E coli UTI Plan -patient medically is stable -continue rivas indefinitely, cannot remove secondary to BPH causing obstructive nephropathy -refuses TURP -continue treatment for dementia -appreciate psychiatry assistance -continue to evaluate for placement
[2016-09-09] MEDS: SODIUM CHLORIDE 0.45% 1,000 ML IV SCH (15:56)
[2016-09-10] MEDS: SODIUM CHLORIDE 0.45% 1,000 ML IV SCH ×2 (02:54→12:01)
[2016-09-10] MEDS: LEVOTHYROXINE NA 75 MCG TABLET (FP) PO SCH (06:19)
[2016-09-10] MEDS: TAMSULOSIN HCL 0.4 MG CAP.ER.24H (FP) PO SCH (09:24)
--- NOTE | 2016-09-10 10:08 | PN ---
Progress Note (short form) - Note Progress Note: Progress Note, Physician Chief Complaint: chf History of Present Illness: awake, alert, confused, not answering questions appropriately, no overnight events - Current Medication List Current Medications Generic Name Dose Route Start Last Admin Trade Name Freq PRN Reason Stop Dose Admin Acetaminophen 650 mg 08/11/16 18:36 08/15/16 21:34 Tylenol - PO 650 mg Q6H PRN Administration FEVER OR PAIN Carvedilol 25 mg 08/11/16 22:00 09/09/16 21:11 Coreg - PO 25 mg BID [facility] Administration Docusate Sodium 100 mg 08/18/16 22:00 09/09/16 21:11 Colace - PO 100 mg BID [facility] Administration Heparin Sodium (Porcine) 5,000 unit 08/11/16 22:00 09/09/16 21:11 Heparin - SQ 5,000 unit BID [facility] Administration Hydralazine HCl 25 mg 08/11/16 22:00 09/09/16 21:11 Apresoline - PO 25 mg BID [facility] Administration Sodium Chloride 1,000 mls @ 42 mls/hr 09/03/16 11:15 09/10/16 02:54 1/2 Normal Saline IV 42 mls/hr ASDIR [facility] Administration Isosorbide Mononitrate 30 mg 08/12/16 10:00 09/09/16 09:19 Imdur - PO 30 mg DAILY [facility] Administration Levothyroxine Sodium 75 mcg 08/12/16 07:00 09/10/16 06:19 Synthroid - PO 75 mcg DAILY@0700 [facility] Administration Olanzapine 5 mg 09/08/16 22:00 09/09/16 21:11 Zyprexa - PO 5 mg BID [facility] Administration Polyethylene Glycol 17 gm 08/18/16 22:00 09/09/16 21:11 Miralax (For Daily Use) - PO Not Given BID [facility] Quetiapine Fumarate 25 mg 09/02/16 17:50 09/09/16 02:07 Seroquel - PO 25 mg DAILY PRN Administration AGITATION Senna 1 tab 08/24/16 22:00 09/09/16 21:11 Senna - PO 1 tab BID [facility] Administration Tamsulosin HCl 0.8 mg 09/01/16 16:03 09/10/16 09:24 Flomax - PO 0.8 mg DAILY@0830 [facility] Administration - Objective Vital Signs: Vital Signs Period Temp Pulse Resp BP Sys/Ro Pulse Ox Last 24 Hr 97.4 F-98.7 F 69-78 17-18 143-159/64-70 97 Constitutional: Yes: No Distress, Calm Cardiovascular: Yes: Regular Rate and Rhythm, S1, S2. No: JVD, Gallop, Murmur Respiratory: Yes: Regular, CTA Bilaterally. No: Accessory Muscle Use Extremities: No: Cold Edema: No Neurological: awake, confused Psychiatric: No: Agitated no jaundice diaphoresis Labs: CBC, BMP 09/09/16 06:35 09/09/16 06:35 echo 05/2014: mod reduced lvef, global hk, nl rv, no sig valve path Echo 08/30 (here): moderately decr'd LVSF (global); nl RV size; normal LA; mild AI ECG: NSR; ? old ASMI previously seen; prior TWIs anterolateral leads now normalized Assessment/Plan 76 m hx htn, hld, ckd, hypothyroid, icd (medtronic, dual), syst chf, here with loc, uti, ams. chronic syst chf: -pt has hx of syst chf, unclear if ischemic cardiomyopathy but pt has denied cad hx in past. Rec'd ischemic eval as outpt but pt refused on multiple occasions. -appears well-compensated -on coreg, hydral, nitrates as outpt--cont same -not on titi/arb/spironolactone 2/2 ckd and hyperkalemia in past ckd/LOC/urinary retention/uti: -on ivfs -has rivas -cr stable -renal following HTN: -cont same meds, bp controlled adequately HLD: -per ER med list pt on atorva at home, not receiving here -per outpt f/u ICD: -normal check in office 04/2016 ams: -code kumar 08/30 for worse lethargy -head ct w/o acute changes -possibly due to dementia with loc/uti -neuro and psych following nsvt: -brief run on tele (13 beats) 09/01/16, no recurrence -mg, k unremarkable -cont coreg, pt has ICD
[2016-09-10] MEDS: CARVEDILOL 25 MG TABLET (FP) PO SCH ×2 (11:59→22:19)
[2016-09-10] MEDS: hydrALAZINE HCL 25 MG TABLET (FP) PO SCH ×2 (11:59→22:19)
[2016-09-10] MEDS: OLANZapine 5 MG TABLET PO SCH ×2 (11:59→22:19)
[2016-09-10] MEDS: ISOSORBIDE MONONITRATE 30 MG TAB.SR.24H (FP) PO SCH (12:00)
[2016-09-10] MEDS: SENNOSIDES 8.6MG TABLET (FP) PO SCH ×2 (12:00→22:19)
[2016-09-10] MEDS: HEPARIN NA (PORCINE) 5,000 UNITS/ML 1ML VIAL SQ SCH ×2 (12:00→22:19)
[2016-09-10] MEDS: DOCUSATE SODIUM 100 MG CAPSULE (FP) PO SCH ×2 (12:00→22:19)
[2016-09-10] MEDS: POLYETHYLENE GLYCOL 3350 119 GM BTL PO SCH ×2 (12:01→22:20)
--- NOTE | 2016-09-10 13:46 | PN ---
Progress Note, Physician Chief Complaint: Unable to obtain secondary to dementia. - Current Medication List Current Medications: Active Medications Acetaminophen (Tylenol -) 650 mg PO Q6H PRN PRN Reason: FEVER OR PAIN Last Admin: 08/15/16 21:34 Dose: 650 mg Carvedilol (Coreg -) 25 mg PO BID [facility] Last Admin: 09/10/16 11:59 Dose: 25 mg Docusate Sodium (Colace -) 100 mg PO BID [facility] Last Admin: 09/10/16 12:00 Dose: 100 mg Heparin Sodium (Porcine) (Heparin -) 5,000 unit SQ BID [facility] Last Admin: 09/10/16 12:00 Dose: 5,000 unit Hydralazine HCl (Apresoline -) 25 mg PO BID [facility] Last Admin: 09/10/16 11:59 Dose: 25 mg Sodium Chloride (1/2 Normal Saline) 1,000 mls @ 42 mls/hr IV ASDIR [facility] Last Admin: 09/10/16 12:01 Dose: Not Given Isosorbide Mononitrate (Imdur -) 30 mg PO DAILY [facility] Last Admin: 09/10/16 12:00 Dose: 30 mg Levothyroxine Sodium (Synthroid -) 75 mcg PO DAILY@0700 [facility] Last Admin: 09/10/16 06:19 Dose: 75 mcg Olanzapine (Zyprexa -) 5 mg PO BID [facility] Last Admin: 09/10/16 11:59 Dose: 5 mg Polyethylene Glycol (Miralax (For Daily Use) -) 17 gm PO BID [facility] Last Admin: 09/10/16 12:01 Dose: Not Given Quetiapine Fumarate (Seroquel -) 25 mg PO DAILY PRN PRN Reason: AGITATION Last Admin: 09/09/16 02:07 Dose: 25 mg Senna (Senna -) 1 tab PO BID [facility] Last Admin: 09/10/16 12:00 Dose: 1 tab Tamsulosin HCl (Flomax -) 0.8 mg PO DAILY@0830 [facility] Last Admin: 09/10/16 09:24 Dose: 0.8 mg - Objective Vital Signs: Vital Signs Temperature 97.6 F 09/10/16 06:00 Pulse Rate 69 09/10/16 06:00 Respiratory Rate 18 09/10/16 09:00 Blood Pressure 159/70 09/10/16 06:00 O2 Sat by Pulse Oximetry (%) 97 09/10/16 09:00 Constitutional: Yes: No Distress, Calm Cardiovascular: Yes: Regular Rate and Rhythm. No: Gallop, Murmur, Rub Respiratory: Yes: Regular, CTA Bilaterally. No: Rales, Rhonchi, Wheezes Gastrointestinal: Yes: Normal Bowel Sounds, Soft. No: Distention, Tenderness Extremities: Yes: WNL Edema: No Labs: CBC, BMP 09/09/16 06:35 09/09/16 06:35 INR, PTT INR 1.13 (0.82-1.09) 08/16/16 09:53 Problem List - Problems (1) Acute renal failure Code(s): N17.9 - ACUTE KIDNEY FAILURE, UNSPECIFIED Qualifiers: Acute renal failure type: unspecified Qualified Code(s): N17.9 - Acute kidney failure, unspecified (2) Acute metabolic encephalopathy Code(s): G93.41 - METABOLIC ENCEPHALOPATHY (3) Hypertension Code(s): I10 - ESSENTIAL (PRIMARY) HYPERTENSION (4) Hypothyroid Code(s): E03.9 - HYPOTHYROIDISM, UNSPECIFIED (5) Dementia Code(s): F03.90 - UNSPECIFIED DEMENTIA WITHOUT BEHAVIORAL DISTURBANCE Qualifiers: Alzheimer's disease onset: unspecified onset Dementia behavioral disturbance: with behavioral disturbance Assessment/Plan Problems (1) Acute renal failure on CKD Code(s): N17.9 - ACUTE KIDNEY FAILURE, UNSPECIFIED Qualifiers: Acute renal failure type: unspecified Qualified Code(s): N17.9 - Acute kidney failure, unspecified (2) BPH with obstructive nephropathy (3) Hypertension Code(s): I10 - ESSENTIAL (PRIMARY) HYPERTENSION (4) Hypothyroid Code(s): E03.9 - HYPOTHYROIDISM, UNSPECIFIED (5) Dementia Code(s): F03.90 - UNSPECIFIED DEMENTIA WITHOUT BEHAVIORAL DISTURBANCE (6) E coli UTI Plan -patient medically is stable -continue rivas indefinitely, cannot remove secondary to BPH causing obstructive nephropathy -refuses TURP -continue treatment for dementia -continue to evaluate for placement
[2016-09-11] MEDS: LEVOTHYROXINE NA 75 MCG TABLET (FP) PO SCH (06:03)
[2016-09-11] MEDS: SODIUM CHLORIDE 0.45% 1,000 ML IV SCH ×3 (07:03→18:37)
[2016-09-11 08:14] LABS: ANION GAP 13 (8-16); CO2 17 mmol/L (21-32); GLUCOSE,RANDOM 88 mg/dL (74-106)
[2016-09-11 08:15] LABS: CALCIUM 8.8 mg/dL (8.5-10.1); CREATININE 1.8 mg/dL (0.7-1.3); PHOSPHOROUS 4.3 mg/dL (2.5-4.9)
[2016-09-11 08:17] LABS: MAGNESIUM 2.3 mg/dL (1.8-2.4)
[2016-09-11 08:31] LABS: MCH 29.6 pg (25.7-33.7); MCHC 33.8 g/dl (32.0-35.9); MEAN CELL VOLUME 87.5 fl (80-96); MEAN PLT VOLUME 8.5 fl (7.5-11.1); PLATELET COUNT 209 K/MM3 (134-434); WHITE BLOOD COUNT 6.5 K/mm3 (4.0-10.0)
[2016-09-11] MEDS: HEPARIN NA (PORCINE) 5,000 UNITS/ML 1ML VIAL SQ SCH ×2 (09:23→22:33)
[2016-09-11] MEDS: POLYETHYLENE GLYCOL 3350 119 GM BTL PO SCH ×2 (09:23→22:45)
[2016-09-11] MEDS: SENNOSIDES 8.6MG TABLET (FP) PO SCH ×2 (09:23→22:46)
[2016-09-11] MEDS: CARVEDILOL 25 MG TABLET (FP) PO SCH ×2 (09:23→22:34)
[2016-09-11] MEDS: hydrALAZINE HCL 25 MG TABLET (FP) PO SCH ×2 (09:23→22:34)
[2016-09-11] MEDS: ISOSORBIDE MONONITRATE 30 MG TAB.SR.24H (FP) PO SCH (09:23)
[2016-09-11] MEDS: TAMSULOSIN HCL 0.4 MG CAP.ER.24H (FP) PO SCH (09:23)
[2016-09-11] MEDS: DOCUSATE SODIUM 100 MG CAPSULE (FP) PO SCH ×2 (09:23→22:45)
[2016-09-11] MEDS: OLANZapine 5 MG TABLET PO SCH (09:23)
[2016-09-11] MEDS ORDERED: risperiDONE 1 MG TABLET (FP) PO PRN (16:47)
--- NOTE | 2016-09-11 16:56 | PN ---
Progress Note (short form) - Note Progress Note: Confused and is not able to have a meaningful conversation O/E Heart regular] Lungs clear Abd soft Ext no edema Vital Signs Period Temp Pulse Resp BP Sys/Ro Pulse Ox Last 24 Hr 97.8 F-98.1 F 72-87 16-18 119-145/55-72 96-96 Current Medications Acetaminophen (Tylenol -) 650 mg PO Q6H PRN PRN Reason: FEVER OR PAIN Last Admin: 08/15/16 21:34 Dose: 650 mg Carvedilol (Coreg -) 25 mg PO BID [facility] Last Admin: 09/11/16 09:23 Dose: 25 mg Docusate Sodium (Colace -) 100 mg PO BID [facility] Last Admin: 09/11/16 09:23 Dose: 100 mg Heparin Sodium (Porcine) (Heparin -) 5,000 unit SQ BID [facility] Last Admin: 09/11/16 09:23 Dose: 5,000 unit Hydralazine HCl (Apresoline -) 25 mg PO BID [facility] Last Admin: 09/11/16 09:23 Dose: 25 mg Sodium Chloride (1/2 Normal Saline) 1,000 mls @ 42 mls/hr IV ASDIR [facility] Last Admin: 09/11/16 16:51 Dose: Not Given Isosorbide Mononitrate (Imdur -) 30 mg PO DAILY [facility] Last Admin: 09/11/16 09:23 Dose: 30 mg Levothyroxine Sodium (Synthroid -) 75 mcg PO DAILY@0700 [facility] Last Admin: 09/11/16 06:03 Dose: 75 mcg Polyethylene Glycol (Miralax (For Daily Use) -) 17 gm PO BID [facility] Last Admin: 09/11/16 09:23 Dose: Not Given Quetiapine Fumarate (Seroquel -) 25 mg PO DAILY PRN PRN Reason: AGITATION Last Admin: 09/09/16 02:07 Dose: 25 mg Risperidone (Risperdal -) 1 mg PO BID [facility] Risperidone (Risperdal -) 1 mg PO TID PRN PRN Reason: AGITATION Senna (Senna -) 1 tab PO BID [facility] Last Admin: 09/11/16 09:23 Dose: 1 tab Tamsulosin HCl (Flomax -) 0.8 mg PO DAILY@0830 [facility] Last Admin: 09/11/16 09:23 Dose: 0.8 mg Laboratory Results - last 24 hr 09/11/16 09/11/16 06:35 08:00 WBC 6.5 RBC 4.12 Hgb 12.2 Hct 36.1 MCV 87.5 MCH 29.6 MCHC 33.8 RDW 16.0 H Plt Count 209 MPV 8.5 Neutrophils % 73.0 D Lymphocytes % 15.9 D Monocytes % 9.1 Eosinophils % 1.0 Basophils % 1.0 Sodium 137 Potassium 5.3 H Chloride 107 Carbon Dioxide 17 L D Anion Gap 13 BUN 36 H Creatinine 1.8 H Random Glucose 88 Calcium 8.8 Phosphorus 4.3 D Magnesium 2.3 Assessment/Plan Problems (1) Acute renal failure on CKD Code(s): N17.9 - ACUTE KIDNEY FAILURE, UNSPECIFIED Qualifiers: Acute renal failure type: unspecified Qualified Code(s): N17.9 - Acute kidney failure, unspecified Improving (2) BPH with obstructive nephropathy Cont Bernal for now (3) Hypertension Code(s): I10 - ESSENTIAL (PRIMARY) HYPERTENSION Controlled (4) Hypothyroid Code(s): E03.9 - HYPOTHYROIDISM, UNSPECIFIED (5) Dementia Code(s): F03.90 - UNSPECIFIED DEMENTIA WITHOUT BEHAVIORAL DISTURBANCE He has had baseline dementia at home getting lost while driving etc The present confusion noted in the hospital is expected with change of place in demented patients Will use Risperdaol instead of Zyprexa and keep seroquel for now (6) E coli UTI
--- NOTE | 2016-09-11 18:10 | PN ---
Progress Note, Physician History of Present Illness: Pt seen and examined at bedside. He remains confused. - Current Medication List Current Medications: Active Medications Acetaminophen (Tylenol -) 650 mg PO Q6H PRN PRN Reason: FEVER OR PAIN Last Admin: 08/15/16 21:34 Dose: 650 mg Carvedilol (Coreg -) 25 mg PO BID [facility] Last Admin: 09/11/16 09:23 Dose: 25 mg Docusate Sodium (Colace -) 100 mg PO BID [facility] Last Admin: 09/11/16 09:23 Dose: 100 mg Heparin Sodium (Porcine) (Heparin -) 5,000 unit SQ BID [facility] Last Admin: 09/11/16 09:23 Dose: 5,000 unit Hydralazine HCl (Apresoline -) 25 mg PO BID [facility] Last Admin: 09/11/16 09:23 Dose: 25 mg Sodium Chloride (1/2 Normal Saline) 1,000 mls @ 42 mls/hr IV ASDIR [facility] Last Admin: 09/11/16 16:51 Dose: Not Given Isosorbide Mononitrate (Imdur -) 30 mg PO DAILY [facility] Last Admin: 09/11/16 09:23 Dose: 30 mg Levothyroxine Sodium (Synthroid -) 75 mcg PO DAILY@0700 [facility] Last Admin: 09/11/16 06:03 Dose: 75 mcg Polyethylene Glycol (Miralax (For Daily Use) -) 17 gm PO BID [facility] Last Admin: 09/11/16 09:23 Dose: Not Given Quetiapine Fumarate (Seroquel -) 25 mg PO DAILY PRN PRN Reason: AGITATION Last Admin: 09/09/16 02:07 Dose: 25 mg Risperidone (Risperdal -) 1 mg PO BID [facility] Risperidone (Risperdal -) 1 mg PO TID PRN PRN Reason: AGITATION Senna (Senna -) 1 tab PO BID [facility] Last Admin: 09/11/16 09:23 Dose: 1 tab Tamsulosin HCl (Flomax -) 0.8 mg PO DAILY@0830 [facility] Last Admin: 09/11/16 09:23 Dose: 0.8 mg - Objective Vital Signs: Vital Signs Temperature 97.8 F 09/11/16 15:48 Pulse Rate 72 09/11/16 15:48 Respiratory Rate 18 09/11/16 15:48 Blood Pressure 145/70 09/11/16 15:48 O2 Sat by Pulse Oximetry (%) 96 09/11/16 09:00 Constitutional: Yes: Calm Eyes: Yes: Conjunctiva Clear HENT: Yes: Atraumatic Cardiovascular: Yes: S1, S2 Respiratory: Yes: CTA Bilaterally Gastrointestinal: Yes: Soft Genitourinary: Yes: Rivas Present Musculoskeletal: Yes: WNL Edema: No Neurological: Yes: Confusion Labs: CBC, BMP 09/11/16 08:00 09/11/16 06:35 INR, PTT INR 1.13 (0.82-1.09) 08/16/16 09:53 Problem List - Problems (1) Acute renal failure Code(s): N17.9 - ACUTE KIDNEY FAILURE, UNSPECIFIED Qualifiers: Acute renal failure type: unspecified Qualified Code(s): N17.9 - Acute kidney failure, unspecified (2) Altered mental status Code(s): R41.82 - ALTERED MENTAL STATUS, UNSPECIFIED Qualifiers: Altered mental status type: delirium Qualified Code(s): R41.0 - Disorientation, unspecified (3) Uremia Code(s): N19 - UNSPECIFIED KIDNEY FAILURE (4) Urine retention Code(s): R33.9 - RETENTION OF URINE, UNSPECIFIED (5) Hypertension Code(s): I10 - ESSENTIAL (PRIMARY) HYPERTENSION Assessment/Plan Current Medications Generic Name Dose Route Start Last Admin Trade Name Freq PRN Reason Stop Dose Admin Acetaminophen 650 mg 08/11/16 18:36 08/15/16 21:34 Tylenol - PO 650 mg Q6H PRN Administration FEVER OR PAIN Carvedilol 25 mg 08/11/16 22:00 09/11/16 09:23 Coreg - PO 25 mg BID [facility] Administration Docusate Sodium 100 mg 08/18/16 22:00 09/11/16 09:23 Colace - PO 100 mg BID [facility] Administration Heparin Sodium (Porcine) 5,000 unit 08/11/16 22:00 09/11/16 09:23 Heparin - SQ 5,000 unit BID [facility] Administration Hydralazine HCl 25 mg 08/11/16 22:00 09/11/16 09:23 Apresoline - PO 25 mg BID [facility] Administration Sodium Chloride 1,000 mls @ 42 mls/hr 09/03/16 11:15 09/11/16 16:51 1/2 Normal Saline IV Not Given ASDIR [facility] Isosorbide Mononitrate 30 mg 08/12/16 10:00 09/11/16 09:23 Imdur - PO 30 mg DAILY [facility] Administration Levothyroxine Sodium 75 mcg 08/12/16 07:00 09/11/16 06:03 Synthroid - PO 75 mcg DAILY@0700 [facility] Administration Polyethylene Glycol 17 gm 08/18/16 22:00 09/11/16 09:23 Miralax (For Daily Use) - PO Not Given BID [facility] Quetiapine Fumarate 25 mg 09/02/16 17:50 09/09/16 02:07 Seroquel - PO 25 mg DAILY PRN Administration AGITATION Risperidone 1 mg 09/11/16 22:00 Risperdal - PO BID [facility] Risperidone 1 mg 09/11/16 16:47 Risperdal - PO TID PRN AGITATION Senna 1 tab 08/24/16 22:00 09/11/16 09:23 Senna - PO 1 tab BID [facility] Administration Tamsulosin HCl 0.8 mg 09/01/16 16:03 09/11/16 09:23 Flomax - PO 0.8 mg DAILY@0830 [facility] Administration Impression 1. LOC 2. obstructive uropathy 3. HTN 4. altered mental status 5. hypothyroidism 6. PPM 7. hyperlipidemia 8. urinary retention 9. hyperkalemia 10. CKD Plan - renal function is stable - potassium is elevated - change supplements to nepro, spoke to nurse - maintain rivas - pt remains confused - will follow PRN Dr Garza
[2016-09-11] MEDS: risperiDONE 1 MG TABLET (FP) PO SCH (22:35)
[2016-09-12] MEDS: QUEtiapine FUMARATE 25 MG TABLET (FP) PO PRN (01:28)
[2016-09-12] MEDS: SODIUM CHLORIDE 0.45% 1,000 ML IV SCH ×2 (05:00→22:09)
[2016-09-12] MEDS: LEVOTHYROXINE NA 75 MCG TABLET (FP) PO SCH (06:42)
[2016-09-12] MEDS: TAMSULOSIN HCL 0.4 MG CAP.ER.24H (FP) PO SCH (07:54)
[2016-09-12 08:29] LABS: ANION GAP 10 (8-16); CALCIUM 8.9 mg/dL (8.5-10.1); CO2 25 mmol/L (21-32); CREATININE 1.6 mg/dL (0.7-1.3); GLUCOSE,RANDOM 91 mg/dL (74-106)
[2016-09-12] MEDS: ISOSORBIDE MONONITRATE 30 MG TAB.SR.24H (FP) PO SCH ×2 (09:06→12:43)
[2016-09-12] MEDS: CARVEDILOL 25 MG TABLET (FP) PO SCH ×3 (09:06→23:50)
[2016-09-12] MEDS: hydrALAZINE HCL 25 MG TABLET (FP) PO SCH ×3 (09:06→23:51)
[2016-09-12] MEDS: DOCUSATE SODIUM 100 MG CAPSULE (FP) PO SCH ×2 (09:06→23:52)
[2016-09-12] MEDS: SENNOSIDES 8.6MG TABLET (FP) PO SCH ×3 (09:07→23:52)
[2016-09-12] MEDS: POLYETHYLENE GLYCOL 3350 119 GM BTL PO SCH ×2 (09:07→23:52)
[2016-09-12] MEDS: risperiDONE 1 MG TABLET (FP) PO SCH ×2 (09:07→12:44)
[2016-09-12] MEDS: HEPARIN NA (PORCINE) 5,000 UNITS/ML 1ML VIAL SQ SCH ×2 (09:57→23:52)
[2016-09-12] MEDS ORDERED: PT OWN MED DRAWER 7, Y5N ONE (12:39)
--- NOTE | 2016-09-12 17:08 | PN ---
Progress Note, Physician History of Present Illness: Pt seen and examined. No new events. - Current Medication List Current Medications: Active Medications Acetaminophen (Tylenol -) 650 mg PO Q6H PRN PRN Reason: FEVER OR PAIN Last Admin: 08/15/16 21:34 Dose: 650 mg Carvedilol (Coreg -) 25 mg PO BID [facility] Last Admin: 09/12/16 12:44 Dose: 25 mg Docusate Sodium (Colace -) 100 mg PO BID [facility] Last Admin: 09/12/16 09:06 Dose: Not Given Heparin Sodium (Porcine) (Heparin -) 5,000 unit SQ BID [facility] Last Admin: 09/12/16 09:57 Dose: 5,000 unit Hydralazine HCl (Apresoline -) 25 mg PO BID [facility] Last Admin: 09/12/16 12:44 Dose: 25 mg Sodium Chloride (1/2 Normal Saline) 1,000 mls @ 50 mls/hr IV ASDIR [facility] Last Admin: 09/12/16 05:00 Dose: 50 mls/hr Isosorbide Mononitrate (Imdur -) 30 mg PO DAILY [facility] Last Admin: 09/12/16 12:43 Dose: 30 mg Levothyroxine Sodium (Synthroid -) 75 mcg PO DAILY@0700 [facility] Last Admin: 09/12/16 06:42 Dose: Not Given Polyethylene Glycol (Miralax (For Daily Use) -) 17 gm PO BID [facility] Last Admin: 09/12/16 09:07 Dose: Not Given Quetiapine Fumarate (Seroquel -) 25 mg PO DAILY PRN PRN Reason: AGITATION Last Admin: 09/12/16 01:28 Dose: 25 mg Risperidone (Risperdal -) 1 mg PO BID [facility] Last Admin: 09/12/16 12:44 Dose: 1 mg Risperidone (Risperdal -) 1 mg PO TID PRN PRN Reason: AGITATION Senna (Senna -) 1 tab PO BID [facility] Last Admin: 09/12/16 12:44 Dose: 1 tab Tamsulosin HCl (Flomax -) 0.8 mg PO DAILY@0830 [facility] Last Admin: 09/12/16 07:54 Dose: 0.8 mg - Objective Vital Signs: Vital Signs Temperature 99.0 F 09/12/16 14:43 Pulse Rate 76 09/12/16 14:43 Respiratory Rate 18 09/12/16 14:43 Blood Pressure 141/76 09/12/16 14:43 O2 Sat by Pulse Oximetry (%) 96 09/12/16 10:00 Eyes: Yes: Conjunctiva Clear HENT: Yes: Atraumatic Neck: Yes: Supple Cardiovascular: Yes: S1, S2 Respiratory: Yes: CTA Bilaterally Gastrointestinal: Yes: Soft Genitourinary: Yes: Bernal Present Musculoskeletal: Yes: WNL Edema: No Neurological: Yes: Confusion Labs: CBC, BMP 09/11/16 08:00 09/12/16 06:30 INR, PTT INR 1.13 (0.82-1.09) 08/16/16 09:53 Problem List - Problems (1) Acute renal failure Code(s): N17.9 - ACUTE KIDNEY FAILURE, UNSPECIFIED Qualifiers: Acute renal failure type: unspecified Qualified Code(s): N17.9 - Acute kidney failure, unspecified (2) Altered mental status Code(s): R41.82 - ALTERED MENTAL STATUS, UNSPECIFIED Qualifiers: Altered mental status type: delirium Qualified Code(s): R41.0 - Disorientation, unspecified (3) Uremia Code(s): N19 - UNSPECIFIED KIDNEY FAILURE (4) Urine retention Code(s): R33.9 - RETENTION OF URINE, UNSPECIFIED (5) Hypertension Code(s): I10 - ESSENTIAL (PRIMARY) HYPERTENSION Assessment/Plan Current Medications Generic Name Dose Route Start Last Admin Trade Name Freq PRN Reason Stop Dose Admin Acetaminophen 650 mg 08/11/16 18:36 08/15/16 21:34 Tylenol - PO 650 mg Q6H PRN Administration FEVER OR PAIN Carvedilol 25 mg 08/11/16 22:00 09/12/16 12:44 Coreg - PO 25 mg BID [facility] Administration Docusate Sodium 100 mg 08/18/16 22:00 09/12/16 09:06 Colace - PO Not Given BID [facility] Heparin Sodium (Porcine) 5,000 unit 08/11/16 22:00 09/12/16 09:57 Heparin - SQ 5,000 unit BID [facility] Administration Hydralazine HCl 25 mg 08/11/16 22:00 09/12/16 12:44 Apresoline - PO 25 mg BID [facility] Administration Sodium Chloride 1,000 mls @ 50 mls/hr 09/11/16 18:10 09/12/16 05:00 1/2 Normal Saline IV 50 mls/hr ASDIR [facility] Administration Isosorbide Mononitrate 30 mg 08/12/16 10:00 09/12/16 12:43 Imdur - PO 30 mg DAILY [facility] Administration Levothyroxine Sodium 75 mcg 08/12/16 07:00 09/12/16 06:42 Synthroid - PO Not Given DAILY@0700 [facility] Polyethylene Glycol 17 gm 08/18/16 22:00 09/12/16 09:07 Miralax (For Daily Use) - PO Not Given BID [facility] Quetiapine Fumarate 25 mg 09/02/16 17:50 09/12/16 01:28 Seroquel - PO 25 mg DAILY PRN Administration AGITATION Risperidone 1 mg 09/11/16 22:00 09/12/16 12:44 Risperdal - PO 1 mg BID [facility] Administration Risperidone 1 mg 09/11/16 16:47 Risperdal - PO TID PRN AGITATION Senna 1 tab 08/24/16 22:00 09/12/16 12:44 Senna - PO 1 tab BID [facility] Administration Tamsulosin HCl 0.8 mg 09/01/16 16:03 09/12/16 07:54 Flomax - PO 0.8 mg DAILY@0830 [facility] Administration Impression 1. LOC 2. obstructive uropathy 3. HTN 4. altered mental status 5. hypothyroidism 6. PPM 7. hyperlipidemia 8. urinary retention 9. hyperkalemia 10. CKD Plan - creatinine is improved - potassium improved - cont nepro - check labs in am - will follow PRN Dr Garza
--- NOTE | 2016-09-12 17:57 | PN ---
Progress Note (short form) - Note Progress Note: Still confused and not able to talk meaningfully O/E Vital Signs Period Temp Pulse Resp BP Sys/Ro Pulse Ox Last 24 Hr 97.1 F-99.0 F 64-78 18-18 141-151/62-81 96-96 Heart regular Lungs clear Abd soft Ext no edema Laboratory Results - last 24 hr 09/12/16 06:30 Sodium 139 Potassium 4.5 Chloride 104 Carbon Dioxide 25 D Anion Gap 10 BUN 34 H Creatinine 1.6 H Random Glucose 91 Calcium 8.9 Current Medications Acetaminophen (Tylenol -) 650 mg PO Q6H PRN PRN Reason: FEVER OR PAIN Last Admin: 08/15/16 21:34 Dose: 650 mg Carvedilol (Coreg -) 25 mg PO BID [facility] Last Admin: 09/12/16 12:44 Dose: 25 mg Docusate Sodium (Colace -) 100 mg PO BID [facility] Last Admin: 09/12/16 09:06 Dose: Not Given Heparin Sodium (Porcine) (Heparin -) 5,000 unit SQ BID [facility] Last Admin: 09/12/16 09:57 Dose: 5,000 unit Hydralazine HCl (Apresoline -) 25 mg PO BID [facility] Last Admin: 09/12/16 12:44 Dose: 25 mg Sodium Chloride (1/2 Normal Saline) 1,000 mls @ 50 mls/hr IV ASDIR [facility] Last Admin: 09/12/16 05:00 Dose: 50 mls/hr Isosorbide Mononitrate (Imdur -) 30 mg PO DAILY [facility] Last Admin: 09/12/16 12:43 Dose: 30 mg Levothyroxine Sodium (Synthroid -) 75 mcg PO DAILY@0700 [facility] Last Admin: 09/12/16 06:42 Dose: Not Given Polyethylene Glycol (Miralax (For Daily Use) -) 17 gm PO BID [facility] Last Admin: 09/12/16 09:07 Dose: Not Given Quetiapine Fumarate (Seroquel -) 25 mg PO DAILY PRN PRN Reason: AGITATION Last Admin: 09/12/16 01:28 Dose: 25 mg Risperidone (Risperdal -) 1 mg PO BID [facility] Last Admin: 09/12/16 12:44 Dose: 1 mg Risperidone (Risperdal -) 1 mg PO TID PRN PRN Reason: AGITATION Senna (Senna -) 1 tab PO BID [facility] Last Admin: 09/12/16 12:44 Dose: 1 tab Tamsulosin HCl (Flomax -) 0.8 mg PO DAILY@0830 [facility] Last Admin: 09/12/16 07:54 Dose: 0.8 mg Assessment/Plan Problems (1) Acute renal failure on CKD Code(s): N17.9 - ACUTE KIDNEY FAILURE, UNSPECIFIED Qualifiers: Acute renal failure type: unspecified Qualified Code(s): N17.9 - Acute kidney failure, unspecified Improving (2) BPH with obstructive nephropathy Cont Bernal for now (3) Hypertension Code(s): I10 - ESSENTIAL (PRIMARY) HYPERTENSION Controlled (4) Hypothyroid Code(s): E03.9 - HYPOTHYROIDISM, UNSPECIFIED (5) Dementia Code(s): F03.90 - UNSPECIFIED DEMENTIA WITHOUT BEHAVIORAL DISTURBANCE He has had baseline dementia at home getting lost while driving etc The present confusion noted in the hospital is expected with change of place in demented patients He refused to take his meds and spits out the meds. Still very agitated and is up all night Will change risperdal to Haldol prn (6) E coli UTI
[2016-09-12] MEDS ORDERED: HALOPERIDOL LACTATE 5 MG/ML IM PRN (18:02)
[2016-09-13] MEDS: HALOPERIDOL LACTATE 5 MG/ML IM SCH ×2 (00:02→22:12)
[2016-09-13] MEDS: SODIUM CHLORIDE 0.45% 1,000 ML IV SCH ×2 (00:22→18:17)
[2016-09-13] MEDS: LEVOTHYROXINE NA 75 MCG TABLET (FP) PO SCH ×2 (06:11→08:52)
[2016-09-13] MEDS: TAMSULOSIN HCL 0.4 MG CAP.ER.24H (FP) PO SCH ×2 (08:51→08:56)
[2016-09-13] MEDS: DOCUSATE SODIUM 100 MG CAPSULE (FP) PO SCH ×2 (09:41→22:11)
[2016-09-13] MEDS: hydrALAZINE HCL 25 MG TABLET (FP) PO SCH ×2 (09:41→22:11)
[2016-09-13] MEDS: CARVEDILOL 25 MG TABLET (FP) PO SCH ×2 (09:41→22:11)
[2016-09-13] MEDS: ISOSORBIDE MONONITRATE 30 MG TAB.SR.24H (FP) PO SCH (09:41)
[2016-09-13] MEDS: SENNOSIDES 8.6MG TABLET (FP) PO SCH ×2 (09:42→22:12)
[2016-09-13] MEDS: POLYETHYLENE GLYCOL 3350 119 GM BTL PO SCH ×2 (09:42→22:12)
[2016-09-13] MEDS: HEPARIN NA (PORCINE) 5,000 UNITS/ML 1ML VIAL SQ SCH ×2 (09:43→22:14)
--- NOTE | 2016-09-13 12:18 | PN ---
Progress Note, Physician Chief Complaint: Unable to obtain, patient somnolent. RN states patient unable to take medications secondary to somnolence today - Current Medication List Current Medications: Active Medications Acetaminophen (Tylenol -) 650 mg PO Q6H PRN PRN Reason: FEVER OR PAIN Last Admin: 08/15/16 21:34 Dose: 650 mg Carvedilol (Coreg -) 25 mg PO BID [facility] Last Admin: 09/13/16 09:41 Dose: Not Given Docusate Sodium (Colace -) 100 mg PO BID [facility] Last Admin: 09/13/16 09:41 Dose: Not Given Haloperidol (Haldol Injection (Fast Acting) -) 5 mg IM HS [facility] Last Admin: 09/13/16 00:02 Dose: 5 mg Haloperidol (Haldol Injection (Fast Acting) -) 5 mg IM HS PRN Heparin Sodium (Porcine) (Heparin -) 5,000 unit SQ BID [facility] Last Admin: 09/13/16 09:43 Dose: 5,000 unit Hydralazine HCl (Apresoline -) 25 mg PO BID [facility] Last Admin: 09/13/16 09:41 Dose: Not Given Sodium Chloride (1/2 Normal Saline) 1,000 mls @ 50 mls/hr IV ASDIR [facility] Last Admin: 09/13/16 00:22 Dose: 50 mls/hr Isosorbide Mononitrate (Imdur -) 30 mg PO DAILY [facility] Last Admin: 09/13/16 09:41 Dose: Not Given Levothyroxine Sodium (Synthroid -) 75 mcg PO DAILY@0700 [facility] Last Admin: 09/13/16 06:11 Dose: Not Given Polyethylene Glycol (Miralax (For Daily Use) -) 17 gm PO BID [facility] Last Admin: 09/13/16 09:42 Dose: Not Given Quetiapine Fumarate (Seroquel -) 25 mg PO DAILY PRN PRN Reason: AGITATION Last Admin: 09/12/16 01:28 Dose: 25 mg Senna (Senna -) 1 tab PO BID [facility] Last Admin: 09/13/16 09:42 Dose: Not Given Tamsulosin HCl (Flomax -) 0.8 mg PO DAILY@0830 [facility] Last Admin: 09/13/16 08:56 Dose: Not Given - Objective Vital Signs: Vital Signs Temperature 97.2 F L 09/13/16 06:00 Pulse Rate 65 09/13/16 06:00 Respiratory Rate 18 09/13/16 06:00 Blood Pressure 143/63 09/13/16 06:00 O2 Sat by Pulse Oximetry (%) 96 09/12/16 10:00 Constitutional: Yes: Other (somnolent) Cardiovascular: Yes: Regular Rate and Rhythm. No: Gallop, Murmur, Rub Respiratory: Yes: Regular, CTA Bilaterally. No: Rales, Rhonchi, Wheezes Gastrointestinal: Yes: Normal Bowel Sounds, Soft. No: Distention, Tenderness Extremities: Yes: WNL Edema: No Labs: CBC, BMP 09/11/16 08:00 09/12/16 06:30 INR, PTT INR 1.13 (0.82-1.09) 08/16/16 09:53 Problem List - Problems (1) Acute renal failure Code(s): N17.9 - ACUTE KIDNEY FAILURE, UNSPECIFIED Qualifiers: Acute renal failure type: unspecified Qualified Code(s): N17.9 - Acute kidney failure, unspecified (2) Acute metabolic encephalopathy Code(s): G93.41 - METABOLIC ENCEPHALOPATHY (3) Hypertension Code(s): I10 - ESSENTIAL (PRIMARY) HYPERTENSION (4) Hypothyroid Code(s): E03.9 - HYPOTHYROIDISM, UNSPECIFIED (5) Dementia Code(s): F03.90 - UNSPECIFIED DEMENTIA WITHOUT BEHAVIORAL DISTURBANCE Qualifiers: Alzheimer's disease onset: unspecified onset Dementia behavioral disturbance: with behavioral disturbance Assessment/Plan Problems (1) Acute renal failure on CKD Code(s): N17.9 - ACUTE KIDNEY FAILURE, UNSPECIFIED Qualifiers: Acute renal failure type: unspecified Qualified Code(s): N17.9 - Acute kidney failure, unspecified (2) BPH with obstructive nephropathy (3) Hypertension Code(s): I10 - ESSENTIAL (PRIMARY) HYPERTENSION (4) Hypothyroid Code(s): E03.9 - HYPOTHYROIDISM, UNSPECIFIED (5) Dementia Code(s): F03.90 - UNSPECIFIED DEMENTIA WITHOUT BEHAVIORAL DISTURBANCE (6) E coli UTI Plan -patient changed to haldol over the weekend -will monitor to see if tolerates or if too somnolent -if does not clear, will need to stop or decrease haldol -otherwise continue current management
[2016-09-14] MEDS: LEVOTHYROXINE NA 75 MCG TABLET (FP) PO SCH (06:04)
[2016-09-14 07:10] LABS: BASOPHIL 0.7 % (0-2.0); MCH 29.5 pg (25.7-33.7); MCHC 33.7 g/dl (32.0-35.9); MEAN CELL VOLUME 87.5 fl (80-96); MEAN PLT VOLUME 8.6 fl (7.5-11.1); NEUTROPHILS 63.3 % (42.8-82.8); PLATELET COUNT 179 K/MM3 (134-434); RDW 16.3 % (11.9-15.9); WHITE BLOOD COUNT 7.2 K/mm3 (4.0-10.0)
[2016-09-14 07:34] LABS: ANION GAP 7 (8-16); CALCIUM 8.2 mg/dL (8.5-10.1); CO2 25 mmol/L (21-32); CREATININE 1.8 mg/dL (0.7-1.3); GLUCOSE,RANDOM 114 mg/dL (74-106); MAGNESIUM 2.1 mg/dL (1.8-2.4); PHOSPHOROUS 3.4 mg/dL (2.5-4.9)
[2016-09-14] MEDS: ISOSORBIDE MONONITRATE 30 MG TAB.SR.24H (FP) PO SCH ×2 (10:32→10:43)
[2016-09-14] MEDS: hydrALAZINE HCL 25 MG TABLET (FP) PO SCH ×3 (10:32→22:12)
[2016-09-14] MEDS: TAMSULOSIN HCL 0.4 MG CAP.ER.24H (FP) PO SCH ×2 (10:32→10:44)
[2016-09-14] MEDS: HEPARIN NA (PORCINE) 5,000 UNITS/ML 1ML VIAL SQ SCH ×3 (10:33→22:12)
[2016-09-14] MEDS: CARVEDILOL 25 MG TABLET (FP) PO SCH ×3 (10:33→22:11)
[2016-09-14] MEDS: SENNOSIDES 8.6MG TABLET (FP) PO SCH ×2 (10:42→22:12)
[2016-09-14] MEDS: DOCUSATE SODIUM 100 MG CAPSULE (FP) PO SCH ×2 (10:42→22:12)
[2016-09-14] MEDS: POLYETHYLENE GLYCOL 3350 119 GM BTL PO SCH ×2 (10:42→22:12)
--- NOTE | 2016-09-14 11:35 | DS ---
Physical Examination Vital Signs: Vital Signs Temperature 97.9 F 09/14/16 06:00 Pulse Rate 74 09/14/16 06:00 Respiratory Rate 20 09/14/16 06:00 Blood Pressure 134/61 09/14/16 06:00 O2 Sat by Pulse Oximetry (%) 100 09/13/16 21:00 Labs: CBC, BMP 09/14/16 06:25 09/14/16 06:25 Discharge Summary Reason For Visit: ACUTE RENAL FAILURE; RETENTION OF URINE; AMS Current Active Problems Acute metabolic encephalopathy (Acute) Acute renal failure (Acute) Altered mental status (Acute) Benign localized hyperplasia of prostate with urinary retention (Acute) Dementia (Acute) Hypertension (Acute) Hypothyroid (Acute) Uremia (Acute) Urine retention (Acute) Condition: Stable - Instructions Diet, Activity, Other Instructions: regular diet. Up with assistance, further activity per PT at SNF. Referrals: Hi Wilcox MD [Primary Care Provider] - Julian Maguire MD [Staff Physician] - Dotty Garza MD [Staff Physician] - Disposition: [facility] - Home Medications Comprehensive Discharge Medication List: Ambulatory Orders Atorvastatin Ca [Lipitor] 10 mg PO HS 08/11/16 Carvedilol 25 mg PO BID 08/11/16 Hydralazine HCl [Apresoline -] 25 mg PO BID 08/11/16 Isosorbide Mononitrate [Isosorbide Mononitrate ER] 30 mg PO DAILY 08/11/16 Levothyroxine [Synthroid -] 75 mcg PO DAILY 08/11/16 Acetaminophen [Tylenol .Regular Strength -] 650 mg PO Q6H PRN #0 tablet Docusate Sodium [Colace -] 100 mg PO BID cap 09/08/16 Heparin - 5,000 unit SQ BID vial 09/08/16 Polyethylene Glycol 3350 [Miralax 119 gm Btl -] 17 gm PO BID bottle 09/08/16 Quetiapine Fumarate [Seroquel -] 25 mg PO DAILY PRN #0 tablet 09/08/16 Sennosides [Senna -] 1 tab PO BID tablet 09/08/16 Tamsulosin HCl [Flomax -] 0.8 mg PO DAILY@0830 cap.ec 09/08/16
[2016-09-14] MEDS: SODIUM CHLORIDE 0.45% 1,000 ML IV SCH ×2 (14:40→20:10)
--- NOTE | 2016-09-14 16:20 | PN ---
Progress Note, Physician Chief Complaint: Mr Cunha is asking when he is getting out of here. Unable to obtain subjective secondary to dementia. - Current Medication List Current Medications: Active Medications Acetaminophen (Tylenol -) 650 mg PO Q6H PRN PRN Reason: FEVER OR PAIN Last Admin: 08/15/16 21:34 Dose: 650 mg Carvedilol (Coreg -) 25 mg PO BID [facility] Last Admin: 09/14/16 10:43 Dose: Not Given Docusate Sodium (Colace -) 100 mg PO BID [facility] Last Admin: 09/14/16 10:42 Dose: Not Given Haloperidol (Haldol Injection (Fast Acting) -) 5 mg IM HS [facility] Last Admin: 09/13/16 22:12 Dose: Not Given Haloperidol (Haldol Injection (Fast Acting) -) 5 mg IM HS PRN Heparin Sodium (Porcine) (Heparin -) 5,000 unit SQ BID [facility] Last Admin: 09/14/16 10:47 Dose: Not Given Hydralazine HCl (Apresoline -) 25 mg PO BID [facility] Last Admin: 09/14/16 10:42 Dose: Not Given Sodium Chloride (1/2 Normal Saline) 1,000 mls @ 50 mls/hr IV ASDIR [facility] Last Admin: 09/14/16 14:40 Dose: 50 mls/hr Isosorbide Mononitrate (Imdur -) 30 mg PO DAILY [facility] Last Admin: 09/14/16 10:43 Dose: Not Given Levothyroxine Sodium (Synthroid -) 75 mcg PO DAILY@0700 [facility] Last Admin: 09/14/16 06:04 Dose: Not Given Polyethylene Glycol (Miralax (For Daily Use) -) 17 gm PO BID [facility] Last Admin: 09/14/16 10:42 Dose: Not Given Quetiapine Fumarate (Seroquel -) 25 mg PO DAILY PRN PRN Reason: AGITATION Last Admin: 09/12/16 01:28 Dose: 25 mg Senna (Senna -) 1 tab PO BID [facility] Last Admin: 09/14/16 10:42 Dose: Not Given Tamsulosin HCl (Flomax -) 0.8 mg PO DAILY@0830 [facility] Last Admin: 09/14/16 10:44 Dose: Not Given - Objective Vital Signs: Vital Signs Temperature 99.1 F 09/14/16 14:24 Pulse Rate 92 H 09/14/16 14:24 Respiratory Rate 18 09/14/16 14:24 Blood Pressure 109/68 09/14/16 14:24 O2 Sat by Pulse Oximetry (%) 95 09/14/16 10:00 Constitutional: Yes: No Distress, Calm, Thin Cardiovascular: Yes: Regular Rate and Rhythm. No: Gallop, Murmur, Rub Respiratory: Yes: Regular, CTA Bilaterally. No: Rales, Rhonchi, Wheezes Gastrointestinal: Yes: Normal Bowel Sounds, Soft. No: Distention, Tenderness Extremities: Yes: WNL Edema: No Labs: CBC, BMP 09/14/16 06:25 09/14/16 06:25 INR, PTT INR 1.13 (0.82-1.09) 08/16/16 09:53 Problem List - Problems (1) Acute renal failure Code(s): N17.9 - ACUTE KIDNEY FAILURE, UNSPECIFIED Qualifiers: Acute renal failure type: unspecified Qualified Code(s): N17.9 - Acute kidney failure, unspecified (2) Acute metabolic encephalopathy Code(s): G93.41 - METABOLIC ENCEPHALOPATHY (3) Hypertension Code(s): I10 - ESSENTIAL (PRIMARY) HYPERTENSION (4) Hypothyroid Code(s): E03.9 - HYPOTHYROIDISM, UNSPECIFIED (5) Dementia Code(s): F03.90 - UNSPECIFIED DEMENTIA WITHOUT BEHAVIORAL DISTURBANCE Qualifiers: Alzheimer's disease onset: unspecified onset Dementia behavioral disturbance: with behavioral disturbance Assessment/Plan Problems (1) Acute renal failure on CKD Code(s): N17.9 - ACUTE KIDNEY FAILURE, UNSPECIFIED Qualifiers: Acute renal failure type: unspecified Qualified Code(s): N17.9 - Acute kidney failure, unspecified (2) BPH with obstructive nephropathy (3) Hypertension Code(s): I10 - ESSENTIAL (PRIMARY) HYPERTENSION (4) Hypothyroid Code(s): E03.9 - HYPOTHYROIDISM, UNSPECIFIED (5) Dementia Code(s): F03.90 - UNSPECIFIED DEMENTIA WITHOUT BEHAVIORAL DISTURBANCE (6) E coli UTI Plan -patient now unrestrained for 24 hours -began discharge planning, but daughter able to have Mr Cunha agree to TURP -case d/w urology, will attempt to do on -if Mr Cunha changes him mind, will need to be discharged with rivas and outpatient follow up -change diet to regular diet per daughter's request
[2016-09-14] MEDS: HALOPERIDOL LACTATE 5 MG/ML IM SCH (22:11)
[2016-09-15] MEDS: LEVOTHYROXINE NA 75 MCG TABLET (FP) PO SCH (06:32)
--- NOTE | 2016-09-15 12:09 | PN ---
Progress Note (short form) - Note Progress Note: Progress Note, Physician Chief Complaint: chf History of Present Illness: awake, alert, confused, denies cp/sob. just walked with PT, still very weak - Current Medication List Current Medications Generic Name Dose Route Start Last Admin Trade Name Freq PRN Reason Stop Dose Admin Acetaminophen 650 mg 08/11/16 18:36 08/15/16 21:34 Tylenol - PO 650 mg Q6H PRN Administration FEVER OR PAIN Carvedilol 25 mg 08/11/16 22:00 09/14/16 22:11 Coreg - PO Not Given BID [facility] Docusate Sodium 100 mg 08/18/16 22:00 09/14/16 22:12 Colace - PO Not Given BID [facility] Haloperidol 5 mg 09/12/16 22:00 09/14/16 22:11 Haldol Injection (Fast Acting) - IM Not Given HS [facility] Haloperidol 5 mg 09/12/16 18:02 Haldol Injection (Fast Acting) - IM HS PRN Heparin Sodium (Porcine) 5,000 unit 08/11/16 22:00 09/14/16 22:12 Heparin - SQ Not Given BID [facility] Hydralazine HCl 25 mg 08/11/16 22:00 09/14/16 22:12 Apresoline - PO Not Given BID [facility] Sodium Chloride 1,000 mls @ 50 mls/hr 09/11/16 18:10 09/14/16 20:10 1/2 Normal Saline IV 50 mls/hr ASDIR [facility] Administration Isosorbide Mononitrate 30 mg 08/12/16 10:00 09/14/16 10:43 Imdur - PO Not Given DAILY [facility] Levothyroxine Sodium 75 mcg 08/12/16 07:00 09/15/16 06:32 Synthroid - PO 75 mcg DAILY@0700 [facility] Administration Polyethylene Glycol 17 gm 08/18/16 22:00 09/14/16 22:12 Miralax (For Daily Use) - PO Not Given BID [facility] Quetiapine Fumarate 25 mg 09/02/16 17:50 09/12/16 01:28 Seroquel - PO 25 mg DAILY PRN Administration AGITATION Senna 1 tab 08/24/16 22:00 09/14/16 22:12 Senna - PO Not Given BID [facility] Tamsulosin HCl 0.8 mg 09/01/16 16:03 09/14/16 10:44 Flomax - PO Not Given DAILY@0830 [facility] - Objective Vital Signs: Vital Signs Period Temp Pulse Resp BP Sys/Ro Pulse Ox Last 24 Hr 97.4 F-99.1 F 79-92 18-20 109-146/62-70 97 Constitutional: Yes: No Distress, Calm Cardiovascular: Yes: Regular Rate and Rhythm, S1, S2. No: JVD, Gallop, Murmur Respiratory: Yes: Regular, CTA Bilaterally. No: Accessory Muscle Use Extremities: No: Cold Edema: No Neurological: awake, confused Psychiatric: No: Agitated no jaundice diaphoresis Labs: CBC, BMP 09/14/16 06:25 09/14/16 06:25 echo 05/2014: mod reduced lvef, global hk, nl rv, no sig valve path Echo 08/30 (here): moderately decr'd LVSF (global); nl RV size; normal LA; mild AI ECG: NSR; ? old ASMI previously seen; prior TWIs anterolateral leads now normalized Assessment/Plan 76 m hx htn, hld, ckd, hypothyroid, icd (medtronic, dual), syst chf, here with loc, uti, ams. chronic syst chf: -pt has hx of syst chf, unclear if ischemic cardiomyopathy but pt has denied cad hx in past. Rec'd ischemic eval as outpt but pt refused on multiple occasions. -appears well-compensated presently -on coreg, hydral, nitrates as outpt--cont same -not on titi/arb/spironolactone 2/2 ckd and hyperkalemia in past ckd/LOC/urinary retention/uti: -on ivfs -has rivas -cr stable -renal/gu following, possible TURP planned here (no cardiac contraindications) HTN: -cont same meds, bp controlled adequately HLD: -per ER med list pt on atorva at home, not receiving here -per outpt f/u ICD: -normal check in office 04/2016 ams: -code kumar 08/30 for worse lethargy -head ct w/o acute changes -possibly due to dementia with loc/uti -neuro and psych following nsvt: -brief run on tele (13 beats) 09/01/16, no recurrence -mg, k unremarkable -cont coreg, pt has ICD
--- NOTE | 2016-09-15 12:09 | PN ---
Progress Note, Physician Chief Complaint: Mr Cunha says he is feeling fine. Denies cp, sob, n/v. - Current Medication List Current Medications: Active Medications Acetaminophen (Tylenol -) 650 mg PO Q6H PRN PRN Reason: FEVER OR PAIN Last Admin: 08/15/16 21:34 Dose: 650 mg Carvedilol (Coreg -) 25 mg PO BID [facility] Last Admin: 09/14/16 22:11 Dose: Not Given Docusate Sodium (Colace -) 100 mg PO BID [facility] Last Admin: 09/14/16 22:12 Dose: Not Given Haloperidol (Haldol Injection (Fast Acting) -) 5 mg IM HS [facility] Last Admin: 09/14/16 22:11 Dose: Not Given Haloperidol (Haldol Injection (Fast Acting) -) 5 mg IM HS PRN Heparin Sodium (Porcine) (Heparin -) 5,000 unit SQ BID [facility] Last Admin: 09/14/16 22:12 Dose: Not Given Hydralazine HCl (Apresoline -) 25 mg PO BID [facility] Last Admin: 09/14/16 22:12 Dose: Not Given Sodium Chloride (1/2 Normal Saline) 1,000 mls @ 50 mls/hr IV ASDIR [facility] Last Admin: 09/14/16 20:10 Dose: 50 mls/hr Isosorbide Mononitrate (Imdur -) 30 mg PO DAILY [facility] Last Admin: 09/14/16 10:43 Dose: Not Given Levothyroxine Sodium (Synthroid -) 75 mcg PO DAILY@0700 [facility] Last Admin: 09/15/16 06:32 Dose: 75 mcg Polyethylene Glycol (Miralax (For Daily Use) -) 17 gm PO BID [facility] Last Admin: 09/14/16 22:12 Dose: Not Given Quetiapine Fumarate (Seroquel -) 25 mg PO DAILY PRN PRN Reason: AGITATION Last Admin: 09/12/16 01:28 Dose: 25 mg Senna (Senna -) 1 tab PO BID [facility] Last Admin: 09/14/16 22:12 Dose: Not Given Tamsulosin HCl (Flomax -) 0.8 mg PO DAILY@0830 [facility] Last Admin: 09/14/16 10:44 Dose: Not Given - Objective Vital Signs: Vital Signs Temperature 97.4 F L 09/15/16 06:00 Pulse Rate 84 09/15/16 06:00 Respiratory Rate 18 09/15/16 06:00 Blood Pressure 146/66 09/15/16 06:00 O2 Sat by Pulse Oximetry (%) 97 09/14/16 21:00 Constitutional: Yes: Well Nourished, No Distress, Calm Cardiovascular: Yes: Regular Rate and Rhythm. No: Gallop, Murmur, Rub Respiratory: Yes: Regular, CTA Bilaterally. No: Rales, Rhonchi, Wheezes Gastrointestinal: Yes: Normal Bowel Sounds, Soft. No: Distention, Tenderness Extremities: Yes: WNL Edema: No Labs: CBC, BMP 09/14/16 06:25 09/14/16 06:25 INR, PTT INR 1.13 (0.82-1.09) 08/16/16 09:53 Problem List - Problems (1) Acute renal failure Code(s): N17.9 - ACUTE KIDNEY FAILURE, UNSPECIFIED Qualifiers: Acute renal failure type: unspecified Qualified Code(s): N17.9 - Acute kidney failure, unspecified (2) Acute metabolic encephalopathy Code(s): G93.41 - METABOLIC ENCEPHALOPATHY (3) Hypertension Code(s): I10 - ESSENTIAL (PRIMARY) HYPERTENSION (4) Hypothyroid Code(s): E03.9 - HYPOTHYROIDISM, UNSPECIFIED (5) Dementia Code(s): F03.90 - UNSPECIFIED DEMENTIA WITHOUT BEHAVIORAL DISTURBANCE Qualifiers: Alzheimer's disease onset: unspecified onset Dementia behavioral disturbance: with behavioral disturbance Assessment/Plan Problems (1) Acute renal failure on CKD Code(s): N17.9 - ACUTE KIDNEY FAILURE, UNSPECIFIED Qualifiers: Acute renal failure type: unspecified Qualified Code(s): N17.9 - Acute kidney failure, unspecified (2) BPH with obstructive nephropathy (3) Hypertension Code(s): I10 - ESSENTIAL (PRIMARY) HYPERTENSION (4) Hypothyroid Code(s): E03.9 - HYPOTHYROIDISM, UNSPECIFIED (5) Dementia Code(s): F03.90 - UNSPECIFIED DEMENTIA WITHOUT BEHAVIORAL DISTURBANCE (6) E coli UTI Plan -planning for TURP tomorrow -patient is medically stable for procedure -continue current regimen
[2016-09-15] MEDS: TAMSULOSIN HCL 0.4 MG CAP.ER.24H (FP) PO SCH (12:19)
[2016-09-15] MEDS: CARVEDILOL 25 MG TABLET (FP) PO SCH ×2 (12:20→22:14)
[2016-09-15] MEDS: SENNOSIDES 8.6MG TABLET (FP) PO SCH ×2 (12:20→22:15)
[2016-09-15] MEDS: DOCUSATE SODIUM 100 MG CAPSULE (FP) PO SCH ×2 (12:20→22:13)
[2016-09-15] MEDS: HEPARIN NA (PORCINE) 5,000 UNITS/ML 1ML VIAL SQ SCH ×2 (12:20→22:14)
[2016-09-15] MEDS: hydrALAZINE HCL 25 MG TABLET (FP) PO SCH ×2 (12:20→22:13)
[2016-09-15] MEDS: ISOSORBIDE MONONITRATE 30 MG TAB.SR.24H (FP) PO SCH (12:20)
[2016-09-15] MEDS: POLYETHYLENE GLYCOL 3350 119 GM BTL PO SCH ×2 (12:25→22:15)
[2016-09-15] MEDS: SODIUM CHLORIDE 0.45% 1,000 ML IV SCH (22:13)
[2016-09-15] MEDS: HALOPERIDOL LACTATE 5 MG/ML IM SCH (22:14)
[2016-09-16] MEDS: LEVOTHYROXINE NA 75 MCG TABLET (FP) PO SCH (06:26)
[2016-09-16] MEDS: SODIUM CHLORIDE 0.45% 1,000 ML IV SCH ×2 (06:26→15:55)
[2016-09-16 07:36] LABS: EOSINOPHIL 3.4 % (0-4.5); MCH 29.7 pg (25.7-33.7); MCHC 33.5 g/dl (32.0-35.9); MEAN CELL VOLUME 88.6 fl (80-96); NEUTROPHILS 65.4 % (42.8-82.8); PLATELET COUNT 134 K/MM3 (134-434); RDW 17.3 % (11.9-15.9); WHITE BLOOD COUNT 7.2 K/mm3 (4.0-10.0)
[2016-09-16 07:38] LABS: INR 1.04 (0.82-1.09); PROTHROMBIN TIME (PATIENT) 11.4 SEC (9.98-11.88)
[2016-09-16] MEDS: TAMSULOSIN HCL 0.4 MG CAP.ER.24H (FP) PO SCH (08:07)
[2016-09-16 08:15] LABS: ANION GAP 9 (8-16); CALCIUM 7.6 mg/dL (8.5-10.1); CO2 25 mmol/L (21-32); GLUCOSE,RANDOM 112 mg/dL (74-106); MAGNESIUM 2.1 mg/dL (1.8-2.4)
[2016-09-16 08:20] LABS: CREATININE 1.8 mg/dL (0.7-1.3); PHOSPHOROUS 2.4 mg/dL (2.5-4.9)
[2016-09-16] MEDS: HEPARIN NA (PORCINE) 5,000 UNITS/ML 1ML VIAL SQ SCH ×2 (10:12→22:23)
[2016-09-16] MEDS: hydrALAZINE HCL 25 MG TABLET (FP) PO SCH ×2 (10:12→22:21)
[2016-09-16] MEDS: DOCUSATE SODIUM 100 MG CAPSULE (FP) PO SCH ×2 (10:12→22:21)
[2016-09-16] MEDS: ISOSORBIDE MONONITRATE 30 MG TAB.SR.24H (FP) PO SCH (10:12)
[2016-09-16] MEDS: CARVEDILOL 25 MG TABLET (FP) PO SCH ×2 (10:12→22:22)
[2016-09-16] MEDS: SENNOSIDES 8.6MG TABLET (FP) PO SCH ×2 (10:13→22:23)
[2016-09-16] MEDS: POLYETHYLENE GLYCOL 3350 119 GM BTL PO SCH ×2 (10:13→22:23)
--- NOTE | 2016-09-16 10:16 | PN ---
Progress Note (short form) - Note Progress Note: Progress Note, Physician Chief Complaint: chf History of Present Illness: awake, alert, confused, denies cp/sob. - Current Medication List Current Medications Generic Name Dose Route Start Last Admin Trade Name Freq PRN Reason Stop Dose Admin Acetaminophen 650 mg 08/11/16 18:36 08/15/16 21:34 Tylenol - PO 650 mg Q6H PRN Administration FEVER OR PAIN Carvedilol 25 mg 08/11/16 22:00 09/16/16 10:12 Coreg - PO 25 mg BID [facility] Administration Docusate Sodium 100 mg 08/18/16 22:00 09/16/16 10:12 Colace - PO Not Given BID [facility] Haloperidol 5 mg 09/12/16 22:00 09/15/16 22:14 Haldol Injection (Fast Acting) - IM Not Given HS [facility] Haloperidol 5 mg 09/12/16 18:02 09/15/16 23:51 Haldol Injection (Fast Acting) - IM 5 mg HS PRN Administration Heparin Sodium (Porcine) 5,000 unit 08/11/16 22:00 09/16/16 10:12 Heparin - SQ Not Given BID [facility] Hydralazine HCl 25 mg 08/11/16 22:00 09/16/16 10:12 Apresoline - PO 25 mg BID [facility] Administration Sodium Chloride 1,000 mls @ 50 mls/hr 09/11/16 18:10 09/16/16 06:26 1/2 Normal Saline IV 50 mls/hr ASDIR [facility] Administration Isosorbide Mononitrate 30 mg 08/12/16 10:00 09/16/16 10:12 Imdur - PO 30 mg DAILY [facility] Administration Levothyroxine Sodium 75 mcg 08/12/16 07:00 09/16/16 06:26 Synthroid - PO Not Given DAILY@0700 [facility] Polyethylene Glycol 17 gm 08/18/16 22:00 09/16/16 10:13 Miralax (For Daily Use) - PO Not Given BID [facility] Quetiapine Fumarate 25 mg 09/02/16 17:50 09/12/16 01:28 Seroquel - PO 25 mg DAILY PRN Administration AGITATION Senna 1 tab 08/24/16 22:00 09/16/16 10:13 Senna - PO Not Given BID [facility] Tamsulosin HCl 0.8 mg 09/01/16 16:03 09/16/16 08:07 Flomax - PO Not Given DAILY@0830 [facility] - Objective Vital Signs: Vital Signs Period Temp Pulse Resp BP Sys/Ro Pulse Ox Last 24 Hr 98.0 F-98.7 F 74-89 18-20 108-137/57-69 Constitutional: Yes: No Distress, Calm Cardiovascular: Yes: Regular Rate and Rhythm, S1, S2. No: JVD, Gallop, Murmur Respiratory: Yes: Regular, CTA Bilaterally. No: Accessory Muscle Use Extremities: No: Cold Edema: No Neurological: awake, confused Psychiatric: No: Agitated no jaundice diaphoresis Labs: CBC, BMP 09/16/16 06:30 09/16/16 06:30 echo 05/2014: mod reduced lvef, global hk, nl rv, no sig valve path Echo 08/30 (here): moderately decr'd LVSF (global); nl RV size; normal LA; mild AI ECG: NSR; ? old ASMI previously seen; prior TWIs anterolateral leads now normalized Assessment/Plan 76 m hx htn, hld, ckd, hypothyroid, icd (medtronic, dual), syst chf, here with loc, uti, ams. chronic syst chf: -pt has hx of syst chf, unclear if ischemic cardiomyopathy but pt has denied cad hx in past. Rec'd ischemic eval as outpt but pt refused on multiple occasions. -appears well-compensated presently -on coreg, hydral, nitrates as outpt--cont same -not on titi/arb/spironolactone 2/2 ckd and hyperkalemia in past ckd/LOC/urinary retention/uti: -on ivfs -has rivas -cr stable -renal/gu following, TURP planned today (no cardiac contraindications) HTN: -cont same meds, bp controlled adequately HLD: -per ER med list pt on atorva at home, not receiving here -per outpt f/u ICD: -normal check in office 04/2016 ams: -code kumar 08/30 for worse lethargy -head ct w/o acute changes -possibly due to dementia with loc/uti -neuro and psych following nsvt: -brief run on tele (13 beats) 09/01/16, no recurrence -mg, k unremarkable -cont coreg, pt has ICD
[2016-09-16] MEDS ORDERED: PROPOFOL 20 ML ONE (12:16)
[2016-09-16] MEDS ORDERED: ceFAZolin SODIUM 1 GM VIAL IVPB ONE (12:25)
[2016-09-16] MEDS ORDERED: DEXTROSE 5%-0.45% SALINE 1,000 ML IV SCH (12:30)
[2016-09-16] MEDS ORDERED: LACTATED RINGERS SOLUTION 1,000 ML IV SCH (13:30)
[2016-09-16] MEDS ORDERED: HALOPERIDOL LACTATE 5 MG/ML IM PRN (13:31)
[2016-09-16] MEDS ORDERED: ACETAMINOPHEN 325 MG TABLET (FP) PO PRN (13:31)
[2016-09-16] MEDS ORDERED: ACETAMINOPHEN INJECTION 100 ML IVPB ONE (13:34)
[2016-09-16] MEDS: ACETAMINOPHEN 1000 MG/100 ML VIAL (NON FORMULARY) IVPB ONE ×2 (13:45→16:01)
--- NOTE | 2016-09-16 14:04 | OP ---
DATE OF OPERATION: 09/16/2016 PREOPERATIVE DIAGNOSES: Urinary retention, benign prostatic hypertrophy. POSTOPERATIVE DIAGNOSES: Urinary retention, benign prostatic hypertrophy. PROCEDURE: Cystoscopy, transurethral resection of the prostate, bipolar. SURGEON: Frederick Vazquez MD ANESTHESIA: Stephon Madison MD FINDINGS: Enlarged obstructive prostate. SPECIMEN: Prostate chips. ESTIMATED BLOOD LOSS: 100 Ml PREOPERATIVE INDICATIONS: The patient is a 76-year-old male who was admitted with urinary retention and renal failure. After a Brenal catheter in place, his renal function returned down to baseline. He has failed trial of void. He comes to the OR for TURP. Consent was obtained from the patient's healthcare proxy. DESCRIPTION OF OPERATION: The patient was brought to the OR, placed on the table in supine position, given general anesthesia and IV antibiotics, and placed in the modified lithotomy position. The groin was prepped and draped sterilely. Timeout was performed. Cystoscopy was performed. The urethra appeared to be normal. The sphincter was identified. The prostate was enlarged and inflamed with some ecchymosis, hematoma in the lining. The bladder itself had trabeculations throughout. No tumors or stones were seen. Both UOs were visualized. Using the bipolar unit, the prostate tissue was resected from the bladder neck to the area just proximal to the verumontanum. Hemostasis was maintained. The bladder itself at the end appeared to be normal and uninjured. Belly was soft, and the sphincter was also intact. A 22-[place] 3-way Bernal catheter was placed for postoperative irrigation. Prostate chips were sent out for pathological diagnosis. Tabby [id number]
--- NOTE | 2016-09-16 15:04 | PN ---
Progress Note, Physician Chief Complaint: Mr Cunha is s/p TURP and says he is comfortable. Denies pain. No cp, sob, n/v. - Current Medication List Current Medications: Active Medications Acetaminophen (Tylenol -) 650 mg PO Q6H PRN PRN Reason: FEVER OR PAIN Carvedilol (Coreg -) 25 mg PO BID [facility] Docusate Sodium (Colace -) 100 mg PO BID [facility] Fentanyl (Sublimaze Injection -) 25 mcg IVPUSH [id number] PRN PRN Reason: PAIN Stop: 09/19/16 13:21 Last Admin: 09/16/16 13:50 Dose: 25 mcg Fentanyl (Sublimaze Injection -) 50 mcg IVPUSH [id number] PRN PRN Reason: PAIN Stop: 09/19/16 13:21 Haloperidol (Haldol Injection (Fast Acting) -) 5 mg IM HS PRN Haloperidol (Haldol Injection (Fast Acting) -) 5 mg IM HS [facility] Heparin Sodium (Porcine) (Heparin -) 5,000 unit SQ BID [facility] Hydralazine HCl (Apresoline -) 25 mg PO BID [facility] Dextrose/Sodium Chloride (D5-1/2ns -) 1,000 mls @ 125 mls/hr IV ASDIR [facility] Cefazolin Sodium (Ancef 1gm Ivpb (Pre-Docked)) 50 mls @ 100 mls/hr IVPB Q8H-IV [facility] Lactated Ringer's (Lactated Ringers Solution) 1,000 mls @ 75 mls/hr IV ASDIR [facility] Sodium Chloride (1/2 Normal Saline) 1,000 mls @ 50 mls/hr IV ASDIR [facility] Isosorbide Mononitrate (Imdur -) 30 mg PO DAILY [facility] Levothyroxine Sodium (Synthroid -) 75 mcg PO DAILY@0700 [facility] Polyethylene Glycol (Miralax (For Daily Use) -) 17 gm PO BID [facility] Quetiapine Fumarate (Seroquel -) 25 mg PO DAILY PRN PRN Reason: AGITATION Senna (Senna -) 1 tab PO BID [facility] Tamsulosin HCl (Flomax -) 0.8 mg PO DAILY@0830 [facility] - Objective Vital Signs: Vital Signs Temperature 95.0 F L 09/16/16 13:16 Pulse Rate 72 09/16/16 13:30 Respiratory Rate 18 09/16/16 13:30 Blood Pressure 104/47 09/16/16 13:30 O2 Sat by Pulse Oximetry (%) 99 09/16/16 13:30 Constitutional: Yes: No Distress, Calm, Thin Cardiovascular: Yes: Regular Rate and Rhythm. No: Gallop, Murmur, Rub Respiratory: Yes: Regular, CTA Bilaterally. No: Rales, Rhonchi, Wheezes Gastrointestinal: Yes: Normal Bowel Sounds, Soft. No: Distention, Tenderness Extremities: Yes: WNL Edema: No Labs: CBC, BMP 09/16/16 06:30 09/16/16 06:30 INR, PTT INR 1.04 (0.82-1.09) 09/16/16 06:30 Problem List - Problems (1) Acute renal failure Code(s): N17.9 - ACUTE KIDNEY FAILURE, UNSPECIFIED Qualifiers: Acute renal failure type: unspecified Qualified Code(s): N17.9 - Acute kidney failure, unspecified (2) Acute metabolic encephalopathy Code(s): G93.41 - METABOLIC ENCEPHALOPATHY (3) Hypertension Code(s): I10 - ESSENTIAL (PRIMARY) HYPERTENSION (4) Hypothyroid Code(s): E03.9 - HYPOTHYROIDISM, UNSPECIFIED (5) Dementia Code(s): F03.90 - UNSPECIFIED DEMENTIA WITHOUT BEHAVIORAL DISTURBANCE Qualifiers: Alzheimer's disease onset: unspecified onset Dementia behavioral disturbance: with behavioral disturbance Assessment/Plan Problems (1) Acute renal failure on CKD Code(s): N17.9 - ACUTE KIDNEY FAILURE, UNSPECIFIED Qualifiers: Acute renal failure type: unspecified Qualified Code(s): N17.9 - Acute kidney failure, unspecified (2) BPH with obstructive nephropathy (3) Hypertension Code(s): I10 - ESSENTIAL (PRIMARY) HYPERTENSION (4) Hypothyroid Code(s): E03.9 - HYPOTHYROIDISM, UNSPECIFIED (5) Dementia Code(s): F03.90 - UNSPECIFIED DEMENTIA WITHOUT BEHAVIORAL DISTURBANCE (6) E coli UTI Plan -patient s/p TURP today and comfortable -continue medical management -when safe for discharge from urology standpoint, can plan to discharge to SNF
[2016-09-16 15:54] LABS: MCH 28.4 pg (25.7-33.7); MCHC 31.9 g/dl (32.0-35.9); MEAN PLT VOLUME 9.1 fl (7.5-11.1); NEUTROPHILS 72.8 % (42.8-82.8); PLATELET COUNT 144 K/MM3 (134-434); RDW 17.3 % (11.9-15.9); WHITE BLOOD COUNT 6.1 K/mm3 (4.0-10.0)
[2016-09-16 16:26] LABS: ANION GAP 8 (8-16); CALCIUM 7.3 mg/dL (8.5-10.1); CO2 21 mmol/L (21-32); CREATININE 1.7 mg/dL (0.7-1.3); GLUCOSE,RANDOM 117 mg/dL (74-106)
[2016-09-16] MEDS: CEFAZOLIN (PRE-DOCKED) 50 ML IVPB SCH (17:11)
[2016-09-16] MEDS ORDERED: HALOPERIDOL LACTATE 5 MG/ML IM SCH (22:00)
[2016-09-17] MEDS: CEFAZOLIN (PRE-DOCKED) 50 ML IVPB SCH ×3 (01:27→17:19)
[2016-09-17] MEDS: LEVOTHYROXINE NA 75 MCG TABLET (FP) PO SCH (06:33)
[2016-09-17 08:07] LABS: BASOPHIL 0.6 % (0-2.0); EOSINOPHIL 1.9 % (0-4.5); MCH 29.2 pg (25.7-33.7); MEAN CELL VOLUME 88.6 fl (80-96); NEUTROPHILS 81.5 % (42.8-82.8); PLATELET COUNT 147 K/MM3 (134-434); RDW 17.6 % (11.9-15.9); WHITE BLOOD COUNT 10.3 K/mm3 (4.0-10.0)
[2016-09-17 08:48] LABS: ANION GAP 9 (8-16); CALCIUM 8.1 mg/dL (8.5-10.1); CO2 24 mmol/L (21-32); CREATININE 1.4 mg/dL (0.7-1.3); GLUCOSE,RANDOM 115 mg/dL (74-106); PHOSPHOROUS 2.4 mg/dL (2.5-4.9)
[2016-09-17] MEDS: CARVEDILOL 25 MG TABLET (FP) PO SCH ×2 (10:25→21:46)
[2016-09-17] MEDS: TAMSULOSIN HCL 0.4 MG CAP.ER.24H (FP) PO SCH (10:25)
[2016-09-17] MEDS: hydrALAZINE HCL 25 MG TABLET (FP) PO SCH ×2 (10:26→21:46)
[2016-09-17] MEDS: HEPARIN NA (PORCINE) 5,000 UNITS/ML 1ML VIAL SQ SCH ×2 (10:26→21:48)
[2016-09-17] MEDS: ISOSORBIDE MONONITRATE 30 MG TAB.SR.24H (FP) PO SCH (10:26)
--- NOTE | 2016-09-17 10:26 | PN ---
Progress Note (short form) - Note Progress Note: Progress Note, Physician Chief Complaint: chf History of Present Illness: awake, alert, confused, denies cp/sob. had turp yesterday, did well - Current Medication List Current Medications Generic Name Dose Route Start Last Admin Trade Name Freq PRN Reason Stop Dose Admin Acetaminophen 650 mg 09/16/16 13:31 Tylenol - PO Q6H PRN FEVER OR PAIN Carvedilol 25 mg 09/16/16 22:00 09/16/16 22:22 Coreg - PO Not Given BID NEYMAR Docusate Sodium 100 mg 09/16/16 22:00 09/16/16 22:21 Colace - PO Not Given BID NEYMAR Fentanyl 25 mcg 09/16/16 13:20 09/16/16 13:50 Sublimaze Injection - IVPUSH 09/19/16 13:21 25 mcg [id number] PRN Administration PAIN Fentanyl 50 mcg 09/16/16 13:20 Sublimaze Injection - IVPUSH 09/19/16 13:21 [id number] PRN PAIN Haloperidol 5 mg 09/16/16 13:31 09/17/16 01:02 Haldol Injection (Fast Acting) - IM 5 mg HS PRN Administration Haloperidol 5 mg 09/16/16 22:00 09/16/16 22:22 Haldol Injection (Fast Acting) - IM Not Given HS NEYMAR Heparin Sodium (Porcine) 5,000 unit 09/16/16 22:00 09/16/16 22:23 Heparin - SQ 5,000 unit BID NEYMAR Administration Hydralazine HCl 25 mg 09/16/16 22:00 09/16/16 22:21 Apresoline - PO Not Given BID NEYMAR Cefazolin Sodium 50 mls @ 100 mls/hr 09/16/16 18:00 09/17/16 01:27 Ancef 1gm Ivpb (Pre-Docked) IVPB 100 mls/hr Q8H-IV NEYMAR Administration Sodium Chloride 1,000 mls @ 50 mls/hr 09/16/16 13:31 09/16/16 15:55 1/2 Normal Saline IV 50 mls/hr ASDIR NEYMAR Administration Isosorbide Mononitrate 30 mg 09/17/16 10:00 Imdur - PO DAILY NEYMAR Levothyroxine Sodium 75 mcg 09/17/16 07:00 09/17/16 06:33 Synthroid - PO 75 mcg DAILY@0700 [facility] Administration Polyethylene Glycol 17 gm 09/16/16 22:00 09/16/16 22:23 Miralax (For Daily Use) - PO Not Given BID [facility] Quetiapine Fumarate 25 mg 09/16/16 13:31 Seroquel - PO DAILY PRN AGITATION Senna 1 tab 09/16/16 22:00 09/16/16 22:23 Senna - PO Not Given BID [facility] Tamsulosin HCl 0.8 mg 09/17/16 08:30 Flomax - PO DAILY@0830 [facility] - Objective Vital Signs: Vital Signs Period Temp Pulse Resp BP Sys/Ro Pulse Ox Last 24 Hr 95.0 F-98.7 F 68-78 16-18 101-149/47-71 97-100 Constitutional: Yes: No Distress, Calm Cardiovascular: Yes: Regular Rate and Rhythm, S1, S2. No: JVD, Gallop, Murmur Respiratory: Yes: Regular, CTA Bilaterally. No: Accessory Muscle Use Extremities: No: Cold Edema: No Neurological: awake, confused Psychiatric: No: Agitated no jaundice diaphoresis Labs: CBC, BMP 09/17/16 06:58 09/17/16 06:58 echo 05/2014: mod reduced lvef, global hk, nl rv, no sig valve path Echo 08/30 (here): moderately decr'd LVSF (global); nl RV size; normal LA; mild AI ECG: NSR; ? old ASMI previously seen; prior TWIs anterolateral leads now normalized Assessment/Plan 76 m hx htn, hld, ckd, hypothyroid, icd (medtronic, dual), syst chf, here with loc, uti, ams. chronic syst chf: -pt has hx of syst chf, unclear if ischemic cardiomyopathy but pt has denied cad hx in past. Rec'd ischemic eval as outpt but pt refused on multiple occasions. -appears well-compensated presently -on coreg, hydral, nitrates as outpt--cont same -not on titi/arb/spironolactone 2/2 ckd and hyperkalemia in past ckd/LOC/urinary retention/uti: -s/p turp, plans per , renal HTN: -cont same meds, bp controlled adequately HLD: -per ER med list pt on atorva at home, not receiving here -per outpt f/u ICD: -normal check in office 04/2016 ams: -code kumar 08/30 for worse lethargy -head ct w/o acute changes -possibly due to dementia with loc/uti -neuro and psych have evaluated pt nsvt: -brief run on tele (13 beats) 09/01/16, no recurrence -mg, k unremarkable -cont coreg, pt has ICD
[2016-09-17] MEDS: SENNOSIDES 8.6MG TABLET (FP) PO SCH ×2 (10:29→21:46)
[2016-09-17] MEDS: DOCUSATE SODIUM 100 MG CAPSULE (FP) PO SCH ×2 (10:29→21:46)
[2016-09-17] MEDS: POLYETHYLENE GLYCOL 3350 119 GM BTL PO SCH ×2 (10:29→21:49)
--- NOTE | 2016-09-17 15:34 | PATH ---
Surgical Pathology Report Patient Name: JUDD VILLALOBOS Med. Rec. #: [id number] /Age/Gender: 1940 (Age: 76) / M Account: [id number] Location: [address] [place] [address]/[facility] Taken: 09/16/2016 Received: 09/16/2016 Reported: 09/17/2016 Physicians: Tabby Abernathy M.D. Specimen(s) Received PROSTATE TISSUE SHAVINGS Clinical History Acute renal failure, retention of urine Final Diagnosis PROSTATE, TUR: BENIGN PROSTATE TISSUE WITH GLANDULAR AND STROMAL HYPERPLASIA AND FOCI OF CHRONIC INFLAMMATION; FRAGMENTS OF BENIGN UROTHELIAL MUCOSA. Electronically Signed Roberth Dennis M.D. Gross Description Received in formalin labeled "prostate tissue shavings" is a 4 g, 5.3 x 5.2 x 0.5 cm aggregate of multiple new, irregular, firm to rubbery portions of tissue, consistent with prostate tissue. The specimen is entirely submitted in 7 cassettes. /09/16/2016 [facility]09/16/2016
--- NOTE | 2016-09-17 16:54 | PN ---
Progress Note, Physician Chief Complaint: Mr Cunha is without complaint. Says he feels fine. Cannot obtain further subjective, patient accused me of spitting on him and glared at me for the rest of the exam. - Current Medication List Current Medications: Active Medications Acetaminophen (Tylenol -) 650 mg PO Q6H PRN PRN Reason: FEVER OR PAIN Carvedilol (Coreg -) 25 mg PO BID [facility] Last Admin: 09/17/16 10:25 Dose: 25 mg Docusate Sodium (Colace -) 100 mg PO BID [facility] Last Admin: 09/17/16 10:29 Dose: Not Given Fentanyl (Sublimaze Injection -) 25 mcg IVPUSH [id number] PRN PRN Reason: PAIN Stop: 09/19/16 13:21 Last Admin: 09/16/16 13:50 Dose: 25 mcg Fentanyl (Sublimaze Injection -) 50 mcg IVPUSH [id number] PRN PRN Reason: PAIN Stop: 09/19/16 13:21 Haloperidol (Haldol Injection (Fast Acting) -) 5 mg IM HS PRN Last Admin: 09/17/16 01:02 Dose: 5 mg Haloperidol (Haldol Injection (Fast Acting) -) 5 mg IM HS [facility] Last Admin: 09/16/16 22:22 Dose: Not Given Heparin Sodium (Porcine) (Heparin -) 5,000 unit SQ BID [facility] Last Admin: 09/17/16 10:26 Dose: 5,000 unit Hydralazine HCl (Apresoline -) 25 mg PO BID [facility] Last Admin: 09/17/16 10:26 Dose: 25 mg Cefazolin Sodium (Ancef 1gm Ivpb (Pre-Docked)) 50 mls @ 100 mls/hr IVPB Q8H-IV [facility] Last Admin: 09/17/16 10:25 Dose: 100 mls/hr Sodium Chloride (1/2 Normal Saline) 1,000 mls @ 50 mls/hr IV ASDIR [facility] Last Admin: 09/16/16 15:55 Dose: 50 mls/hr Isosorbide Mononitrate (Imdur -) 30 mg PO DAILY [facility] Last Admin: 09/17/16 10:26 Dose: 30 mg Levothyroxine Sodium (Synthroid -) 75 mcg PO DAILY@0700 [facility] Last Admin: 09/17/16 06:33 Dose: 75 mcg Polyethylene Glycol (Miralax (For Daily Use) -) 17 gm PO BID [facility] Last Admin: 09/17/16 10:29 Dose: Not Given Quetiapine Fumarate (Seroquel -) 25 mg PO DAILY PRN PRN Reason: AGITATION Senna (Senna -) 1 tab PO BID [facility] Last Admin: 09/17/16 10:29 Dose: Not Given Tamsulosin HCl (Flomax -) 0.8 mg PO DAILY@0830 [facility] Last Admin: 09/17/16 10:25 Dose: 0.8 mg - Objective Vital Signs: Vital Signs Temperature 98.1 F 09/17/16 14:24 Pulse Rate 78 09/17/16 14:24 Respiratory Rate 18 09/17/16 14:24 Blood Pressure 147/71 09/17/16 14:24 O2 Sat by Pulse Oximetry (%) 97 09/17/16 10:05 Constitutional: Yes: No Distress, Calm, Thin Cardiovascular: Yes: Regular Rate and Rhythm. No: Gallop, Murmur, Rub Respiratory: Yes: Regular, CTA Bilaterally. No: Rales, Rhonchi, Wheezes Gastrointestinal: Yes: Normal Bowel Sounds, Soft. No: Distention, Tenderness Genitourinary: Yes: Rivas Present (cbi, hematuria) Extremities: Yes: WNL Edema: No Labs: CBC, BMP 09/17/16 06:58 09/17/16 06:58 INR, PTT INR 1.04 (0.82-1.09) 09/16/16 06:30 Problem List - Problems (1) Acute renal failure Code(s): N17.9 - ACUTE KIDNEY FAILURE, UNSPECIFIED Qualifiers: Acute renal failure type: unspecified Qualified Code(s): N17.9 - Acute kidney failure, unspecified (2) Acute metabolic encephalopathy Code(s): G93.41 - METABOLIC ENCEPHALOPATHY (3) Hypertension Code(s): I10 - ESSENTIAL (PRIMARY) HYPERTENSION (4) Hypothyroid Code(s): E03.9 - HYPOTHYROIDISM, UNSPECIFIED (5) Dementia Code(s): F03.90 - UNSPECIFIED DEMENTIA WITHOUT BEHAVIORAL DISTURBANCE Qualifiers: Alzheimer's disease onset: unspecified onset Dementia behavioral disturbance: with behavioral disturbance Assessment/Plan Problems (1) Acute renal failure on CKD Code(s): N17.9 - ACUTE KIDNEY FAILURE, UNSPECIFIED Qualifiers: Acute renal failure type: unspecified Qualified Code(s): N17.9 - Acute kidney failure, unspecified (2) BPH with obstructive nephropathy (3) Hypertension Code(s): I10 - ESSENTIAL (PRIMARY) HYPERTENSION (4) Hypothyroid Code(s): E03.9 - HYPOTHYROIDISM, UNSPECIFIED (5) Dementia Code(s): F03.90 - UNSPECIFIED DEMENTIA WITHOUT BEHAVIORAL DISTURBANCE (6) E coli UTI Plan -patient s/p TURP -CBI in place and with hematuria, but pink and not robert blood -patient inappropriate but calm, not pulling on rivas or attempting to get out of bed -urology to see tomorrow for removal of rivas
[2016-09-17] MEDS: SODIUM CHLORIDE 0.45% 1,000 ML IV SCH ×2 (17:19→20:00)
[2016-09-17] MEDS ORDERED: HALOPERIDOL LACTATE 5 MG/ML IM PRN (17:40)
--- NOTE | 2016-09-17 19:38 | PN ---
Progress Note (short form) - Note Progress Note: Patient with CBI not working now, mainly leaking all over bed, urine has been clear per nursing -advised that can d/c CBI now, as was set to d/c tomorrow anyway.
--- NOTE | 2016-09-17 19:48 | PN ---
Progress Note (short form) - Note Progress Note: NEUROLOGY F/U: Events reviewed, patient examined. Please review my initial consultation of this 76 yo man with > 5 years of progressive cognitive decline c/w Alzheimer's disease. Moderate renal insufficiency. Markedly elevated PSA c/w Prostatic Ca. Now S/P TURP. Remains confused and agitated TSH x 2 remains slightly elevated with borderline low T4. B12 = 434 (nl). [place]: Thin, No bruits. Hands in mittens. Legs with diffuse scratches. NEURO: Attentive and cooperative but confused and disoriented. No Mo, yr or hospital. Recalls 0/3 @ 3 mins. + Glabella, snout. Rigid tone Non-focal exam IMP: Advanced Alzheimers Disease. Suggest: Begin donepezil 5 mg q AM Avoid Haldol Give quetiapine 50 mg PO standing at bedtime. SNF level of care. Thank you very much, Camden Murguia MD
[2016-09-17] MEDS: QUEtiapine FUMARATE 50 MG TABLET PO SCH (21:46)
[2016-09-18] MEDS: CEFAZOLIN (PRE-DOCKED) 50 ML IVPB SCH ×3 (02:50→18:57)
[2016-09-18] MEDS: LEVOTHYROXINE NA 75 MCG TABLET (FP) PO SCH (06:05)
[2016-09-18 07:01] LABS: BASOPHIL 0.6 % (0-2.0); EOSINOPHIL 1.3 % (0-4.5); MCH 29.2 pg (25.7-33.7); MEAN CELL VOLUME 88.6 fl (80-96); MEAN PLT VOLUME 8.6 fl (7.5-11.1); NEUTROPHILS 77.4 % (42.8-82.8); PLATELET COUNT 164 K/MM3 (134-434); RDW 17.8 % (11.9-15.9); WHITE BLOOD COUNT 7.7 K/mm3 (4.0-10.0)
[2016-09-18 07:30] LABS: ANION GAP 9 (8-16); CALCIUM 8.1 mg/dL (8.5-10.1); CO2 25 mmol/L (21-32); CREATININE 1.5 mg/dL (0.7-1.3); GLUCOSE,RANDOM 113 mg/dL (74-106); PHOSPHOROUS 2.7 mg/dL (2.5-4.9)
--- NOTE | 2016-09-18 08:21 | PN ---
Progress Note (short form) - Note Progress Note: PATIENT AGITATED / NO RESP / NO CARDIAC DISTRESS. S/P TURP <> CBI D/ESTRELLA . UROLOGY TO FOLLOW . Selected Entries 09/18/16 06:00 Temperature 98.2 F Pulse Rate 95 H Respiratory 18 Rate Blood Pressure 135/75 Laboratory Tests 09/18/16 09/18/16 06:00 06:00 WBC 7.7 RBC 3.78 L Hgb 11.0 L Hct 33.5 L Plt Count 164 Sodium 141 Potassium 4.1 Chloride 107 Carbon Dioxide 25 Anion Gap 9 BUN 28 H Creatinine 1.5 H Random Glucose 113 H Calcium 8.1 L Phosphorus 2.7 Magnesium 2.0 Laboratory Tests P/E <> AWAKE / AGITATED. HEENT <> NECK SUPPLE / CAROTIDS 2 + / NO BRUITS COR <> S 1 S 2 NO M / NO GALLOPS. CHEST <> FEW SCATTERED RHONCHI ABD <> SOFT / NONTENDER / NO HSM / NO REBOUND / NO GUARDING. EXT <> NO CALF TENDERNESS / NO EDEMA IMP <> BPH / BLADDER OUTLET OBSTRUCTION / S/P TURP LOC HTN HYPOTHYROIDISM DEMENTIA ASHD SSS / S/P PPM PLAN <> UROLOGY TO FOLLOW. NEUROLOGY FOLLOWUP APPRECIATED / ARICEPT ADDED / SEROQUEL FOR AGITATION. RANDI / MITTEN RESTRAINTS IN PLACE. MILD ANEMIA <> FOLLOW CBC.
[2016-09-18] MEDS: DOCUSATE SODIUM 100 MG CAPSULE (FP) PO SCH ×2 (10:03→22:20)
[2016-09-18] MEDS: CARVEDILOL 25 MG TABLET (FP) PO SCH ×2 (10:03→22:20)
[2016-09-18] MEDS: TAMSULOSIN HCL 0.4 MG CAP.ER.24H (FP) PO SCH (10:03)
[2016-09-18] MEDS: SENNOSIDES 8.6MG TABLET (FP) PO SCH ×2 (10:03→22:20)
[2016-09-18] MEDS: ISOSORBIDE MONONITRATE 30 MG TAB.SR.24H (FP) PO SCH (10:03)
[2016-09-18] MEDS: hydrALAZINE HCL 25 MG TABLET (FP) PO SCH ×2 (10:04→22:19)
[2016-09-18] MEDS: POLYETHYLENE GLYCOL 3350 119 GM BTL PO SCH ×2 (10:04→22:23)
[2016-09-18] MEDS: HEPARIN NA (PORCINE) 5,000 UNITS/ML 1ML VIAL SQ SCH ×2 (10:04→22:19)
[2016-09-18] MEDS: QUEtiapine FUMARATE 25 MG TABLET (FP) PO PRN (10:08)
[2016-09-18] MEDS: DONEPEZIL HCL 5 MG TABLET (FP) PO SCH (10:08)
[2016-09-18] MEDS: SODIUM CHLORIDE 0.45% 1,000 ML IV SCH (13:30)
[2016-09-18] MEDS: QUEtiapine FUMARATE 50 MG TABLET PO SCH (22:20)
[2016-09-19] MEDS: CEFAZOLIN (PRE-DOCKED) 50 ML IVPB SCH ×3 (02:26→17:12)
[2016-09-19] MEDS: LEVOTHYROXINE NA 75 MCG TABLET (FP) PO SCH (06:39)
--- NOTE | 2016-09-19 08:07 | PN ---
Progress Note (short form) - Note Progress Note: PATIENT MORE LETHARGIC THIS AM. PER NURSING STAFF DID NOT TAKE ORAL MEDS YESTERDAY. NO OBVIOUS RESP OR CARDIAC DISTRESS. S/P TURP / BPH . MARTINEZ OUT / INCONTINENT OF URINE. P/E <> LETHARGIC BUT AROUSABLE . V/S STABLE / AFEBRILE / BP 132 / 66 / RR 18 / HR 74 HEENT <> NECK SUPPLE / CAROTIDS 2 + / NO BRUITS COR <> S 1 S 2 NO M / NO GALLOPS. CHEST <> FEW SCATTERED RHONCHI AT BASES. ABD <> SOFT / NONTENDER / NO HSM / NO REBOUND / NO GUARDING. EXT <> NO CALF TENDERNESS / NO EDEMA IMP <> BPH / BLADDER OUTLET OBSTRUCTION / S/P TURP LOC HTN HYPOTHYROIDISM DEMENTIA ASHD SSS / S/P PPM PLAN <> RECONSULT NEURO FOR MEDICATION ADJUSTMENTS REGARDING LETHARGY / MENTAL STATUS CHANGE. UROLOGY TO FOLLOW CONTINUE RANDI / MITTEN RESTRAINTS FOR SAFETY OBSERVE TODAY TO SEE IF COOPERATES WITH PO MEDS. MAY NEED IV / CARDIOLOGY RECONSULT IF REFUSES.
[2016-09-19] MEDS: TAMSULOSIN HCL 0.4 MG CAP.ER.24H (FP) PO SCH (09:00)
[2016-09-19] MEDS: HEPARIN NA (PORCINE) 5,000 UNITS/ML 1ML VIAL SQ SCH ×2 (09:39→22:43)
[2016-09-19] MEDS: DONEPEZIL HCL 5 MG TABLET (FP) PO SCH (10:53)
[2016-09-19] MEDS: hydrALAZINE HCL 25 MG TABLET (FP) PO SCH ×2 (10:53→22:29)
[2016-09-19] MEDS: DOCUSATE SODIUM 100 MG CAPSULE (FP) PO SCH ×2 (10:53→22:29)
[2016-09-19] MEDS: CARVEDILOL 25 MG TABLET (FP) PO SCH ×2 (10:54→22:29)
[2016-09-19] MEDS: POLYETHYLENE GLYCOL 3350 119 GM BTL PO SCH ×2 (10:54→22:31)
[2016-09-19] MEDS: SENNOSIDES 8.6MG TABLET (FP) PO SCH ×2 (10:54→22:33)
[2016-09-19] MEDS: ISOSORBIDE MONONITRATE 30 MG TAB.SR.24H (FP) PO SCH (10:54)
--- NOTE | 2016-09-19 11:36 | PN ---
Progress Note (short form) - Note Progress Note: Pt s/p TUR Bernal d/c ed this am Cont voiding trial will perform bladder scan if no documented void Will follow
[2016-09-19] MEDS: QUEtiapine FUMARATE 25 MG TABLET (FP) PO PRN (13:28)
[2016-09-19] MEDS: SODIUM CHLORIDE 0.45% 1,000 ML IV SCH ×2 (13:32→22:54)
--- NOTE | 2016-09-19 16:03 | CON.NEURO ---
Consult - History of Present Illness History of Present Illness: cc Patient is refusing medication and spitting it out 76 year old male history of dementia for five years, and also have history of hyperlipidemia, hypertension, had turp for prostate ca . Patient was started on seroquel by dr mireles and since tuesday he has been refusing all medication. There has not been any convulsion, no new focal neurlogical symptoms. He is eating and confused. Patient yesterday has refused medication , He also have history of hypothyroidism, neprhopathy. He has been started on antibiotic by urologist. Ct head done previously showed white matter disease. - Past Medical History Cardio/Vascular: Yes: HTN, Hyperlipdemia Renal/: Yes: BPH Endocrine: Yes: Hypothyroidism - Past Surgical History Past Surgical History: Yes: Permanent Pacemaker - Alcohol/Substance Use Hx Alcohol Use: No - Smoking History Smoking history: Never smoked - Social History Usual Living Arrangement: Alone ADL: Family Assistance Home Medications - Allergies Allergies/Adverse Reactions: Allergies Allergy/AdvReac Type Severity Reaction Status Date / Time No Known Allergies Allergy Verified 08/11/16 14:54 - Home Medications Home Medications: Ambulatory Orders Atorvastatin Ca [Lipitor] 10 mg PO HS 08/11/16 Carvedilol 25 mg PO BID 08/11/16 Hydralazine HCl [Apresoline -] 25 mg PO BID 08/11/16 Isosorbide Mononitrate [Isosorbide Mononitrate ER] 30 mg PO DAILY 08/11/16 Levothyroxine [Synthroid -] 75 mcg PO DAILY 08/11/16 Acetaminophen [Tylenol .Regular Strength -] 650 mg PO Q6H PRN #0 tablet Docusate Sodium [Colace -] 100 mg PO BID cap 09/08/16 Heparin - 5,000 unit SQ BID vial 09/08/16 Polyethylene Glycol 3350 [Miralax 119 gm Btl -] 17 gm PO BID bottle 09/08/16 Quetiapine Fumarate [Seroquel -] 25 mg PO DAILY PRN #0 tablet 09/08/16 Sennosides [Senna -] 1 tab PO BID tablet 09/08/16 Tamsulosin HCl [Flomax -] 0.8 mg PO DAILY@0830 cap.ec 09/08/16 Physical Exam-Neuro Vital Signs: Vital Signs Temperature 98.7 F 09/19/16 15:12 Pulse Rate 85 09/19/16 14:33 Respiratory Rate 18 09/19/16 14:33 Blood Pressure 133/81 09/19/16 14:33 O2 Sat by Pulse Oximetry (%) 95 09/18/16 21:00 Labs: CBC, BMP 09/18/16 06:00 09/18/16 06:00 INR, PTT INR 1.04 (0.82-1.09) 09/16/16 06:30 NIH Stroke Scale - Total Score NIH Stroke Scale Score: 0 Imaging - Results Cat Scan: Report Reviewed Assessment/Plan cc Patient is refusing medication and spitting it out 76 year old male history of dementia for five years, and also have history of hyperlipidemia, hypertension, had turp for prostate ca . Patient was started on seroquel by dr mireles and since tuesday he has been refusing all medication. There has not been any convulsion, no new focal neurlogical symptoms. He is eating and confused. Patient yesterday has refused medication , He also have history of hypothyroidism, neprhopathy. He has been started on antibiotic by urologist. Ct head done previously showed white matter disease. Neurological Examination He is sleepy and not opening to verbal stimuli and he is withdrawing to painful stimuli and there is no neck stiffness, vital stable and no neck stiffness pupils are reactive no face asymmetry moving all extremity to pain Assessement moderate to severe dementia secondary to Alzheimer Disease. Plan-- suggest to hold antipsychotic medication tonight, and he can remain on prn seroquel for now. Suggest to do swallowing evaluation - increase aricept to 10 mg qhs - avoiding too much interference or vital during night, have some family photograph and avoiding anticholinergic and minimizing medication would help - having somone , who knows patient well would help him to encourage take his medication - medication would have limited help Thanks for consult Leo Cormier MD Neurology Attending.
--- NOTE | 2016-09-19 19:13 | HOSP ---
Subjective - Review of Symptoms Events since last encounter: I was called to insert rivas cath into Mr. Cunha. Upon arrival he was very clear that he did not want this done. He was alert and oriented to person and place. He stated that he just had rivas removed and was not "going through this again". I explained to him the complications of not having rivas and accumulation of urine in bladder. I explained that he will eventually be in significant discomfort and not voiding could lead to potential infection. He was able to recall what i had told him and understood. Based off this refusal rivas will not be placed at this time. I called Dr. Vega and explained the situation. Physical Examination Vital Signs: Vital Signs Temperature 98.7 F 09/19/16 15:12 Pulse Rate 85 09/19/16 14:33 Respiratory Rate 18 09/19/16 14:33 Blood Pressure 133/81 09/19/16 14:33 O2 Sat by Pulse Oximetry (%) 96 09/19/16 09:00 Constitutional: Yes: No Distress Cardiovascular: Yes: Regular Rate and Rhythm Respiratory: Yes: CTA Bilaterally Renal/: Yes: Bladder Distention Neurological: Yes: Alert Psychiatric: Yes: Alert Labs: CBC, BMP 09/18/16 06:00 09/18/16 06:00 Visit type - Emergency Visit Emergency Visit: Yes ED Registration Date: 08/11/16 Care time: The patient presented to the Emergency Department on the above date and was hospitalized for further evaluation of their emergent condition. - New Patient This patient is new to me today: Yes Date on this admission: 09/20/16 - Critical Care Critical Care patient: No
[2016-09-20] MEDS: CEFAZOLIN (PRE-DOCKED) 50 ML IVPB SCH ×3 (01:02→17:00)
[2016-09-20] MEDS: LEVOTHYROXINE NA 75 MCG TABLET (FP) PO SCH (07:03)
[2016-09-20] MEDS: TAMSULOSIN HCL 0.4 MG CAP.ER.24H (FP) PO SCH ×2 (09:05→13:08)
[2016-09-20] MEDS ORDERED: PT OWN MED DRAWER 7, Y5N ONE (10:56)
--- NOTE | 2016-09-20 12:19 | PN ---
Progress Note, Physician Chief Complaint: Mr Cunha says he feels fine. Unable to obtain further subjective this am. - Current Medication List Current Medications: Active Medications Acetaminophen (Tylenol -) 650 mg PO Q6H PRN PRN Reason: FEVER OR PAIN Carvedilol (Coreg -) 25 mg PO BID [facility] Last Admin: 09/19/16 22:29 Dose: Not Given Docusate Sodium (Colace -) 100 mg PO BID [facility] Last Admin: 09/19/16 22:29 Dose: Not Given Donepezil HCl (Aricept -) 10 mg PO DAILY [facility] Heparin Sodium (Porcine) (Heparin -) 5,000 unit SQ BID [facility] Last Admin: 09/19/16 22:43 Dose: 5,000 unit Hydralazine HCl (Apresoline -) 25 mg PO BID [facility] Last Admin: 09/19/16 22:29 Dose: Not Given Cefazolin Sodium (Ancef 1gm Ivpb (Pre-Docked)) 50 mls @ 100 mls/hr IVPB Q8H-IV [facility] Last Admin: 09/20/16 10:58 Dose: 100 mls/hr Sodium Chloride (1/2 Normal Saline) 1,000 mls @ 50 mls/hr IV ASDIR [facility] Last Admin: 09/19/16 22:54 Dose: 50 mls/hr Isosorbide Mononitrate (Imdur -) 30 mg PO DAILY [facility] Last Admin: 09/19/16 10:54 Dose: Not Given Levothyroxine Sodium (Synthroid -) 75 mcg PO DAILY@0700 [facility] Last Admin: 09/20/16 07:03 Dose: Not Given Polyethylene Glycol (Miralax (For Daily Use) -) 17 gm PO BID [facility] Last Admin: 09/19/16 22:31 Dose: Not Given Quetiapine Fumarate (Seroquel -) 25 mg PO DAILY PRN PRN Reason: AGITATION Last Admin: 09/19/16 13:28 Dose: 25 mg Senna (Senna -) 1 tab PO BID [facility] Last Admin: 09/19/16 22:33 Dose: Not Given Tamsulosin HCl (Flomax -) 0.8 mg PO DAILY@0830 [facility] Last Admin: 09/20/16 09:05 Dose: Not Given - Objective Vital Signs: Vital Signs Temperature 97.4 F L 09/20/16 06:00 Pulse Rate 78 09/20/16 06:00 Respiratory Rate 18 09/20/16 06:00 Blood Pressure 114/72 09/20/16 06:00 O2 Sat by Pulse Oximetry (%) 96 09/19/16 21:00 Constitutional: Yes: No Distress, Calm, Thin Cardiovascular: Yes: Regular Rate and Rhythm. No: Gallop, Murmur, Rub Respiratory: Yes: Regular, CTA Bilaterally. No: Rales, Rhonchi, Wheezes Gastrointestinal: Yes: Normal Bowel Sounds, Soft. No: Distention, Tenderness Extremities: Yes: WNL Edema: No Labs: CBC, BMP 09/18/16 06:00 09/18/16 06:00 INR, PTT INR 1.04 (0.82-1.09) 09/16/16 06:30 Problem List - Problems (1) Acute renal failure Code(s): N17.9 - ACUTE KIDNEY FAILURE, UNSPECIFIED Qualifiers: Acute renal failure type: unspecified Qualified Code(s): N17.9 - Acute kidney failure, unspecified (2) Acute metabolic encephalopathy Code(s): G93.41 - METABOLIC ENCEPHALOPATHY (3) Hypertension Code(s): I10 - ESSENTIAL (PRIMARY) HYPERTENSION (4) Hypothyroid Code(s): E03.9 - HYPOTHYROIDISM, UNSPECIFIED (5) Dementia Code(s): F03.90 - UNSPECIFIED DEMENTIA WITHOUT BEHAVIORAL DISTURBANCE Qualifiers: Alzheimer's disease onset: unspecified onset Dementia behavioral disturbance: with behavioral disturbance Assessment/Plan Problems (1) Acute renal failure on CKD Code(s): N17.9 - ACUTE KIDNEY FAILURE, UNSPECIFIED Qualifiers: Acute renal failure type: unspecified Qualified Code(s): N17.9 - Acute kidney failure, unspecified (2) BPH with obstructive nephropathy (3) Hypertension Code(s): I10 - ESSENTIAL (PRIMARY) HYPERTENSION (4) Hypothyroid Code(s): E03.9 - HYPOTHYROIDISM, UNSPECIFIED (5) Dementia Code(s): F03.90 - UNSPECIFIED DEMENTIA WITHOUT BEHAVIORAL DISTURBANCE (6) E coli UTI Plan -patient s/p TURP -rivas attempted to be removed, unsuccessful -replaced over the weekend -again requiring restraints -appreciate neurology assistance -check urinalysis, patient is high risk for UTI -noted patient is on cefazolin but will check for possible resistance
[2016-09-20] MEDS: DONEPEZIL HCL 10 MG TABLET (FP) PO SCH (12:29)
[2016-09-20] MEDS: hydrALAZINE HCL 25 MG TABLET (FP) PO SCH ×3 (12:29→22:38)
[2016-09-20] MEDS: CARVEDILOL 25 MG TABLET (FP) PO SCH ×3 (12:29→22:39)
[2016-09-20] MEDS: POLYETHYLENE GLYCOL 3350 119 GM BTL PO SCH ×2 (12:29→22:41)
[2016-09-20] MEDS: SENNOSIDES 8.6MG TABLET (FP) PO SCH ×3 (12:29→22:42)
[2016-09-20] MEDS: HEPARIN NA (PORCINE) 5,000 UNITS/ML 1ML VIAL SQ SCH ×3 (12:29→22:39)
[2016-09-20] MEDS: ISOSORBIDE MONONITRATE 30 MG TAB.SR.24H (FP) PO SCH ×2 (12:29→13:08)
[2016-09-20] MEDS: DOCUSATE SODIUM 100 MG CAPSULE (FP) PO SCH ×3 (12:29→22:39)
--- NOTE | 2016-09-20 12:54 | CONSULT ---
Admitting History and Physical - Primary Care Physician PCP: Madhu Mantilla - Admission History of Present Illness: Per EMR: " Admission Chief Complaint: I feel fine History of Present Illness: Mr Cunha is a 76 year old male with suspected dementia who was brought in for 6 months of worsening mental status. I cannot obtain an HPI from the patient secondary to suspected dementia. He says today he feels well, he says that yesterday his stomach was distended on both sides but that has now resolved. When asked about other complaints, his responses become non-sensical. He does say he is feeling well today and asked how long he needs to stay in the hospital. The only other question he answers appropriately is when asked about surgeries he points to his pacemaker and says "this thing"." TURP last week. Pt with increased confusion and combativeness, requiring restraints.Awake all night, sleeping this am. Intermittent acceptance of po diet , chopped and thin liquid without difficulty if cooperative. 08/30/16 CT head no acute changes. History Source: Medical Record - Past Medical History Cardiovascular: Yes: HTN, Hyperlipdemia Renal/: Yes: BPH Endocrine: Yes: Hypothyroidism - Past Surgical History Past Surgical History: Yes: Permanent Pacemaker - Smoking History Smoking history: Never smoked - Alcohol/Substance Use Hx Alcohol Use: No - Social History ADL: Family Assistance History - Admission Reason For Visit: ACUTE RENAL FAILURE; RETENTION OF URINE; AMS - Diagnostics CT Scan: Report Reviewed - General Mental Status: Awake and Alert, Able to Follow Commands, Vague Attention: Intact Ability to Follow Directions: Good Head/Neck Control: Good - Hearing Hearing: Functional Hearing Aide: No With Patient: No Speech Evaluation - Communication Primary Language: BULGARIAN Communication: Yes: Simple Responses (rambles at times, tangential,vague) - Speech Production Able to Make Needs Known: Yes: Mildly Impaired Intelligibility: Yes: WNL - Speech Characteristics Voice Loudness: Normal Voice Pitch: Yes: Normal Voice Phonatory-based Quality: Yes: Normal Speech Pattern: Normal Nasal Resonance: Normal Articulation: Yes: Precise - Language/Auditory Comprehension Follows: Yes: 1 Stage Simple Commands - Language/Verbal Expression Aphasia: Yes: Anomia, Paraphrasic Errors, Neologisms - Swallow Evaluation/Bedside Assessment Current Nutritional Intake: Thin Liquids, Other (chopped) Oral Secretions: Yes: WFL Dentition: Yes: Edentulous Facial Symmetry at Rest: Symmetrical Facial Symmetry on Retraction: Symmetrical Pucker Lips: Normal Smile: Normal Lingual Movement: Normal Lingual Speed of Movement: Normal Lingual Movement Strgth Against Opposition: Normal Lingual Movement Characteristics: Normal Velopharyngeal Movement: Normal Laryngeal Movement: Able to Palpate Labial Seal: WFL Chewing: Impaired (fair mastication, edentulous) Oral Prep Time: WFL A-P Transit: WFL Pocketing: None Coughing/Throat Clear: Yes (1 instance with rapid drinking from a straw) Change in Voice: No Recommendations - Speech Evaluation, Impression/Plan Impression: Verbal, tangential, vague. Aware of restraints, requesting they be removed. Not combative at the time for me, but impaired insight and argumentative. - Disposition Discharge to: Residential Facility - Dysphagia Impressions/Plan Dysphagia Impressions: Mild Impairment *Silent aspiration: cannot be R/O at bedside Dysphagia Treatment Plan: Chin Tuck/Down, Safe Rate, 1/2 tsp. at a time, Elevate HOB during feed, OOB for meals (if possible) - Recommendations Diet Consistency: Other (continue chopped diet) Liquids: Thin Liquids Supplement: Nepro
[2016-09-20] MEDS: SODIUM CHLORIDE 0.45% 1,000 ML IV SCH (15:24)
--- NOTE | 2016-09-20 17:57 | PN ---
Progress Note (short form) - Note Progress Note: Chief Complaint: chf History of Present Illness: awake, alert, confused, denies cp/sob. had missed doses of cardiac meds yesterday b/c of mental status. but today has been able to take meds. still with poor po intake. Current Medications Acetaminophen (Tylenol -) 650 mg PO Q6H PRN PRN Reason: FEVER OR PAIN Carvedilol (Coreg -) 25 mg PO BID [facility] Last Admin: 09/20/16 13:08 Dose: 25 mg Docusate Sodium (Colace -) 100 mg PO BID [facility] Last Admin: 09/20/16 13:07 Dose: 100 mg Donepezil HCl (Aricept -) 10 mg PO DAILY [facility] Last Admin: 09/20/16 12:29 Dose: Not Given Heparin Sodium (Porcine) (Heparin -) 5,000 unit SQ BID [facility] Last Admin: 09/20/16 13:08 Dose: 5,000 unit Hydralazine HCl (Apresoline -) 25 mg PO BID [facility] Last Admin: 09/20/16 13:07 Dose: 25 mg Cefazolin Sodium (Ancef 1gm Ivpb (Pre-Docked)) 50 mls @ 100 mls/hr IVPB Q8H-IV [facility] Last Admin: 09/20/16 17:00 Dose: 100 mls/hr Sodium Chloride (1/2 Normal Saline) 1,000 mls @ 50 mls/hr IV ASDIR [facility] Last Admin: 09/20/16 15:24 Dose: Not Given Isosorbide Mononitrate (Imdur -) 30 mg PO DAILY [facility] Last Admin: 09/20/16 13:08 Dose: 30 mg Levothyroxine Sodium (Synthroid -) 75 mcg PO DAILY@0700 [facility] Last Admin: 09/20/16 07:03 Dose: Not Given Polyethylene Glycol (Miralax (For Daily Use) -) 17 gm PO BID [facility] Last Admin: 09/20/16 12:29 Dose: Not Given Quetiapine Fumarate (Seroquel -) 25 mg PO DAILY PRN PRN Reason: AGITATION Last Admin: 09/19/16 13:28 Dose: 25 mg Senna (Senna -) 1 tab PO BID [facility] Last Admin: 09/20/16 13:07 Dose: 1 tab Tamsulosin HCl (Flomax -) 0.8 mg PO DAILY@0830 [facility] Last Admin: 09/20/16 13:08 Dose: 0.8 mg Vital Signs - 24 hr 09/19/16 09/19/16 09/19/16 18:00 21:00 22:00 Temperature 97.7 F 97.3 F L Pulse Rate 80 79 Respiratory 20 18 Rate Blood Pressure 169/67 127/70 O2 Sat by Pulse 96 Oximetry (%) 09/20/16 09/20/16 09/20/16 06:00 09:00 10:00 Temperature 97.4 F L 97.9 F Pulse Rate 78 81 Respiratory 18 18 18 Rate Blood Pressure 114/72 121/74 O2 Sat by Pulse 96 Oximetry (%) 09/20/16 14:50 Temperature 99.0 F Pulse Rate 70 Respiratory 18 Rate Blood Pressure 153/75 O2 Sat by Pulse Oximetry (%) Intake & Output 09/18/16 09/19/16 09/20/16 09/21/16 07:59 07:59 07:59 07:59 Intake Total 4950 1300 1732 100 Output Total 890 2100 2400 700 Balance 4060 -800 -668 -600 Weight 127 lb 6.4 oz 121 lb 119 lb 4 oz Constitutional: Yes: No Distress, Calm Cardiovascular: Yes: Regular Rate and Rhythm, S1, S2. No: JVD, Gallop, Murmur Respiratory: Yes: Regular, CTA Bilaterally. poor effort No: Accessory Muscle Use Extremities: No: Cold Edema: No Neurological: awake, confused Psychiatric: No: Agitated no jaundice diaphoresis Labs: no CBC, BMP echo 05/2014: mod reduced lvef, global hk, nl rv, no sig valve path Echo 08/30 (here): moderately decr'd LVSF (global); nl RV size; normal LA; mild AI ECG: NSR; ? old ASMI previously seen; prior TWIs anterolateral leads now normalized Assessment/Plan 76 m hx htn, hld, ckd, hypothyroid, icd (medtronic, dual), syst chf, here with loc, uti, ams. chronic syst chf: -pt has hx of syst chf, unclear if ischemic cardiomyopathy but pt has denied cad hx in past. Rec'd ischemic eval as outpt but pt refused on multiple occasions. -appears well-compensated presently. On maintenance IVF, weight still trending down. -on coreg, hydral, nitrates as outpt--cont same -not on titi/arb/spironolactone 2/2 ckd and hyperkalemia in past ckd/LOC/urinary retention/uti: -s/p turp, plans per , renal HTN: -cont same meds, bp labile but overall controlled. HLD: -per ER med list pt on atorva at home, not receiving here -per outpt f/u ICD: -normal check in office 04/2016 ams: -code kumar 08/30 for worse lethargy -head ct w/o acute changes -possibly due to dementia with loc/uti -neuro and psych have evaluated pt nsvt: -brief run on tele (13 beats) 09/01/16, no recurrence. now off tele -mg, k unremarkable at the time. electrolyte repletion prn. -cont coreg, pt has ICD
[2016-09-21 02:49] LABS: URINE APPEARANCE SLCLOUDY; URINE BILIRUBIN NEGATIVE (NEGATIVE); URINE BLOOD 3+ (NEGATIVE); URINE COLOR LTYELLOW; URINE GLUCOSE (UA) NEGATIVE (NEGATIVE); URINE KETONE NEGATIVE (NEGATIVE); URINE NITRITE NEGATIVE (NEGATIVE); URINE UROBILINOGEN NEGATIVE mg/dL (0.2-1.0)
[2016-09-21] MEDS: CEFAZOLIN (PRE-DOCKED) 50 ML IVPB SCH ×3 (03:00→18:18)
[2016-09-21 03:14] LABS: URINE LEUK ESTERASE 1+ (NEGATIVE); URINE PROTEIN 2+ (NEGATIVE)
[2016-09-21 03:20] LABS: URINE MUCUS RARE; URINE RBC 213 /hpf (0-3); URINE WBC 32 /hpf (3-5)
[2016-09-21] MEDS: LEVOTHYROXINE NA 75 MCG TABLET (FP) PO SCH (06:40)
[2016-09-21] MEDS: TAMSULOSIN HCL 0.4 MG CAP.ER.24H (FP) PO SCH (08:14)
[2016-09-21 08:40] LABS: BASOPHIL 1.3 % (0-2.0); EOSINOPHIL 1.8 % (0-4.5); MCH 29.4 pg (25.7-33.7); MCHC 32.9 g/dl (32.0-35.9); MEAN CELL VOLUME 89.2 fl (80-96); MEAN PLT VOLUME 8.9 fl (7.5-11.1); NEUTROPHILS 69.9 % (42.8-82.8); PLATELET COUNT 220 K/MM3 (134-434); RDW 17.5 % (11.9-15.9); WHITE BLOOD COUNT 6.9 K/mm3 (4.0-10.0)
[2016-09-21 08:50] LABS: ANION GAP 10 (8-16); CALCIUM 8.5 mg/dL (8.5-10.1); CO2 27 mmol/L (21-32); CREATININE 1.6 mg/dL (0.7-1.3); GLUCOSE,RANDOM 114 mg/dL (74-106); MAGNESIUM 2.3 mg/dL (1.8-2.4); PHOSPHOROUS 3.2 mg/dL (2.5-4.9)
[2016-09-21] MEDS: hydrALAZINE HCL 25 MG TABLET (FP) PO SCH ×2 (09:45→22:32)
[2016-09-21] MEDS: DONEPEZIL HCL 10 MG TABLET (FP) PO SCH (09:45)
[2016-09-21] MEDS: DOCUSATE SODIUM 100 MG CAPSULE (FP) PO SCH ×2 (09:46→22:32)
[2016-09-21] MEDS: HEPARIN NA (PORCINE) 5,000 UNITS/ML 1ML VIAL SQ SCH ×2 (09:46→22:32)
[2016-09-21] MEDS: CARVEDILOL 25 MG TABLET (FP) PO SCH ×2 (09:46→22:32)
[2016-09-21] MEDS: POLYETHYLENE GLYCOL 3350 119 GM BTL PO SCH ×2 (09:47→22:33)
[2016-09-21] MEDS: SENNOSIDES 8.6MG TABLET (FP) PO SCH ×2 (09:47→22:32)
[2016-09-21] MEDS: ISOSORBIDE MONONITRATE 30 MG TAB.SR.24H (FP) PO SCH (09:47)
--- NOTE | 2016-09-21 11:12 | PN ---
Progress Note, Physician Chief Complaint: Mr Cunha says he feels fine. Unable to obtain further objective as patient becomes angry - Current Medication List Current Medications: Active Medications Acetaminophen (Tylenol -) 650 mg PO Q6H PRN PRN Reason: FEVER OR PAIN Carvedilol (Coreg -) 25 mg PO BID [facility] Last Admin: 09/21/16 09:46 Dose: 25 mg Docusate Sodium (Colace -) 100 mg PO BID [facility] Last Admin: 09/21/16 09:46 Dose: 100 mg Donepezil HCl (Aricept -) 10 mg PO DAILY [facility] Last Admin: 09/21/16 09:45 Dose: 10 mg Heparin Sodium (Porcine) (Heparin -) 5,000 unit SQ BID [facility] Last Admin: 09/21/16 09:46 Dose: 5,000 unit Hydralazine HCl (Apresoline -) 25 mg PO BID [facility] Last Admin: 09/21/16 09:45 Dose: 25 mg Cefazolin Sodium (Ancef 1gm Ivpb (Pre-Docked)) 50 mls @ 100 mls/hr IVPB Q8H-IV [facility] Last Admin: 09/21/16 09:44 Dose: 100 mls/hr Sodium Chloride (1/2 Normal Saline) 1,000 mls @ 50 mls/hr IV ASDIR [facility] Last Admin: 09/20/16 15:24 Dose: Not Given Isosorbide Mononitrate (Imdur -) 30 mg PO DAILY [facility] Last Admin: 09/21/16 09:47 Dose: 30 mg Levothyroxine Sodium (Synthroid -) 75 mcg PO DAILY@0700 [facility] Last Admin: 09/21/16 06:40 Dose: Not Given Polyethylene Glycol (Miralax (For Daily Use) -) 17 gm PO BID [facility] Last Admin: 09/21/16 09:47 Dose: 17 gm Quetiapine Fumarate (Seroquel -) 25 mg PO DAILY PRN PRN Reason: AGITATION Last Admin: 09/19/16 13:28 Dose: 25 mg Senna (Senna -) 1 tab PO BID [facility] Last Admin: 09/21/16 09:47 Dose: 1 tab Tamsulosin HCl (Flomax -) 0.8 mg PO DAILY@0830 [facility] Last Admin: 09/21/16 08:14 Dose: 0.8 mg - Objective Vital Signs: Vital Signs Temperature 98.8 F 09/21/16 06:00 Pulse Rate 86 09/21/16 06:00 Respiratory Rate 18 09/21/16 06:00 Blood Pressure 157/78 09/21/16 06:00 O2 Sat by Pulse Oximetry (%) 95 09/20/16 21:00 Constitutional: Yes: No Distress, Calm, Thin Cardiovascular: Yes: Regular Rate and Rhythm. No: Gallop, Murmur, Rub Respiratory: Yes: Regular, CTA Bilaterally. No: Rales, Rhonchi, Wheezes Gastrointestinal: Yes: Normal Bowel Sounds, Soft. No: Distention, Tenderness Extremities: Yes: WNL Edema: No Labs: CBC, BMP 09/21/16 07:15 09/21/16 07:15 INR, PTT INR 1.04 (0.82-1.09) 09/16/16 06:30 Problem List - Problems (1) Acute renal failure Code(s): N17.9 - ACUTE KIDNEY FAILURE, UNSPECIFIED Qualifiers: Acute renal failure type: unspecified Qualified Code(s): N17.9 - Acute kidney failure, unspecified (2) Acute metabolic encephalopathy Code(s): G93.41 - METABOLIC ENCEPHALOPATHY (3) Hypertension Code(s): I10 - ESSENTIAL (PRIMARY) HYPERTENSION (4) Hypothyroid Code(s): E03.9 - HYPOTHYROIDISM, UNSPECIFIED (5) Dementia Code(s): F03.90 - UNSPECIFIED DEMENTIA WITHOUT BEHAVIORAL DISTURBANCE Qualifiers: Alzheimer's disease onset: unspecified onset Dementia behavioral disturbance: with behavioral disturbance Assessment/Plan Problems (1) Acute renal failure on CKD Code(s): N17.9 - ACUTE KIDNEY FAILURE, UNSPECIFIED Qualifiers: Acute renal failure type: unspecified Qualified Code(s): N17.9 - Acute kidney failure, unspecified (2) BPH with obstructive nephropathy (3) Hypertension Code(s): I10 - ESSENTIAL (PRIMARY) HYPERTENSION (4) Hypothyroid Code(s): E03.9 - HYPOTHYROIDISM, UNSPECIFIED (5) Dementia Code(s): F03.90 - UNSPECIFIED DEMENTIA WITHOUT BEHAVIORAL DISTURBANCE (6) E coli UTI Plan -patient s/p TURP -urology following, attempt to remove rivas today -continue cefazolin currently -await urine culture for possible UTI -continue current management
--- NOTE | 2016-09-21 11:22 | PN ---
Progress Note, [employer] - Note Progress Note: Selected Entries 09/19/16 09/19/16 09/19/16 01:48 06:00 09:45 Breakfast Lunch Supper Temperature 98.8 F 98 F 97.8 F 09/19/16 09/19/16 09/19/16 14:33 15:12 18:00 Breakfast 0 Lunch 50% Supper Temperature 98.7 F 97.7 F 09/19/16 09/19/16 09/20/16 18:20 22:00 06:00 Breakfast Lunch Supper 75% Temperature 97.3 F L 97.4 F L 09/20/16 09/20/16 09/20/16 10:00 14:50 19:10 Breakfast 0 Lunch 25% Supper 75% Temperature 97.9 F 99.0 F 98.6 F 09/20/16 09/21/16 22:00 06:00 Breakfast Lunch Supper Temperature 98.9 F 98.8 F Doing well with diet, without signs of aspiration.
[2016-09-21] MEDS: SODIUM CHLORIDE 0.45% 1,000 ML IV SCH (18:20)
[2016-09-21] MEDS ORDERED: PT OWN MED DRAWER 7, Y5N ONE (22:30)
[2016-09-22] MEDS: CEFAZOLIN (PRE-DOCKED) 50 ML IVPB SCH ×2 (01:40→09:39)
[2016-09-22] MEDS: LEVOTHYROXINE NA 75 MCG TABLET (FP) PO SCH (06:06)
[2016-09-22] MEDS: TAMSULOSIN HCL 0.4 MG CAP.ER.24H (FP) PO SCH ×2 (08:30→14:32)
[2016-09-22] MEDS: HEPARIN NA (PORCINE) 5,000 UNITS/ML 1ML VIAL SQ SCH ×2 (09:39→22:55)
[2016-09-22] MEDS: POLYETHYLENE GLYCOL 3350 119 GM BTL PO SCH ×2 (09:40→23:00)
[2016-09-22] MEDS: ISOSORBIDE MONONITRATE 30 MG TAB.SR.24H (FP) PO SCH ×2 (09:40→14:31)
[2016-09-22] MEDS: SENNOSIDES 8.6MG TABLET (FP) PO SCH ×2 (09:40→22:55)
[2016-09-22] MEDS: CARVEDILOL 25 MG TABLET (FP) PO SCH ×3 (09:40→22:54)
[2016-09-22] MEDS: DONEPEZIL HCL 10 MG TABLET (FP) PO SCH ×2 (09:40→14:31)
[2016-09-22] MEDS: hydrALAZINE HCL 25 MG TABLET (FP) PO SCH ×3 (09:40→22:54)
[2016-09-22] MEDS: DOCUSATE SODIUM 100 MG CAPSULE (FP) PO SCH ×2 (09:40→22:55)
--- NOTE | 2016-09-22 12:02 | PN ---
Progress Note, Physician Chief Complaint: Unable to obtain. Patient arousable and says he feels fine but otherwise will not give further subjective - Current Medication List Current Medications: Active Medications Acetaminophen (Tylenol -) 650 mg PO Q6H PRN PRN Reason: FEVER OR PAIN Carvedilol (Coreg -) 25 mg PO BID [facility] Last Admin: 09/22/16 09:40 Dose: Not Given Docusate Sodium (Colace -) 100 mg PO BID [facility] Last Admin: 09/22/16 09:40 Dose: Not Given Donepezil HCl (Aricept -) 10 mg PO DAILY [facility] Last Admin: 09/22/16 09:40 Dose: Not Given Heparin Sodium (Porcine) (Heparin -) 5,000 unit SQ BID [facility] Last Admin: 09/22/16 09:39 Dose: 5,000 unit Hydralazine HCl (Apresoline -) 25 mg PO BID [facility] Last Admin: 09/22/16 09:40 Dose: Not Given Sodium Chloride (1/2 Normal Saline) 1,000 mls @ 50 mls/hr IV ASDIR [facility] Last Admin: 09/21/16 18:20 Dose: Not Given Isosorbide Mononitrate (Imdur -) 30 mg PO DAILY [facility] Last Admin: 09/22/16 09:40 Dose: Not Given Levothyroxine Sodium (Synthroid -) 75 mcg PO DAILY@0700 [facility] Last Admin: 09/22/16 06:06 Dose: 75 mcg Polyethylene Glycol (Miralax (For Daily Use) -) 17 gm PO BID [facility] Last Admin: 09/22/16 09:40 Dose: Not Given Quetiapine Fumarate (Seroquel -) 25 mg PO DAILY PRN PRN Reason: AGITATION Last Admin: 09/19/16 13:28 Dose: 25 mg Senna (Senna -) 1 tab PO BID [facility] Last Admin: 09/22/16 09:40 Dose: Not Given Tamsulosin HCl (Flomax -) 0.8 mg PO DAILY@0830 [facility] Last Admin: 09/22/16 08:30 Dose: Not Given - Objective Vital Signs: Vital Signs Temperature 36.7 C 09/22/16 06:00 Pulse Rate 67 09/22/16 06:00 Respiratory Rate 18 09/22/16 06:00 Blood Pressure 154/66 09/22/16 06:00 O2 Sat by Pulse Oximetry (%) 98 09/21/16 21:17 Constitutional: Yes: No Distress, Calm, Thin Cardiovascular: Yes: Regular Rate and Rhythm. No: Gallop, Murmur, Rub Respiratory: Yes: Regular, CTA Bilaterally. No: Rales, Rhonchi, Wheezes Gastrointestinal: Yes: Normal Bowel Sounds, Soft. No: Distention, Tenderness Extremities: Yes: WNL Edema: No Labs: CBC, BMP 09/21/16 07:15 09/21/16 07:15 INR, PTT INR 1.04 (0.82-1.09) 09/16/16 06:30 Problem List - Problems (1) Acute renal failure Code(s): N17.9 - ACUTE KIDNEY FAILURE, UNSPECIFIED Qualifiers: Acute renal failure type: unspecified Qualified Code(s): N17.9 - Acute kidney failure, unspecified (2) Acute metabolic encephalopathy Code(s): G93.41 - METABOLIC ENCEPHALOPATHY (3) Hypertension Code(s): I10 - ESSENTIAL (PRIMARY) HYPERTENSION (4) Hypothyroid Code(s): E03.9 - HYPOTHYROIDISM, UNSPECIFIED (5) Dementia Code(s): F03.90 - UNSPECIFIED DEMENTIA WITHOUT BEHAVIORAL DISTURBANCE Qualifiers: Alzheimer's disease onset: unspecified onset Dementia behavioral disturbance: with behavioral disturbance Assessment/Plan Problems (1) Acute renal failure on CKD Code(s): N17.9 - ACUTE KIDNEY FAILURE, UNSPECIFIED Qualifiers: Acute renal failure type: unspecified Qualified Code(s): N17.9 - Acute kidney failure, unspecified (2) BPH with obstructive nephropathy (3) Hypertension Code(s): I10 - ESSENTIAL (PRIMARY) HYPERTENSION (4) Hypothyroid Code(s): E03.9 - HYPOTHYROIDISM, UNSPECIFIED (5) Dementia Code(s): F03.90 - UNSPECIFIED DEMENTIA WITHOUT BEHAVIORAL DISTURBANCE (6) E coli UTI Plan -patient s/p TURP -rivas removed and patient is urinating -urine cultures negative -d/c cefazolin -continue current management -dispo planning
[2016-09-22] MEDS: SODIUM CHLORIDE 0.45% 1,000 ML IV SCH (14:35)
[2016-09-22] MEDS: QUEtiapine FUMARATE 25 MG TABLET (FP) PO PRN (22:56)
[2016-09-23] MEDS: LEVOTHYROXINE NA 75 MCG TABLET (FP) PO SCH ×2 (05:59→06:00)
[2016-09-23] MEDS ORDERED: PT OWN MED DRAWER 7, Y5N ONE (07:42)
[2016-09-23] MEDS: TAMSULOSIN HCL 0.4 MG CAP.ER.24H (FP) PO SCH (07:43)
[2016-09-23 08:30] LABS: EOSINOPHIL 2.6 % (0-4.5); MCHC 32.8 g/dl (32.0-35.9); MEAN CELL VOLUME 88.4 fl (80-96); MEAN PLT VOLUME 8.2 fl (7.5-11.1); NEUTROPHILS 64.7 % (42.8-82.8); PLATELET COUNT 222 K/MM3 (134-434); RDW 17.5 % (11.9-15.9); WHITE BLOOD COUNT 6.3 K/mm3 (4.0-10.0)
[2016-09-23] MEDS: HEPARIN NA (PORCINE) 5,000 UNITS/ML 1ML VIAL SQ SCH ×2 (09:31→22:13)
[2016-09-23] MEDS: ISOSORBIDE MONONITRATE 30 MG TAB.SR.24H (FP) PO SCH (09:32)
[2016-09-23] MEDS: POLYETHYLENE GLYCOL 3350 119 GM BTL PO SCH ×2 (09:32→22:30)
[2016-09-23] MEDS: DONEPEZIL HCL 10 MG TABLET (FP) PO SCH (09:32)
[2016-09-23] MEDS: hydrALAZINE HCL 25 MG TABLET (FP) PO SCH ×2 (09:32→22:13)
[2016-09-23] MEDS: CARVEDILOL 25 MG TABLET (FP) PO SCH ×2 (09:32→22:13)
[2016-09-23] MEDS: SENNOSIDES 8.6MG TABLET (FP) PO SCH ×2 (09:32→22:12)
[2016-09-23] MEDS: DOCUSATE SODIUM 100 MG CAPSULE (FP) PO SCH ×2 (09:32→22:27)
[2016-09-23 10:07] LABS: CALCIUM 8.7 mg/dL (8.5-10.1); CREATININE 1.4 mg/dL (0.7-1.3); GLUCOSE,RANDOM 108 mg/dL (74-106); MAGNESIUM 2.2 mg/dL (1.8-2.4); PHOSPHOROUS 3.3 mg/dL (2.5-4.9)
[2016-09-23 10:38] LABS: ANION GAP 9 (8-16); CO2 26 mmol/L (21-32)
--- NOTE | 2016-09-23 16:04 | PN ---
Progress Note, Physician Chief Complaint: Patient says he feels fine. - Current Medication List Current Medications: Active Medications Acetaminophen (Tylenol -) 650 mg PO Q6H PRN PRN Reason: FEVER OR PAIN Carvedilol (Coreg -) 25 mg PO BID [facility] Last Admin: 09/23/16 09:32 Dose: 25 mg Docusate Sodium (Colace -) 100 mg PO BID [facility] Last Admin: 09/23/16 09:32 Dose: 100 mg Donepezil HCl (Aricept -) 10 mg PO DAILY [facility] Last Admin: 09/23/16 09:32 Dose: 10 mg Heparin Sodium (Porcine) (Heparin -) 5,000 unit SQ BID [facility] Last Admin: 09/23/16 09:31 Dose: 5,000 unit Hydralazine HCl (Apresoline -) 25 mg PO BID [facility] Last Admin: 09/23/16 09:32 Dose: 25 mg Sodium Chloride (1/2 Normal Saline) 1,000 mls @ 50 mls/hr IV ASDIR [facility] Last Admin: 09/22/16 14:35 Dose: Not Given Isosorbide Mononitrate (Imdur -) 30 mg PO DAILY [facility] Last Admin: 09/23/16 09:32 Dose: 30 mg Levothyroxine Sodium (Synthroid -) 75 mcg PO DAILY@0700 [facility] Last Admin: 09/23/16 06:00 Dose: Not Given Polyethylene Glycol (Miralax (For Daily Use) -) 17 gm PO BID [facility] Last Admin: 09/23/16 09:32 Dose: Not Given Quetiapine Fumarate (Seroquel -) 25 mg PO DAILY PRN PRN Reason: AGITATION Last Admin: 09/22/16 22:56 Dose: 25 mg Senna (Senna -) 1 tab PO BID [facility] Last Admin: 09/23/16 09:32 Dose: 1 tab Tamsulosin HCl (Flomax -) 0.8 mg PO DAILY@0830 [facility] Last Admin: 09/23/16 07:43 Dose: 0.8 mg - Objective Vital Signs: Vital Signs Temperature 36.9 C 09/23/16 15:13 Pulse Rate 76 09/23/16 14:24 Respiratory Rate 18 09/23/16 14:24 Blood Pressure 148/71 09/23/16 14:24 O2 Sat by Pulse Oximetry (%) 96 09/22/16 21:00 Constitutional: Yes: No Distress, Calm, Thin Cardiovascular: Yes: Regular Rate and Rhythm. No: Gallop, Murmur, Rub Respiratory: Yes: Regular, CTA Bilaterally. No: Rales, Rhonchi, Wheezes Gastrointestinal: Yes: Normal Bowel Sounds, Soft. No: Distention, Tenderness Extremities: Yes: WNL Edema: No Labs: CBC, BMP 09/23/16 07:35 09/23/16 07:35 INR, PTT INR 1.04 (0.82-1.09) 09/16/16 06:30 Problem List - Problems (1) Acute renal failure Code(s): N17.9 - ACUTE KIDNEY FAILURE, UNSPECIFIED Qualifiers: Acute renal failure type: unspecified Qualified Code(s): N17.9 - Acute kidney failure, unspecified (2) Acute metabolic encephalopathy Code(s): G93.41 - METABOLIC ENCEPHALOPATHY (3) Hypertension Code(s): I10 - ESSENTIAL (PRIMARY) HYPERTENSION (4) Hypothyroid Code(s): E03.9 - HYPOTHYROIDISM, UNSPECIFIED (5) Dementia Code(s): F03.90 - UNSPECIFIED DEMENTIA WITHOUT BEHAVIORAL DISTURBANCE Qualifiers: Alzheimer's disease onset: unspecified onset Dementia behavioral disturbance: with behavioral disturbance Assessment/Plan Problems (1) Acute renal failure on CKD Code(s): N17.9 - ACUTE KIDNEY FAILURE, UNSPECIFIED Qualifiers: Acute renal failure type: unspecified Qualified Code(s): N17.9 - Acute kidney failure, unspecified (2) BPH with obstructive nephropathy (3) Hypertension Code(s): I10 - ESSENTIAL (PRIMARY) HYPERTENSION (4) Hypothyroid Code(s): E03.9 - HYPOTHYROIDISM, UNSPECIFIED (5) Dementia Code(s): F03.90 - UNSPECIFIED DEMENTIA WITHOUT BEHAVIORAL DISTURBANCE (6) E coli UTI Plan -patient urinating -renal function stable -continue current management -possible discharge tomorrow
[2016-09-23] MEDS: SODIUM CHLORIDE 0.45% 1,000 ML IV SCH (18:37)
[2016-09-23] MEDS: QUEtiapine FUMARATE 25 MG TABLET (FP) PO PRN (22:12)
[2016-09-24] MEDS: LEVOTHYROXINE NA 75 MCG TABLET (FP) PO SCH (06:52)
[2016-09-24 07:38] LABS: ANION GAP 8 (8-16); CALCIUM 8.2 mg/dL (8.5-10.1); CO2 26 mmol/L (21-32); CREATININE 1.5 mg/dL (0.7-1.3); GLUCOSE,RANDOM 115 mg/dL (74-106)
[2016-09-24] MEDS: TAMSULOSIN HCL 0.4 MG CAP.ER.24H (FP) PO SCH (09:04)
[2016-09-24] MEDS: POLYETHYLENE GLYCOL 3350 119 GM BTL PO SCH (11:20)
[2016-09-24] MEDS: DONEPEZIL HCL 10 MG TABLET (FP) PO SCH (11:21)
[2016-09-24] MEDS: HEPARIN NA (PORCINE) 5,000 UNITS/ML 1ML VIAL SQ SCH (11:21)
[2016-09-24] MEDS: CARVEDILOL 25 MG TABLET (FP) PO SCH (11:21)
[2016-09-24] MEDS: ISOSORBIDE MONONITRATE 30 MG TAB.SR.24H (FP) PO SCH (11:21)
[2016-09-24] MEDS: DOCUSATE SODIUM 100 MG CAPSULE (FP) PO SCH (11:21)
[2016-09-24] MEDS: hydrALAZINE HCL 25 MG TABLET (FP) PO SCH (11:21)
[2016-09-24] MEDS: SENNOSIDES 8.6MG TABLET (FP) PO SCH (11:21)
--- NOTE | 2016-09-24 13:09 | DS ---
Physical Examination Vital Signs: Vital Signs Temperature 36.8 C 09/23/16 19:00 Pulse Rate 93 H 09/24/16 11:17 Respiratory Rate 20 09/24/16 11:17 Blood Pressure 158/72 09/24/16 11:17 O2 Sat by Pulse Oximetry (%) 97 09/23/16 21:00 Constitutional: Yes: No Distress, Calm, Thin Cardiovascular: Yes: Regular Rate and Rhythm. No: Gallop, Murmur, Rub Respiratory: Yes: Regular, CTA Bilaterally. No: Rales, Rhonchi, Wheezes Gastrointestinal: Yes: Normal Bowel Sounds, Soft. No: Distention, Tenderness Extremities: Yes: WNL Edema: No Labs: CBC, BMP 09/23/16 07:35 09/24/16 06:10 Discharge Summary Reason For Visit: ACUTE RENAL FAILURE; RETENTION OF URINE; AMS Current Active Problems Acute metabolic encephalopathy (Acute) Acute renal failure (Acute) Altered mental status (Acute) Benign localized hyperplasia of prostate with urinary retention (Acute) Dementia (Acute) Hypertension (Acute) Hypothyroid (Acute) Uremia (Acute) Urine retention (Acute) Hospital Course: (1) Acute renal failure on CKD Code(s): N17.9 - ACUTE KIDNEY FAILURE, UNSPECIFIED Qualifiers: Acute renal failure type: unspecified Qualified Code(s): N17.9 - Acute kidney failure, unspecified (2) BPH with obstructive nephropathy (3) Hypertension Code(s): I10 - ESSENTIAL (PRIMARY) HYPERTENSION (4) Hypothyroid Code(s): E03.9 - HYPOTHYROIDISM, UNSPECIFIED (5) Dementia Code(s): F03.90 - UNSPECIFIED DEMENTIA WITHOUT BEHAVIORAL DISTURBANCE (6) E coli UTI Mr Cunha is a 76 year old man who came in with BPH causing obstructive nephropathy and ARF on CKD. He also had a history of dementia. He was admitted to the hospital and seen by urology. A rivas was placed and his renal function improved. He was recommended for a TURP and initially refused. He developed an e. coli UTI while here and was fully treated. He eventually agreed to the TURP and underwent the procedure. He tolerated it well and his rivas was removed. He is urinating and renal function is stable. He was started on aricept for his dementia. He is currently stable for discharge to SNF. 37 minutes spent in preparation of this discharge Condition: Stable - Instructions Diet, Activity, Other Instructions: regular diet. Up with assistance, further activity per PT at SNF. Referrals: Hi Wilcox MD [Primary Care Provider] - Julian Maguire MD [Staff Physician] - Dotty Garza MD [Staff Physician] - Disposition: NURSING HOME FACILITY - Home Medications Comprehensive Discharge Medication List: Ambulatory Orders Atorvastatin Ca [Lipitor] 10 mg PO HS 08/11/16 Carvedilol 25 mg PO BID 08/11/16 Hydralazine HCl [Apresoline -] 25 mg PO BID 08/11/16 Isosorbide Mononitrate [Isosorbide Mononitrate ER] 30 mg PO DAILY 08/11/16 Levothyroxine [Synthroid -] 75 mcg PO DAILY 08/11/16 Acetaminophen [Tylenol .Regular Strength -] 650 mg PO Q6H PRN #0 tablet Docusate Sodium [Colace -] 100 mg PO BID cap 09/08/16 Heparin - 5,000 unit SQ BID vial 09/08/16 Polyethylene Glycol 3350 [Miralax 119 gm Btl -] 17 gm PO BID bottle 09/08/16 Quetiapine Fumarate [Seroquel -] 25 mg PO DAILY PRN #0 tablet 09/08/16 Sennosides [Senna -] 1 tab PO BID tablet 09/08/16 Tamsulosin HCl [Flomax -] 0.8 mg PO DAILY@0830 cap.ec 09/08/16 Donepezil HCl [Aricept -] 10 mg PO DAILY tablet 09/24/16
[2016-09-24] MEDS: SODIUM CHLORIDE 0.45% 1,000 ML IV SCH (13:30)
[2016-09-24 15:26] VITALS: BP 111/50; PULSE 77; TEMP 97.9
== END 2016-09-24 18:00 | DRG 665 ==
LOC: JER 14:45 → JERBED 18:37 → J5S 20:51 → J4W 08-30 17:20 → J5S 09-03 16:44
PROVIDERS: ADMIT Internal Medicine Geriatric Medicine; ATTEND Internal Medicine Geriatric Medicine
PROC: 0TJB8ZZ Inspection of Bladder, Via Natural or Artificial Opening Endoscopic (ICD-10-PCS; 2016-09-16)
PROC: 3E0F7GC Introduction of Other Therapeutic Substance into Respiratory Tract, Via Natural or Artificial Opening (ICD-10-PCS; 2016-09-16)
PROC: 0VB08ZZ Excision of Prostate, Via Natural or Artificial Opening Endoscopic (ICD-10-PCS; principal; 2016-09-16 12:00)
DX: N17.9 Acute kidney failure, unspecified (principal); G93.41 Metabolic encephalopathy; N13.8 Other obstructive and reflux uropathy; N39.0 Urinary tract infection, site not specified; I13.0 Hypertensive heart and chronic kidney disease with heart failure and stage 1 through stage 4 chronic kidney disease, or unspecified chronic kidney disease; I50.22 Chronic systolic (congestive) heart failure; I47.2 Ventricular tachycardia; N18.9 Chronic kidney disease, unspecified; R41.0 Disorientation, unspecified; E03.9 Hypothyroidism, unspecified; E78.5 Hyperlipidemia, unspecified; N40.1 Benign prostatic hyperplasia with lower urinary tract symptoms; R33.8 Other retention of urine; I25.10 Atherosclerotic heart disease of native coronary artery without angina pectoris; R94.31 Abnormal electrocardiogram [ECG] [EKG]; E86.0 Dehydration; B96.29 Other Escherichia coli [E. coli] as the cause of diseases classified elsewhere; E87.5 Hyperkalemia; G30.9 Alzheimer's disease, unspecified; F02.80 Dementia in other diseases classified elsewhere, unspecified severity, without behavioral disturbance, psychotic disturbance, mood disturbance, and anxiety; Z95.0 Presence of cardiac pacemaker; Z78.1 Physical restraint status
CPT/HCPCS: 36415; 36600; 70450-TC; 71010-TC; 76775-TC; 76856-TC; 80048; 80053; 81003; 81015; 82436; 82550; 82553; 82570; 82607; 82803; 83735; 83880; 84100; 84133; 84153; 84156; 84300; 84425; 84439; 84443; 84484; 85025; 85610; 86593; 87086; 87186; 88305-TC; 93005; 93010; 93306-TC; 94760; 97116-GP; 97161-GP; 99285-25; J1644; J2794

== ENCOUNTER 2016-10-15 17:48 | Emergency (ER) | payer OTHER ==
[2016-10-15] MEDS ORDERED: SODIUM CHLORIDE 0.9% 1000 ML INFUS.BAG IV STA (19:02)
[2016-10-15 19:24] LABS: BASOPHIL 0.4 % (0-2.0); EOSINOPHIL 0.5 % (0-4.5); MCH 30.1 pg (25.7-33.7); MEAN PLT VOLUME 8.1 fl (7.5-11.1); NEUTROPHILS 84.7 % (42.8-82.8); PLATELET COUNT 262 K/MM3 (134-434); RDW 18.5 % (11.9-15.9); WHITE BLOOD COUNT 11.8 K/mm3 (4.0-10.0)
[2016-10-15 19:31] VITALS: BMI 19.0
[2016-10-15 19:32] LABS: VENOUS PH 7.37 (7.32-7.42)
[2016-10-15 19:36] LABS: VENOUS BLOOD GAS HCO3 28.1 meq/L (19-25)
[2016-10-15 19:37] LABS: INR 1.11 (0.82-1.09); PROTHROMBIN TIME (PATIENT) 12.2 SEC (9.98-11.88)
[2016-10-15] MEDS ORDERED: HALOPERIDOL LACTATE 5 MG/ML IM ONE (19:39)
[2016-10-15 19:40] LABS: ACTIVATED PTT 31.3 SECONDS (26.9-34.4)
[2016-10-15] MEDS ORDERED: HALOPERIDOL LACTATE 5 MG/ML ONE (19:46)
[2016-10-15] MEDS ORDERED: LORazepam 2 MG/ML SDV VIAL ONE (19:47)
--- NOTE | 2016-10-15 19:49 | PDOC ---
History of Present Illness - General Chief Complaint: Injury Stated Complaint: FALL/ALTERED MENTAL STATUS Time Seen by Provider: 10/15/16 19:07 History Source: Alf Records Exam Limitations: Clinical Condition, Dementia - History of Present Illness Initial Comments: 10/15/16 19:46 76yo Male patient from [facility] w/ PmHx: HLD, HTN, Hypothyroidism, BPH, Advanced dementia, epididymitis presented to ED via EMS for fall, increase confusion and possible injury to LLE. No other concerns documented by nursing staff. Hi Zuleta- PCP Past History - Travel Traveled outside of the country in the last 30 days: No Close contact w/someone who was outside of country & ill: No - Past Medical History Allergies/Adverse Reactions: Allergies Allergy/AdvReac Type Severity Reaction Status Date / Time No Known Allergies Allergy Verified 08/11/16 14:54 Home Medications: Ambulatory Orders Atorvastatin Ca [Lipitor] 10 mg PO HS 08/11/16 Carvedilol 25 mg PO BID 08/11/16 Hydralazine HCl [Apresoline -] 25 mg PO BID 08/11/16 Isosorbide Mononitrate [Isosorbide Mononitrate ER] 30 mg PO DAILY 08/11/16 Levothyroxine [Synthroid -] 75 mcg PO DAILY 08/11/16 Acetaminophen [Tylenol .Regular Strength -] 650 mg PO Q6H PRN #0 tablet Docusate Sodium [Colace -] 100 mg PO BID cap 09/08/16 Heparin - 5,000 unit SQ BID vial 09/08/16 Polyethylene Glycol 3350 [Miralax 119 gm Btl -] 17 gm PO BID bottle 09/08/16 Quetiapine Fumarate [Seroquel -] 25 mg PO DAILY PRN #0 tablet 09/08/16 Sennosides [Senna -] 1 tab PO BID tablet 09/08/16 Tamsulosin HCl [Flomax -] 0.8 mg PO DAILY@0830 cap.ec 09/08/16 Donepezil HCl [Aricept -] 10 mg PO DAILY tablet 09/24/16 Doxycycline Monohydrate [Mondoxyne Nl] 100 mg PO BID 10/15/16 Ferrous Sulfate 325 mg PO BID 10/15/16 Levofloxacin [Levaquin] 750 mg PO DAILY #7 tablet 10/15/16 Menthol/Zinc Oxide [Calmoseptine Ointment] 71 gm TP DAILY 10/15/16 Vitamin B Comp W-C [Nephro-Humble -] 0.8 mg PO DAILY 10/15/16 Cardiac Disorders: Yes (Yes, CAD) CHF: Yes Dementia: Yes Disorders: Yes (BPH urine retention acute renal failure) HTN: Yes - Surgical History Cardiac Surgery: Yes (PACEMAKER) - Psycho/Social/Smoking Cessation Hx Anxiety: No Suicidal Ideation: No Smoking History: Unknown if ever smoked Have you smoked in the past 12 months: No Information on smoking cessation initiated: No Hx Alcohol Use: No Drug/Substance Use Hx: No Substance Use Type: None Review of Systems - Review of Systems Able to Perform ROS?: Yes Is the patient limited Azeri proficient: No Constitutional: Yes: Fever. No: Chills Neurological: Yes: Other (Confusion) All Other Systems: Reviewed and Negative *Physical Exam - Vital Signs Last Vital Signs Temp Pulse Resp BP Pulse Ox 101.6 F H 96 H 18 194/100 96 10/15/16 18:04 10/15/16 19:31 10/15/16 19:31 10/15/16 19:31 10/15/16 19:31 - Physical Exam General Appearance: Yes: Disheveled, Thin. No: Apparent Distress, Mild Distress , Moderate Distress, Severe Distress Respiratory/Chest: positive: Lungs Clear, Decreased Breath Sounds. negative: Chest Tender, Normal Breath Sounds, Respiratory Distress, Accessory Muscle Use, Labored Respiration, Rapid RR, Rhonchi, Stridor, Wheezing Cardiovascular: positive: Regular Rhythm, Regular Rate. negative: Tachycardia Gastrointestinal/Abdominal: positive: Normal Bowel Sounds, Soft. negative: Distended, Guarding, Rebound, Tenderness Musculoskeletal: positive: Normal Inspection. negative: CVA Tenderness Extremity: positive: Normal Capillary Refill, Normal Inspection. negative: Normal Range of Motion (Decrease ROM- LLE.), Pedal Edema, Swelling, Calf Tenderness, Erythema, Inflammation Integumentary: positive: Normal Color, Dry, Warm Neurologic: positive: Confused ED Treatment Course - LABORATORY CBC & Chemistry Diagram: 10/15/16 19:15 10/15/16 19:15 - ADDITIONAL ORDERS Additional order review: Laboratory Results 10/15/16 19:02 VBG pH 7.37 POC VBG pCO2 50.2 POC VBG pO2 17.8 L* Mixed VBG HCO3 28.1 H 10/15/16 19:15 RBC 3.80 L MCV 91.0 MCHC 33.0 RDW 18.5 H MPV 8.1 Neutrophils % 84.7 H D Lymphocytes % 7.3 L D Monocytes % 7.1 Eosinophils % 0.5 D Basophils % 0.4 - RADIOLOGY Radiology Studies Ordered: Category Date Time Status LOWER EXTREMITY CT W/O CONTR [CT] Stat CT Scan 10/15/16 19:[address] WITHOUT CONTRAST [CT] Stat CT Scan 10/15/16 19:25 Ordered - Medications Given in the ED: ED Medications Discontinued Medications Generic Name Dose Route Start Last Admin Trade Name Freq PRN Reason Stop Dose Admin Sodium Chloride 1,007 ml 10/15/16 19:02 10/15/16 19:27 Normal Saline - IV 10/15/16 19:03 1,007 ml ONCE STA Administration Medical Decision Making - Medical Decision Making 10/16/16 00:[address] Tang. Lazar to send patient back to SNF on Levaquin po. *DC/Admit/Observation/Transfer Diagnosis at time of Disposition: UTI (urinary tract infection) Qualifiers: Urinary tract infection type: urethritis Qualified Code(s): N34.2 - Other urethritis - Discharge Dispostion Disposition: [facility] Condition at time of disposition: Stable Admit: No - Prescriptions Prescriptions: Levofloxacin [Levaquin] 750 mg PO DAILY #7 tablet - Referrals Referrals: Hi Wilcox MD [Primary Care Provider] - - Patient Instructions Printed Discharge Instructions: DI for Urinary Tract Infection (UTI) Additional Instructions: Please start patient on Levaquin 750 x 7 days. Recheck urine in 5 days for evaluation/resolution. Return if any concerns for further evaluation. Print Language: WOLOF
[2016-10-15 19:56] LABS: ALBUMIN 3.4 g/dl (3.4-5.0); ANION GAP 9 (8-16); BILIRUBIN,TOTAL 0.5 mg/dL (0.2-1.0); CALCIUM 8.9 mg/dL (8.5-10.1); CO2 28 mmol/L (21-32); CREATININE 1.9 mg/dL (0.7-1.3); GLUCOSE,RANDOM 106 mg/dL (74-106); SGOT/AST 20 U/L (15-37); SGPT/ALT 29 U/L (12-78); TOT PROT 7.6 g/dl (6.4-8.2)
[2016-10-15 19:59] LABS: ALK PHOS 98 U/L (45-117); CPK 86 IU/L (39-308); TROPONIN I < 0.02 ng/ml (0.00-0.05)
[2016-10-15 21:41] VITALS: TEMP 97.8
[2016-10-15 23:14] LABS: URINE APPEARANCE CLOUDY; URINE BILIRUBIN NEGATIVE (NEGATIVE); URINE BLOOD 2+ (NEGATIVE); URINE COLOR LT. YELLOW; URINE GLUCOSE (UA) NEGATIVE (NEGATIVE); URINE KETONE NEGATIVE (NEGATIVE); URINE LEUK ESTERASE 3+ (NEGATIVE); URINE NITRITE POSITIVE (NEGATIVE); URINE PROTEIN TRACE (NEGATIVE); URINE UROBILINOGEN 0.2 mg/dL (0.2-1.0)
[2016-10-15] MEDS ORDERED: CEFTRIAXONE 2 GM in DEXTROSE 5%-WATER - 100 ML IVPB ONE (23:30)
[2016-10-15 23:34] LABS: URINE BACTERIA RARE /hpf (NONE SEEN); URINE MUCUS RARE; URINE RBC 91 /hpf (0-3); URINE WBC 458 /hpf (3-5)
[2016-10-15] MEDS ORDERED: cefTRIAXone 2 GM/100 ML BAG (PRE-DOCKED) IVPB ONE (23:45)
[2016-10-15] MEDS ORDERED: CEFTRIAXONE 100 ML IVPB ONE (23:53)
[2016-10-16 00:51] VITALS: BP 165/90; PULSE 91
== END 2016-10-16 00:59 ==
LOC: JER 17:48
PROC: 3E033NZ Introduction of Analgesics, Hypnotics, Sedatives into Peripheral Vein, Percutaneous Approach (ICD-10-PCS; principal; 2016-10-15)
PROC: 3E03329 Introduction of Other Anti-infective into Peripheral Vein, Percutaneous Approach (ICD-10-PCS; 2016-10-15)
DX: N39.0 Urinary tract infection, site not specified (principal); I25.10 Atherosclerotic heart disease of native coronary artery without angina pectoris; I11.0 Hypertensive heart disease with heart failure; N40.0 Benign prostatic hyperplasia without lower urinary tract symptoms; R33.9 Retention of urine, unspecified; F03.90 Unspecified dementia, unspecified severity, without behavioral disturbance, psychotic disturbance, mood disturbance, and anxiety; Z95.0 Presence of cardiac pacemaker
CPT/HCPCS: 36415; 71010-TC; 72192-TC; 73700-TC-RT; 80053; 81003; 81015; 82803; 83605; 84484; 85025; 85610; 85730; 86850; 86900; 86901; 87040; 87086; 96374; 96375; 99284-25

== ENCOUNTER 2016-10-22 13:32 | Emergency (ER) | payer OTHER ==
--- NOTE | 2016-10-22 14:01 | PDOC ---
Attending Attestation - Resident Resident Name: Kisha Conroy - ED Attending Attestation I have performed the following: I have examined & evaluated the patient, The case was reviewed & discussed with the resident, I agree w/resident's findings & plan, Exceptions are as noted - HPI HPI: 10/22/16 14:00 Trouble Breathing - Physicial Exam PE: 10/22/16 14:00 VSS // No Respiratory Distress - Medical Decision Making 10/22/16 14:[address] Conroy's Assessment and Plan
[2016-10-22 14:03] VITALS: TEMP 97.9; BMI 20.5
[2016-10-22 14:58] LABS: ARTERIAL BLD GAS O2 SATURATION 99.1 % (90-98.9); ARTERIAL BLOOD GAS BASE EXCESS 1.3 meq/l (-2-2); ARTERIAL BLOOD GAS HCO3 23.7 meq/L (22-26)
[2016-10-22 14:59] LABS: ALLENS TEST POSITIVE; ART PUNCT SITE RIGHT RADIAL; ARTERIAL BLOOD GAS pH 7.51 (7.35-7.45); LPM/O2% 21%; PT. ON O2? NO; TYPE OF O2 ROOM AIR
[2016-10-22 15:04] LABS: METHEMOGLOBIN 0.2 % (0.4-1.5)
[2016-10-22 16:09] LABS: BASOPHIL 1.1 % (0-2.0); EOSINOPHIL 0.5 % (0-4.5); MCH 30.1 pg (25.7-33.7); MCHC 33.6 g/dl (32.0-35.9); MEAN CELL VOLUME 89.6 fl (80-96); MEAN PLT VOLUME 8.1 fl (7.5-11.1); NEUTROPHILS 84.4 % (42.8-82.8); PLATELET COUNT 263 K/MM3 (134-434); RDW 17.5 % (11.9-15.9); WHITE BLOOD COUNT 10.9 K/mm3 (4.0-10.0)
[2016-10-22 16:39] LABS: ALBUMIN 2.7 g/dl (3.4-5.0); ALK PHOS 69 U/L (45-117); ANION GAP 9 (8-16); BILIRUBIN,TOTAL 0.4 mg/dL (0.2-1.0); CALCIUM 8.5 mg/dL (8.5-10.1); CO2 27 mmol/L (21-32); CREATININE 1.8 mg/dL (0.7-1.3); GLUCOSE,RANDOM 135 mg/dL (74-106); SGOT/AST 17 U/L (15-37); SGPT/ALT 20 U/L (12-78); TOT PROT 6.1 g/dl (6.4-8.2)
--- NOTE | 2016-10-22 17:31 | PDOC ---
History of Present Illness - General Chief Complaint: Shortness of Breath Stated Complaint: SHORTNESS OF BREATH Time Seen by Provider: 10/22/16 14:00 History Source: [facility] Records Exam Limitations: Dementia - History of Present Illness Initial Comments: 76yo M with PMH of advanced dementia, CAD presents with SOB per [facility]. Pt is a resident of [facility]. Pt had an O2 saturation dip to 73% per [facility] records so he was sent to the ER. Pt is confused, and could not contribute to history. Pt was last in ER on 10/15/16 for fall/AMS 2 /2 UTI. 10/22/16 17:26 Past History - Past Medical History Allergies/Adverse Reactions: Allergies Allergy/AdvReac Type Severity Reaction Status Date / Time No Known Allergies Allergy Verified 10/22/16 15:17 Home Medications: Ambulatory Orders Atorvastatin Ca [Lipitor] 10 mg PO HS 08/11/16 Carvedilol 25 mg PO BID 08/11/16 Hydralazine HCl [Apresoline -] 25 mg PO BID 08/11/16 Isosorbide Mononitrate [Isosorbide Mononitrate ER] 30 mg PO DAILY 08/11/16 Levothyroxine [Synthroid -] 75 mcg PO DAILY 08/11/16 Acetaminophen [Tylenol .Regular Strength -] 650 mg PO Q6H PRN #0 tablet Docusate Sodium [Colace -] 100 mg PO BID cap 09/08/16 Heparin - 5,000 unit SQ BID vial 09/08/16 Polyethylene Glycol 3350 [Miralax 119 gm Btl -] 17 gm PO BID bottle 09/08/16 Quetiapine Fumarate [Seroquel -] 25 mg PO DAILY PRN #0 tablet 09/08/16 Sennosides [Senna -] 1 tab PO BID tablet 09/08/16 Tamsulosin HCl [Flomax -] 0.8 mg PO DAILY@0830 cap.ec 09/08/16 Donepezil HCl [Aricept -] 10 mg PO DAILY tablet 09/24/16 Doxycycline Monohydrate [Mondoxyne Nl] 100 mg PO BID 10/15/16 Ferrous Sulfate 325 mg PO BID 10/15/16 Levofloxacin [Levaquin] 750 mg PO DAILY #7 tablet 10/15/16 Menthol/Zinc Oxide [Calmoseptine Ointment] 71 gm TP DAILY 10/15/16 Vitamin B Comp W-C [Nephro-Humble -] 0.8 mg PO DAILY 10/15/16 Amoxicillin/Potassium Clav [Amox-Clav 250-125 mg Tablet] 125 mg PO BID 10/22/16 Vancomycin/0.9 % Sod Chloride [Vanco 750 mg/150 ml-0.9% NaCl] 750 mg IVPB ASDIR 10/22/16 Anemia: Yes Cardiac Disorders: Yes (Yes, CAD) Dementia: Yes Disorders: Yes (BPH urine retention acute renal failure) HTN: Yes Hypercholesterolemia: Yes (HLD) Thyroid Disease: Yes (hypothyroid) Other medical history: advanced dementia - Surgical History Cardiac Surgery: Yes (PACEMAKER) - Psycho/Social/Smoking Cessation Hx Anxiety: No Suicidal Ideation: No Smoking History: Never smoked Have you smoked in the past 12 months: No Information on smoking cessation initiated: No Hx Alcohol Use: No Drug/Substance Use Hx: No Substance Use Type: None Review of Systems - Review of Systems Able to Perform ROS?: No (advanced dementia) *Physical Exam - Vital Signs Last Vital Signs Temp Pulse Resp BP Pulse Ox 97.9 F 80 18 106/61 100 10/22/16 13:32 10/22/16 13:32 10/22/16 13:32 10/22/16 13:32 10/22/16 14:30 - Physical Exam General Appearance: Yes: Nourished, Appropriately Dressed. No: Apparent Distress HEENT: positive: EOMI, Normal Voice. negative: Pale Conjunctivae, Scleral Icterus (R), Scleral Icterus (L), Rhinorrhea Neck: positive: Trachea midline, Supple Respiratory/Chest: positive: Lungs Clear, Decreased Breath Sounds. negative: Respiratory Distress, Accessory Muscle Use Cardiovascular: positive: Regular Rhythm, Regular Rate, S1, S2. negative: Murmur Gastrointestinal/Abdominal: positive: Soft. negative: Distended, Guarding, Rebound, Tenderness Extremity: negative: Swelling, Calf Tenderness, Erythema Integumentary: positive: Dry, Warm. negative: Rash Neurologic: positive: Alert, Confused, Disoriented ED Treatment Course - LABORATORY CBC & Chemistry Diagram: 10/22/16 15:30 10/22/16 15:30 - ADDITIONAL ORDERS Additional order review: Laboratory Results 10/22/16 10/22/16 10/22/16 15:30 14:40 14:40 Puncture Site Right radial ABG pH 7.51 H ABG pCO2 at Pt Temp 30.0 L ABG pO2 at Pt Temp 103.0 H D ABG HCO3 23.7 ABG O2 Sat (Measured) 99.1 H ABG O2 Content 12.3 L ABG Base Excess 1.3 Murphy Test Positive Carboxyhemoglobin 2.0 Methemoglobin 0.2 L O2 Delivery Device Room air Oxygen Flow Rate 21% Sodium 144 Potassium 4.6 Chloride 108 H Carbon Dioxide 27 Anion Gap 9 BUN 46 H Creatinine 1.8 H Creat Clearance w eGFR 36.67 Random Glucose 135 H D Calcium 8.5 Total Bilirubin 0.4 AST 17 ALT 20 D Alkaline Phosphatase 69 D Total Protein 6.1 L Albumin 2.7 L D 10/22/16 15:30 RBC 3.18 L MCV 89.6 MCHC 33.6 RDW 17.5 H MPV 8.1 Neutrophils % 84.4 H Lymphocytes % 9.3 D Monocytes % 4.7 Eosinophils % 0.5 Basophils % 1.1 - RADIOLOGY Radiology Studies Ordered: Category Date Time Status CXRPORT [CHEST X-RAY PORTABLE*] [RAD] Stat Radiology 10/22/16 14:30 Completed CXRPORT [CHEST X-RAY PORTABLE*] [RAD] Stat Radiology 10/22/16 16:44 Taken Medical Decision Making - Medical Decision Making 76yo M with PMH of advanced dementia, CAD presents with SOB. Pt is confused and could not contribute to history. Pt was last in ER on 10/15/16 for fall/AMS 2 /2 UTI. EKG - NSR CXR - reveals atelectasis at Left lung base. Repeat study with nipple markers was recommended as a small nodule was identified at Left lung base that may have been nipple shadow. CBC with diff - normocytic anemia CMP - reveals elevated BUN/Cr (at baseline) and hyperglycemia (not fasting) abg - shows abnormal values, however pt is satting at 100% on room air. 10/22/16 17:36 10/22/16 18:49 Repeat CXR - no acute pulmonary pathology. Pt can go back to [facility]. *DC/Admit/Observation/Transfer Diagnosis at time of Disposition: Shortness of breath - Discharge Dispostion Disposition: HOME Condition at time of disposition: Improved Admit: No - Patient Instructions Additional Instructions: Please return to hospital if symptoms of shortness of breath resume.
[2016-10-22 18:49] VITALS: BP 123/73; PULSE 82
--- NOTE | 2016-10-26 12:29 | EKG ---
Test Reason : Blood Pressure : / mmHG Vent. Rate : 082 BPM Atrial Rate : 082 BPM P-R Int : 176 ms QRS Dur : 080 ms QT Int : 408 ms P-R-T Axes : 054 047 066 degrees QTc Int : 476 ms NORMAL SINUS RHYTHM BASELINE ARTIFACTS NONSPECIFIC T WAVE ABNORMALITIES WHEN COMPARED WITH ECG OF 11-AUG-2016 17:11, NO SIGNIFICANT CHANGE WAS FOUND CLINICAL CORRELATION IS RECOMMENDED Confirmed by SARAI GATES MD ([id number]) on 10/26/2016 12:29:38 PM Referred By: Confirmed By:SARAI GATES MD
== END 2016-10-22 20:10 ==
LOC: JER 13:32
DX: R06.02 Shortness of breath (principal); I25.10 Atherosclerotic heart disease of native coronary artery without angina pectoris; I10 Essential (primary) hypertension; Z95.0 Presence of cardiac pacemaker; E78.00 Pure hypercholesterolemia, unspecified; E03.9 Hypothyroidism, unspecified; N40.0 Benign prostatic hyperplasia without lower urinary tract symptoms; R33.8 Other retention of urine
CPT/HCPCS: 36415; 36600; 71010-TC; 80053; 82375; 82803; 83050; 85025; 93005; 93010; 99283-25

== ENCOUNTER 2016-11-17 18:14 | Emergency (ER) | payer OTHER ==
[2016-11-17 18:32] VITALS: PULSE 93; TEMP 98.9; BMI 18.7
--- NOTE | 2016-11-17 19:23 | PDOC ---
Attending Attestation - Resident Resident Name: Frederick Webb - ED Attending Attestation I have performed the following: I have examined & evaluated the patient, The case was reviewed & discussed with the resident, I agree w/resident's findings & plan, Exceptions are as noted - HPI HPI: 11/17/16 19:20 Slipped out of his wheelchair. Landed on his buttock, No head trauma, NO LOC. - Physicial Exam PE: 11/17/16 19:22 *Physical Exam General Appearance: Yes: Appropriately Dressed. No: Apparent Distress, Intoxicated HEENT: positive: EOMI, LUCIEN, Normal ENT Inspection, Normal Voice, TMs Normal, Pharynx Normal. negative: Pale Conjunctivae, Photophobia, Scleral Icterus (R), Scleral Icterus (L) Neck: positive: Trachea midline, Normal Thyroid, Supple. negative: Tender, Rigid, Carotid bruit, Stridor, Lymphadenopathy (R), Lymphadenopathy (L), Thyromegaly Respiratory/Chest: positive: Lungs Clear, Normal Breath Sounds. negative: Chest Tender, Respiratory Distress, Accessory Muscle Use, Labored Respiration, RES, Crackles, Rales, Rhonchi, Stridor, Wheezing, Dullness Cardiovascular: positive: Regular Rhythm, Regular Rate, S1, S2. negative: Edema , JVD, Murmur, Bradycardia, Tachycardia Vascular Pulses: Dorsalis-Pedis (R): 2+, Doralis-Pedis (L): 2+ Gastrointestinal/Abdominal: positive: Normal Bowel Sounds, Flat, Soft. negative : Tender, Organomegaly, Pulsatile Mass, Increased Bowel Sounds, Decreased BS, Distended, Guarding, Rebound, Hernia, Hepatomegaly, Spleenomegaly Lymphatic: negative: Adenopathy, Tenderness Musculoskeletal: positive: Normal Inspection. negative: CVA Tenderness, Decreased Range of Motion, pelvic rock. Extremity: positive: Normal Capillary Refill, Normal Inspection, Normal Range of Motion, Pelvis Stable. negative: Tender, Pedal Edema, Swelling, Erythema Integumentary: positive: Normal Color, Dry, Warm. negative: Cyanotic, Erythema , Jaundice, Rash Neurologic: positive: fine patcher II-XII NML intact, Alert, Normal Mood/Affect, Motor Strength 5/5. negative: EOM Palsy, Facial Droop, Sensory Deficit - Medical Decision Making 11/18/16 19:25 Pt was evaluated and discharged back to [facility].
--- NOTE | 2016-11-17 19:29 | PDOC ---
History of Present Illness - General Chief Complaint: Injury Stated Complaint: HIP PAIN Time Seen by Provider: 11/17/16 18:24 - History of Present Illness Initial Comments: 11/17/16 19:21 Patient is a 76M with history of dementia, HTN, HLD, pacemaker, and hypothyroidism is here today from [facility] with a complaint of a fall. The fall was witnessed by his family, who reported that he was in his wheelchair when he squirmed out of it. He was helped to the ground by his family. The family denies any head trauma. Patient is limited verbally, but does respond with "no" when asked if anything hurts and "yes" if he is ok. Patient denies headache, chest pain, hip pain, leg pain, arm pain and neck pain. Past History - Past Medical History Allergies/Adverse Reactions: Allergies Allergy/AdvReac Type Severity Reaction Status Date / Time No Known Allergies Allergy Verified 11/17/16 18:29 Home Medications: Ambulatory Orders Ascorbic Acid [Vitamin C] 500 mg PO DAILY 11/17/16 Atorvastatin Ca [Lipitor] 10 mg PO HS 11/17/16 Benzocaine/Menthol [Cepacol Sore Throat Lozenge] 1 each MM PRN PRN 11/17/16 Calcium Carbonate/Vitamin D3 [Oyster Shell 500-Vit D3 200 Tb] 1 each PO DAILY Carvedilol [Coreg -] 25 mg PO BID 11/17/16 Docusate Sodium [Colace -] 200 mg PO DAILY 11/17/16 Donepezil HCl [Aricept -] 10 mg PO DAILY 11/17/16 Ferrous Sulfate 325 mg PO DAILY 11/17/16 Heparin - 5,000 unit SQ BID 11/17/16 Hydralazine HCl [Apresoline -] 25 mg PO BID 11/17/16 Isosorbide Dinitrate [Isordil -] 30 mg PO DAILY 11/17/16 Levothyroxine [Synthroid -] 100 mcg PO DAILY 11/17/16 Polyethylene Glycol 3350 [Gavilax] 17 gm PO BID 11/17/16 Sennosides [Senna] 2 tab PO 11/17/16 Tamsulosin HCl 0.4 mg PO DAILY 11/17/16 Vitamin B Comp W-C [Nephro-Humble -] 1 tablet PO DAILY 11/17/16 Anemia: Yes Cardiac Disorders: Yes (Yes, CAD) CHF: Yes Dementia: Yes Disorders: Yes (BPH urine retention acute renal failure) HTN: Yes Hypercholesterolemia: Yes (HLD) Seizures: Yes (hypotension) Thyroid Disease: Yes (hypothyroid) - Surgical History Cardiac Surgery: Yes (PACEMAKER) - Suicide/Smoking/Psychosocial Hx Smoking History: Unknown if ever smoked Have you smoked in the past 12 months: No Information on smoking cessation initiated: No Hx Alcohol Use: No Drug/Substance Use Hx: No Substance Use Type: None Review of Systems - Review of Systems Able to Perform ROS?: No (2/2 dementia) *Physical Exam - Vital Signs Last Vital Signs Temp Pulse Resp BP Pulse Ox 98.9 F 93 H 18 163/87 94 L 11/17/16 18:24 11/17/16 18:24 11/17/16 18:24 11/17/16 18:24 11/17/16 18:24 - Physical Exam Comments: 11/17/16 19:25 GENERAL: Awake, alert, oriented to self but not place or year, in no acute distress, holding self up by guardrails, pulling himself down bed with legs and arms HEAD: No signs of trauma, normocephalic, atraumatic EYES: PERRLA, EOMI, sclera anicteric, conjunctiva clear ENT: Auricles normal inspection, hearing grossly normal, nares patent, oropharynx clear without exudates. Moist mucosa NECK: Normal ROM, supple, no lymphadenopathy, JVD, or masses, nontender midline LUNGS: No distress, speaks full sentences, clear to auscultation bilaterally HEART: Regular rate and rhythm, normal S1 and S2, no murmurs, rubs or gallops, peripheral pulses normal and equal bilaterally. ABDOMEN: Soft, nontender, normoactive bowel sounds. No guarding, no rebound. No masses EXTREMITIES: Normal inspection, Normal range of motion, no edema. No clubbing or cyanosis. PELVIS: Stable, nontender, no bruising LEGS: No signs of trauma, nontender BACK: Nontender, no signs of trauma NEUROLOGICAL: Cranial nerves II through XII grossly intact. No focal sensorimotor deficits SKIN: Warm, Dry, normal turgor, no rashes or lesions noted. Medical Decision Making - Medical Decision Making 11/17/16 19:39 Patient is a 76M with history of dementia, HLD, HTN, hypothyroidism and pacemaker here today complaining of a fall. Witnessed, no head trauma. Vital signs stable and normal. Patient has no complaints, and close physical exam shows no signs of injury. Patient is at baseline. Will discharge back to retirement. *DC/Admit/Observation/Transfer Diagnosis at time of Disposition: Fall - Discharge Dispostion Disposition: HOME Condition at time of disposition: Good Admit: No - Referrals Referrals: Hi Wilcox MD [Primary Care Provider] -
[2016-11-17 20:40] VITALS: BP 131/74
== END 2016-11-17 20:38 ==
LOC: JER 18:14
DX: Z04.3 Encounter for examination and observation following other accident (principal); W05.0XXA Fall from non-moving wheelchair, initial encounter; Y93.89 Activity, other specified; Y92.122 Bedroom in nursing home as the place of occurrence of the external cause; I25.10 Atherosclerotic heart disease of native coronary artery without angina pectoris; I13.2 Hypertensive heart and chronic kidney disease with heart failure and with stage 5 chronic kidney disease, or end stage renal disease; N18.5 Chronic kidney disease, stage 5; I50.9 Heart failure, unspecified; Z95.0 Presence of cardiac pacemaker; E03.9 Hypothyroidism, unspecified; F03.90 Unspecified dementia, unspecified severity, without behavioral disturbance, psychotic disturbance, mood disturbance, and anxiety
CPT/HCPCS: 99283-25

== ENCOUNTER 2016-12-06 23:14 | Inpatient (IN) | payer OTHER ==
--- NOTE | 2016-12-06 23:56 | PDOC ---
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. Patient history limited by dementia. Per [place] nursing supervisor asbestos textile at [place], pt spike a fever to 102.9, and never came down despite tylenol and was found on the floor by the bed then sent to ED. 12/07/16 04:43 12/07/16 06:18 At baseline patient is not ambulatory at all, requires continual help with eating and incontinent of bowel and/or bladder. Past History - Past Medical History Allergies/Adverse Reactions: Allergies Allergy/AdvReac Type Severity Reaction Status Date / Time No Known Allergies Allergy Verified 12/06/16 23:58 Home Medications: Ambulatory Orders Ascorbic Acid [Vitamin C] 500 mg PO DAILY 11/17/16 Atorvastatin Ca [Lipitor] 10 mg PO HS 11/17/16 Benzocaine/Menthol [Cepacol Sore Throat Lozenge] 1 each MM PRN PRN 11/17/16 Calcium Carbonate/Vitamin D3 [Oyster Shell 500-Vit D3 200 Tb] 1 each PO DAILY Carvedilol [Coreg -] 25 mg PO BID 11/17/16 Docusate Sodium [Colace -] 200 mg PO DAILY 11/17/16 Donepezil HCl [Aricept -] 10 mg PO DAILY 11/17/16 Ferrous Sulfate 325 mg PO DAILY 11/17/16 Heparin - 5,000 unit SQ BID 11/17/16 Hydralazine HCl [Apresoline -] 25 mg PO BID 11/17/16 Isosorbide Dinitrate [Isordil -] 30 mg PO DAILY 11/17/16 Levothyroxine [Synthroid -] 100 mcg PO DAILY 11/17/16 Polyethylene Glycol 3350 [Gavilax] 17 gm PO BID 11/17/16 Tamsulosin HCl 0.4 mg PO DAILY 11/17/16 Vitamin B Comp W-C [Nephro-Humble -] 1 tablet PO DAILY 11/17/16 Anemia: Yes Cardiac Disorders: Yes (Yes, CAD) CHF: Yes Dementia: Yes Disorders: Yes (BPH urine retention acute renal failure) HTN: Yes Hypercholesterolemia: Yes (HLD) Seizures: Yes (hypotension) Thyroid Disease: Yes (hypothyroid) - Surgical History Cardiac Surgery: Yes (PACEMAKER) - Suicide/Smoking/Psychosocial Hx Smoking History: Unknown if ever smoked Have you smoked in the past 12 months: No Hx Alcohol Use: No Drug/Substance Use Hx: No Substance Use Type: None Review of Systems - Review of Systems Able to Perform ROS?: No (dementia, lethargy) *Physical Exam - Vital Signs Last Vital Signs Temp Pulse Resp BP Pulse Ox 100.3 F H 68 18 115/80 99 12/07/16 06:00 12/07/16 06:00 12/07/16 06:00 12/07/16 06:00 12/07/16 06:00 - Physical Exam General Appearance: Yes: Disheveled, Thin HEENT: positive: Other (miosis) Neck: positive: Trachea midline. negative: Tender Respiratory/Chest: positive: Lungs Clear, Normal Breath Sounds. negative: Chest Tender Cardiovascular: positive: Regular Rhythm, Regular Rate, S1, S2 Vascular Pulses: Dorsalis-Pedis (R): 2+, Doralis-Pedis (L): 2+ Gastrointestinal/Abdominal: positive: Normal Bowel Sounds, Flat, Soft. negative : Tender Neurologic: positive: Disoriented, Depressed Affect ED Treatment Course - LABORATORY CBC & Chemistry Diagram: 12/07/16 00:22 12/07/16 00:22 - ADDITIONAL ORDERS Additional order review: Laboratory Results 12/07/16 12/07/16 12/07/16 04:20 04:07 01:43 Sodium Potassium Chloride Carbon Dioxide Anion Gap BUN Creatinine Creat Clearance w eGFR Random Glucose Lactic Acid 1.1 Calcium Total Bilirubin AST ALT Alkaline Phosphatase Total Protein Albumin Urine Color Yellow Urine Appearance Cloudy Urine pH 5.0 Urine Protein 2+ H D Urine Glucose (UA) Negative Urine Ketones Negative Urine Blood 1+ H Urine Nitrite Negative Urine Bilirubin Negative Urine Urobilinogen Negative Urine RBC 151 Urine WBC 716 Urine Bacteria Many Stool Occult Blood Positive 12/07/16 00:22 Sodium 142 Potassium 4.4 Chloride 106 Carbon Dioxide 21 D Anion Gap 15 BUN 59 H D Creatinine 2.6 H D Creat Clearance w eGFR 23.99 Random Glucose 107 H D Lactic Acid Calcium 8.0 L Total Bilirubin 0.7 D AST 28 D ALT 18 Alkaline Phosphatase 64 Total Protein 6.8 Albumin 2.9 L Urine Color Urine Appearance Urine pH Urine Protein Urine Glucose (UA) Urine Ketones Urine Blood Urine Nitrite Urine Bilirubin Urine Urobilinogen Urine RBC Urine WBC Urine Bacteria Stool Occult Blood 12/07/16 00:22 RBC 2.92 L MCV 89.5 MCHC 32.9 RDW 15.9 MPV 7.7 Neutrophils % 75.4 Lymphocytes % 9.5 Monocytes % 14.1 H D Eosinophils % 0.1 Basophils % 0.9 - RADIOLOGY Radiology Studies Ordered: Category Date Time Status ABDOMEN & PELVIS CT W/O CONTR [CT] Stat CT Scan 12/07/16 04:[address] (STROKE) [CT] Stat CT Scan 12/07/16 00:07 Taken CHEST X-RAY PORTABLE* [RAD] Stat Radiology 12/07/16 00:08 Taken - Medications Given in the ED: ED Medications Discontinued Medications Generic Name Dose Route Start Last Admin Trade Name Freq PRN Reason Stop Dose Admin Acetaminophen 1,000 mg 12/07/16 03:57 12/07/16 04:31 Ofirmev Injection - IVPB 12/07/16 03:58 1,000 mg ONCE ONE Administration Ceftriaxone Sodium 1 gm 12/07/16 02:55 12/07/16 04:31 Rocephin - IM 12/07/16 02:56 1 gm ONCE ONE Administration Sodium Chloride 1,052 ml 12/07/16 04:06 12/07/16 04:31 Normal Saline - IV 12/07/16 04:07 1,052 ml ONCE STA Administration Medical Decision Making - Medical Decision Making 12/07/16 06:12 76M with pmh of syncope malignancy and multiple other symptoms presents with fever and increased lethargy. 102 fever, 11.3 WBC and anemia (hgb 8.6 - hematocrit 26.1) Urine + for blood and wbc and +stool guaiac Urosepsis vs upper GI bleed 12/07/16 06:15 CT abdomen pending Hospitalist microblogged. 12/07/16 07:11 Patient signed out to Dr. Naresh MD *DC/Admit/Observation/Transfer Diagnosis at time of Disposition: Sepsis secondary to UTI, Upper GI bleed
[2016-12-07] VITALS: BMI 22.6
[2016-12-07 00:38] LABS: BASOPHIL 0.9 % (0-2.0); EOSINOPHIL 0.1 % (0-4.5); MCH 29.5 pg (25.7-33.7); MCHC 32.9 g/dl (32.0-35.9); MEAN CELL VOLUME 89.5 fl (80-96); MEAN PLT VOLUME 7.7 fl (7.5-11.1); NEUTROPHILS 75.4 % (42.8-82.8); PLATELET COUNT 237 K/MM3 (134-434); RDW 15.9 % (11.9-15.9); WHITE BLOOD COUNT 11.3 K/mm3 (4.0-10.0)
[2016-12-07 01:07] LABS: ALBUMIN 2.9 g/dl (3.4-5.0); ANION GAP 15 (8-16); CO2 21 mmol/L (21-32); CREATININE 2.6 mg/dL (0.7-1.3); GLUCOSE,RANDOM 107 mg/dL (74-106); SGPT/ALT 18 U/L (12-78)
[2016-12-07 01:09] LABS: ALK PHOS 64 U/L (45-117); BILIRUBIN,TOTAL 0.7 mg/dL (0.2-1.0); TOT PROT 6.8 g/dl (6.4-8.2)
[2016-12-07 01:12] LABS: SGOT/AST 28 U/L (15-37)
[2016-12-07 01:54] LABS: URINE APPEARANCE CLOUDY; URINE BILIRUBIN NEGATIVE (NEGATIVE); URINE BLOOD 1+ (NEGATIVE); URINE COLOR YELLOW; URINE GLUCOSE (UA) NEGATIVE (NEGATIVE); URINE KETONE NEGATIVE (NEGATIVE); URINE NITRITE NEGATIVE (NEGATIVE); URINE UROBILINOGEN NEGATIVE mg/dL (0.2-1.0)
[2016-12-07 02:03] LABS: URINE PROTEIN 2+ (NEGATIVE)
[2016-12-07 02:15] LABS: URINE BACTERIA MANY /hpf (NONE SEEN); URINE RBC 151 /hpf (0-3); URINE WBC 716 /hpf (3-5)
[2016-12-07] MEDS ORDERED: cefTRIAXone SODIUM 1 GM VIAL IM ONE (02:55)
[2016-12-07] MEDS ORDERED: ACETAMINOPHEN 1000 MG/100 ML VIAL (NON FORMULARY) IVPB ONE ×2 (03:57→23:33)
--- NOTE | 2016-12-07 03:57 | PDOC ---
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 History is limited 2/2 patients dementia. Per nursing property maintenance supervisor at [place], pt spike a fever to 102.9, was given tylenol suppository and temp never came down prompting them to send him to ED. The nursing property maintenance supervisor also reports that the patient was found sitting on the floor, it is unclear if he fell. - Physicial Exam PE: 12/07/16 03:53 GENERAL: lethargic but arousable, in no acute distress. HEAD: No signs of trauma EYES: PERRLA, EOMI, sclera anicteric, conjunctiva clear ENT: Auricles normal inspection, hearing grossly normal, nares patent, oropharynx clear without exudates. Moist mucosa NECK: Normal ROM, supple, no lymphadenopathy, JVD, or masses LUNGS: Breath sounds equal, clear to auscultation bilaterally. No wheezes, and no crackles HEART: Regular rate and rhythm, normal S1 and S2, no murmurs, rubs or gallops ABDOMEN: Soft, +LLQ ttp, normoactive bowel sounds. No guarding, no rebound. No masses. Dark stool, rectally febrile 102 EXTREMITIES: Normal range of motion, no edema. No clubbing or cyanosis. No cords, erythema, or tenderness BACK: no midline cervical, thoracic, lumbar ttp or deformities NEUROLOGICAL: minimally verbal, answers simple questions, cranial nerves grossly intact, moves all extremities SKIN: Warm, Dry, normal turgor, no rashes or lesions noted. - Medical Decision Making 12/07/16 03:57 76-year-old man with multiple medical problems presents with fever and increased lethargy. Vitals here remarkable for fever to 102. Exam with melena and LLQ ttp. Concern for infection, differential includes UTI versus pneumonia versus bacteremia +/- GIB. Plan: -labs -cth (given fall) -ctap given ttp in LLQ -IV tylenol -CXR -UA -blood cx -urine cx -admit
[2016-12-07] MEDS ORDERED: ACETAMINOPHEN INJECTION 100 ML IVPB ONE (04:03)
[2016-12-07] MEDS ORDERED: cefTRIAXone SODIUM 1 GM VIAL ONE (04:04)
[2016-12-07] MEDS ORDERED: LIDOCAINE HCL 1%, 10 MG/ML (20ML VIAL) ONE (04:04)
[2016-12-07] MEDS ORDERED: SODIUM CHLORIDE 0.9% 1000 ML INFUS.BAG IV STA (04:06)
--- NOTE | 2016-12-07 07:38 | PDOC ---
*Physical Exam - Vital Signs Last Vital Signs Temp Pulse Resp BP Pulse Ox 100.3 F H 68 18 115/80 99 12/07/16 06:00 12/07/16 06:00 12/07/16 06:00 12/07/16 06:00 12/07/16 06:00 - Physical Exam Comments: 12/07/16 07:36 gen: sleeping, easily arousable, demented heart: +s1s2 reg Lungs: cta b/l Abd: soft, nt/nd +bs ext: moves all extremities ED Treatment Course - LABORATORY CBC & Chemistry Diagram: 12/07/16 00:22 12/07/16 00:22 - ADDITIONAL ORDERS Additional order review: Laboratory Results 12/07/16 12/07/16 12/07/16 04:20 04:07 01:43 WBC RBC Hgb Hct MCV MCH MCHC RDW Plt Count MPV Neutrophils % Lymphocytes % Monocytes % Eosinophils % Basophils % Sodium Potassium Chloride Carbon Dioxide Anion Gap BUN Creatinine Creat Clearance w eGFR Random Glucose Lactic Acid 1.1 Calcium Total Bilirubin AST ALT Alkaline Phosphatase Total Protein Albumin Urine Color Yellow Urine Appearance Cloudy Urine pH 5.0 Urine Protein 2+ H D Urine Glucose (UA) Negative Urine Ketones Negative Urine Blood 1+ H Urine Nitrite Negative Urine Bilirubin Negative Urine Urobilinogen Negative Urine RBC 151 Urine WBC 716 Urine Bacteria Many Stool Occult Blood Positive 12/07/16 12/07/16 00:22 00:22 WBC 11.3 H RBC 2.92 L Hgb 8.6 L D Hct 26.1 L MCV 89.5 MCH 29.5 MCHC 32.9 RDW 15.9 Plt Count 237 MPV 7.7 Neutrophils % 75.4 Lymphocytes % 9.5 Monocytes % 14.1 H D Eosinophils % 0.1 Basophils % 0.9 Sodium 142 Potassium 4.4 Chloride 106 Carbon Dioxide 21 D Anion Gap 15 BUN 59 H D Creatinine 2.6 H D Creat Clearance w eGFR 23.99 Random Glucose 107 H D Lactic Acid Calcium 8.0 L Total Bilirubin 0.7 D AST 28 D ALT 18 Alkaline Phosphatase 64 Total Protein 6.8 Albumin 2.9 L Urine Color Urine Appearance Urine pH Urine Protein Urine Glucose (UA) Urine Ketones Urine Blood Urine Nitrite Urine Bilirubin Urine Urobilinogen Urine RBC Urine WBC Urine Bacteria Stool Occult Blood 12/07/16 00:22 RBC 2.92 L MCV 89.5 MCHC 32.9 RDW 15.9 MPV 7.7 Neutrophils % 75.4 Lymphocytes % 9.5 Monocytes % 14.1 H D Eosinophils % 0.1 Basophils % 0.9 - Medications Given in the ED: ED Medications Discontinued Medications Generic Name Dose Route Start Last Admin Trade Name Jeffrey PRN Reason Stop Dose Admin Acetaminophen 1,000 mg 12/07/16 03:57 12/07/16 04:31 Ofirmev Injection - IVPB 12/07/16 03:58 1,000 mg ONCE ONE Administration Ceftriaxone Sodium 1 gm 12/07/16 02:55 12/07/16 04:31 Rocephin - IM 12/07/16 02:56 1 gm ONCE ONE Administration Sodium Chloride 1,052 ml 12/07/16 04:06 12/07/16 04:31 Normal Saline - IV 12/07/16 04:07 1,052 ml ONCE STA Administration Medical Decision Making - Medical Decision Making 12/07/16 07:36 pt with fever, change in MS, berenice, melena - will need admission. Dr. Wilcox admits to Dr. Mantilla. Microblog placed to hospitalist service. CT abd/pelvis with poss rectal-bladder fistula. This was passed along to the admitting service who will consult urology and surgery. Pt will be admitted for further eval. Pt received abx in the ED. *DC/Admit/Observation/Transfer Diagnosis at time of Disposition: Sepsis secondary to UTI, Upper GI bleed - Discharge Dispostion Condition at time of disposition: Guarded Admit: Yes - Referrals Referrals: Hi Wilcox MD [Primary Care Provider] - - Patient Instructions - Post Discharge Activity
[2016-12-07] MEDS ORDERED: ACETAMINOPHEN 325 MG TABLET (FP) PO PRN (07:44)
[2016-12-07] MEDS ORDERED: SODIUM CHLORIDE 1,000 ML IV SCH ×2 (07:45→17:49)
[2016-12-07] MEDS ORDERED: BENZOCAINE/MENTH/CETYLPYRD CL 1 EACH LOZENGE MM PRN (08:02)
--- NOTE | 2016-12-07 08:10 | HP ---
CHIEF COMPLAINT: tired and confused. PCP:Dr. Elizabeth HISTORY OF PRESENT ILLNESS: 76 M from [facility] with pmhx of dementia, CHF(s/p AICD), HTN, HLD, CAD, CKD and lung mass with SVC syndrome presents with one day history of fever. Fever noted at [place] to be 103 unresponsive to rectal Tylenol and here in ER 102.8. Based off [place] assesment patient is more confused than normal and lethargic. He also had recent admission to [facility] and found to have a lung mass causing compression of SVC , however decision was made at that time to have the patient palliative care only. Here in ER found to have melonic stools and normocytic anemia. He was on blood thinners at skilled nursing (heparin SQ?). Denies CP,BROWN, SOB, or N/V. ER course was notable for: (1)tachycardia >90 and fever of 102.8 with UTI= sepsis. (2)blood and urine cultures pending. (3)CT abdomen shows possible rectal fistula and AAA (4)FOBT (+) drop in Hgb 8.6-->6.1 ; type and screen with 2 units PRBC to be transfused. Recent Travel:none PAST MEDICAL HISTORY: ASHD, CHF, CKD, syncope, BPH, hypothyroidism PAST SURGICAL HISTORY: AICD,TURP Social History: Smoking:never Alcohol:denies Drugs: denies Family History: Allergies No Known Allergies Allergy (Verified 12/06/16 23:58) HOME MEDICATIONS: Home Medications Medication Instructions Recorded Ascorbic Acid [Vitamin C] 500 mg PO DAILY 11/17/16 Atorvastatin Ca [Lipitor] 10 mg PO HS 11/17/16 Benzocaine/Menthol [Cepacol Sore 1 each MM PRN PRN 11/17/16 Throat Lozenge] Calcium Carbonate/Vitamin D3 1 each PO DAILY 11/17/16 [Oyster Shell 500-Vit D3 200 Tb] Carvedilol [Coreg -] 25 mg PO BID 11/17/16 Docusate Sodium [Colace -] 200 mg PO DAILY 11/17/16 Donepezil HCl [Aricept -] 10 mg PO DAILY 11/17/16 Ferrous Sulfate 325 mg PO DAILY 11/17/16 Heparin - 5,000 unit SQ BID 11/17/16 Hydralazine HCl [Apresoline -] 25 mg PO BID 11/17/16 Isosorbide Dinitrate [Isordil -] 30 mg PO DAILY 11/17/16 Levothyroxine [Synthroid -] 100 mcg PO DAILY 11/17/16 Polyethylene Glycol 3350 [Gavilax] 17 gm PO BID 11/17/16 Tamsulosin HCl 0.4 mg PO DAILY 11/17/16 Vitamin B Comp W-C [Nephro-Humble -] 1 tablet PO DAILY 11/17/16 REVIEW OF SYSTEMS unable to obtain secondary to patients mental status and level of consciousness. PHYSICAL EXAMINATION Vital Signs - 24 hr 12/07/16 07:45 Pulse Rate [ 66 Apical] Respiratory 18 Rate Blood Pressure 102/57 [Right Arm] O2 Sat by Pulse 96 Oximetry (%) GENERAL:thin,cachectic, Lethargic and confused oriented only to person HEAD: Normal with no signs of trauma. EYES: small reactive pupils equal bilaterally EARS, NOSE, THROAT: Moist mucous membranes. NECK:supple, NO JVD. LUNGS: Breath sounds equal, clear to auscultation bilaterally. No wheezes, and no crackles. No accessory muscle use. HEART: Regular rate and rhythm, normal S1 and S2 with 2/6 OREN on RSB ABDOMEN: Soft, suprapubic tenderness, not distended, normoactive bowel sounds, Voluntary guarding, no rebound, (+)pulsitile mass . No hepatomegaly or splenomegaly. Rectal: melenic stools found in rectal vault. MUSCULOSKELETAL: Normal range of motion at all joints. No bony deformities or tenderness. No CVA tenderness. UPPER EXTREMITIES: 2+ pulses, warm, well-perfused. No cyanosis. No clubbing. No peripheral edema. LOWER EXTREMITIES: 2+ pulses, warm, well-perfused. No calf tenderness. No peripheral edema. NEUROLOGICAL: oriented only to person. able to follow simple commands. PSYCHIATRIC: lethargic. SKIN: Warm, dry, normal turgor ASSESSMENT/PLAN: 76 M from [facility] with pmhx of dementia, CHF(s/p AICD), HTN, HLD, CAD, CKD and lung mass with SVC syndrome admitted to Med/Surg for severe sepsis secondary to possible UTI and Upper GI bleed. Problem List - Problem (1) Severe sepsis with acute organ dysfunction Assessment/Plan: * Severe sepsis: to UTI. * Will initiate fluid resuscitation with NS @75ml/hr given his h/o CHF dont want to send into acute failure. * Previous UTI was salgado sensitive E.Coli will start on Ceftiaxone 2gm daily pending UC. * Continuous cardiac monitoring. * Vital signs Q1Hr. (2) Upper GI bleed Assessment/Plan: * Based off melenic stools most likely upper GI. * Will start on protonix drip * GI consultation for possible upper endoscopy. * NPO except meds. * 2 units of PRBC ordered. * Repeat CBC after second unit. Code(s): K92.2 - GASTROINTESTINAL HEMORRHAGE, UNSPECIFIED (3) Acute metabolic encephalopathy Assessment/Plan: * Most likely secondary to severe sepsis. Code(s): G93.41 - METABOLIC ENCEPHALOPATHY (4) Dementia Assessment/Plan: * Will continue Aricept. (5) Hypertension Assessment/Plan: * Carvedilol (Coreg -) 25 mg PO BID * Hydralazine HCl (Apresoline -) 25 mg PO BID NEYMAR (6) Hypothyroid Assessment/Plan: * Levothyroxine Sodium (Synthroid -) 100 mcg PO DAILY@0700 (7) HLD (hyperlipidemia) Assessment/Plan: * Continue Lipitor. (8) Acute on chronic renal failure Assessment/Plan: * likely secondary to sepsis. * Will give IVF and reassess. Visit type - Emergency Visit Emergency Visit: Yes ED Registration Date: 12/07/16 Care time: The patient presented to the Emergency Department on the above date and was hospitalized for further evaluation of their emergent condition. - New Patient This patient is new to me today: Yes Date on this admission: 12/07/16 - Critical Care Critical Care patient: No
[2016-12-07 08:24] LABS: MCH 29.5 pg (25.7-33.7); MCHC 32.5 g/dl (32.0-35.9); MEAN PLT VOLUME 8.2 fl (7.5-11.1); PLATELET COUNT 149 K/MM3 (134-434); RDW 16.3 % (11.9-15.9); WHITE BLOOD COUNT 9.7 K/mm3 (4.0-10.0)
[2016-12-07] MEDS ORDERED: PANTOPRAZOLE SODIUM 40 MG VIAL ONE (08:40)
[2016-12-07] MEDS: PANTOPRAZOLE SODIUM 80 MG in SODIUM CHLORIDE 100 ML IVPB SCH ×2 (08:45→19:02)
[2016-12-07 09:20] LABS: URINE LEUK ESTERASE 2+ (NEGATIVE)
--- NOTE | 2016-12-07 09:42 | PN ---
Teaching Attending Note Name of Resident: Jeremy Ambrose ATTENDING PHYSICIAN STATEMENT I saw and evaluated the patient. I reviewed the resident's note and discussed the case with the resident. I agree with the resident's findings and plan as documented. 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 The patient is unable to provide any history. He was recently admitted at [facility] (12/02) for comfort care from [facility] after he was found there to have lung cancer with SVC syndrome. OBJECTIVE: Vital Signs Period Temp Pulse Resp BP Sys/Ro Pulse Ox Last 24 Hr 100.3 F-102.8 F 66-91 14-18 102-127/51-80 96-99 HEART: S1S2, RRR, (+) 2/6 systolic murmur at RSB LUNGS: Clear ABDOMEN: Soft, non-distended, normal BS, (+) suprapubic tenderness EXTREMITIES: No edema Home Medications Medication Instructions Recorded Ascorbic Acid [Vitamin C] 500 mg PO DAILY 11/17/16 Atorvastatin Ca [Lipitor] 10 mg PO HS 11/17/16 Benzocaine/Menthol [Cepacol Sore 1 each MM PRN PRN 11/17/16 Throat Lozenge] Calcium Carbonate/Vitamin D3 1 each PO DAILY 11/17/16 [Oyster Shell 500-Vit D3 200 Tb] Carvedilol [Coreg -] 25 mg PO BID 11/17/16 Docusate Sodium [Colace -] 200 mg PO DAILY 11/17/16 Donepezil HCl [Aricept -] 10 mg PO DAILY 11/17/16 Ferrous Sulfate 325 mg PO DAILY 11/17/16 Heparin - 5,000 unit SQ BID 11/17/16 Hydralazine HCl [Apresoline -] 25 mg PO BID 11/17/16 Isosorbide Dinitrate [Isordil -] 30 mg PO DAILY 11/17/16 Levothyroxine [Synthroid -] 100 mcg PO DAILY 11/17/16 Polyethylene Glycol 3350 [Gavilax] 17 gm PO BID 11/17/16 Tamsulosin HCl 0.4 mg PO DAILY 11/17/16 Vitamin B Comp W-C [Nephro-Humble -] 1 tablet PO DAILY 11/17/16 Laboratory Tests 12/07/16 12/07/16 12/07/16 00:22 00:22 01:43 WBC 11.3 H RBC 2.92 L Hgb 8.6 L D Hct 26.1 L MCV 89.5 MCH 29.5 MCHC 32.9 RDW 15.9 Plt Count 237 MPV 7.7 Neutrophils % 75.4 Lymphocytes % 9.5 Monocytes % 14.1 H D Eosinophils % 0.1 Basophils % 0.9 Sodium 142 Potassium 4.4 Chloride 106 Carbon Dioxide 21 D Anion Gap 15 BUN 59 H D Creatinine 2.6 H D Creat Clearance w eGFR 23.99 Random Glucose 107 H D Lactic Acid Calcium 8.0 L Total Bilirubin 0.7 D AST 28 D ALT 18 Alkaline Phosphatase 64 Total Protein 6.8 Albumin 2.9 L Urine Color Yellow Urine Appearance Cloudy Urine pH 5.0 Ur Specific [place] 1.015 Urine Protein 2+ H D Urine Glucose (UA) Negative Urine Ketones Negative Urine Blood 1+ H Urine Nitrite Negative Urine Bilirubin Negative Urine Urobilinogen Negative Ur Leukocyte Esterase 2+ H Urine RBC 151 Urine WBC 716 Urine Bacteria Many Stool Occult Blood 12/07/16 12/07/16 12/07/16 04:07 04:20 08:10 WBC 9.7 RBC 2.07 L D Hgb 6.1 L* D Hct 18.8 L D MCV 91.0 MCH 29.5 MCHC 32.5 RDW 16.3 H Plt Count 149 D MPV 8.2 Neutrophils % No Result Required. Lymphocytes % No Result Required. 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 He was on comfort care at [facility], however his daughter is requesting treatment of acute problems, including transfusions, IV antibiotics. 1. Acute GI blood loss anemia on anemia secondary to chronic illness - Transfuse 2 units PRBCs - Protonix IV - Monitor hemoglobin and keep > 8 - GI evaluation 2. Severe sepsis (fever, tachycardia, LOC) secondary to UTI - Rocephin IV - IV fluid - Follow-up urine, blood cultures 3. Acute kidney injury - IV fluid, transfuse, treat sepsis - Monitor creatinine 4. Stage 3 CKD 5. Lung mass with SVC syndrome 6. AAA 7. BPH - Continue Flomax 8. HTN - Continue Coreg, Hydralazine 9. Hypothyroidism - Continue Synthroid 10. Chronic systolic heart failure - Stable - Continue Coreh, Isordil, Hydralazine 11. Dementia - Continue Aricept 12. Hyperlipidemia - Continue Lipitor 13. Stage II pressure ulcer of sacrum - Local wound care 14. Palliative care consult
[2016-12-07] MEDS ORDERED: DONEPEZIL HCL 10 MG TABLET (FP) PO SCH (10:00)
[2016-12-07 10:36] LABS: INR 1.1 (0.82-1.09); PROTHROMBIN TIME (PATIENT) 12.4 SEC (9.98-11.88)
[2016-12-07 10:39] LABS: ACTIVATED PTT 30.3 SECONDS (26.9-34.4)
[2016-12-07] MEDS ORDERED: ISOSORBIDE MONONITRATE 60 MG TAB.SR.24H (FP) PO ONE (11:00)
[2016-12-07] MEDS: hydrALAZINE HCL 25 MG TABLET (FP) PO SCH ×2 (11:14→23:28)
[2016-12-07] MEDS: FERROUS SO4 325 MG TABLET (FP) PO SCH (11:15)
[2016-12-07] MEDS: CARVEDILOL 25 MG TABLET (FP) PO SCH ×2 (11:15→23:29)
[2016-12-07] MEDS: VITAMIN B COMP W-C 1 EA TABLET PO SCH (11:15)
[2016-12-07] MEDS: ISOSORBIDE DINITRATE 20 MG TABLET (FP) PO SCH (11:15)
[2016-12-07] MEDS: TAMSULOSIN HCL 0.4 MG CAP.ER.24H (FP) PO SCH (11:15)
[2016-12-07] MEDS: CALCIUM 500MG/VIT-D 200 UNITS COMBO TABLET (FP) PO SCH (11:16)
[2016-12-07] MEDS: ASCORBIC ACID 500 MG TABLET (FP) PO SCH (11:16)
--- NOTE | 2016-12-07 12:38 | CON.GI ---
Consult Consult Specialty:: GI Referred by:: Service Reason for Consultation:: acute drop in hgb, melena - History of Present Illness History of Present Illness: Chart reviewed. Discussed with one of the patient's daughters at bedside. A 76 yo male with mutliple chronic medical problems including a lung mass, SVC, CHF, CKD presented to ED with high grade fever, fethargy, melena s/p fall. Pt's malorie reports progressive weakness over the last few months. No history of overt bleeding, abdominal pain, nausea, vomiting, dysphagia, odynophagia, or significant anemia. The patient was driving himself around 2-3 months ago. All Active Problems Acute on chronic renal failure (Acute) HLD (hyperlipidemia) (Acute) Sepsis secondary to UTI (Acute) Severe sepsis with acute organ dysfunction (Acute) Upper GI bleed (Acute) Acute metabolic encephalopathy (Acute) Acute renal failure (Acute) Altered mental status (Acute) Benign localized hyperplasia of prostate with urinary retention (Acute) Dementia (Acute) Fall (Acute) Hypertension (Acute) Hypothyroid (Acute) Shortness of breath (Acute) UTI (urinary tract infection) (Acute) Uremia (Acute) Urine retention (Acute) - History Source History Provided By: Family Member, Medical Record Limitations to Obtaining History: Clinical Condition - Past Medical History Cardio/Vascular: Yes: HTN, Hyperlipdemia Renal/: Yes: BPH Endocrine: Yes: Hypothyroidism - Past Surgical History Past Surgical History: Yes: Permanent Pacemaker - Alcohol/Substance Use Hx Alcohol Use: No - Smoking History Smoking history: Unknown if ever smoked Have you smoked in the past 12 months: No - Social History Usual Living Arrangement: Alone ADL: Family Assistance Home Medications - Allergies Allergies/Adverse Reactions: Allergies Allergy/AdvReac Type Severity Reaction Status Date / Time No Known Allergies Allergy Verified 12/06/16 23:58 - Home Medications Home Medications: Ambulatory Orders Ascorbic Acid [Vitamin C] 500 mg PO DAILY 11/17/16 Atorvastatin Ca [Lipitor] 10 mg PO HS 11/17/16 Benzocaine/Menthol [Cepacol Sore Throat Lozenge] 1 each MM PRN PRN 11/17/16 Calcium Carbonate/Vitamin D3 [Oyster Shell 500-Vit D3 200 Tb] 1 each PO DAILY Carvedilol [Coreg -] 25 mg PO BID 11/17/16 Docusate Sodium [Colace -] 200 mg PO DAILY 11/17/16 Donepezil HCl [Aricept -] 10 mg PO DAILY 11/17/16 Ferrous Sulfate 325 mg PO DAILY 11/17/16 Heparin - 5,000 unit SQ BID 11/17/16 Hydralazine HCl [Apresoline -] 25 mg PO BID 11/17/16 Isosorbide Dinitrate [Isordil -] 30 mg PO DAILY 11/17/16 Levothyroxine [Synthroid -] 100 mcg PO DAILY 11/17/16 Polyethylene Glycol 3350 [Gavilax] 17 gm PO BID 11/17/16 Tamsulosin HCl 0.4 mg PO DAILY 11/17/16 Vitamin B Comp W-C [Nephro-Humble -] 1 tablet PO DAILY 11/17/16 Family Disease History - Family Disease History Family History: Unremarkable Review of Systems Unable to obtain ROS, reason: please refer to H&P, H&P Physical Exam-GI Vital Signs: Vital Signs Temperature 100.3 F H 12/07/16 06:00 Pulse Rate 66 12/07/16 07:45 Respiratory Rate 18 12/07/16 07:45 Blood Pressure 102/57 12/07/16 07:45 O2 Sat by Pulse Oximetry (%) 96 12/07/16 07:45 Constitutional: Yes: Calm, Cachectic, Mild Distress, Pallor. No: Diaphoresis Eyes: Yes: Conjunctiva Clear HENT: Yes: Normocephalic Neck: Yes: Trachea Midline Cardiovascular: Yes: Regular Rate and Rhythm Respiratory: Yes: Regular Gastrointestinal Inspection: No: Ascites, Distention ...Auscultate: Yes: Normoactive Bowel Sounds ...Palpate: Yes: Soft. No: Firm/Rigid, Guarding, Mass, Pulsatile Mass, Tenderness Extremities: Yes: Cool. No: Cyanosis Integumentary: Yes: Laceration (healed). No: Jaundice Labs: CBC, BMP 12/07/16 08:10 INR, PTT INR 1.10 (0.82-1.09) 12/07/16 09:40 Laboratory Tests 12/07/16 12/07/16 12/07/16 00:22 00:22 01:43 WBC 11.3 H RBC 2.92 L Hgb 8.6 L D Hct 26.1 L MCV 89.5 MCH 29.5 MCHC 32.9 RDW 15.9 Plt Count 237 MPV 7.7 Neutrophils % 75.4 Lymphocytes % 9.5 Monocytes % 14.1 H D Eosinophils % 0.1 Basophils % 0.9 PT with INR INR PTT (Actin FS) Sodium 142 Potassium 4.4 Chloride 106 Carbon Dioxide 21 D Anion Gap 15 BUN 59 H D Creatinine 2.6 H D Creat Clearance w eGFR 23.99 Random Glucose 107 H D Lactic Acid Calcium 8.0 L Total Bilirubin 0.7 D AST 28 D ALT 18 Alkaline Phosphatase 64 Total Protein 6.8 Albumin 2.9 L Urine Color Yellow Urine Appearance Cloudy Urine pH 5.0 Ur Specific [place] 1.015 Urine Protein 2+ H D Urine Glucose (UA) Negative Urine Ketones Negative Urine Blood 1+ H Urine Nitrite Negative Urine Bilirubin Negative Urine Urobilinogen Negative Ur Leukocyte Esterase 2+ H Urine RBC 151 Urine WBC 716 Urine Bacteria Many Stool Occult Blood Blood Type Antibody Screen Crossmatch 12/07/16 12/07/16 12/07/16 04:07 04:20 07:32 WBC RBC Hgb Hct MCV MCH MCHC RDW Plt Count MPV Neutrophils % Lymphocytes % Monocytes % Eosinophils % Basophils % PT with INR INR PTT (Actin FS) Sodium Potassium Chloride Carbon Dioxide Anion Gap BUN Creatinine Creat Clearance w eGFR Random Glucose Lactic Acid 1.1 Calcium Total Bilirubin AST ALT Alkaline Phosphatase Total Protein Albumin Urine Color Urine Appearance Urine pH Ur Specific [place] Urine Protein Urine Glucose (UA) Urine Ketones Urine Blood Urine Nitrite Urine Bilirubin Urine Urobilinogen Ur Leukocyte Esterase Urine RBC Urine WBC Urine Bacteria Stool Occult Blood Positive Blood Type O POSITIVE Antibody Screen Negative Crossmatch See Detail 12/07/16 12/07/16 08:10 09:40 WBC 9.7 RBC 2.07 L D Hgb 6.1 L* D Hct 18.8 L D MCV 91.0 MCH 29.5 MCHC 32.5 RDW 16.3 H Plt Count 149 D MPV 8.2 Neutrophils % No Result Required. Lymphocytes % No Result Required. Monocytes % Eosinophils % Basophils % PT with INR 12.40 H INR 1.10 PTT (Actin FS) 30.3 Sodium Potassium Chloride Carbon Dioxide Anion Gap BUN Creatinine Creat Clearance w eGFR Random Glucose Lactic Acid Calcium Total Bilirubin AST ALT Alkaline Phosphatase Total Protein Albumin Urine Color Urine Appearance Urine pH Ur Specific [place] Urine Protein Urine Glucose (UA) Urine Ketones Urine Blood Urine Nitrite Urine Bilirubin Urine Urobilinogen Ur Leukocyte Esterase Urine RBC Urine WBC Urine Bacteria Stool Occult Blood Blood Type Antibody Screen Crossmatch Imaging - Results Cat Scan: Report Reviewed (posible rectal fistula, fecal impaction, stool) Assessment/Plan GI bleeding, likely upper, acute blood loss anemia, melena, elevated BUN/Cr, High grade fever on admission w/o leukocytosis, normal PLT, PT/INR. Constipation , fecal impaction. Agree with supportive care, PPI IV, septic work up including stool cx, c. diff toxin ICU monitoring Transfuse 2 u of PRBC NGT to intermittent suction NPO, IV hydration (CHF) Urgent EGD discussed with patent's daughters at bedside. The procedure, benefits and risks, including not performing the procedure, were discussed with the daughter. She is in discussion with her sisters and will get back to me with their decision on EGD. Disimpact/Tap water enemas.
[2016-12-07 13:40] LABS: TOTAL CELLS COUNTED 100
[2016-12-07 13:50] LABS: RBC MORPHOLOGY COMMENT NORMAL
[2016-12-07] MEDS: LEVOTHYROXINE NA 100 MCG TABLET (FP) PO SCH (14:50)
[2016-12-07] MEDS ORDERED: ETOMIDATE 20 MG/10 ML AMPUL IVPUSH ONE (15:13)
[2016-12-07] MEDS ORDERED: SUCCINYLCHOLINE CHLORIDE 200 MG/10 ML VIAL ONE (15:14)
[2016-12-07] MEDS ORDERED: ePHEDrine SULFATE 50 MG/1 ML AMPULE ONE (15:14)
[2016-12-07] MEDS ORDERED: PHENYLEPHRINE HCL 10 MG/1 ML SINGLE DOSE VIAL ONE (15:14)
[2016-12-07] MEDS ORDERED: GLYCOPYRROLATE 0.2 MG/1 ML VIAL ONE (15:14)
--- NOTE | 2016-12-07 16:30 | PROC ---
Endoscopy Procedure Endoscopy procedure completed. Please see scanned procedure report.
--- NOTE | 2016-12-07 16:35 | PN ---
Progress Note (short form) - Note Progress Note: 2 linear, gastric ulcers were found int eh gastric body. Injected with epi and cipped with resolution clips. No imediate complications. \ See procedure report and orders.
--- NOTE | 2016-12-07 16:51 | CONSULT ---
Consultation: REQUESTING PROVIDER: CONSULT REQUEST: We have been asked to medically evaluate this patient for ( critical care). HISTORY OF PRESENT ILLNESS: History obtained rom previous notes and Ed notes, Patient refused to give history. 76 M from [facility] with pmhx of dementia, CHF (s/p AICD), HTN, HLD, CAD, CKD and lung mass with SVC syndrome presents with one day history of fever. Fever noted at [place] to be 103 unresponsive to rectal Tylenol and here in ER 102.8. Based off [place] assesment patient is more confused than normal and lethargic. In Er patinet found to have alejandro, Hgb dropped from 8.6 to 6.1. Patient got one unit of blood and taken for upper EGD was done ( reports in chart: 2 linear, gastric ulcers were found int eh gastric body. Injected with epi and clipped with resolution clips). Patient not actively bleeding now, on protonix drip. Will give him second unit of blood and monitor Haemoglobin. patient got 1gm of ceftriaxone in ED. ER course was notable for: (1)tachycardia >90 and fever of 102.8 with UTI= sepsis. (2)blood and urine cultures pending. (3)FOBT (+) drop in Hgb 8.6-->6.1 ; Recent Travel:none PAST MEDICAL HISTORY: ASHD, CHF, CKD, syncope, BPH, hypothyroidism PAST SURGICAL HISTORY: AICD,TURP REVIEW OF SYSTEMS: unobtainable. PHYSICAL EXAMINATION Vital Signs - 24 hr 12/07/16 12/07/16 12/07/16 07:45 08:00 10:00 Temperature 97.8 F Pulse Rate Pulse Rate [ 66 68 Apical] Respiratory 18 16 Rate Blood Pressure Blood Pressure 102/57 132/61 [Right Arm] O2 Sat by Pulse 96 100 99 Oximetry (%) 12/07/16 12/07/16 12:15 14:44 Temperature Pulse Rate 64 Pulse Rate [ 64 Apical] Respiratory 16 16 Rate Blood Pressure 149/59 Blood Pressure 128/58 [Right Arm] O2 Sat by Pulse 98 97 Oximetry (%) GENERAL: Awake, didnt let me examine him. HEAD: Normal with no signs of trauma NECK: Normal range of motion, supple without lymphadenopathy, JVD, or masses. LUNGS: Breath sounds equal, clear to auscultation bilaterally. wheezes +, and no crackles. No accessory muscle use. HEART: Regular rate and rhythm, normal S1 and S2 . ABDOMEN: Soft, nontender, not distended, normoactive bowel sounds, no guarding, no rebound, no masses. UPPER EXTREMITIES: 2+ pulses, warm, well-perfused. LOWER EXTREMITIES: No calf tenderness. No peripheral edema. PSYCHIATRIC: Non Cooperative. SKIN: Warm, dry, Laboratory Results - last 24 hr 12/07/16 12/07/16 08:10 09:40 WBC 9.7 RBC 2.07 L D Hgb 6.1 L* D Hct 18.8 L D MCV 91.0 MCH 29.5 MCHC 32.5 RDW 16.3 H Plt Count 149 D MPV 8.2 Total Counted 100 Neutrophils % No Result Required. Neutrophils % (Manual) 73 Band Neuts % (Manual) 4 Lymphocytes % No Result Required. Lymphocytes % (Manual) 14 Monocytes % (Manual) 9 Morphology Comment Normal PT with INR 12.40 H INR 1.10 PTT (Actin FS) 30.3 Active Medications Generic Name Dose Route Start Last Admin Trade Name Freq PRN Reason Stop Dose Admin Acetaminophen 650 mg 12/07/16 07:44 Tylenol - PO Q4H PRN FEVER OR PAIN Ascorbic Acid 500 mg 12/07/16 10:00 12/07/16 11:16 Vitamin C - PO Not Given DAILY [facility] Atorvastatin Calcium 10 mg 12/07/16 22:00 Lipitor - PO HS NEYMAR Benzocaine/Menthol 1 each 12/07/16 08:02 Cepacol Lozenge - MM PRN PRN SORE THROAT Calcium Carbonate/Cholecalciferol 1 tab 12/07/16 10:00 12/07/16 11:16 Os-Rudy 500+D - PO Not Given DAILY NEYMAR Carvedilol 25 mg 12/07/16 10:00 12/07/16 11:15 Coreg - PO Not Given BID NEYMAR Donepezil HCl 10 mg 12/07/16 12:11 Aricept - PO HS NEYMAR Ferrous Sulfate 325 mg 12/07/16 10:00 12/07/16 11:15 Feosol - PO Not Given DAILY NEYMAR Hydralazine HCl 25 mg 12/07/16 10:00 12/07/16 11:14 Apresoline - PO Not Given BID NEYMAR Sodium Chloride 1,000 mls @ 125 mls/hr 12/07/16 07:45 10/24/17 08:45 Normal Saline - IV 12/08/16 15:44 125 mls/hr ASDIR NEYMAR Administration Pantoprazole Sodium 80 mg/ 100 mls @ 10 mls/hr 12/07/16 08:00 12/07/16 08:45 Sodium Chloride IVPB 10 mls/hr Q10H NEYMAR Administration 8 MG/HR Isosorbide Dinitrate 30 mg 12/07/16 10:00 12/07/16 11:15 Isordil - PO Not Given DAILY [facility] Levothyroxine Sodium 100 mcg 12/07/16 14:00 12/07/16 14:50 Synthroid - PO Not Given DAILY@0700 [facility] Multivit/Ca Carb/B Cmplx/FA/Prenat 1 tablet 12/07/16 10:00 12/07/16 11:15 Nephro-Humble - PO Not Given DAILY [facility] Tamsulosin HCl 0.4 mg 12/07/16 10:00 12/07/16 11:15 Flomax - PO Not Given DAILY@0830 [facility] ASSESSMENT/PLAN: (1) Severe sepsis secondary to UTI. afebrile now. continue with ceftriaxone 1gm daily. Monitor vitals Monitor intake and output. Get urine culture on urine was positive for e.coli (2) Upper GI bleed upper egd: 2 linear, gastric ulcers were found int eh gastric body. Injected with epi and clipped with resolution clips Got one unit of blood, will give him second unit. Monitor Haemoglobin. Continue with protonix drip for now. Monitor vitals GI on case NPO for now, except meds. (3) Dementia Will continue Aricept. (4) Hypertension monitor BP Carvedilol (Coreg -) 25 mg PO BID Hydralazine HCl (Apresoline -) 25 mg PO BID [facility] (5) Hypothyroid Levothyroxine Sodium (Synthroid -) 100 mcg PO DAILY@0700 (6) HLD (hyperlipidemia) Continue Lipitor. (7) Acute on chronic renal failure could be prerenal due to sepsis. monitor creatnine monitor intake and output. getting IV fluid. Fluid; NS 75ml/hr electrolyte; repeat in morning. ca, mg, nutrition: npo for now except po meds. dvt pro: scd Gi pro: protonx drip Dispo: We will continue to follow the patient. Thank you for this consultative opportunity. Visit type - Emergency Visit Emergency Visit: Yes ED Registration Date: 12/07/16 Care time: The patient presented to the Emergency Department on the above date and was hospitalized for further evaluation of their emergent condition. - New Patient This patient is new to me today: Yes Date on this admission: 12/07/16 - Critical Care Critical Care patient: Yes Total Critical Care Time (in minutes): 45 Critical Care Statement: The care of this patient involved high complexity decision making to prevent further life threatening deterioration of the patient 's condition and/or to evaluate & treat vital organ system(s) failure or risk of failure.
[2016-12-07] MEDS ORDERED: FUROSEMIDE 40 MG/4 ML INJECTABLE VIAL IVPUSH ONE (19:40)
[2016-12-07] MEDS ORDERED: ALBUTEROL SO4 2.5/IPRATROPIUM 0.5 INH SOL 3 ML VIAL.NEB. NEB ONE (19:40)
[2016-12-07] MEDS ORDERED: BUDESONIDE 0.5 MG/2 ML INH SUSP VIAL NEB ONE (19:41)
--- NOTE | 2016-12-07 19:58 | EKG ---
Test Reason : Blood Pressure : / mmHG Vent. Rate : 084 BPM Atrial Rate : 084 BPM P-R Int : 174 ms QRS Dur : 090 ms QT Int : 376 ms P-R-T Axes : 087 077 084 degrees QTc Int : 444 ms SINUS RHYTHM WITH PREMATURE SUPRAVENTRICULAR COMPLEXES Baseline wander OTHERWISE NORMAL ECG WHEN COMPARED WITH ECG OF 22-OCT-2016 13:59, PREMATURE SUPRAVENTRICULAR COMPLEXES ARE NOW PRESENT REPEAT EKG IF CLINICALLY INDICATED Confirmed by SARAI GATES MD ([id number]) on 12/07/2016 7:58:18 PM Referred By: Confirmed By:SARAI GATES MD
[2016-12-07 21:18] LABS: MCH 29.4 pg (25.7-33.7); MCHC 32.9 g/dl (32.0-35.9); MEAN CELL VOLUME 89.4 fl (80-96); PLATELET COUNT 224 K/MM3 (134-434); RDW 15.6 % (11.9-15.9); WHITE BLOOD COUNT 11.5 K/mm3 (4.0-10.0)
--- NOTE | 2016-12-07 21:38 | CONSULT ---
Consult Consult Specialty:: Pulmonary critical care - History of Present Illness History of Present Illness: This is a 76 yr old [facility] resident with dementia, CHF(s/p AICD), HTN, HLD , CAD, CKD and lung mass with SVC syndrome presents with one day history of fever of 103, confusion, and lethargy. Received Tylenol LA. In the ER he was found with anemia and melanotic stools. Denies CP,BROWN, SOB, or N/V. ER course characterized by tachycardia and fever, and anemia hgb 8.6-->6.1 s/p 2UPRBCs. S/ p EGD: 2 linear, gastric ulcers found and injected with epi and clipped). Pantoprazole infusion started. Ceftriaxone started. Admitted to ICU for further care. - Past Medical History Cardio/Vascular: Yes: HTN, Hyperlipdemia Renal/: Yes: BPH Endocrine: Yes: Hypothyroidism - Past Surgical History Past Surgical History: Yes: Permanent Pacemaker - Alcohol/Substance Use Hx Alcohol Use: No - Smoking History Smoking history: Unknown if ever smoked Have you smoked in the past 12 months: No - Social History Usual Living Arrangement: Alone ADL: Family Assistance Home Medications - Allergies Allergies/Adverse Reactions: Allergies Allergy/AdvReac Type Severity Reaction Status Date / Time No Known Allergies Allergy Verified 12/06/16 23:58 - Home Medications Home Medications: Ambulatory Orders Ascorbic Acid [Vitamin C] 500 mg PO DAILY 11/17/16 Atorvastatin Ca [Lipitor] 10 mg PO HS 11/17/16 Benzocaine/Menthol [Cepacol Sore Throat Lozenge] 1 each MM PRN PRN 11/17/16 Calcium Carbonate/Vitamin D3 [Oyster Shell 500-Vit D3 200 Tb] 1 each PO DAILY Carvedilol [Coreg -] 25 mg PO BID 11/17/16 Docusate Sodium [Colace -] 200 mg PO DAILY 11/17/16 Donepezil HCl [Aricept -] 10 mg PO DAILY 11/17/16 Ferrous Sulfate 325 mg PO DAILY 11/17/16 Heparin - 5,000 unit SQ BID 11/17/16 Hydralazine HCl [Apresoline -] 25 mg PO BID 11/17/16 Isosorbide Dinitrate [Isordil -] 30 mg PO DAILY 11/17/16 Levothyroxine [Synthroid -] 125 mcg PO DAILY 11/17/16 Polyethylene Glycol 3350 [Gavilax] 17 gm PO BID 11/17/16 Tamsulosin HCl 0.4 mg PO DAILY 11/17/16 Vitamin B Comp W-C [Nephro-Humble -] 1 tablet PO DAILY 11/17/16 Aspirin [Children's Aspirin] 81 mg PO DAILY 12/07/16 Sennosides [Senna] 2 tab PO DAILY 12/07/16 Physical Exam Vital Signs: Vital Signs Temperature 97 F L 12/07/16 16:30 Pulse Rate 70 12/07/16 18:00 Respiratory Rate 18 12/07/16 18:00 Blood Pressure 160/70 12/07/16 18:00 O2 Sat by Pulse Oximetry (%) 95 12/07/16 19:45 Constitutional: Yes: Well Nourished, No Distress Eyes: Yes: WNL HENT: Yes: WNL Neck: Yes: WNL Cardiovascular: Yes: Regular Rate and Rhythm Respiratory: Yes: Regular, CTA Bilaterally Gastrointestinal: Yes: Normal Bowel Sounds, Soft Labs: CBC, BMP 12/07/16 20:30 Assessment/Plan This is a 76 yr old [facility] resident with multiple medical problems who presents with one day history of fever of 103, confusion, and lethargy found to have melanotic stools and anemia s/p EGD and with 2 linear, gastric ulcers found and injected with epi and clipped and admitted to ICU for further care. #Maintain large bore access #Trend CBC #Transfuse for hgb<7 #Monitor hemodynamics #Continue pantoprazole #Ceftriaxone #Continue Statin/antihtn #Levothyroxine 35min CC time ANUEL Funk
[2016-12-07 21:42] LABS: URINE APPEARANCE CLOUDY; URINE BILIRUBIN NEGATIVE (NEGATIVE); URINE BLOOD 1+ (NEGATIVE); URINE COLOR YELLOW; URINE GLUCOSE (UA) NEGATIVE (NEGATIVE); URINE KETONE NEGATIVE (NEGATIVE); URINE NITRITE NEGATIVE (NEGATIVE); URINE UROBILINOGEN NEGATIVE mg/dL (0.2-1.0)
[2016-12-07 21:49] LABS: URINE PROTEIN 1+ (NEGATIVE)
[2016-12-07 21:50] LABS: URINE BACTERIA RARE /hpf (NONE SEEN); URINE MUCUS RARE; URINE RBC 11 /hpf (0-3); URINE WBC 746 /hpf (3-5); YEAST RARE
[2016-12-07 22:48] LABS: URINE LEUK ESTERASE 3+ (NEGATIVE)
[2016-12-07] MEDS: DONEPEZIL HCL 10 MG TABLET (FP) PO SCH (23:28)
[2016-12-07] MEDS: MUPIROCIN 2% TOPICAL OINTMENT FOR DECOLONIZATION NS SCH (23:29)
[2016-12-07] MEDS: CHLORHEXIDINE GLUCONATE 4% CLEANSER FOR DECOLONIZATION TP SCH (23:30)
[2016-12-07] MEDS: ATORVASTATIN CA 10 MG TABLET (FP) PO SCH (23:30)
[2016-12-07] MEDS ORDERED: NITROGLYCERIN 25MG/D5W 250ML 250 ML IVPB ONE (23:42)
[2016-12-08] MEDS ORDERED: METRONIDAZOLE 500 MG PREMIXED 100 ML IVPB SCH (00:15)
--- NOTE | 2016-12-08 00:27 | HOSP ---
Subjective - Review of Symptoms Subjective: patient found sleeping comfortably, did not wake up patient. <Tristan Alberto - Last Filed: 12/08/16 00:33> - Review of Symptoms Subjective: Air in rectal area, sx. does NOT need to be consulted <Kimberlee Razo - Last Filed: 12/08/16 06:45> Physical Examination Vital Signs: Vital Signs Temperature 103.3 F H 12/07/16 23:21 Pulse Rate 94 H 12/07/16 22:33 Respiratory Rate 22 12/07/16 22:33 Blood Pressure 135/60 12/07/16 22:33 O2 Sat by Pulse Oximetry (%) 98 12/07/16 23:56 Gastrointestinal: Yes: WNL, Normal Bowel Sounds, Soft. No: Distention, Hepatomegaly, Tenderness, Tenderness, Rebound Labs: CBC, BMP 12/07/16 20:30 <Tristan Alberto - Last Filed: 12/08/16 00:33> Vital Signs: Vital Signs Temperature 98.4 F 12/08/16 06:00 Pulse Rate 73 12/08/16 06:00 Respiratory Rate 22 12/08/16 06:00 Blood Pressure 94/62 12/08/16 06:00 O2 Sat by Pulse Oximetry (%) 98 12/07/16 23:56 Labs: CBC, BMP 12/08/16 05:00 <Kimberlee Razo - Last Filed: 12/08/16 06:45> Hospitalist Encounter Assessment: This is a 76 yr old [facility] resident with dementia, CHF(s/p AICD), HTN, HLD , CAD, CKD and lung mass with SVC syndrome admitted with severe sepsis likely 2/ 2 UTI and found to be anemic from GI ulcer s/p EGD and 2 units of PRBCs. MD called as pt's temp went back up to 103, and his blood culture began growing gram negative rods. MD went to see the patient. Besides for fever, other vitals were within normal limits. Pt was found sleeping comfortably. His abdominal exam was benign- normoactive bs, soft, NT, ND, no peritoneal signs. -stat lactic acid -IV tylenol -antibiotics changed from ceftriaxone to zosyn and flagyl -ID consulted -surgery consulted for free air found on CT abdomen <Tristan Alberto - Last Filed: 12/08/16 00:33> Visit type - Emergency Visit Emergency Visit: Yes ED Registration Date: 12/07/16 Care time: The patient presented to the Emergency Department on the above date and was hospitalized for further evaluation of their emergent condition. - New Patient This patient is new to me today: Yes Date on this admission: 12/08/16 - Critical Care Critical Care patient: Yes <Tristan Alberto - Last Filed: 12/08/16 00:33>
[2016-12-08] MEDS ORDERED: PIPERACILLIN/TAZOB 2.25 GM/50 ML PREMIX BAG IVPB SCH (00:45)
[2016-12-08] MEDS ORDERED: PIPERACILLIN/TAZOB 2.25 GM/50 ML PREMIX BAG IVPB ONE (01:00)
[2016-12-08 06:02] LABS: BASOPHIL 0.4 % (0-2.0); MEAN CELL VOLUME 87.9 fl (80-96); MEAN PLT VOLUME 8.2 fl (7.5-11.1); NEUTROPHILS 80.9 % (42.8-82.8); PLATELET COUNT 196 K/MM3 (134-434); RDW 15.7 % (11.9-15.9); WHITE BLOOD COUNT 16.3 K/mm3 (4.0-10.0)
[2016-12-08 06:44] LABS: ALBUMIN 2.6 g/dl (3.4-5.0); ANION GAP 18 (8-16); CALCIUM 7.7 mg/dL (8.5-10.1); CO2 18 mmol/L (21-32); CREATININE 2.7 mg/dL (0.7-1.3); GLUCOSE,RANDOM 81 mg/dL (74-106); MAGNESIUM 2.4 mg/dL (1.8-2.4); PHOSPHOROUS 6.1 mg/dL (2.5-4.9); SGOT/AST 20 U/L (15-37); SGPT/ALT 16 U/L (12-78)
[2016-12-08 06:46] LABS: ALK PHOS 58 U/L (45-117); TOT PROT 6.2 g/dl (6.4-8.2)
--- NOTE | 2016-12-08 06:49 | PN ---
Physical Exam: 24H Events: yesterday - 12/07 admitted, s/p EGD with epi/clips placed in 2x gastric ulcers, 2U PRBCs, bacteremia (GN bacilli), respiratory distress (IVF d/c, lasix 80 IV, bipap) ON - T 103.3, abx broadened from ceftriaxone to Zosyn/Flagyl SUBJECTIVE: Patient seen and examined in ICU. feels hungry and wants water. no other complains OBJECTIVE: Vital Signs Period Temp Pulse Resp BP Sys/Ro Pulse Ox Last 24 Hr 97 F-103.3 F 64-103 16-28 94-169/54-90 92-100 Intake & Output 12/05/16 12/06/16 12/07/16 12/08/16 23:59 23:59 23:59 23:59 Intake Total 400 320 Output Total 2150 800 Balance -1750 -480 Weight 52.617 kg 52.617 kg 52.844 kg GENERAL: awake, alert, oriented to self HEART: rrr, normal S1/S2, (+) 2/6 systolic murmur at RSB LUNGS: CTAB, no wheezes or rales ABDOMEN: Soft, ntnd, normal BS LOWER EXTREMITIES: No edema CBC, BMP 12/08/16 05:00 12/08/16 05:00 Hepatic Panel Total Bilirubin 1.0 mg/dL (0.2-1.0) D 12/08/16 05:00 AST 20 U/L (15-37) D 12/08/16 05:00 ALT 16 U/L (12-78) 12/08/16 05:00 Alkaline Phosphatase 58 U/L (45-117) 12/08/16 05:00 Albumin 2.6 g/dl (3.4-5.0) L 12/08/16 05:00 INR, PTT INR 1.10 (0.82-1.09) 12/07/16 09:40 Ca - 7.7 Phos - 6.1 Mg - 2.4 Lactate 1.1 -> 1.4 Microbiology 12/07/16 01:43 Urine - Urine - Catheterized Urine Culture - Preliminary Lactose Fermenting Neg Bacilli 12/07/16 04:20 Blood - Peripheral Venous Blood Culture - Preliminary Lactose Fermenting Neg Bacilli 12/07/16 04:20 Blood - Peripheral Venous Blood Culture - Preliminary NO GROWTH OBTAINED AFTER 24 HOURS, INCUBATION TO CONTINUE FOR 4 DAYS. IMAGING: CT abd: rectal fistula Active Medications Acetaminophen (Tylenol -) 650 mg PO Q4H PRN PRN Reason: FEVER OR PAIN Ascorbic Acid (Vitamin C -) 500 mg PO DAILY [facility] Last Admin: 12/08/16 09:27 Dose: 500 mg Atorvastatin Calcium (Lipitor -) 10 mg PO [facility] Last Admin: 12/07/16 23:30 Dose: Not Given Benzocaine/Menthol (Cepacol Lozenge -) 1 each MM PRN PRN PRN Reason: SORE THROAT Calcium Carbonate/Cholecalciferol (Os-Rudy 500+D -) 1 tab PO DAILY [facility] Last Admin: 12/08/16 09:27 Dose: 1 tab Carvedilol (Coreg -) 25 mg PO BID [facility] Last Admin: 12/08/16 09:27 Dose: 25 mg Chlorhexidine Gluconate (Hibiclens For Decolonization -) 1 applic TP [facility] Last Admin: 12/07/16 23:30 Dose: 1 applic Donepezil HCl (Aricept -) 10 mg PO [facility] Last Admin: 12/07/16 23:28 Dose: Not Given Ferrous Sulfate (Feosol -) 325 mg PO DAILY [facility] Last Admin: 12/08/16 09:27 Dose: 325 mg Hydralazine HCl (Apresoline -) 25 mg PO BID [facility] Last Admin: 12/08/16 09:26 Dose: 25 mg Metronidazole (Flagyl 500mg Premixed Ivpb -) 100 mls @ 100 mls/hr IVPB TID [facility] Last Admin: 12/08/16 13:54 Dose: 100 mls/hr Piperacillin/Tazobactam/Dextrose (Zosyn 2.25gm Ivpb (Premix)) 50 mls @ 100 mls/ hr IVPB Q6H-IV [facility] Last Admin: 12/08/16 15:41 Dose: 100 mls/hr Dextrose/Sodium Chloride (D5-1/2ns -) 1,000 mls @ 42 mls/hr IV ASDIR [facility] Isosorbide Dinitrate (Isordil -) 30 mg PO DAILY [facility] Last Admin: 12/08/16 17:14 Dose: 30 mg Levothyroxine Sodium (Synthroid -) 100 mcg PO DAILY@0700 [facility] Last Admin: 12/08/16 07:00 Dose: Not Given Multivit/Ca Carb/B Cmplx/FA/Prenat (Nephro-Humble -) 1 tablet PO DAILY [facility] Last Admin: 12/08/16 09:27 Dose: 1 tablet Mupirocin (Bactroban Ointment (For Decolonization) -) 1 applic NS BID [facility] Stop: 12/12/16 21:59 Last Admin: 12/08/16 09:27 Dose: 1 applic Pantoprazole Sodium (Protonix -) 40 mg PO BID [facility] Tamsulosin HCl (Flomax -) 0.4 mg PO DAILY@0830 [facility] Last Admin: 12/08/16 09:27 Dose: 0.4 mg ASSESSMENT/PLAN: 76M with PMH of dementia, stage 3 CKD, systolic CHF (s/p AICD) who presented from [facility] on comfort care for 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 #Severe sepsis (fever, tachycardia, LOC) secondary to UTI and bacteremia -ID consulted -Abx per ID (Zosyn/Flagyl) -IVF held 2/2 respiratory distress -f/u blood and urine cultures #PUD with acute blood anemia -GI consulted -s/p EGD with epi and clips for 2x gastric body ulcers -s/p 2Ux PRBCs -Protonix gtt -> protonix 40mg PO BID -Transfusion threshold if Hgb < 7 #? free air in abdomen -Surgery consulted -CT abd/pelvis with PO/rectal contrast pending #acute on CKD (Cr 1.8 on 10/22/16) -Monitor Cr -Renal dosing of medications #BPH (s/p TURP) -Continue Flomax #HTN - Continue Coreg, Hydralazine #Hypothyroidism - Continue Synthroid #Chronic systolic heart failure (s/p AICD) - Continue Coreg, Isordil, Hydralazine #Dementia - Continue Aricept #Hyperlipidemia -Continue Lipitor #Stage II pressure ulcer of sacrum - Local wound care #FEN -IVF held due to respiratory distress -hyperphosphatemia noted -Soft diet #PPX -DVT - scd's (AC contraindicated) -GI - on protonix #Dispo: continue ICU monitoring, palliative care consulted, helping with placement to [facility] DNR/DNI d/w Dr. Ju Kay MD PGY-1 Visit type - Emergency Visit Emergency Visit: No - New Patient This patient is new to me today: Yes Date on this admission: 12/08/16 - Critical Care Critical Care patient: Yes Total Critical Care Time (in minutes): 45 Critical Care Statement: The care of this patient involved high complexity decision making to prevent further life threatening deterioration of the patient 's condition and/or to evaluate & treat vital organ system(s) failure or risk of failure.
[2016-12-08] MEDS: LEVOTHYROXINE NA 100 MCG TABLET (FP) PO SCH (07:00)
[2016-12-08] MEDS: PANTOPRAZOLE SODIUM 80 MG in SODIUM CHLORIDE 100 ML IVPB SCH (07:00)
[2016-12-08] MEDS: METRONIDAZOLE 500 MG PREMIXED 100 ML IVPB SCH ×3 (07:02→23:11)
[2016-12-08] MEDS ORDERED: PT OWN MED DRAWER 7, Y5N ONE ×3 (09:25→15:40)
[2016-12-08] MEDS: hydrALAZINE HCL 25 MG TABLET (FP) PO SCH ×2 (09:26→23:10)
[2016-12-08] MEDS: TAMSULOSIN HCL 0.4 MG CAP.ER.24H (FP) PO SCH (09:27)
[2016-12-08] MEDS: FERROUS SO4 325 MG TABLET (FP) PO SCH (09:27)
[2016-12-08] MEDS: CALCIUM 500MG/VIT-D 200 UNITS COMBO TABLET (FP) PO SCH (09:27)
[2016-12-08] MEDS: VITAMIN B COMP W-C 1 EA TABLET PO SCH (09:27)
[2016-12-08] MEDS: CARVEDILOL 25 MG TABLET (FP) PO SCH ×2 (09:27→23:11)
[2016-12-08] MEDS: MUPIROCIN 2% TOPICAL OINTMENT FOR DECOLONIZATION NS SCH ×2 (09:27→23:11)
[2016-12-08] MEDS: ASCORBIC ACID 500 MG TABLET (FP) PO SCH (09:27)
[2016-12-08] MEDS ORDERED: cefTRIAXone 2 GM/100 ML BAG (PRE-DOCKED) IVPB SCH ×2 (10:00)
--- NOTE | 2016-12-08 10:47 | PN ---
Progress Note, Physician History of Present Illness: No events overnight. Awake and alert. Cannot recall yesterday's events. - Current Medication List Current Medications: Active Medications Acetaminophen (Tylenol -) 650 mg PO Q4H PRN PRN Reason: FEVER OR PAIN Ascorbic Acid (Vitamin C -) 500 mg PO DAILY [facility] Last Admin: 12/08/16 09:27 Dose: 500 mg Atorvastatin Calcium (Lipitor -) 10 mg PO HS [facility] Last Admin: 12/07/16 23:30 Dose: Not Given Benzocaine/Menthol (Cepacol Lozenge -) 1 each MM PRN PRN PRN Reason: SORE THROAT Calcium Carbonate/Cholecalciferol (Os-Rudy 500+D -) 1 tab PO DAILY [facility] Last Admin: 12/08/16 09:27 Dose: 1 tab Carvedilol (Coreg -) 25 mg PO BID [facility] Last Admin: 12/08/16 09:27 Dose: 25 mg Chlorhexidine Gluconate (Hibiclens For Decolonization -) 1 applic TP [facility] Last Admin: 12/07/16 23:30 Dose: 1 applic Donepezil HCl (Aricept -) 10 mg PO [facility] Last Admin: 12/07/16 23:28 Dose: Not Given Ferrous Sulfate (Feosol -) 325 mg PO DAILY [facility] Last Admin: 12/08/16 09:27 Dose: 325 mg Hydralazine HCl (Apresoline -) 25 mg PO BID [facility] Last Admin: 12/08/16 09:26 Dose: 25 mg Pantoprazole Sodium 80 mg/ (Sodium Chloride) 100 mls @ 10 mls/hr IVPB Q10H [facility] PRN Reason: 8 MG/HR Last Admin: 12/08/16 07:00 Dose: 10 mls/hr Metronidazole (Flagyl 500mg Premixed Ivpb -) 100 mls @ 100 mls/hr IVPB TID [facility] Last Admin: 12/08/16 07:02 Dose: 100 mls/hr Isosorbide Dinitrate (Isordil -) 30 mg PO DAILY [facility] Last Admin: 12/07/16 11:15 Dose: Not Given Levothyroxine Sodium (Synthroid -) 100 mcg PO DAILY@0700 [facility] Last Admin: 12/08/16 07:00 Dose: Not Given Multivit/Ca Carb/B Cmplx/FA/Prenat (Nephro-Humble -) 1 tablet PO DAILY [facility] Last Admin: 12/08/16 09:27 Dose: 1 tablet Mupirocin (Bactroban Ointment (For Decolonization) -) 1 applic NS BID [facility] Stop: 12/12/16 21:59 Last Admin: 12/08/16 09:27 Dose: 1 applic Piperacillin/Tazobactam/Dextrose (Zosyn 2.25gm Ivpb (Premix)) 2.25 gm IVPB Q6H- IV [facility] Stop: 12/09/16 00:44 Tamsulosin HCl (Flomax -) 0.4 mg PO DAILY@0830 [facility] Last Admin: 12/08/16 09:27 Dose: 0.4 mg - Objective Vital Signs: Vital Signs Temperature 98.4 F 12/08/16 06:00 Pulse Rate 73 12/08/16 06:00 Respiratory Rate 22 12/08/16 06:00 Blood Pressure 94/62 12/08/16 06:00 O2 Sat by Pulse Oximetry (%) 92 L 12/08/16 09:06 Vital Signs (72 hours) 12/06/16 12/07/16 12/07/16 23:58 06:00 07:45 Temperature 102.8 F H 100.3 F H Pulse Rate 91 H Pulse Rate [ 68 66 Apical] Respiratory 14 18 18 Rate Blood Pressure 127/51 Blood Pressure 115/80 102/57 [Right Arm] O2 Sat by Pulse 97 99 96 Oximetry (%) 12/07/16 12/07/16 12/07/16 08:00 10:00 12:15 Temperature 97.8 F Pulse Rate Pulse Rate [ 68 64 Apical] Respiratory 16 16 Rate Blood Pressure Blood Pressure 132/61 128/58 [Right Arm] O2 Sat by Pulse 100 99 98 Oximetry (%) 12/07/16 12/07/16 12/07/16 14:44 16:30 17:19 Temperature 97 F L Pulse Rate 64 70 Pulse Rate [ Apical] Respiratory 16 18 Rate Blood Pressure 149/59 140/70 Blood Pressure [Right Arm] O2 Sat by Pulse 97 100 Oximetry (%) 12/07/16 12/07/16 12/07/16 18:00 19:45 20:00 Temperature 100.7 F H Pulse Rate 70 103 H Pulse Rate [ Apical] Respiratory 18 28 H Rate Blood Pressure 160/70 169/90 Blood Pressure [Right Arm] O2 Sat by Pulse 95 Oximetry (%) 12/07/16 12/07/16 12/07/16 21:00 22:03 22:33 Temperature Pulse Rate 94 H Pulse Rate [ Apical] Respiratory 22 Rate Blood Pressure 135/60 Blood Pressure [Right Arm] O2 Sat by Pulse 92 L 97 Oximetry (%) 12/07/16 12/07/16 12/08/16 23:21 23:56 01:00 Temperature 103.3 F H Pulse Rate 91 H Pulse Rate [ Apical] Respiratory 24 Rate Blood Pressure 99/55 Blood Pressure [Right Arm] O2 Sat by Pulse 98 Oximetry (%) 12/08/16 12/08/16 12/08/16 02:14 04:00 06:00 Temperature 98.8 F 98.4 F Pulse Rate 84 103 H 73 Pulse Rate [ Apical] Respiratory 21 22 22 Rate Blood Pressure 103/54 117/62 94/62 Blood Pressure [Right Arm] O2 Sat by Pulse Oximetry (%) 12/08/16 12/08/16 07:08 09:06 Temperature Pulse Rate Pulse Rate [ Apical] Respiratory Rate Blood Pressure Blood Pressure [Right Arm] O2 Sat by Pulse 98 92 L Oximetry (%) Constitutional: Yes: No Distress, Calm Eyes: Yes: Conjunctiva Clear HENT: Yes: Atraumatic Neck: Yes: Supple Cardiovascular: Yes: Regular Rate and Rhythm Respiratory: Yes: Regular Gastrointestinal: Yes: Normal Bowel Sounds, Soft. No: Melena, Tenderness, Vomiting Neurological: Yes: Alert Labs: CBC, BMP 12/08/16 05:00 12/08/16 05:00 INR, PTT INR 1.10 (0.82-1.09) 12/07/16 09:40 CBCD WBC 16.3 K/mm3 (4.0-10.0) H D 12/08/16 05:00 RBC 3.93 M/mm3 (4.00-5.60) L 12/08/16 05:00 Hgb 11.4 GM/dL (11.7-16.9) L D 12/08/16 05:00 Hct 34.5 % (35.4-49) L D 12/08/16 05:00 MCV 87.9 fl (80-96) 12/08/16 05:00 MCHC 33.0 g/dl (32.0-35.9) 12/08/16 05:00 RDW 15.7 % (11.9-15.9) 12/08/16 05:00 Plt Count 196 K/MM3 (134-434) 12/08/16 05:00 MPV 8.2 fl (7.5-11.1) 12/08/16 05:00 CMP Sodium 146 mmol/L (136-145) H 12/08/16 05:00 Potassium 4.2 mmol/L (3.5-5.1) 12/08/16 05:00 Chloride 110 mmol/L (98-107) H 12/08/16 05:00 Carbon Dioxide 18 mmol/L (21-32) L 12/08/16 05:00 Anion Gap 18 (8-16) H 12/08/16 05:00 BUN 69 mg/dL (7-18) H 12/08/16 05:00 Creatinine 2.7 mg/dL (0.7-1.3) H 12/08/16 05:00 Creat Clearance w eGFR 22.97 (>60) 12/08/16 05:00 Calcium 7.7 mg/dL (8.5-10.1) L 12/08/16 05:00 Total Bilirubin 1.0 mg/dL (0.2-1.0) D 12/08/16 05:00 AST 20 U/L (15-37) D 12/08/16 05:00 ALT 16 U/L (12-78) 12/08/16 05:00 Alkaline Phosphatase 58 U/L (45-117) 12/08/16 05:00 Total Protein 6.2 g/dl (6.4-8.2) L 12/08/16 05:00 Albumin 2.6 g/dl (3.4-5.0) L 12/08/16 05:00 Problem List - Problems (1) Upper GI bleed Code(s): K92.2 - GASTROINTESTINAL HEMORRHAGE, UNSPECIFIED (2) Gastric ulcer Code(s): K25.9 - GASTRIC ULCER, UNSP ACUTE OR CHRONIC, W/O HEMOR OR PERF Assessment/Plan GI bleeding secondary acute gastric ulcers. S/p EGD with injection and clipping. Change PPI to po bid Soft diet today and advance as tolerated tomorrow OK to continue GI observation on reg floor No MRI for 6 months. AXR prior to MRI after that to assess for gastric clips. Monitor BMs (constipation) Miralax bid for now.
[2016-12-08] MEDS ORDERED: DEXTROSE 5%-0.45% SALINE 1,000 ML IV SCH (11:15)
--- NOTE | 2016-12-08 11:23 | PN ---
Teaching Attending Note Name of Resident: Crista Encinas ATTENDING PHYSICIAN STATEMENT I saw and evaluated the patient. I reviewed the resident's note and discussed the case with the resident. I agree with the resident's findings and plan as documented. SUBJECTIVE: Patient seen and examined in the ICU. Awake and alert. Denies CP, SOB, or abdominal pain. No occult bleeding noted overnight. Went into respiratory distress requiring NIPPV. Intake & Output 12/05/16 12/06/16 12/07/16 12/08/16 23:59 23:59 23:59 23:59 Intake Total 400 320 Output Total 2150 800 Balance -1750 -480 Weight 116 lb 116 lb 0.01 oz 116 lb 8 oz Last Vital Signs Temp Pulse Resp BP Pulse Ox 98 F 80 22 104/66 92 L 12/08/16 10:00 12/08/16 10:00 12/08/16 10:00 12/08/16 10:00 12/08/16 09:06 Active Medications Acetaminophen (Tylenol -) 650 mg PO Q4H PRN PRN Reason: FEVER OR PAIN Ascorbic Acid (Vitamin C -) 500 mg PO DAILY [facility] Last Admin: 12/08/16 09:27 Dose: 500 mg Atorvastatin Calcium (Lipitor -) 10 mg PO HS [facility] Last Admin: 12/07/16 23:30 Dose: Not Given Benzocaine/Menthol (Cepacol Lozenge -) 1 each MM PRN PRN PRN Reason: SORE THROAT Calcium Carbonate/Cholecalciferol (Os-Rudy 500+D -) 1 tab PO DAILY [facility] Last Admin: 12/08/16 09:27 Dose: 1 tab Carvedilol (Coreg -) 25 mg PO BID [facility] Last Admin: 12/08/16 09:27 Dose: 25 mg Chlorhexidine Gluconate (Hibiclens For Decolonization -) 1 applic TP HS [facility] Last Admin: 12/07/16 23:30 Dose: 1 applic Donepezil HCl (Aricept -) 10 mg PO HS [facility] Last Admin: 12/07/16 23:28 Dose: Not Given Ferrous Sulfate (Feosol -) 325 mg PO DAILY [facility] Last Admin: 12/08/16 09:27 Dose: 325 mg Hydralazine HCl (Apresoline -) 25 mg PO BID [facility] Last Admin: 12/08/16 09:26 Dose: 25 mg Pantoprazole Sodium 80 mg/ (Sodium Chloride) 100 mls @ 10 mls/hr IVPB Q10H [facility] PRN Reason: 8 MG/HR Last Admin: 12/08/16 07:00 Dose: 10 mls/hr Metronidazole (Flagyl 500mg Premixed Ivpb -) 100 mls @ 100 mls/hr IVPB TID [facility] Last Admin: 12/08/16 07:02 Dose: 100 mls/hr Isosorbide Dinitrate (Isordil -) 30 mg PO DAILY [facility] Last Admin: 12/07/16 11:15 Dose: Not Given Levothyroxine Sodium (Synthroid -) 100 mcg PO DAILY@0700 [facility] Last Admin: 12/08/16 07:00 Dose: Not Given Multivit/Ca Carb/B Cmplx/FA/Prenat (Nephro-Humble -) 1 tablet PO DAILY [facility] Last Admin: 12/08/16 09:27 Dose: 1 tablet Mupirocin (Bactroban Ointment (For Decolonization) -) 1 applic NS BID [facility] Stop: 12/12/16 21:59 Last Admin: 12/08/16 09:27 Dose: 1 applic Piperacillin/Tazobactam/Dextrose (Zosyn 2.25gm Ivpb (Premix)) 2.25 gm IVPB Q6H- IV [facility] Stop: 12/09/16 00:44 Tamsulosin HCl (Flomax -) 0.4 mg PO DAILY@0830 [facility] Last Admin: 12/08/16 09:27 Dose: 0.4 mg Constitutional: Yes: Thin, No Distress Eyes: Yes: WNL HENT: Yes: WNL Neck: Yes: WNL Cardiovascular: Yes: Regular Rate and Rhythm Respiratory: Yes: Few basilar rhonchi Gastrointestinal: Yes: (+) Bowel Sounds, Soft, Non-tender, No guarding or rigidity Labs: Laboratory Results - last 24 hr 12/07/16 12/07/16 12/07/16 07:32 08:10 20:30 WBC 9.7 11.5 H RBC 2.07 L D 4.68 D Hgb 6.1 L* D 13.7 D Hct 18.8 L D 41.8 D MCV 91.0 89.4 MCH 29.5 29.4 MCHC 32.5 32.9 RDW 16.3 H 15.6 Plt Count 149 D 224 D MPV 8.2 8.0 Total Counted 100 Neutrophils % Neutrophils % (Manual) 73 Band Neuts % (Manual) 4 Lymphocytes % Lymphocytes % (Manual) 14 Monocytes % Monocytes % (Manual) 9 Eosinophils % Basophils % Morphology Comment Normal Sodium Potassium Chloride Carbon Dioxide Anion Gap BUN Creatinine Creat Clearance w eGFR Random Glucose Lactic Acid Calcium Phosphorus Magnesium Total Bilirubin AST ALT Alkaline Phosphatase Total Protein Albumin Urine Color Urine Appearance Urine pH Ur Specific [place] Urine Protein Urine Glucose (UA) Urine Ketones Urine Blood Urine Nitrite Urine Bilirubin Urine Urobilinogen Ur Leukocyte Esterase Urine RBC Urine WBC Ur Epithelial Cells Urine Bacteria Urine Mucus Urine Yeast Blood Type O POSITIVE Antibody Screen Negative Crossmatch See Detail 12/07/16 12/07/16 12/08/16 20:30 20:30 00:40 WBC RBC Hgb Hct MCV MCH MCHC RDW Plt Count MPV Total Counted Neutrophils % Neutrophils % (Manual) Band Neuts % (Manual) Lymphocytes % Lymphocytes % (Manual) Monocytes % Monocytes % (Manual) Eosinophils % Basophils % Morphology Comment Sodium Potassium Chloride Carbon Dioxide Anion Gap BUN Creatinine Creat Clearance w eGFR Random Glucose Lactic Acid 1.4 Calcium Phosphorus Magnesium Total Bilirubin 1.8 H D AST ALT Alkaline Phosphatase Total Protein Albumin Urine Color Yellow Urine Appearance Cloudy Urine pH 5.0 Ur Specific [place] 1.010 Urine Protein 1+ H Urine Glucose (UA) Negative Urine Ketones Negative Urine Blood 1+ H Urine Nitrite Negative Urine Bilirubin Negative Urine Urobilinogen Negative Ur Leukocyte Esterase 3+ H Urine RBC 11 Urine WBC 746 Ur Epithelial Cells Rare Urine Bacteria Rare Urine Mucus Rare Urine Yeast Rare Blood Type Antibody Screen Crossmatch 12/08/16 12/08/16 05:00 05:00 WBC 16.3 H D RBC 3.93 L Hgb 11.4 L D Hct 34.5 L D MCV 87.9 MCH 29.0 MCHC 33.0 RDW 15.7 Plt Count 196 MPV 8.2 Total Counted Neutrophils % 80.9 Neutrophils % (Manual) Band Neuts % (Manual) Lymphocytes % 8.4 Lymphocytes % (Manual) Monocytes % 10.3 H Monocytes % (Manual) Eosinophils % 0.0 D Basophils % 0.4 Morphology Comment Sodium 146 H Potassium 4.2 Chloride 110 H Carbon Dioxide 18 L Anion Gap 18 H BUN 69 H Creatinine 2.7 H Creat Clearance w eGFR 22.97 Random Glucose 81 D Lactic Acid Calcium 7.7 L Phosphorus 6.1 H D Magnesium 2.4 Total Bilirubin 1.0 D AST 20 D ALT 16 Alkaline Phosphatase 58 Total Protein 6.2 L Albumin 2.6 L Urine Color Urine Appearance Urine pH Ur Specific [place] Urine Protein Urine Glucose (UA) Urine Ketones Urine Blood Urine Nitrite Urine Bilirubin Urine Urobilinogen Ur Leukocyte Esterase Urine RBC Urine WBC Ur Epithelial Cells Urine Bacteria Urine Mucus Urine Yeast Blood Type Antibody Screen Crossmatch Assessment/Plan GI bleed due to Gastric Ulcers : lesions were injected and clipped SVC syndrome by history (?) lung CA LOC Dementia Systolic heart failure AICD placement Normal transfusion thresholds O2 as needed PO when OK with GI Maintain large bore access Trend CBC PPI Will need to investigate questionable history of lung CA Statin Dr Prather Critical care time spent in reviewing chart, evaluating patient and formulating plan - 36 minutes.
--- NOTE | 2016-12-08 11:34 | PN ---
Progress Note (short form) - Note Progress Note: ID consult dictated imp/reccd 76 year old man admitted from [place] with fever and melena admitted to ICU 12/07 he is s/p EGD yesterday with 2 gastric ulcers noted he is s/p transfusion ct scan of abd/pelvis- ?air in pelvis, enlarged prostate he has probable lung cancer and SVC syndrome and is on palliative care now with positive blood cultures- GNR no pressors gram negative sepsis- ?uti, ?gi f/u cultures surgery consult, continue zosyn/flagyl adjusted for LOC s/p GI bleed LOC probable lung cancer with SVC syndrome AICD dementia Problem List - Problems (1) Gram negative septicemia Code(s): A41.50 - GRAM-NEGATIVE SEPSIS, UNSPECIFIED (2) UTI (urinary tract infection) Code(s): N39.0 - URINARY TRACT INFECTION, SITE NOT SPECIFIED Qualifiers: Urinary tract infection type: urethritis Qualified Code(s): N34.2 - Other urethritis; N34.2 - Other urethritis (3) Upper GI bleed Code(s): K92.2 - GASTROINTESTINAL HEMORRHAGE, UNSPECIFIED (4) Acute renal failure Code(s): N17.9 - ACUTE KIDNEY FAILURE, UNSPECIFIED Qualifiers: Acute renal failure type: unspecified Qualified Code(s): N17.9 - Acute kidney failure, unspecified; N17.9 - Acute kidney failure, unspecified; N17.9 - Acute kidney failure, unspecified
--- NOTE | 2016-12-08 12:36 | CONS ---
INFECTIOUS DISEASE CONSULTATION DATE OF CONSULTATION: DATE OF DICTATION: 12/08/2016 REQUESTING PHYSICIAN: Hospitalist Service. HISTORY OF PRESENT ILLNESS: This is a 76-year-old man with past medical history of dementia, chronic kidney disease, and recent diagnosis of a lung mass with SVC syndrome, admitted with fever. He was noted to have fever at the detention and appeared to be more confused and was sent to the emergency room. In the emergency room he was noted to have melena. He was originally palliative care. The SVC syndrome diagnosis was made recently at [facility] and palliative care was recommended, but the family is currently requesting acute intervention for his GI bleed and infection. He was found to have fever of 102.8 in the emergency room with pyuria. CT of the abdomen showed some pelvic free air and BPH. He also had positive guaiac and a drop in his hemoglobin to 6.1. He was transfused. He was admitted yesterday to the ICU. He was transfused. He underwent upper endoscopy and was found to have 2 gastric ulcers that were injected with epinephrine and clipped. He was noted to have gram-negative rods in his blood. He was originally given ceftriaxone and Flagyl and switched to piperacillin and tazobactam, and I am asked to comment on further antibiotic management. He is awake and alert. He does not know where he is. He denies any pain abdominal or chest pain. PAST MEDICAL HISTORY: Notable for: 1. Dementia. 2. He has a history of atherosclerotic heart disease. 3. Congestive heart failure. 4. Chronic kidney disease. 5. Syncope. 6. BPH. 7. Hypothyroidism. 8. Recent diagnosis of lung mass and SVC syndrome. 9. He has had a prior E. coli UTI here at [facility]. PAST SURGICAL HISTORY: Notable for: 1. TURP. 2. AICD placement. ALLERGIES: He has no known drug allergies. MEDICATIONS: At the detention include: 1. Vitamin C. 2. Lipitor. 3. Calcium with vitamin D. 4. Coreg. 5. Colace. 6. Aricept. 7. Ferrous sulfate. 8. Hydralazine. 9. Isordil. 10. Synthroid. 11. Tamsulosin. 12. Vitamin B. SOCIAL HISTORY: He is currently residing at the detention. REVIEW OF SYSTEMS: Not reliable due to his dementia. PHYSICAL EXAMINATION:General: He is resting comfortably. He is not on any pressors. Vital Signs: Temperature of 98. T-max was 103.3. Pulse of 80, blood pressure of 104/66, respiratory rate of 22, and he is saturating 92%. HEENT: He is normocephalic. His eyes are anicteric. He has no thrush. Neck: Supple. Lungs: Diminished breath sounds at the bases. Heart: Regular rate and rhythm. Abdomen: Soft, nontender. Extremities: Without edema. He has no sacral skin breakdown. Genitourinary: He has a Bernal in place that is currently draining clear urine. Skin: He has ACID in his left chest wall without any surrounding erythema or induration. LABORATORY DATA: Notable for a white count of 16.3, hemoglobin of 11.4, and platelets of 196. His INR is 1.1. BUN of 69 and creatinine of 2.7. In October 2016 when he was here his creatinine was 1.8. Urinalysis had 3+ leukocytes with 746 white cells and occult blood was positive. Blood cultures are growing lactose fermenting gram-negative bacilli in 1 of 4 bottles and urine culture is growing lactose fermenting gram-negative bacilli. DIAGNOSTIC DATA: Chest x-ray has a prominent right perihilar infiltrate and CAT scan findings have some small pockets of free air in the pelvis of unclear etiology. In summary, the CAT scan was reviewed with Radiology. IN SUMMARY: 1. This is a 76-year-old man admitted from the detention with gram-negative sepsis possibly urinary, possibly gastrointestinal. Would follow up with his cultures. Surgical consultation has been requested. Would continue Zosyn and Flagyl and adjust for his acute kidney injury. 2. Status post gastrointestinal bleed. 3. Acute renal failure. 4. 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 5. Automatic implantable cardioverter-defibrillator. 6. Dementia. We will make further recommendations based on his clinical course. ROSEMARY BUSTOS M.D. [id number]
--- NOTE | 2016-12-08 13:46 | PN ---
Physical Exam: SUBJECTIVE: Patient seen and examined today. 24 hr events -As per nursing team, pt became dyspneic, febrile when getting second unit of PRBCs. Was overloaded, got 80 mg Lasix, duonebs, placed on BiPAP- pt subsequently improved -pt on BiPAP overnight, switched to 3L NC 02 this AM, sat 96% Today -D/t pt's mentation, difficult to obtain. Pt alert and oriented x 1 (self) . Denies headache, fever, chills, SOB, chest or lower extremity pain OBJECTIVE: Vital Signs Period Temp Pulse Resp BP Sys/Ro Pulse Ox Last 24 Hr 97 F-103.3 F 64-103 16-28 89-169/44-90 92-100 GENERAL: The patient is awake, in no acute distress. on 3L NC 02 HEAD: Normal with no signs of trauma. EYES: PERRL, extraocular movements intact, sclera anicteric, conjunctiva clear. NECK: Trachea midline, supple. LUNGS: Breath sounds equal, clear to auscultation bilaterally, no wheezes, no crackles, no accessory muscle use. HEART: Regular rate and rhythm, S1, S2 without murmur, rub or gallop. ABDOMEN: Soft, nontender, nondistended, normoactive bowel sounds, no guarding EXTREMITIES: 2+ pulses, warm, well-perfused, no edema. NEUROLOGICAL: difficult to assess d/t pt's mentation Laboratory Results - last 24 hr 12/07/16 12/07/16 12/07/16 08:10 20:30 20:30 WBC 9.7 11.5 H RBC 2.07 L D 4.68 D Hgb 6.1 L* D 13.7 D Hct 18.8 L D 41.8 D MCV 91.0 89.4 MCH 29.5 29.4 MCHC 32.5 32.9 RDW 16.3 H 15.6 Plt Count 149 D 224 D MPV 8.2 8.0 Total Counted 100 Neutrophils % Neutrophils % (Manual) 73 Band Neuts % (Manual) 4 Lymphocytes % Lymphocytes % (Manual) 14 Monocytes % Monocytes % (Manual) 9 Eosinophils % Basophils % Morphology Comment Normal Sodium Potassium Chloride Carbon Dioxide Anion Gap BUN Creatinine Creat Clearance w eGFR Random Glucose Lactic Acid Calcium Phosphorus Magnesium Total Bilirubin AST ALT Alkaline Phosphatase Total Protein Albumin Urine Color Yellow Urine Appearance Cloudy Urine pH 5.0 Ur Specific [place] 1.010 Urine Protein 1+ H Urine Glucose (UA) Negative Urine Ketones Negative Urine Blood 1+ H Urine Nitrite Negative Urine Bilirubin Negative Urine Urobilinogen Negative Ur Leukocyte Esterase 3+ H Urine RBC 11 Urine WBC 746 Ur Epithelial Cells Rare Urine Bacteria Rare Urine Mucus Rare Urine Yeast Rare 12/07/16 12/08/16 12/08/16 20:30 00:40 05:00 WBC 16.3 H D RBC 3.93 L Hgb 11.4 L D Hct 34.5 L D MCV 87.9 MCH 29.0 MCHC 33.0 RDW 15.7 Plt Count 196 MPV 8.2 Total Counted Neutrophils % 80.9 Neutrophils % (Manual) Band Neuts % (Manual) Lymphocytes % 8.4 Lymphocytes % (Manual) Monocytes % 10.3 H Monocytes % (Manual) Eosinophils % 0.0 D Basophils % 0.4 Morphology Comment Sodium Potassium Chloride Carbon Dioxide Anion Gap BUN Creatinine Creat Clearance w eGFR Random Glucose Lactic Acid 1.4 Calcium Phosphorus Magnesium Total Bilirubin 1.8 H D AST ALT Alkaline Phosphatase Total Protein Albumin Urine Color Urine Appearance Urine pH Ur Specific [place] Urine Protein Urine Glucose (UA) Urine Ketones Urine Blood Urine Nitrite Urine Bilirubin Urine Urobilinogen Ur Leukocyte Esterase Urine RBC Urine WBC Ur Epithelial Cells Urine Bacteria Urine Mucus Urine Yeast 12/08/16 05:00 WBC RBC Hgb Hct MCV MCH MCHC RDW Plt Count MPV Total Counted Neutrophils % Neutrophils % (Manual) Band Neuts % (Manual) Lymphocytes % Lymphocytes % (Manual) Monocytes % Monocytes % (Manual) Eosinophils % Basophils % Morphology Comment Sodium 146 H Potassium 4.2 Chloride 110 H Carbon Dioxide 18 L Anion Gap 18 H BUN 69 H Creatinine 2.7 H Creat Clearance w eGFR 22.97 Random Glucose 81 D Lactic Acid Calcium 7.7 L Phosphorus 6.1 H D Magnesium 2.4 Total Bilirubin 1.0 D AST 20 D ALT 16 Alkaline Phosphatase 58 Total Protein 6.2 L Albumin 2.6 L Urine Color Urine Appearance Urine pH Ur Specific [place] Urine Protein Urine Glucose (UA) Urine Ketones Urine Blood Urine Nitrite Urine Bilirubin Urine Urobilinogen Ur Leukocyte Esterase Urine RBC Urine WBC Ur Epithelial Cells Urine Bacteria Urine Mucus Urine Yeast Active Medications Generic Name Dose Route Start Last Admin Trade Name Freq PRN Reason Stop Dose Admin Acetaminophen 650 mg 12/07/16 07:44 Tylenol - PO Q4H PRN FEVER OR PAIN Ascorbic Acid 500 mg 12/07/16 10:00 12/08/16 09:27 Vitamin C - PO 500 mg DAILY NEYMAR Administration Atorvastatin Calcium 10 mg 12/07/16 22:00 12/07/16 23:30 Lipitor - PO Not Given HS NEYMAR Benzocaine/Menthol 1 each 12/07/16 08:02 Cepacol Lozenge - MM PRN PRN SORE THROAT Calcium Carbonate/Cholecalciferol 1 tab 12/07/16 10:00 12/08/16 09:27 Os-Rudy 500+D - PO 1 tab DAILY NEYMAR Administration Carvedilol 25 mg 12/07/16 10:00 12/08/16 09:27 Coreg - PO 25 mg BID NEYMAR Administration Chlorhexidine Gluconate 1 applic 12/07/16 22:00 12/07/16 23:30 Hibiclens For Decolonization - TP 1 applic HS NEYMAR Administration Donepezil HCl 10 mg 12/07/16 12:11 12/07/16 23:28 Aricept - PO Not Given HS [facility] Ferrous Sulfate 325 mg 12/07/16 10:00 12/08/16 09:27 Feosol - PO 325 mg DAILY NEYMAR Administration Hydralazine HCl 25 mg 12/07/16 10:00 12/08/16 09:26 Apresoline - PO 25 mg BID NEYMAR Administration Metronidazole 100 mls @ 100 mls/hr 12/08/16 06:00 12/08/16 07:02 Flagyl 500mg Premixed Ivpb - IVPB 100 mls/hr TID NEYMAR Administration Piperacillin/Tazobactam/Dextrose 50 mls @ 100 mls/hr 12/08/16 11:30 Zosyn 2.25gm Ivpb (Premix) IVPB Q6H-IV NEYMAR Dextrose/Sodium Chloride 1,000 mls @ 100 mls/hr 12/08/16 11:15 D5-1/2ns - IV ASDIR [facility] Isosorbide Dinitrate 30 mg 12/07/16 10:00 12/07/16 11:15 Isordil - PO Not Given DAILY [facility] Levothyroxine Sodium 100 mcg 12/07/16 14:00 12/08/16 07:00 Synthroid - PO Not Given DAILY@0700 [facility] Multivit/Ca Carb/B Cmplx/FA/Prenat 1 tablet 10/24/17 10:00 12/08/16 09:27 Nephro-Humble - PO 1 tablet DAILY NEYMAR Administration Mupirocin 1 applic 12/07/16 22:00 12/08/16 09:27 Bactroban Ointment (For Decolonization) - NS 12/12/16 21:59 1 applic BID NEYMAR Administration Pantoprazole Sodium 40 mg 12/08/16 22:00 Protonix - PO BID NEYMAR Tamsulosin HCl 0.4 mg 12/07/16 10:00 12/08/16 09:27 Flomax - PO 0.4 mg DAILY@0830 NEYMAR Administration ASSESSMENT/PLAN: 76 M from [facility] with pmhx of dementia, CHF(s/p AICD), HTN, HLD, CAD, CKD and lung mass with SVC syndrome presents with one day history of fever. Fever noted at [place] to be 103 unresponsive to rectal Tylenol and here in ER 102.8. Based off [place] assesment, patient is more confused than normal and lethargic. In ER patient found to have melena, and experienced a Hb drop from 8.6 to 6.1. Patient got one unit of blood and was taken for an upper EGD ( reports in chart: 2 linear, gastric ulcers were found in the gastric body). Injected with epi and clipped with resolution clips. Patient not actively bleeding now, on protonix. Received second blood unit of PRBCs. Admitted to ICU for management after GI bleed. #GI s/p bleeding gastric ulcers -Protonix drip d/c, now on PO; 40mg BID -as per GI, clear for soft diet- will wait for surgery to see pt -H&H currently stable (11.4/24.5) -Transfuse if Hb <7 r/o pneumoperitoneum -r/o pneumo, review CT scan -Dr. Del Rio (surgery) consulted, message left with office -Dr. Arias out of office this wk #ID severe sepsis secondary to UTI -afebrile, white count 16.3 -blood cx: lactose fermenting gram - bacilli -Flagyl, zosyn- Day 1 (changed from ceftriaxone) #CARDIO HTN -Continue Coreg 25mg PO BID -Hydralazine 25 mg PO BID HLD -continue lipitor 10mg PO HS #NEURO -AAOx1 (self) -continue Aricept #RENAL LOC superimposed on CKD 2/2 sepsis -BUN/Cr 69/2.7 -D51/2 NS #ENDOCRINE Hypothyroidism -Continue synthroid 100 mcg PO daily #F/E/N -D51/2NS -will monitor electrolytes -NPO Disposition continued monitoring in ICU Visit type - Emergency Visit Emergency Visit: No - New Patient This patient is new to me today: Yes Date on this admission: 12/08/16 - Critical Care Critical Care patient: Yes Total Critical Care Time (in minutes): 40 Critical Care Statement: The care of this patient involved high complexity decision making to prevent further life threatening deterioration of the patient 's condition and/or to evaluate & treat vital organ system(s) failure or risk of failure.
[2016-12-08] MEDS: PIPERACILLIN/TAZOB 2.25 GM 50 ML IVPB SCH ×3 (15:41→23:07)
[2016-12-08] MEDS: ISOSORBIDE DINITRATE 20 MG TABLET (FP) PO SCH (17:14)
--- NOTE | 2016-12-08 18:41 | PN ---
Teaching Attending Note Name of Resident: Faye Kay ATTENDING PHYSICIAN STATEMENT I saw and evaluated the patient. I reviewed the resident's note and discussed the case with the resident. I agree with the resident's findings and plan as documented. SUBJECTIVE: patient seen and examined, no complaints, feels hungry and thirsty, wants to eat , no other complaints. OBJECTIVE: Vital Signs Period Temp Pulse Resp BP Sys/Ro Pulse Ox Last 24 Hr 98 F-103.3 F 65-103 16-28 89-169/44-90 92-100 Intake & Output 12/05/16 12/06/16 12/07/16 12/08/16 23:59 23:59 23:59 23:59 Intake Total 400 1260 Output Total 2150 1500 Balance -1750 -240 Weight 116 lb 116 lb 0.01 oz 116 lb 8 oz CVS - S1S2 regular chest - decreased effort, limited exam, positive air entry, no rales or wheezing appreciated Abdomen - soft, NT throughout, non distended, positive bowel sounds extr- no edema Neuro Awake, oriented to self, moves all extremities freely Current Medications Generic Name Dose Route Start Last Admin Trade Name Freq PRN Reason Stop Dose Admin Acetaminophen 650 mg 12/07/16 07:44 Tylenol - PO Q4H PRN FEVER OR PAIN Ascorbic Acid 500 mg 12/07/16 10:00 12/08/16 09:27 Vitamin C - PO 500 mg DAILY NEYMAR Administration Atorvastatin Calcium 10 mg 12/07/16 22:00 12/07/16 23:30 Lipitor - PO Not Given HS NEYMAR Benzocaine/Menthol 1 each 12/07/16 08:02 Cepacol Lozenge - MM PRN PRN SORE THROAT Calcium Carbonate/Cholecalciferol 1 tab 12/07/16 10:00 12/08/16 09:27 Os-Rudy 500+D - PO 1 tab DAILY NEYMAR Administration Carvedilol 25 mg 12/07/16 10:00 12/08/16 09:27 Coreg - PO 25 mg BID NEYMAR Administration Chlorhexidine Gluconate 1 applic 12/07/16 22:00 12/07/16 23:30 Hibiclens For Decolonization - TP 1 applic HS NEYMAR Administration Donepezil HCl 10 mg 12/07/16 12:11 12/07/16 23:28 Aricept - PO Not Given HS NEYMAR Ferrous Sulfate 325 mg 12/07/16 10:00 12/08/16 09:27 Feosol - PO 325 mg DAILY NEYMAR Administration Hydralazine HCl 25 mg 12/07/16 10:00 12/08/16 09:26 Apresoline - PO 25 mg BID NEYMAR Administration Metronidazole 100 mls @ 100 mls/hr 12/08/16 06:00 12/08/16 13:54 Flagyl 500mg Premixed Ivpb - IVPB 100 mls/hr TID NEYMAR Administration Piperacillin/Tazobactam/Dextrose 50 mls @ 100 mls/hr 12/08/16 11:30 12/08/16 15 :41 Zosyn 2.25gm Ivpb (Premix) IVPB 100 mls/hr Q6H-IV NEYMAR Administration Dextrose/Sodium Chloride 1,000 mls @ 100 mls/hr 12/08/16 11:15 12/08/16 13:54 D5-1/2ns - IV 100 mls/hr ASDIR NEYMAR Administration Isosorbide Dinitrate 30 mg 12/07/16 10:00 12/08/16 17:14 Isordil - PO 30 mg DAILY NEYMAR Administration Levothyroxine Sodium 100 mcg 12/07/16 14:00 12/08/16 07:00 Synthroid - PO Not Given DAILY@0700 [facility] Multivit/Ca Carb/B Cmplx/FA/Prenat 1 tablet 12/07/16 10:00 12/08/16 09:27 Nephro-Humble - PO 1 tablet DAILY [facility] Administration Mupirocin 1 applic 12/07/16 22:00 12/08/16 09:27 Bactroban Ointment (For Decolonization) - NS 12/12/16 21:59 1 applic BID [facility] Administration Pantoprazole Sodium 40 mg 12/08/16 22:00 Protonix - PO BID NEYMAR Tamsulosin HCl 0.4 mg 12/07/16 10:00 12/08/16 09:27 Flomax - PO 0.4 mg DAILY@0830 NEYMAR Administration Laboratory Results - last 24 hr 12/07/16 12/07/16 12/07/16 20:30 20:30 20:30 WBC 11.5 H RBC 4.68 D Hgb 13.7 D Hct 41.8 D MCV 89.4 MCH 29.4 MCHC 32.9 RDW 15.6 Plt Count 224 D MPV 8.0 Neutrophils % Lymphocytes % Monocytes % Eosinophils % Basophils % Sodium Potassium Chloride Carbon Dioxide Anion Gap BUN Creatinine Creat Clearance w eGFR Random Glucose Lactic Acid Calcium Phosphorus Magnesium Total Bilirubin 1.8 H D AST ALT Alkaline Phosphatase Total Protein Albumin Urine Color Yellow Urine Appearance Cloudy Urine pH 5.0 Ur Specific [place] 1.010 Urine Protein 1+ H Urine Glucose (UA) Negative Urine Ketones Negative Urine Blood 1+ H Urine Nitrite Negative Urine Bilirubin Negative Urine Urobilinogen Negative Ur Leukocyte Esterase 3+ H Urine RBC 11 Urine WBC 746 Ur Epithelial Cells Rare Urine Bacteria Rare Urine Mucus Rare Urine Yeast Rare 12/08/16 12/08/16 12/08/16 00:40 05:00 05:00 WBC 16.3 H D RBC 3.93 L Hgb 11.4 L D Hct 34.5 L D MCV 87.9 MCH 29.0 MCHC 33.0 RDW 15.7 Plt Count 196 MPV 8.2 Neutrophils % 80.9 Lymphocytes % 8.4 Monocytes % 10.3 H Eosinophils % 0.0 D Basophils % 0.4 Sodium 146 H Potassium 4.2 Chloride 110 H Carbon Dioxide 18 L Anion Gap 18 H BUN 69 H Creatinine 2.7 H Creat Clearance w eGFR 22.97 Random Glucose 81 D Lactic Acid 1.4 Calcium 7.7 L Phosphorus 6.1 H D Magnesium 2.4 Total Bilirubin 1.0 D AST 20 D ALT 16 Alkaline Phosphatase 58 Total Protein 6.2 L Albumin 2.6 L Urine Color Urine Appearance Urine pH Ur Specific [place] Urine Protein Urine Glucose (UA) Urine Ketones Urine Blood Urine Nitrite Urine Bilirubin Urine Urobilinogen Ur Leukocyte Esterase Urine RBC Urine WBC Ur Epithelial Cells Urine Bacteria Urine Mucus Urine Yeast Blood cultures - lactose fermenting GNB Urine cultures - lactose fermenting GNB ASSESSMENT AND PLAN: 76 yom with dementia, CHF, s/p AICD, Lung cancer with SVC syndrome on comfort measures, admitted with Gram neg sepsis from UTI, also with ?Free air in abdomen , acute anemia s/p EGD -Gram neg sepsis likely secondary to UTI Urine/blood cultures growing identical organism, suspect etiology of UTI. ID input appreciated, Continue Zosyn/flagyl, follow up cultures. ?Free air in abdomen, exam stable, surgery consulted, follow up recs. Serial exams. -Acute blood loss anemia with Peptic ulcer disease s/p EGD with ulcer s/p epinephrine/Clipping. H/h stable, monitor for now. Protonix. -Lung Ca/SVC syndrome palliative care consulted, follow up recs. DNR/DNI, discuss d/c with hospice. -CHF/s/p AICD/HTN coreg/hydralazine/ISDN/statin. -FEN resume diet pending surgical input. -CKD monitor renal function. renal dosing of meds. DVTPPX with SCDs dispo pending palliative care input. critically ill with multi-organ involvement, total critical care time spent 45 min.
[2016-12-08] MEDS: DEXTROSE 5%-0.45% SALINE 1,000 ML IV SCH (19:30)
[2016-12-08] MEDS: DONEPEZIL HCL 10 MG TABLET (FP) PO SCH (23:10)
[2016-12-08] MEDS: CHLORHEXIDINE GLUCONATE 4% CLEANSER FOR DECOLONIZATION TP SCH (23:12)
[2016-12-08] MEDS: ATORVASTATIN CA 10 MG TABLET (FP) PO SCH (23:12)
[2016-12-08] MEDS: PANTOPRAZOLE 40 MG TABLET (FP) PO SCH (23:12)
--- NOTE | 2016-12-08 23:23 | CONSULT ---
Consult - text type - Consultation Consultation Note: Consult placed by medical team for air seen around the rectum on CT A/P done on 12/07/[address] read as limited without contrast, no pneumoperitoneum or obstruction, small amount of air along the right pelvic sidewall in the perirectal region, possible rectal fistula Per team, patient is afebrile currently and his abdomen is soft and nontender Recommended repeat CT A/P with PO and rectal contrast
[2016-12-09] MEDS: PIPERACILLIN/TAZOB 2.25 GM 50 ML IVPB SCH ×4 (04:15→21:49)
[2016-12-09 06:14] LABS: BASOPHIL 0.6 % (0-2.0); EOSINOPHIL 1.9 % (0-4.5); MCH 29.9 pg (25.7-33.7); MCHC 33.9 g/dl (32.0-35.9); MEAN CELL VOLUME 88.1 fl (80-96); NEUTROPHILS 78.1 % (42.8-82.8); PLATELET COUNT 201 K/MM3 (134-434); RDW 15.8 % (11.9-15.9); WHITE BLOOD COUNT 10.4 K/mm3 (4.0-10.0)
[2016-12-09 06:34] LABS: ANION GAP 10 (8-16); CALCIUM 7.5 mg/dL (8.5-10.1); CO2 25 mmol/L (21-32); CREATININE 2.6 mg/dL (0.7-1.3); GLUCOSE,RANDOM 120 mg/dL (74-106)
[2016-12-09] MEDS: METRONIDAZOLE 500 MG PREMIXED 100 ML IVPB SCH (07:13)
[2016-12-09] MEDS: LEVOTHYROXINE NA 100 MCG TABLET (FP) PO SCH (07:13)
--- NOTE | 2016-12-09 08:30 | PN ---
Progress Note, Physician Chief Complaint: ID Zosyn and metronidazole Alert Become dyspneic when he speaks Says he feels better - Current Medication List Current Medications: Active Medications Acetaminophen (Tylenol -) 650 mg PO Q4H PRN PRN Reason: FEVER OR PAIN Ascorbic Acid (Vitamin C -) 500 mg PO DAILY [facility] Last Admin: 12/08/16 09:27 Dose: 500 mg Atorvastatin Calcium (Lipitor -) 10 mg PO HS [facility] Last Admin: 12/08/16 23:12 Dose: 10 mg Benzocaine/Menthol (Cepacol Lozenge -) 1 each MM PRN PRN PRN Reason: SORE THROAT Calcium Carbonate/Cholecalciferol (Os-Rudy 500+D -) 1 tab PO DAILY [facility] Last Admin: 12/08/16 09:27 Dose: 1 tab Carvedilol (Coreg -) 25 mg PO BID [facility] Last Admin: 12/08/16 23:11 Dose: 25 mg Chlorhexidine Gluconate (Hibiclens For Decolonization -) 1 applic TP [facility] Last Admin: 12/08/16 23:12 Dose: 1 applic Donepezil HCl (Aricept -) 10 mg PO HS [facility] Last Admin: 12/08/16 23:10 Dose: 10 mg Ferrous Sulfate (Feosol -) 325 mg PO DAILY [facility] Last Admin: 12/08/16 09:27 Dose: 325 mg Hydralazine HCl (Apresoline -) 25 mg PO BID [facility] Last Admin: 12/08/16 23:10 Dose: Not Given Metronidazole (Flagyl 500mg Premixed Ivpb -) 100 mls @ 100 mls/hr IVPB TID [facility] Last Admin: 12/09/16 07:13 Dose: 100 mls/hr Piperacillin/Tazobactam/Dextrose (Zosyn 2.25gm Ivpb (Premix)) 50 mls @ 100 mls/ hr IVPB Q6H-IV [facility] Last Admin: 12/09/16 04:15 Dose: 100 mls/hr Dextrose/Sodium Chloride (D5-1/2ns -) 1,000 mls @ 42 mls/hr IV ASDIR [facility] Last Admin: 12/08/16 19:30 Dose: 42 mls/hr Isosorbide Dinitrate (Isordil -) 30 mg PO DAILY [facility] Last Admin: 12/08/16 17:14 Dose: 30 mg Levothyroxine Sodium (Synthroid -) 100 mcg PO DAILY@0700 [facility] Last Admin: 12/09/16 07:13 Dose: 100 mcg Multivit/Ca Carb/B Cmplx/FA/Prenat (Nephro-Humble -) 1 tablet PO DAILY [facility] Last Admin: 12/08/16 09:27 Dose: 1 tablet Mupirocin (Bactroban Ointment (For Decolonization) -) 1 applic NS BID [facility] Stop: 12/12/16 21:59 Last Admin: 12/08/16 23:11 Dose: 1 applic Pantoprazole Sodium (Protonix -) 40 mg PO BID [facility] Last Admin: 12/08/16 23:12 Dose: 40 mg Tamsulosin HCl (Flomax -) 0.4 mg PO DAILY@0830 [facility] Last Admin: 12/08/16 09:27 Dose: 0.4 mg - Objective Vital Signs: Vital Signs Temperature 98.2 F 12/09/16 06:00 Pulse Rate 56 L 12/09/16 06:00 Respiratory Rate 17 12/09/16 06:00 Blood Pressure 110/48 12/09/16 06:00 O2 Sat by Pulse Oximetry (%) 98 12/09/16 05:30 Constitutional: Yes: No Distress Neck: Yes: WNL, Supple Cardiovascular: Yes: Regular Rate and Rhythm, S1, S2, Other (Pacemaker) Respiratory: Yes: WNL, Regular, CTA Bilaterally. No: Rhonchi Gastrointestinal: Yes: WNL, Normal Bowel Sounds, Soft. No: Tenderness, Epigastrium, Tenderness, Rebound Labs: CBC, BMP 12/09/16 05:00 12/09/16 05:00 INR, PTT INR 1.10 (0.82-1.09) 12/07/16 09:40 Assessment/Plan Microbiology 12/07/16 04:20 Blood - Peripheral Venous Blood Culture - Preliminary NO GROWTH OBTAINED AFTER 48 HOURS, INCUBATION TO CONTINUE FOR 3 DAYS. 12/07/16 04:20 Blood - Peripheral Venous Blood Culture - Preliminary Lactose Fermenting Neg Bacilli 12/07/16 01:43 Urine - Urine - Catheterized Urine Culture - Preliminary Lactose Fermenting Neg Bacilli Laboratory Tests 12/07/16 12/07/16 12/07/16 01:43 09:40 20:30 WBC RBC Hgb Plt Count INR 1.10 BUN Creatinine Creat Clearance w eGFR Ur Leukocyte Esterase 3+ H Urine RBC 11 Urine WBC 746 Urine Bacteria Many 12/08/16 12/09/16 12/09/16 05:00 05:00 05:00 WBC 10.4 H D RBC 3.48 L Hgb 10.4 L Plt Count 201 INR BUN 69 H Creatinine 2.6 H Creat Clearance w eGFR 22.97 Ur Leukocyte Esterase Urine RBC Urine WBC Urine Bacteria Assessment Gram negative sepsis urinary tract source Lung Cancer LOC secondary sepsis GI bleed Anemia Plan Can stop metronidazole now Continue Zosyn Await final c/s Valeria GRANT
[2016-12-09] MEDS: TAMSULOSIN HCL 0.4 MG CAP.ER.24H (FP) PO SCH (08:46)
[2016-12-09] MEDS ORDERED: PT OWN MED DRAWER 7, Y5N ONE ×2 (09:28→21:06)
[2016-12-09] MEDS: CARVEDILOL 25 MG TABLET (FP) PO SCH ×2 (09:32→21:50)
[2016-12-09] MEDS: hydrALAZINE HCL 25 MG TABLET (FP) PO SCH ×2 (09:32→21:50)
[2016-12-09] MEDS: FERROUS SO4 325 MG TABLET (FP) PO SCH (09:33)
[2016-12-09] MEDS: VITAMIN B COMP W-C 1 EA TABLET PO SCH (09:35)
[2016-12-09] MEDS: CALCIUM 500MG/VIT-D 200 UNITS COMBO TABLET (FP) PO SCH (09:35)
[2016-12-09] MEDS: PANTOPRAZOLE 40 MG TABLET (FP) PO SCH ×2 (09:35→21:50)
[2016-12-09] MEDS: ASCORBIC ACID 500 MG TABLET (FP) PO SCH (09:36)
[2016-12-09] MEDS ORDERED: POLYETHYLENE GLYCOL 3350 119 GM BTL PO PRN (10:00)
--- NOTE | 2016-12-09 10:39 | PN ---
Progress Note, Physician History of Present Illness: No events overnight. Awake and alert. No abdominal pain, melena, hematochezia, nausea, vomiting. - Current Medication List Current Medications: Active Medications Acetaminophen (Tylenol -) 650 mg PO Q4H PRN PRN Reason: FEVER OR PAIN Ascorbic Acid (Vitamin C -) 500 mg PO DAILY [facility] Last Admin: 12/09/16 09:36 Dose: 500 mg Atorvastatin Calcium (Lipitor -) 10 mg PO [facility] Last Admin: 12/08/16 23:12 Dose: 10 mg Benzocaine/Menthol (Cepacol Lozenge -) 1 each MM PRN PRN PRN Reason: SORE THROAT Calcium Carbonate/Cholecalciferol (Os-Rudy 500+D -) 1 tab PO DAILY [facility] Last Admin: 12/09/16 09:35 Dose: 1 tab Carvedilol (Coreg -) 25 mg PO BID [facility] Last Admin: 12/09/16 09:32 Dose: 25 mg Chlorhexidine Gluconate (Hibiclens For Decolonization -) 1 applic TP [facility] Last Admin: 12/08/16 23:12 Dose: 1 applic Donepezil HCl (Aricept -) 10 mg PO HS [facility] Last Admin: 12/08/16 23:10 Dose: 10 mg Ferrous Sulfate (Feosol -) 325 mg PO DAILY [facility] Last Admin: 12/09/16 09:33 Dose: 325 mg Hydralazine HCl (Apresoline -) 25 mg PO BID [facility] Last Admin: 12/09/16 09:32 Dose: 25 mg Piperacillin/Tazobactam/Dextrose (Zosyn 2.25gm Ivpb (Premix)) 50 mls @ 100 mls/ hr IVPB Q6H-IV [facility] Last Admin: 12/09/16 04:15 Dose: 100 mls/hr Dextrose/Sodium Chloride (D5-1/2ns -) 1,000 mls @ 42 mls/hr IV ASDIR [facility] Last Admin: 12/08/16 19:30 Dose: 42 mls/hr Isosorbide Dinitrate (Isordil -) 30 mg PO DAILY [facility] Last Admin: 12/08/16 17:14 Dose: 30 mg Levothyroxine Sodium (Synthroid -) 100 mcg PO DAILY@0700 [facility] Last Admin: 12/09/16 07:13 Dose: 100 mcg Multivit/Ca Carb/B Cmplx/FA/Prenat (Nephro-Humble -) 1 tablet PO DAILY [facility] Last Admin: 12/09/16 09:35 Dose: 1 tablet Mupirocin (Bactroban Ointment (For Decolonization) -) 1 applic NS BID [facility] Stop: 12/12/16 21:59 Last Admin: 12/08/16 23:11 Dose: 1 applic Pantoprazole Sodium (Protonix -) 40 mg PO BID [facility] Last Admin: 12/09/16 09:35 Dose: 40 mg Tamsulosin HCl (Flomax -) 0.4 mg PO DAILY@0830 [facility] Last Admin: 12/09/16 08:46 Dose: 0.4 mg - Objective Vital Signs: Vital Signs Temperature 98.2 F 12/09/16 06:00 Pulse Rate 62 12/09/16 10:28 Respiratory Rate 17 12/09/16 06:00 Blood Pressure 110/48 12/09/16 06:00 O2 Sat by Pulse Oximetry (%) 98 12/09/16 10:28 Constitutional: Yes: No Distress, Calm Eyes: Yes: Conjunctiva Clear HENT: Yes: Atraumatic Neck: Yes: Supple Cardiovascular: Yes: Regular Rate and Rhythm Respiratory: Yes: Regular Gastrointestinal: Yes: Normal Bowel Sounds, Soft. No: Distention, Melena, Rectal Bleeding, Tenderness, Vomiting Neurological: Yes: Alert, Oriented Labs: CBC, BMP 12/09/16 05:00 12/09/16 05:00 INR, PTT INR 1.10 (0.82-1.09) 12/07/16 09:40 CBCD WBC 10.4 K/mm3 (4.0-10.0) H D 12/09/16 05:00 RBC 3.48 M/mm3 (4.00-5.60) L 12/09/16 05:00 Hgb 10.4 GM/dL (11.7-16.9) L 12/09/16 05:00 Hct 30.6 % (35.4-49) L 12/09/16 05:00 MCV 88.1 fl (80-96) 12/09/16 05:00 MCHC 33.9 g/dl (32.0-35.9) 12/09/16 05:00 RDW 15.8 % (11.9-15.9) 12/09/16 05:00 Plt Count 201 K/MM3 (134-434) 12/09/16 05:00 MPV 8.0 fl (7.5-11.1) 12/09/16 05:00 CMP Sodium 144 mmol/L (136-145) 12/09/16 05:00 Potassium 3.7 mmol/L (3.5-5.1) 12/09/16 05:00 Chloride 109 mmol/L (98-107) H 12/09/16 05:00 Carbon Dioxide 25 mmol/L (21-32) D 12/09/16 05:00 Anion Gap 10 (8-16) 12/09/16 05:00 BUN 69 mg/dL (7-18) H 12/09/16 05:00 Creatinine 2.6 mg/dL (0.7-1.3) H 12/09/16 05:00 Creat Clearance w eGFR 22.97 (>60) 12/08/16 05:00 Calcium 7.5 mg/dL (8.5-10.1) L 12/09/16 05:00 Total Bilirubin 1.0 mg/dL (0.2-1.0) D 12/08/16 05:00 AST 20 U/L (15-37) D 12/08/16 05:00 ALT 16 U/L (12-78) 12/08/16 05:00 Alkaline Phosphatase 58 U/L (45-117) 12/08/16 05:00 Total Protein 6.2 g/dl (6.4-8.2) L 12/08/16 05:00 Albumin 2.6 g/dl (3.4-5.0) L 12/08/16 05:00 Problem List - Problems (1) Upper GI bleed Code(s): K92.2 - GASTROINTESTINAL HEMORRHAGE, UNSPECIFIED (2) Gastric ulcer Code(s): K25.9 - GASTRIC ULCER, UNSP ACUTE OR CHRONIC, W/O HEMOR OR PERF Assessment/Plan GI bleeding secondary acute gastric ulcers. S/p EGD with injection and clipping. PPI to po bid Advance as tolerated tomorrow OK to continue GI observation on reg floor No MRI for 6 months. AXR prior to MRI after that to assess for gastric clips. Monitor BMs (constipation) Miralax PRN.
[2016-12-09] MEDS: ISOSORBIDE DINITRATE 20 MG TABLET (FP) PO SCH (11:39)
--- NOTE | 2016-12-09 12:52 | PN ---
Physical Exam: SUBJECTIVE: Patient seen and examined in ICU. States want soda. No c/o of chest pain or abdominal pain. No melena, hematochezia, nausea, vomiting. OBJECTIVE: Vital Signs Period Temp Pulse Resp BP Sys/Ro Pulse Ox Last 24 Hr 98.2 F-98.4 F 56-78 16-19 84-112/44-55 93-100 Intake & Output 12/06/16 12/07/16 12/08/16 12/09/16 23:59 23:59 23:59 23:59 Intake Total 400 1428 536 Output Total 2150 1900 450 Balance -1750 -472 86 Weight 52.617 kg 52.617 kg 52.844 kg 53.751 kg GENERAL: thin elderly man, awake, alert, oriented to self HEART: rrr, normal S1/S2 LUNGS: CTAB, exam limited due to poor effort, no wheezes or rales appreciated ABDOMEN: Soft, ntnd, normal BS LOWER EXTREMITIES: No edema CBC, BMP 12/09/16 05:00 12/09/16 05:00 Microbiology 12/07/16 04:20 Blood - Peripheral Venous Blood Culture - Final Escherichia Coli 12/07/16 01:43 Urine - Urine - Catheterized Urine Culture - Final Escherichia Coli 12/08/16 08:26 Blood - Blood Bank Unit Blood Culture - Preliminary NO GROWTH OBTAINED AFTER 24 HOURS, INCUBATION TO CONTINUE FOR 4 DAYS. 12/07/16 04:20 Blood - Peripheral Venous Blood Culture - Preliminary NO GROWTH OBTAINED AFTER 48 HOURS, INCUBATION TO CONTINUE FOR 3 DAYS. Active Medications Acetaminophen (Tylenol -) 650 mg PO Q4H PRN PRN Reason: FEVER OR PAIN Ascorbic Acid (Vitamin C -) 500 mg PO DAILY [facility] Last Admin: 12/09/16 09:36 Dose: 500 mg Atorvastatin Calcium (Lipitor -) 10 mg PO HS [facility] Last Admin: 12/08/16 23:12 Dose: 10 mg Benzocaine/Menthol (Cepacol Lozenge -) 1 each MM PRN PRN PRN Reason: SORE THROAT Calcium Carbonate/Cholecalciferol (Os-Rudy 500+D -) 1 tab PO DAILY [facility] Last Admin: 12/09/16 09:35 Dose: 1 tab Carvedilol (Coreg -) 25 mg PO BID [facility] Last Admin: 12/09/16 09:32 Dose: 25 mg Chlorhexidine Gluconate (Hibiclens For Decolonization -) 1 applic TP HS [facility] Last Admin: 12/08/16 23:12 Dose: 1 applic Donepezil HCl (Aricept -) 10 mg PO HS [facility] Last Admin: 12/08/16 23:10 Dose: 10 mg Ferrous Sulfate (Feosol -) 325 mg PO DAILY [facility] Last Admin: 12/09/16 09:33 Dose: 325 mg Hydralazine HCl (Apresoline -) 25 mg PO BID [facility] Last Admin: 12/09/16 09:32 Dose: 25 mg Piperacillin/Tazobactam/Dextrose (Zosyn 2.25gm Ivpb (Premix)) 50 mls @ 100 mls/ hr IVPB Q6H-IV [facility] Last Admin: 12/09/16 12:13 Dose: 100 mls/hr Dextrose/Sodium Chloride (D5-1/2ns -) 1,000 mls @ 42 mls/hr IV ASDIR [facility] Last Admin: 12/08/16 19:30 Dose: 42 mls/hr Isosorbide Dinitrate (Isordil -) 30 mg PO DAILY [facility] Last Admin: 12/09/16 11:39 Dose: 30 mg Levothyroxine Sodium (Synthroid -) 100 mcg PO DAILY@0700 [facility] Last Admin: 12/09/16 07:13 Dose: 100 mcg Multivit/Ca Carb/B Cmplx/FA/Prenat (Nephro-Humble -) 1 tablet PO DAILY [facility] Last Admin: 12/09/16 09:35 Dose: 1 tablet Mupirocin (Bactroban Ointment (For Decolonization) -) 1 applic NS BID [facility] Stop: 12/12/16 21:59 Last Admin: 12/08/16 23:11 Dose: 1 applic Pantoprazole Sodium (Protonix -) 40 mg PO BID [facility] Last Admin: 12/09/16 09:35 Dose: 40 mg Polyethylene Glycol (Miralax (For Daily Use) -) 17 gm PO DAILY PRN PRN Reason: CONSTIPATION Tamsulosin HCl (Flomax -) 0.4 mg PO DAILY@0830 [facility] Last Admin: 12/09/16 08:46 Dose: 0.4 mg ASSESSMENT/PLAN: 76M with PMH of dementia, stage 3 CKD, systolic CHF (s/p AICD) who presented from [facility] on comfort care for 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 Urine and blood cultures both growing E. coli. Surgery (Dr. Del Rio ) consulted for small amount of free air seen in perirectal region along R pelvic sidewall, which could be due to rectal fistula. Patient is POD1 s/p EGD with epi injections and clipping for UGIB. #Severe sepsis (fever, tachycardia, LOC) secondary to UTI and bacteremia -ID consulted -Abx per ID: cont Zosyn (Day2), d/c Flagyl today -IVF -f/u blood and urine cultures #PUD s/p EGD POD1 with epi/clips placed -GI following -protonix 40mg PO BID -Transfusion threshold if Hgb < 7 #? free air in perirectal region -Surgery consulted -CT abd/pelvis with PO/rectal contrast pending #acute on CKD (Cr 1.8 on 10/22/16) -Monitor Cr -Renal dosing of medications #BPH (s/p TURP) -Continue Flomax #HTN - Continue Coreg, Hydralazine #Hypothyroidism - Continue Synthroid #Chronic systolic heart failure (s/p AICD) - Continue Coreg, Isordil, Hydralazine #Dementia - Continue Aricept #Hyperlipidemia -Continue Lipitor #Stage II pressure ulcer of sacrum - Local wound care #FEN -D5 1/2 NS @ 42cc/hr -lytes wnl -Soft diet, advance tomorrow as tolerated per GI #PPX -DVT - scd's -GI - on protonix #Dispo: continue ICU monitoring, palliative care consulted, helping with placement to [facility] DNR/DNI d/w Dr. Ju Kay MD PGY-1 Visit type - Emergency Visit Emergency Visit: No - New Patient This patient is new to me today: No - Critical Care Critical Care patient: Yes Total Critical Care Time (in minutes): 40 Critical Care Statement: The care of this patient involved high complexity decision making to prevent further life threatening deterioration of the patient 's condition and/or to evaluate & treat vital organ system(s) failure or risk of failure.
--- NOTE | 2016-12-09 13:00 | PN ---
Physical Exam: SUBJECTIVE: Patient seen and examined at bedside. 24 hr events -No acute events overnight -Afebrile Today -Yesterday, seen by Dr. Del Rio - possible to repeat CT with PO and rectal contrast to r/o fistula, perforation/free air -Discussed risks and benefits of procedure with daughter- she stated that she doesn't want him to go through additional testing -Resting comfortably today, on 3L NC02, sat well. Visited by daughter, denies SOB, headache, chest or abdominal pain. -Pt stable for transfer to med-surg. Order is in OBJECTIVE: Vital Signs Period Temp Pulse Resp BP Sys/Ro Pulse Ox Last 24 Hr 98.2 F-98.4 F 56-78 14-19 84-139/44-60 93-100 GENERAL: The patient is awake, alert, in no acute distress. Eating breakfast HEAD: Normal with no signs of trauma. EYES: PERRL, extraocular movements intact, sclera anicteric, conjunctiva clear. NECK: Trachea midline, supple. LUNGS: Breath sounds equal, clear to auscultation bilaterally, no wheezes, no crackles, no accessory muscle use. HEART: Regular rate and rhythm, S1, S2 without murmur, rub or gallop. ABDOMEN: Soft, nontender, nondistended, normoactive bowel sounds, no guarding, no rebound EXTREMITIES: 2+ posterior tibial pulses, warm, well-perfused, no edema. NEUROLOGICAL: difficult to assess d/t pt's dementia, but design tech appear intact, able to answer questions Laboratory Results - last 24 hr 12/09/16 12/09/16 05:00 05:00 WBC 10.4 H D RBC 3.48 L Hgb 10.4 L Hct 30.6 L MCV 88.1 MCH 29.9 MCHC 33.9 RDW 15.8 Plt Count 201 MPV 8.0 Neutrophils % 78.1 Lymphocytes % 11.2 D Monocytes % 8.2 Eosinophils % 1.9 D Basophils % 0.6 Sodium 144 Potassium 3.7 Chloride 109 H Carbon Dioxide 25 D Anion Gap 10 BUN 69 H Creatinine 2.6 H Random Glucose 120 H D Calcium 7.5 L Active Medications Generic Name Dose Route Start Last Admin Trade Name Freq PRN Reason Stop Dose Admin Acetaminophen 650 mg 12/07/16 07:44 Tylenol - PO Q4H PRN FEVER OR PAIN Ascorbic Acid 500 mg 12/07/16 10:00 12/09/16 09:36 Vitamin C - PO 500 mg DAILY [facility] Administration Atorvastatin Calcium 10 mg 12/07/16 22:00 12/08/16 23:12 Lipitor - PO 10 mg HS [facility] Administration Benzocaine/Menthol 1 each 12/07/16 08:02 Cepacol Lozenge - MM PRN PRN SORE THROAT Calcium Carbonate/Cholecalciferol 1 tab 12/07/16 10:00 12/09/16 09:35 Os-Rudy 500+D - PO 1 tab DAILY [facility] Administration Carvedilol 25 mg 12/07/16 10:00 12/09/16 09:32 Coreg - PO 25 mg BID [facility] Administration Chlorhexidine Gluconate 1 applic 12/07/16 22:00 12/08/16 23:12 Hibiclens For Decolonization - TP 1 applic HS [facility] Administration Donepezil HCl 10 mg 12/07/16 12:11 12/08/16 23:10 Aricept - PO 10 mg HS [facility] Administration Ferrous Sulfate 325 mg 12/07/16 10:00 12/09/16 09:33 Feosol - PO 325 mg DAILY [facility] Administration Hydralazine HCl 25 mg 12/07/16 10:00 12/09/16 09:32 Apresoline - PO 25 mg BID [facility] Administration Piperacillin/Tazobactam/Dextrose 50 mls @ 100 mls/hr 12/08/16 11:30 12/09/16 12 :13 Zosyn 2.25gm Ivpb (Premix) IVPB 100 mls/hr Q6H-IV [facility] Administration Dextrose/Sodium Chloride 1,000 mls @ 42 mls/hr 12/08/16 19:29 12/08/16 19:30 D5-1/2ns - IV 42 mls/hr ASDIR [facility] Administration Isosorbide Dinitrate 30 mg 12/07/16 10:00 12/09/16 11:39 Isordil - PO 30 mg DAILY [facility] Administration Levothyroxine Sodium 100 mcg 12/07/16 14:00 12/09/16 07:13 Synthroid - PO 100 mcg DAILY@0700 [facility] Administration Multivit/Ca Carb/B Cmplx/FA/Prenat 1 tablet 12/07/16 10:00 10/26/17 09:35 Nephro-Humble - PO 1 tablet DAILY [facility] Administration Mupirocin 1 applic 12/07/16 22:00 12/08/16 23:11 Bactroban Ointment (For Decolonization) - NS 12/12/16 21:59 1 applic BID [facility] Administration Pantoprazole Sodium 40 mg 12/08/16 22:00 12/09/16 09:35 Protonix - PO 40 mg BID [facility] Administration Polyethylene Glycol 17 gm 12/09/16 10:00 Miralax (For Daily Use) - PO DAILY PRN [facility] Tamsulosin HCl 0.4 mg 12/07/16 10:00 12/09/16 08:46 Flomax - PO 0.4 mg DAILY@0830 [facility] Administration ASSESSMENT/PLAN: 76 M from [facility] with pmhx of dementia, CHF(s/p AICD), HTN, HLD, CAD, CKD and lung mass with SVC syndrome presents with one day history of fever. Fever noted at [facility] to be 103 unresponsive to rectal Tylenol and here in ER 102.8. Based off [facility] assesment, patient is more confused than normal and lethargic. In ER patient found to have melena, and experienced a Hb drop from 8.6 to 6.1. Patient got one unit of blood and was taken for an upper EGD ( reports in chart: 2 linear, gastric ulcers were found in the gastric body). Injected with epi and clipped with resolution clips. Patient not actively bleeding now, on protonix. Received second blood unit of PRBCs. Admitted to ICU for management after GI bleed. #GI s/p bleeding gastric ulcers -Protonix 40mg BID -tolerating soft diet -H&H currently stable -Transfuse if Hb <7 r/o free air -CT with PO and rectal contrast- discussed risks and benefits with daughter, would not like to undergo additional testing #ID severe sepsis secondary to UTI -afebrile, white count has improved (10.4 currently, down from 16.3) -blood cx: lactose fermenting gram - bacilli -Flagyl, zosyn- Day 2(changed from ceftriaxone) - flagyl to be d/c today as per ID #CARDIO HTN -Continue Coreg 25mg PO BID -Hydralazine 25 mg PO BID HLD -continue lipitor 10mg PO HS #NEURO -AAOx1 (self) -continue Aricept #RENAL LOC superimposed on CKD 2/2 sepsis -D51/2 NS -follow creatinine #ENDOCRINE Hypothyroidism -Continue synthroid 100 mcg PO daily #F/E/N -D51/2NS -will monitor electrolytes -soft diet, can be advanced tomorrow as per GI Disposition Stable for transfer out of ICU to [facility]-surg Visit type - Emergency Visit Emergency Visit: No - New Patient This patient is new to me today: No - Critical Care Critical Care patient: Yes Total Critical Care Time (in minutes): 40 Critical Care Statement: The care of this patient involved high complexity decision making to prevent further life threatening deterioration of the patient 's condition and/or to evaluate & treat vital organ system(s) failure or risk of failure.
[2016-12-09] MEDS: MUPIROCIN 2% TOPICAL OINTMENT FOR DECOLONIZATION NS SCH (13:22)
--- NOTE | 2016-12-09 14:07 | PN ---
Teaching Attending Note Name of Resident: Iman Johnston ATTENDING PHYSICIAN STATEMENT I saw and evaluated the patient. I reviewed the resident's note and discussed the case with the resident. I agree with the resident's findings and plan as documented. SUBJECTIVE: Patient seen and examined in the ICU. Awake and alert. Denies CP, SOB, or abdominal pain. No occult bleeding noted overnight. Intake & Output 12/06/16 12/07/16 12/08/16 12/09/16 23:59 23:59 23:59 23:59 Intake Total 400 1428 536 Output Total 2150 1900 450 Balance -1750 -472 86 Weight 116 lb 116 lb 0.01 oz 116 lb 8 oz 118 lb 8 oz Last Vital Signs Temp Pulse Resp BP Pulse Ox 98.4 F 65 18 139/60 98 12/09/16 10:00 12/09/16 12:00 12/09/16 12:00 12/09/16 12:00 12/09/16 10:28 Active Medications Acetaminophen (Tylenol -) 650 mg PO Q4H PRN PRN Reason: FEVER OR PAIN Ascorbic Acid (Vitamin C -) 500 mg PO DAILY [facility] Last Admin: 12/09/16 09:36 Dose: 500 mg Atorvastatin Calcium (Lipitor -) 10 mg PO HS [facility] Last Admin: 12/08/16 23:12 Dose: 10 mg Benzocaine/Menthol (Cepacol Lozenge -) 1 each MM PRN PRN PRN Reason: SORE THROAT Calcium Carbonate/Cholecalciferol (Os-Rudy 500+D -) 1 tab PO DAILY [facility] Last Admin: 12/09/16 09:35 Dose: 1 tab Carvedilol (Coreg -) 25 mg PO BID [facility] Last Admin: 12/09/16 09:32 Dose: 25 mg Chlorhexidine Gluconate (Hibiclens For Decolonization -) 1 applic TP HS [facility] Last Admin: 12/08/16 23:12 Dose: 1 applic Donepezil HCl (Aricept -) 10 mg PO HS [facility] Last Admin: 12/08/16 23:10 Dose: 10 mg Ferrous Sulfate (Feosol -) 325 mg PO DAILY [facility] Last Admin: 12/09/16 09:33 Dose: 325 mg Hydralazine HCl (Apresoline -) 25 mg PO BID [facility] Last Admin: 12/09/16 09:32 Dose: 25 mg Piperacillin/Tazobactam/Dextrose (Zosyn 2.25gm Ivpb (Premix)) 50 mls @ 100 mls/ hr IVPB Q6H-IV [facility] Last Admin: 12/09/16 12:13 Dose: 100 mls/hr Dextrose/Sodium Chloride (D5-1/2ns -) 1,000 mls @ 42 mls/hr IV ASDIR [facility] Last Admin: 12/08/16 19:30 Dose: 42 mls/hr Isosorbide Dinitrate (Isordil -) 30 mg PO DAILY [facility] Last Admin: 12/09/16 11:39 Dose: 30 mg Levothyroxine Sodium (Synthroid -) 100 mcg PO DAILY@0700 [facility] Last Admin: 12/09/16 07:13 Dose: 100 mcg Multivit/Ca Carb/B Cmplx/FA/Prenat (Nephro-Humble -) 1 tablet PO DAILY [facility] Last Admin: 12/09/16 09:35 Dose: 1 tablet Mupirocin (Bactroban Ointment (For Decolonization) -) 1 applic NS BID [facility] Stop: 12/12/16 21:59 Last Admin: 12/09/16 13:22 Dose: 1 applic Pantoprazole Sodium (Protonix -) 40 mg PO BID [facility] Last Admin: 12/09/16 09:35 Dose: 40 mg Polyethylene Glycol (Miralax (For Daily Use) -) 17 gm PO DAILY PRN PRN Reason: CONSTIPATION Tamsulosin HCl (Flomax -) 0.4 mg PO DAILY@0830 [facility] Last Admin: 12/09/16 08:46 Dose: 0.4 mg Constitutional: Yes: Thin, No Distress Eyes: Yes: WNL HENT: Yes: WNL Neck: Yes: WNL Cardiovascular: Yes: Regular Rate and Rhythm Respiratory: Yes: Few basilar rhonchi Gastrointestinal: Yes: (+) Bowel Sounds, Soft, Non-tender, No guarding or rigidity Labs: Laboratory Results - last 24 hr 12/09/16 12/09/16 05:00 05:00 WBC 10.4 H D RBC 3.48 L Hgb 10.4 L Hct 30.6 L MCV 88.1 MCH 29.9 MCHC 33.9 RDW 15.8 Plt Count 201 MPV 8.0 Neutrophils % 78.1 Lymphocytes % 11.2 D Monocytes % 8.2 Eosinophils % 1.9 D Basophils % 0.6 Sodium 144 Potassium 3.7 Chloride 109 H Carbon Dioxide 25 D Anion Gap 10 BUN 69 H Creatinine 2.6 H Random Glucose 120 H D Calcium 7.5 L Assessment/Plan GI bleed due to Gastric Ulcers : lesions were injected and clipped SVC syndrome by history (?) lung CA LOC Dementia Systolic heart failure AICD placement Normal transfusion thresholds O2 as needed PO per GI Maintain IV access PPI Will need to further investigate questionable history of lung CA : no imaging has been performed here at [facility] Prather Critical care time spent in reviewing chart, evaluating patient and formulating plan - 36 minutes.
--- NOTE | 2016-12-09 14:52 | PN ---
Teaching Attending Note Name of Resident: Faye Kay ATTENDING PHYSICIAN STATEMENT I saw and evaluated the patient. I reviewed the resident's note and discussed the case with the resident. I agree with the resident's findings and plan as documented. SUBJECTIVE: Patient seen and examined, Better today, no dyspnea or pain, wants to eat. No other complaints. OBJECTIVE: Vital Signs Period Temp Pulse Resp BP Sys/Ro Pulse Ox Last 24 Hr 98.2 F-98.4 F 56-78 14-19 84-139/44-60 93-100 Intake & Output 12/06/16 12/07/16 12/08/16 12/09/16 23:59 23:59 23:59 23:59 Intake Total 400 1428 536 Output Total 2150 1900 450 Balance -1750 -472 86 Weight 116 lb 116 lb 0.01 oz 116 lb 8 oz 118 lb 8 oz General in no acute distress CVS -S1S2 regular Chest - no rales or wheezing, positive air entry bilaterally Abdomen soft, NT, ND, positive bowel sounds extr - no edema Neuro, AA, oriented to self, place Current Medications Acetaminophen (Tylenol -) 650 mg PO Q4H PRN PRN Reason: FEVER OR PAIN Ascorbic Acid (Vitamin C -) 500 mg PO DAILY [facility] Last Admin: 12/09/16 09:36 Dose: 500 mg Atorvastatin Calcium (Lipitor -) 10 mg PO [facility] Last Admin: 12/08/16 23:12 Dose: 10 mg Benzocaine/Menthol (Cepacol Lozenge -) 1 each MM PRN PRN PRN Reason: SORE THROAT Calcium Carbonate/Cholecalciferol (Os-Rudy 500+D -) 1 tab PO DAILY [facility] Last Admin: 12/09/16 09:35 Dose: 1 tab Carvedilol (Coreg -) 25 mg PO BID [facility] Last Admin: 12/09/16 09:32 Dose: 25 mg Chlorhexidine Gluconate (Hibiclens For Decolonization -) 1 applic TP [facility] Last Admin: 12/08/16 23:12 Dose: 1 applic Donepezil HCl (Aricept -) 10 mg PO HS [facility] Last Admin: 12/08/16 23:10 Dose: 10 mg Ferrous Sulfate (Feosol -) 325 mg PO DAILY [facility] Last Admin: 12/09/16 09:33 Dose: 325 mg Hydralazine HCl (Apresoline -) 25 mg PO BID [facility] Last Admin: 12/09/16 09:32 Dose: 25 mg Piperacillin/Tazobactam/Dextrose (Zosyn 2.25gm Ivpb (Premix)) 50 mls @ 100 mls/ hr IVPB Q6H-IV [facility] Last Admin: 12/09/16 12:13 Dose: 100 mls/hr Dextrose/Sodium Chloride (D5-1/2ns -) 1,000 mls @ 42 mls/hr IV ASDIR [facility] Last Admin: 12/08/16 19:30 Dose: 42 mls/hr Isosorbide Dinitrate (Isordil -) 30 mg PO DAILY [facility] Last Admin: 12/09/16 11:39 Dose: 30 mg Levothyroxine Sodium (Synthroid -) 100 mcg PO DAILY@0700 [facility] Last Admin: 12/09/16 07:13 Dose: 100 mcg Multivit/Ca Carb/B Cmplx/FA/Prenat (Nephro-Humble -) 1 tablet PO DAILY [facility] Last Admin: 12/09/16 09:35 Dose: 1 tablet Mupirocin (Bactroban Ointment (For Decolonization) -) 1 applic NS BID [facility] Stop: 12/12/16 21:59 Last Admin: 12/09/16 13:22 Dose: 1 applic Pantoprazole Sodium (Protonix -) 40 mg PO BID [facility] Last Admin: 12/09/16 09:35 Dose: 40 mg Polyethylene Glycol (Miralax (For Daily Use) -) 17 gm PO DAILY PRN PRN Reason: CONSTIPATION Tamsulosin HCl (Flomax -) 0.4 mg PO DAILY@0830 [facility] Last Admin: 12/09/16 08:46 Dose: 0.4 mg Laboratory Results - last 24 hr 12/09/16 12/09/16 05:00 05:00 WBC 10.4 H D RBC 3.48 L Hgb 10.4 L Hct 30.6 L MCV 88.1 MCH 29.9 MCHC 33.9 RDW 15.8 Plt Count 201 MPV 8.0 Neutrophils % 78.1 Lymphocytes % 11.2 D Monocytes % 8.2 Eosinophils % 1.9 D Basophils % 0.6 Sodium 144 Potassium 3.7 Chloride 109 H Carbon Dioxide 25 D Anion Gap 10 BUN 69 H Creatinine 2.6 H Random Glucose 120 H D Calcium 7.5 L ASSESSMENT AND PLAN: -Gram neg sepsis likely secondary to UTI -Acute blood loss anemia with Peptic ulcer disease -?free air in abdomen, exam benign with improved infection markers, Blood cultures consistent with urinary source -Lung Ca/SVC syndrome -CHF/s/p AICD/HTN -CKD Plan: Zosyn/flagyl, antibiotics pending culture results, based on goals of care. Surgery input noted, family declined CT contrast. H/h overall stable, no acute events of bleed, continue PPI. Plan for inptient hospice, Dispo planning pending bed availability.
--- NOTE | 2016-12-09 15:45 | CONSULT ---
Consult Consult Specialty:: Surgery Reason for Consultation:: Perirectal air - History of Present Illness History of Present Illness: 76 male in ICU On workup found to have small amount of perirectal air on CT A/P No pain On diet Eating regular diet - History Source History Provided By: Patient, Family Member - Past Medical History Cardio/Vascular: Yes: HTN, Hyperlipdemia Renal/: Yes: BPH Endocrine: Yes: Hypothyroidism - Past Surgical History Past Surgical History: Yes: Permanent Pacemaker - Alcohol/Substance Use Hx Alcohol Use: No - Smoking History Smoking history: Unknown if ever smoked Have you smoked in the past 12 months: No - Social History Usual Living Arrangement: Alone ADL: Family Assistance Home Medications - Allergies Allergies/Adverse Reactions: Allergies Allergy/AdvReac Type Severity Reaction Status Date / Time No Known Allergies Allergy Verified 12/06/16 23:58 - Home Medications Home Medications: Ambulatory Orders Ascorbic Acid [Vitamin C] 500 mg PO DAILY 11/17/16 Atorvastatin Ca [Lipitor] 10 mg PO HS 11/17/16 Benzocaine/Menthol [Cepacol Sore Throat Lozenge] 1 each MM PRN PRN 11/17/16 Calcium Carbonate/Vitamin D3 [Oyster Shell 500-Vit D3 200 Tb] 1 each PO DAILY Carvedilol [Coreg -] 25 mg PO BID 11/17/16 Docusate Sodium [Colace -] 200 mg PO DAILY 11/17/16 Donepezil HCl [Aricept -] 10 mg PO DAILY 11/17/16 Ferrous Sulfate 325 mg PO DAILY 11/17/16 Heparin - 5,000 unit SQ BID 11/17/16 Hydralazine HCl [Apresoline -] 25 mg PO BID 11/17/16 Isosorbide Dinitrate [Isordil -] 30 mg PO DAILY 11/17/16 Levothyroxine [Synthroid -] 125 mcg PO DAILY 11/17/16 Polyethylene Glycol 3350 [Gavilax] 17 gm PO BID 11/17/16 Tamsulosin HCl 0.4 mg PO DAILY 11/17/16 Vitamin B Comp W-C [Nephro-Humble -] 1 tablet PO DAILY 11/17/16 Aspirin [Children's Aspirin] 81 mg PO DAILY 12/07/16 Sennosides [Senna] 2 tab PO DAILY 12/07/16 Family Disease History - Family Disease History Family History: Unremarkable Review of Systems - Review of Systems Constitutional: denies: Fever Neck: reports: No Symptoms Cardiovascular: denies: Chest Pain Gastrointestinal: denies: Abdominal Pain, Diarrhea, Nausea, Vomiting Neurological: denies: Change in LOC Pain Intensity: 1 Physical Exam Vital Signs: Vital Signs Temperature 98.4 F 12/09/16 10:00 Pulse Rate 65 12/09/16 12:00 Respiratory Rate 18 12/09/16 12:00 Blood Pressure 139/60 12/09/16 12:00 O2 Sat by Pulse Oximetry (%) 98 12/09/16 10:28 Constitutional: Yes: Calm Neck: Yes: Supple Cardiovascular: Yes: WNL Respiratory: Yes: Regular Gastrointestinal: Yes: Soft. 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
[2016-12-09] MEDS: DEXTROSE 5%-0.45% SALINE 1,000 ML IV SCH (19:30)
[2016-12-09] MEDS: ATORVASTATIN CA 10 MG TABLET (FP) PO SCH (21:50)
[2016-12-09] MEDS: DONEPEZIL HCL 10 MG TABLET (FP) PO SCH (21:50)
[2016-12-10] MEDS ORDERED: POLYETHYLENE GLYCOL 3350 119 GM BTL PO PRN (00:13)
[2016-12-10] MEDS ORDERED: ACETAMINOPHEN 325 MG TABLET (FP) PO PRN (00:13)
[2016-12-10] MEDS ORDERED: BENZOCAINE/MENTH/CETYLPYRD CL 1 EACH LOZENGE MM PRN (00:13)
[2016-12-10] MEDS: DEXTROSE 5%-0.45% SALINE 1,000 ML IV SCH ×2 (00:35→19:00)
[2016-12-10] MEDS ORDERED: PIPERACILLIN/TAZOB 2.25 GM 50 ML IVPB SCH (03:00)
[2016-12-10] MEDS: LEVOTHYROXINE NA 100 MCG TABLET (FP) PO SCH (06:04)
[2016-12-10] MEDS: CARVEDILOL 25 MG TABLET (FP) PO SCH ×2 (09:44→21:04)
[2016-12-10] MEDS: TAMSULOSIN HCL 0.4 MG CAP.ER.24H (FP) PO SCH (09:44)
[2016-12-10] MEDS: hydrALAZINE HCL 25 MG TABLET (FP) PO SCH ×2 (09:44→21:03)
[2016-12-10] MEDS: CALCIUM 500MG/VIT-D 200 UNITS COMBO TABLET (FP) PO SCH (09:45)
[2016-12-10] MEDS: CEFTRIAXONE 1 G/50 ML PREMIX 50 ML IVPB SCH (09:45)
[2016-12-10] MEDS: ASCORBIC ACID 500 MG TABLET (FP) PO SCH (09:45)
[2016-12-10] MEDS: VITAMIN B COMP W-C 1 EA TABLET PO SCH (09:45)
[2016-12-10] MEDS: PANTOPRAZOLE 40 MG TABLET (FP) PO SCH ×2 (09:45→21:03)
[2016-12-10] MEDS: FERROUS SO4 325 MG TABLET (FP) PO SCH (09:45)
[2016-12-10] MEDS: ISOSORBIDE DINITRATE 20 MG TABLET (FP) PO SCH (09:45)
[2016-12-10] MEDS ORDERED: MUPIROCIN 2% TOPICAL OINTMENT FOR DECOLONIZATION NS SCH (10:00)
--- NOTE | 2016-12-10 10:36 | PN ---
Progress Note, Physician History of Present Illness: No events overnight. Awake and alert. No abdominal pain, melena, hematochezia, nausea, vomiting. - Current Medication List Current Medications: Active Medications Acetaminophen (Tylenol -) 650 mg PO Q4H PRN PRN Reason: FEVER OR PAIN Ascorbic Acid (Vitamin C -) 500 mg PO DAILY [facility] Last Admin: 12/10/16 09:45 Dose: 500 mg Atorvastatin Calcium (Lipitor -) 10 mg PO [facility] Benzocaine/Menthol (Cepacol Lozenge -) 1 each MM PRN PRN PRN Reason: SORE THROAT Calcium Carbonate/Cholecalciferol (Os-Rudy 500+D -) 1 tab PO DAILY [facility] Last Admin: 12/10/16 09:45 Dose: 1 tab Carvedilol (Coreg -) 25 mg PO BID [facility] Last Admin: 12/10/16 09:44 Dose: 25 mg Donepezil HCl (Aricept -) 10 mg PO [facility] Ferrous Sulfate (Feosol -) 325 mg PO DAILY [facility] Last Admin: 12/10/16 09:45 Dose: 325 mg Hydralazine HCl (Apresoline -) 25 mg PO BID [facility] Last Admin: 12/10/16 09:44 Dose: 25 mg Dextrose/Sodium Chloride (D5-1/2ns -) 1,000 mls @ 42 mls/hr IV ASDIR [facility] Last Admin: 12/10/16 00:35 Dose: Not Given CEFTRIAXONE 1 G/50 ML PREMIX (Ceftriaxone 1 Gm-D5w Bag) 50 mls @ 100 mls/hr IVPB DAILY [facility] Last Admin: 12/10/16 09:45 Dose: 100 mls/hr Isosorbide Dinitrate (Isordil -) 30 mg PO DAILY [facility] Last Admin: 12/10/16 09:45 Dose: 30 mg Levothyroxine Sodium (Synthroid -) 100 mcg PO DAILY@0700 [facility] Last Admin: 12/10/16 06:04 Dose: 100 mcg Multivit/Ca Carb/B Cmplx/FA/Prenat (Nephro-Humble -) 1 tablet PO DAILY [facility] Last Admin: 12/10/16 09:45 Dose: 1 tablet Pantoprazole Sodium (Protonix -) 40 mg PO BID [facility] Last Admin: 12/10/16 09:45 Dose: 40 mg Polyethylene Glycol (Miralax (For Daily Use) -) 17 gm PO DAILY PRN PRN Reason: CONSTIPATION Tamsulosin HCl (Flomax -) 0.4 mg PO DAILY@0830 [facility] Last Admin: 12/10/16 09:44 Dose: 0.4 mg - Objective Vital Signs: Vital Signs Temperature 97.6 F 12/10/16 06:00 Pulse Rate 61 12/10/16 06:00 Respiratory Rate 20 12/10/16 06:00 Blood Pressure 144/64 12/10/16 06:00 O2 Sat by Pulse Oximetry (%) 98 12/09/16 21:00 Constitutional: Yes: No Distress, Calm Eyes: Yes: Conjunctiva Clear HENT: Yes: Atraumatic Neck: Yes: Supple Cardiovascular: Yes: Regular Rate and Rhythm Respiratory: Yes: Regular Gastrointestinal: Yes: Normal Bowel Sounds, Soft. No: Distention, Hematemesis, Melena, Pulsatile Mass, Tenderness, Vomiting Labs: CBC, BMP 12/09/16 05:00 12/09/16 05:00 INR, PTT INR 1.10 (0.82-1.09) 12/07/16 09:40 CBCD WBC 10.4 K/mm3 (4.0-10.0) H D 12/09/16 05:00 RBC 3.48 M/mm3 (4.00-5.60) L 12/09/16 05:00 Hgb 10.4 GM/dL (11.7-16.9) L 12/09/16 05:00 Hct 30.6 % (35.4-49) L 12/09/16 05:00 MCV 88.1 fl (80-96) 12/09/16 05:00 MCHC 33.9 g/dl (32.0-35.9) 12/09/16 05:00 RDW 15.8 % (11.9-15.9) 12/09/16 05:00 Plt Count 201 K/MM3 (134-434) 12/09/16 05:00 MPV 8.0 fl (7.5-11.1) 12/09/16 05:00 CMP Sodium 144 mmol/L (136-145) 12/09/16 05:00 Potassium 3.7 mmol/L (3.5-5.1) 12/09/16 05:00 Chloride 109 mmol/L (98-107) H 12/09/16 05:00 Carbon Dioxide 25 mmol/L (21-32) D 12/09/16 05:00 Anion Gap 10 (8-16) 12/09/16 05:00 BUN 69 mg/dL (7-18) H 12/09/16 05:00 Creatinine 2.6 mg/dL (0.7-1.3) H 12/09/16 05:00 Creat Clearance w eGFR 22.97 (>60) 12/08/16 05:00 Calcium 7.5 mg/dL (8.5-10.1) L 12/09/16 05:00 Total Bilirubin 1.0 mg/dL (0.2-1.0) D 12/08/16 05:00 AST 20 U/L (15-37) D 12/08/16 05:00 ALT 16 U/L (12-78) 12/08/16 05:00 Alkaline Phosphatase 58 U/L (45-117) 12/08/16 05:00 Total Protein 6.2 g/dl (6.4-8.2) L 12/08/16 05:00 Albumin 2.6 g/dl (3.4-5.0) L 12/08/16 05:00 Problem List - Problems (1) Upper GI bleed Code(s): K92.2 - GASTROINTESTINAL HEMORRHAGE, UNSPECIFIED (2) Gastric ulcer Code(s): K25.9 - GASTRIC ULCER, UNSP ACUTE OR CHRONIC, W/O HEMOR OR PERF Assessment/Plan GI bleeding secondary acute gastric ulcers. S/p EGD with injection and clipping. HGB is lower today however no signs of ongoing GI bleedingo rustam the last 3 days. PPI po bid Diet as tolerated No MRI for 6 months. AXR prior to MRI after that to assess for gastric clips. Monitor BMs (constipation) Miralax PRN.
--- NOTE | 2016-12-10 11:18 | PN ---
Progress Note (short form) - Note Progress Note: resting comfortably no complaints Vital Signs Period Temp Pulse Resp BP Sys/Ro Pulse Ox Last 24 Hr 97.6 F-98.4 F 61-80 18-20 118-144/54-70 97-98 cor-rrr lungs clear abd soft,nt ext no edema +rivas CBC, BMP 12/09/16 05:00 12/09/16 05:00 Microbiology 12/08/16 08:26 Blood - Blood Bank Unit Blood Culture - Preliminary NO GROWTH OBTAINED AFTER 48 HOURS, INCUBATION TO CONTINUE FOR 3 DAYS. 12/07/16 04:20 Blood - Peripheral Venous Blood Culture - Preliminary NO GROWTH OBTAINED AFTER 72 HOURS, INCUBATION TO CONTINUE FOR 2 DAYS. 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 Problem List - Problems (1) Gram negative septicemia Code(s): A41.50 - GRAM-NEGATIVE SEPSIS, UNSPECIFIED (2) UTI (urinary tract infection) Code(s): N39.0 - URINARY TRACT INFECTION, SITE NOT SPECIFIED Qualifiers: Urinary tract infection type: urethritis Qualified Code(s): N34.2 - Other urethritis; N34.2 - Other urethritis (3) Upper GI bleed Code(s): K92.2 - GASTROINTESTINAL HEMORRHAGE, UNSPECIFIED (4) Acute renal failure Code(s): N17.9 - ACUTE KIDNEY FAILURE, UNSPECIFIED Qualifiers: Acute renal failure type: unspecified Qualified Code(s): N17.9 - Acute kidney failure, unspecified; N17.9 - Acute kidney failure, unspecified; N17.9 - Acute kidney failure, unspecified
--- NOTE | 2016-12-10 15:15 | PN ---
Teaching Attending Note Name of Resident: Faye Kay ATTENDING PHYSICIAN STATEMENT I saw and evaluated the patient. I reviewed the resident's note and discussed the case with the resident. I agree with the resident's findings and plan as documented. SUBJECTIVE: Patient seen and examined. No complaints, poor appetite. OBJECTIVE: Vital Signs Period Temp Pulse Resp BP Sys/Ro Pulse Ox Last 24 Hr 97.6 F-98.4 F 61-80 18-20 118-153/54-70 97-98 Intake & Output 12/07/16 12/08/16 12/09/16 12/10/16 23:59 23:59 23:59 23:59 Intake Total 400 1428 1322 1083 Output Total 2150 1900 850 500 Balance -1750 -472 472 583 Weight 116 lb 0.01 oz 116 lb 8 oz 118 lb 8 oz 118 lb General: sitting in bed in no acute distress CVS -S1S2 regular Chest CTAB, no rales or wheezing, decreased effort Abdomen soft, NT Extremities no edema Current Medications Acetaminophen (Tylenol -) 650 mg PO Q4H PRN PRN Reason: FEVER OR PAIN Ascorbic Acid (Vitamin C -) 500 mg PO DAILY [facility] Last Admin: 12/10/16 09:45 Dose: 500 mg Atorvastatin Calcium (Lipitor -) 10 mg PO HS [facility] Benzocaine/Menthol (Cepacol Lozenge -) 1 each MM PRN PRN PRN Reason: SORE THROAT Calcium Carbonate/Cholecalciferol (Os-Rudy 500+D -) 1 tab PO DAILY [facility] Last Admin: 12/10/16 09:45 Dose: 1 tab Carvedilol (Coreg -) 25 mg PO BID [facility] Last Admin: 12/10/16 09:44 Dose: 25 mg Donepezil HCl (Aricept -) 10 mg PO HS [facility] Ferrous Sulfate (Feosol -) 325 mg PO DAILY [facility] Last Admin: 12/10/16 09:45 Dose: 325 mg Hydralazine HCl (Apresoline -) 25 mg PO BID [facility] Last Admin: 12/10/16 09:44 Dose: 25 mg Dextrose/Sodium Chloride (D5-1/2ns -) 1,000 mls @ 42 mls/hr IV ASDIR [facility] Last Admin: 12/10/16 00:35 Dose: Not Given CEFTRIAXONE 1 G/50 ML PREMIX (Ceftriaxone 1 Gm-D5w Bag) 50 mls @ 100 mls/hr IVPB DAILY [facility] Last Admin: 12/10/16 09:45 Dose: 100 mls/hr Isosorbide Dinitrate (Isordil -) 30 mg PO DAILY [facility] Last Admin: 12/10/16 09:45 Dose: 30 mg Levothyroxine Sodium (Synthroid -) 100 mcg PO DAILY@0700 [facility] Last Admin: 12/10/16 06:04 Dose: 100 mcg Multivit/Ca Carb/B Cmplx/FA/Prenat (Nephro-Humble -) 1 tablet PO DAILY [facility] Last Admin: 12/10/16 09:45 Dose: 1 tablet Pantoprazole Sodium (Protonix -) 40 mg PO BID [facility] Last Admin: 12/10/16 09:45 Dose: 40 mg Polyethylene Glycol (Miralax (For Daily Use) -) 17 gm PO DAILY PRN PRN Reason: CONSTIPATION Tamsulosin HCl (Flomax -) 0.4 mg PO DAILY@0830 [facility] Last Admin: 12/10/16 09:44 Dose: 0.4 mg Laboratory Results - last 24 hr 12/07/16 07:32 Blood Type O POSITIVE Antibody Screen Negative Crossmatch See Detail ASSESSMENT AND PLAN: -Gram neg sepsis likely secondary to E. coli UTI -Acute blood loss anemia with Peptic ulcer disease -?free air in abdomen, exam benign with improved infection markers, Blood cultures consistent with urinary source -Lung Ca/SVC syndrome -CHF/s/p AICD/HTN -CKD Plan: Change zosyn to ceftriaxone, antibiotic day 4. Surgery input noted, family declined CT contrast. H/h overall stable, no acute events of bleed, continue PPI. Plan for inptient hospice, Dispo planning pending bed availability.
--- NOTE | 2016-12-10 16:04 | PN ---
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
--- NOTE | 2016-12-10 17:14 | PN ---
Physical Exam: SUBJECTIVE: Patient seen and examined. No c/o of chest pain or abdominal pain. No fever, chills, n/v. OBJECTIVE: Vital Signs Period Temp Pulse Resp BP Sys/Ro Pulse Ox Last 24 Hr 97.6 F-98.4 F 61-80 20-20 130-153/64-70 97-98 GENERAL: thin elderly man, awake, lying comfortably in bed HEART: rrr, normal S1/S2 LUNGS: CTAB, exam limited due to poor effort, no wheezes or rales appreciated ABDOMEN: Soft, ntnd, normal BS LOWER EXTREMITIES: No edema Microbiology 12/08/16 08:26 Blood - Blood Bank Unit Blood Culture - Preliminary NO GROWTH OBTAINED AFTER 48 HOURS, INCUBATION TO CONTINUE FOR 3 DAYS. 12/07/16 04:20 Blood - Peripheral Venous Blood Culture - Preliminary NO GROWTH OBTAINED AFTER 72 HOURS, INCUBATION TO CONTINUE FOR 2 DAYS. 12/07/16 04:20 Blood - Peripheral Venous Blood Culture - Final Escherichia Coli 12/07/16 01:43 Urine - Urine - Catheterized Urine Culture - Final Escherichia Coli Active Medications Acetaminophen (Tylenol -) 650 mg PO Q4H PRN PRN Reason: FEVER OR PAIN Ascorbic Acid (Vitamin C -) 500 mg PO DAILY [facility] Last Admin: 12/10/16 09:45 Dose: 500 mg Atorvastatin Calcium (Lipitor -) 10 mg PO HS [facility] Benzocaine/Menthol (Cepacol Lozenge -) 1 each MM PRN PRN PRN Reason: SORE THROAT Calcium Carbonate/Cholecalciferol (Os-Rudy 500+D -) 1 tab PO DAILY [facility] Last Admin: 12/10/16 09:45 Dose: 1 tab Carvedilol (Coreg -) 25 mg PO BID [facility] Last Admin: 12/10/16 09:44 Dose: 25 mg Donepezil HCl (Aricept -) 10 mg PO HS [facility] Ferrous Sulfate (Feosol -) 325 mg PO DAILY [facility] Last Admin: 12/10/16 09:45 Dose: 325 mg Hydralazine HCl (Apresoline -) 25 mg PO BID [facility] Last Admin: 12/10/16 09:44 Dose: 25 mg Dextrose/Sodium Chloride (D5-1/2ns -) 1,000 mls @ 42 mls/hr IV ASDIR [facility] Last Admin: 12/10/16 00:35 Dose: Not Given CEFTRIAXONE 1 G/50 ML PREMIX (Ceftriaxone 1 Gm-D5w Bag) 50 mls @ 100 mls/hr IVPB DAILY [facility] Last Admin: 12/10/16 09:45 Dose: 100 mls/hr Isosorbide Dinitrate (Isordil -) 30 mg PO DAILY [facility] Last Admin: 12/10/16 09:45 Dose: 30 mg Levothyroxine Sodium (Synthroid -) 100 mcg PO DAILY@0700 [facility] Last Admin: 12/10/16 06:04 Dose: 100 mcg Multivit/Ca Carb/B Cmplx/FA/Prenat (Nephro-Uhmble -) 1 tablet PO DAILY [facility] Last Admin: 12/10/16 09:45 Dose: 1 tablet Pantoprazole Sodium (Protonix -) 40 mg PO BID [facility] Last Admin: 12/10/16 09:45 Dose: 40 mg Polyethylene Glycol (Miralax (For Daily Use) -) 17 gm PO DAILY PRN PRN Reason: CONSTIPATION Tamsulosin HCl (Flomax -) 0.4 mg PO DAILY@0830 [facility] Last Admin: 12/10/16 09:44 Dose: 0.4 mg ASSESSMENT/PLAN: 76M with PMH of dementia, stage 3 CKD, systolic CHF (s/p AICD) who presented from [facility] on comfort care for 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 Patient on day 4 of antibiotics. Repeat blood cultures [id number] and patient has been afebrile x 48h. Surgery (Dr. Del Rio) consulted for small amount of free air seen in perirectal region along R pelvic sidewall, which could be due to rectal fistula. Family declined further work-up. Patient is POD3 s/p EGD with epi injections and clipping for UGIB. #Severe sepsis (fever, tachycardia, LOC) secondary to UTI and bacteremia -ID consulted -Abx per ID: switch zosyn to ceftriaxone based on sensitivities -f/u blood and urine cultures #PUD s/p EGD POD1 with epi/clips placed -GI following -continue protonix 40mg PO BID #? free air in perirectal region -Surgery consulted -Family declined additional imaging #acute on CKD (Cr 1.8 on 10/22/16) -Monitor Cr -Renal dosing of medications #BPH (s/p TURP) -Continue Flomax #HTN - Continue Coreg, Hydralazine #Hypothyroidism - Continue Synthroid #Chronic systolic heart failure (s/p AICD) - Continue Coreg, Isordil, Hydralazine #Dementia - Continue Aricept #Hyperlipidemia -Continue Lipitor #Stage II pressure ulcer of sacrum - Local wound care #FEN -No IVF -lytes wnl -Soft diet #PPX -DVT - scd's -GI - on protonix #Dispo: in-patient hospice transfer pending bed availability DNR/DNI d/w Dr. Ju Kay MD PGY-1 Visit type - Emergency Visit Emergency Visit: No - New Patient This patient is new to me today: No - Critical Care Critical Care patient: No
[2016-12-10] MEDS: DONEPEZIL HCL 10 MG TABLET (FP) PO SCH (21:03)
[2016-12-10] MEDS: ATORVASTATIN CA 10 MG TABLET (FP) PO SCH (21:03)
[2016-12-10] MEDS ORDERED: CHLORHEXIDINE GLUCONATE 4% CLEANSER FOR DECOLONIZATION TP SCH (22:00)
[2016-12-11] MEDS: DEXTROSE 5%-0.45% SALINE 1,000 ML IV SCH (00:15)
[2016-12-11] MEDS: LEVOTHYROXINE NA 100 MCG TABLET (FP) PO SCH (06:11)
[2016-12-11] MEDS: TAMSULOSIN HCL 0.4 MG CAP.ER.24H (FP) PO SCH (08:31)
[2016-12-11] MEDS: CEFTRIAXONE 1 G/50 ML PREMIX 50 ML IVPB SCH (09:50)
[2016-12-11] MEDS: hydrALAZINE HCL 25 MG TABLET (FP) PO SCH ×2 (10:00→21:44)
[2016-12-11] MEDS: CARVEDILOL 25 MG TABLET (FP) PO SCH ×2 (10:00→21:44)
[2016-12-11] MEDS: ISOSORBIDE DINITRATE 20 MG TABLET (FP) PO SCH (10:00)
[2016-12-11] MEDS: CALCIUM 500MG/VIT-D 200 UNITS COMBO TABLET (FP) PO SCH (10:01)
[2016-12-11] MEDS: FERROUS SO4 325 MG TABLET (FP) PO SCH (10:01)
[2016-12-11] MEDS: ASCORBIC ACID 500 MG TABLET (FP) PO SCH (10:01)
[2016-12-11] MEDS: PANTOPRAZOLE 40 MG TABLET (FP) PO SCH ×2 (10:01→21:43)
[2016-12-11] MEDS: VITAMIN B COMP W-C 1 EA TABLET PO SCH (10:02)
--- NOTE | 2016-12-11 10:54 | PN ---
Progress Note (short form) - Note Progress Note: NAD. No acute events overnight. No occult bleeding noted. Intake & Output 12/08/16 12/09/16 12/10/16 12/11/16 23:59 23:59 23:59 23:59 Intake Total 1428 1322 1673 500 Output Total 5401 227 8782 Balance -472 472 273 500 Weight 116 lb 8 oz 118 lb 8 oz 118 lb Last Vital Signs Temp Pulse Resp BP Pulse Ox 97.5 F L 69 13 130/70 91 L 12/11/16 09:42 12/11/16 10:13 12/11/16 09:42 12/11/16 09:42 12/11/16 10:13 Active Medications Acetaminophen (Tylenol -) 650 mg PO Q4H PRN PRN Reason: FEVER OR PAIN Ascorbic Acid (Vitamin C -) 500 mg PO DAILY [facility] Last Admin: 12/11/16 10:01 Dose: 500 mg Atorvastatin Calcium (Lipitor -) 10 mg PO HS [facility] Last Admin: 12/10/16 21:03 Dose: 10 mg Benzocaine/Menthol (Cepacol Lozenge -) 1 each MM PRN PRN PRN Reason: SORE THROAT Calcium Carbonate/Cholecalciferol (Os-Rudy 500+D -) 1 tab PO DAILY [facility] Last Admin: 12/11/16 10:01 Dose: 1 tab Carvedilol (Coreg -) 25 mg PO BID [facility] Last Admin: 12/11/16 10:00 Dose: 25 mg Donepezil HCl (Aricept -) 10 mg PO HS [facility] Last Admin: 12/10/16 21:03 Dose: 10 mg Ferrous Sulfate (Feosol -) 325 mg PO DAILY [facility] Last Admin: 12/11/16 10:01 Dose: 325 mg Hydralazine HCl (Apresoline -) 25 mg PO BID [facility] Last Admin: 12/11/16 10:00 Dose: 25 mg Dextrose/Sodium Chloride (D5-1/2ns -) 1,000 mls @ 42 mls/hr IV ASDIR [facility] Last Admin: 12/11/16 00:15 Dose: Not Given CEFTRIAXONE 1 G/50 ML PREMIX (Ceftriaxone 1 Gm-D5w Bag) 50 mls @ 100 mls/hr IVPB DAILY [facility] Last Admin: 12/11/16 09:50 Dose: 100 mls/hr Isosorbide Dinitrate (Isordil -) 30 mg PO DAILY [facility] Last Admin: 12/11/16 10:00 Dose: 30 mg Levothyroxine Sodium (Synthroid -) 100 mcg PO DAILY@0700 [facility] Last Admin: 12/11/16 06:11 Dose: 100 mcg Multivit/Ca Carb/B Cmplx/FA/Prenat (Nephro-Humble -) 1 tablet PO DAILY [facility] Last Admin: 12/11/16 10:02 Dose: 1 tablet Pantoprazole Sodium (Protonix -) 40 mg PO BID [facility] Last Admin: 12/11/16 10:01 Dose: 40 mg Polyethylene Glycol (Miralax (For Daily Use) -) 17 gm PO DAILY PRN PRN Reason: CONSTIPATION Tamsulosin HCl (Flomax -) 0.4 mg PO DAILY@0830 [facility] Last Admin: 12/11/16 08:31 Dose: 0.4 mg Constitutional: Yes: Thin, No Distress Eyes: Yes: WNL HENT: Yes: WNL Neck: Yes: WNL Cardiovascular: Yes: Regular Rate and Rhythm Respiratory: Yes: Few basilar rhonchi Gastrointestinal: Yes: (+) Bowel Sounds, Soft, Non-tender, No guarding or rigidity Labs: Laboratory Results - last 24 hr 12/07/16 07:32 Blood Type O POSITIVE Antibody Screen Negative Crossmatch See Detail Assessment/Plan GI bleed due to Gastric Ulcers : lesions were injected and clipped SVC syndrome by history (?) lung CA LOC Dementia Systolic heart failure AICD placement Supportive Care O2 as needed Noted patient will be assessed for Janet Prather
--- NOTE | 2016-12-11 13:12 | PN ---
Teaching Attending Note Name of Resident: Kelly Dodd ATTENDING PHYSICIAN STATEMENT I saw and evaluated the patient. I reviewed the resident's note and discussed the case with the resident. I agree with the resident's findings and plan as documented. SUBJECTIVE: patient seen and examined, no complaints, still with poor PO intake OBJECTIVE: Vital Signs Period Temp Pulse Resp BP Sys/Ro Pulse Ox Last 24 Hr 97.5 F-98.4 F 65-69 13-20 128-132/58-79 91-91 Intake & Output 12/08/16 12/09/16 12/10/16 12/11/16 23:59 23:59 23:59 23:59 Intake Total 1428 1322 1673 500 Output Total 0483 173 7453 Balance -472 472 273 500 Weight 116 lb 8 oz 118 lb 8 oz 118 lb General sitting in bed in no acute distress ABdo soft, NT, ND, positive bowel sounds extremities no edema CVS S1S2 regular Chest poor effort Current Medications Acetaminophen (Tylenol -) 650 mg PO Q4H PRN PRN Reason: FEVER OR PAIN Ascorbic Acid (Vitamin C -) 500 mg PO DAILY [facility] Last Admin: 12/11/16 10:01 Dose: 500 mg Atorvastatin Calcium (Lipitor -) 10 mg PO HS [facility] Last Admin: 12/10/16 21:03 Dose: 10 mg Benzocaine/Menthol (Cepacol Lozenge -) 1 each MM PRN PRN PRN Reason: SORE THROAT Calcium Carbonate/Cholecalciferol (Os-Rudy 500+D -) 1 tab PO DAILY [facility] Last Admin: 12/11/16 10:01 Dose: 1 tab Carvedilol (Coreg -) 25 mg PO BID [facility] Last Admin: 12/11/16 10:00 Dose: 25 mg Donepezil HCl (Aricept -) 10 mg PO HS [facility] Last Admin: 12/10/16 21:03 Dose: 10 mg Ferrous Sulfate (Feosol -) 325 mg PO DAILY [facility] Last Admin: 12/11/16 10:01 Dose: 325 mg Hydralazine HCl (Apresoline -) 25 mg PO BID [facility] Last Admin: 12/11/16 10:00 Dose: 25 mg Dextrose/Sodium Chloride (D5-1/2ns -) 1,000 mls @ 42 mls/hr IV ASDIR [facility] Last Admin: 12/11/16 00:15 Dose: Not Given CEFTRIAXONE 1 G/50 ML PREMIX (Ceftriaxone 1 Gm-D5w Bag) 50 mls @ 100 mls/hr IVPB DAILY [facility] Last Admin: 12/11/16 09:50 Dose: 100 mls/hr Isosorbide Dinitrate (Isordil -) 30 mg PO DAILY [facility] Last Admin: 12/11/16 10:00 Dose: 30 mg Levothyroxine Sodium (Synthroid -) 100 mcg PO DAILY@0700 [facility] Last Admin: 12/11/16 06:11 Dose: 100 mcg Multivit/Ca Carb/B Cmplx/FA/Prenat (Nephro-Humble -) 1 tablet PO DAILY [facility] Last Admin: 12/11/16 10:02 Dose: 1 tablet Pantoprazole Sodium (Protonix -) 40 mg PO BID [facility] Last Admin: 12/11/16 10:01 Dose: 40 mg Polyethylene Glycol (Miralax (For Daily Use) -) 17 gm PO DAILY PRN PRN Reason: CONSTIPATION Tamsulosin HCl (Flomax -) 0.4 mg PO DAILY@0830 [facility] Last Admin: 12/11/16 08:31 Dose: 0.4 mg Laboratory Results - last 24 hr 12/07/16 07:32 Blood Type O POSITIVE Antibody Screen Negative Crossmatch See Detail ASSESSMENT AND PLAN: -Gram neg sepsis likely secondary to E. coli UTI -Acute blood loss anemia with Peptic ulcer disease -?free air in abdomen, exam benign with improved infection markers, Blood cultures consistent with urinary source -Lung Ca/SVC syndrome -CHF/s/p AICD/HTN -CKD Plan: Change to keflex (antibiotic day 06/23). Surgery input noted, family declined CT contrast. H/h overall stable, no acute events of bleed, continue PPI. Plan for inptient hospice, Dispo planning pending bed availability at [place].
--- NOTE | 2016-12-11 14:13 | PN ---
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 dementia please call back if needed Problem List - Problems (1) Gram negative septicemia Code(s): A41.50 - GRAM-NEGATIVE SEPSIS, UNSPECIFIED (2) UTI (urinary tract infection) Code(s): N39.0 - URINARY TRACT INFECTION, SITE NOT SPECIFIED Qualifiers: Urinary tract infection type: urethritis Qualified Code(s): N34.2 - Other urethritis; N34.2 - Other urethritis (3) Upper GI bleed Code(s): K92.2 - GASTROINTESTINAL HEMORRHAGE, UNSPECIFIED (4) Acute renal failure Code(s): N17.9 - ACUTE KIDNEY FAILURE, UNSPECIFIED Qualifiers: Acute renal failure type: unspecified Qualified Code(s): N17.9 - Acute kidney failure, unspecified; N17.9 - Acute kidney failure, unspecified; N17.9 - Acute kidney failure, unspecified
[2016-12-11] MEDS: ATORVASTATIN CA 10 MG TABLET (FP) PO SCH (21:43)
[2016-12-11] MEDS: DONEPEZIL HCL 10 MG TABLET (FP) PO SCH (21:44)
[2016-12-12] MEDS ORDERED: PT OWN MED DRAWER 7, Y5N ONE ×2 (05:28→10:44)
[2016-12-12 05:47] VITALS: TEMP 97.6
[2016-12-12] MEDS: LEVOTHYROXINE NA 100 MCG TABLET (FP) PO SCH (06:20)
[2016-12-12] MEDS: CEPHALEXIN MONOHYDRATE 250 MG CAPSULE (FP) PO SCH ×2 (06:21→13:11)
[2016-12-12] MEDS: DEXTROSE 5%-0.45% SALINE 1,000 ML IV SCH (06:21)
[2016-12-12] MEDS: TAMSULOSIN HCL 0.4 MG CAP.ER.24H (FP) PO SCH (07:38)
[2016-12-12] MEDS: ASCORBIC ACID 500 MG TABLET (FP) PO SCH (10:47)
[2016-12-12] MEDS: PANTOPRAZOLE 40 MG TABLET (FP) PO SCH (10:48)
[2016-12-12] MEDS: FERROUS SO4 325 MG TABLET (FP) PO SCH (10:48)
[2016-12-12] MEDS: CARVEDILOL 25 MG TABLET (FP) PO SCH (10:48)
[2016-12-12] MEDS: CALCIUM 500MG/VIT-D 200 UNITS COMBO TABLET (FP) PO SCH (10:48)
[2016-12-12] MEDS: VITAMIN B COMP W-C 1 EA TABLET PO SCH (10:48)
[2016-12-12] MEDS: hydrALAZINE HCL 25 MG TABLET (FP) PO SCH (10:49)
[2016-12-12] MEDS: ISOSORBIDE DINITRATE 20 MG TABLET (FP) PO SCH (10:50)
--- NOTE | 2016-12-12 11:12 | PN ---
Progress Note (short form) - Note Progress Note: NAD. No acute events overnight. No occult bleeding noted. Intake & Output 12/09/16 12/10/16 12/11/16 12/12/16 23:59 23:59 23:59 23:59 Intake Total 1322 1673 1300 504 Output Total 850 1400 800 450 Balance 472 273 500 54 Weight 118 lb 8 oz 118 lb Last Vital Signs Temp Pulse Resp BP Pulse Ox 97.6 F 72 20 150/66 91 L 12/12/16 05:46 12/12/16 05:46 12/12/16 05:46 12/12/16 05:46 12/11/16 10:13 Active Medications Acetaminophen (Tylenol -) 650 mg PO Q4H PRN PRN Reason: FEVER OR PAIN Last Admin: 12/12/16 07:38 Dose: 650 mg Ascorbic Acid (Vitamin C -) 500 mg PO DAILY [facility] Last Admin: 12/12/16 10:47 Dose: 500 mg Atorvastatin Calcium (Lipitor -) 10 mg PO [facility] Last Admin: 12/11/16 21:43 Dose: 10 mg Benzocaine/Menthol (Cepacol Lozenge -) 1 each MM PRN PRN PRN Reason: SORE THROAT Calcium Carbonate/Cholecalciferol (Os-Rudy 500+D -) 1 tab PO DAILY [facility] Last Admin: 12/12/16 10:48 Dose: 1 tab Carvedilol (Coreg -) 25 mg PO BID [facility] Last Admin: 12/12/16 10:48 Dose: 25 mg Cephalexin HCl (Keflex -) 250 mg PO TID [facility] Last Admin: 12/12/16 06:21 Dose: 250 mg Donepezil HCl (Aricept -) 10 mg PO HS [facility] Last Admin: 12/11/16 21:44 Dose: 10 mg Ferrous Sulfate (Feosol -) 325 mg PO DAILY [facility] Last Admin: 12/12/16 10:48 Dose: 325 mg Hydralazine HCl (Apresoline -) 25 mg PO BID [facility] Last Admin: 12/12/16 10:49 Dose: 25 mg Dextrose/Sodium Chloride (D5-1/2ns -) 1,000 mls @ 42 mls/hr IV ASDIR [facility] Last Admin: 12/12/16 06:21 Dose: Not Given Isosorbide Dinitrate (Isordil -) 30 mg PO DAILY [facility] Last Admin: 12/12/16 10:50 Dose: 30 mg Levothyroxine Sodium (Synthroid -) 100 mcg PO DAILY@0700 [facility] Last Admin: 12/12/16 06:20 Dose: 100 mcg Multivit/Ca Carb/B Cmplx/FA/Prenat (Nephro-Humble -) 1 tablet PO DAILY [facility] Last Admin: 12/12/16 10:48 Dose: 1 tablet Pantoprazole Sodium (Protonix -) 40 mg PO BID [facility] Last Admin: 12/12/16 10:48 Dose: 40 mg Polyethylene Glycol (Miralax (For Daily Use) -) 17 gm PO DAILY PRN PRN Reason: CONSTIPATION Tamsulosin HCl (Flomax -) 0.4 mg PO DAILY@0830 [facility] Last Admin: 12/12/16 07:38 Dose: 0.4 mg Constitutional: Yes: Thin, No Distress Eyes: Yes: WNL HENT: Yes: WNL Neck: Yes: WNL Cardiovascular: Yes: Regular Rate and Rhythm Respiratory: Yes: Few basilar rhonchi Gastrointestinal: Yes: (+) Bowel Sounds, Soft, Non-tender, No guarding or rigidity Labs: Laboratory Results - last 24 hr 12/07/16 07:32 Blood Type O POSITIVE Antibody Screen Negative Crossmatch See Detail Assessment/Plan GI bleed due to Gastric Ulcers : lesions were injected and clipped 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
[2016-12-12 11:43] VITALS: BP 130/80; PULSE 90
--- NOTE | 2016-12-12 11:52 | DS ---
Physical Exam: SUBJECTIVE: Patient seen and examined OBJECTIVE: Vital Signs Period Temp Pulse Resp BP Sys/Ro Pulse Ox Last 24 Hr 97.4 F-98.1 F 71-90 18-20 93-150/47-80 PHYSICAL EXAM General: sitting in bed in no acute distress CVS -S1S2 regular Chest poor effort, occasional rhonchi Abdomen soft, NT, ND, positive bowel sounds extremities no edema LABS HOSPITAL COURSE: Date of Admission:12/07/16 Date of Discharge: 12/12/16 Minutes to complete discharge: 45 Discharge Summary Reason For Visit: UPPER GI BLEED/SEPSIS SECONDARY TO UTI Current Active Problems Acute on chronic renal failure (Acute) Gastric ulcer (Acute) Gram negative septicemia (Acute) E. coli bacteremia E. Coli UTI Acute blood loss anemia HLD (hyperlipidemia) (Acute) Rectal fistula (Acute) Sepsis secondary to UTI (Acute) Severe sepsis with acute organ dysfunction (Acute) Upper GI bleed (Acute) Lung Cancer with SVC syndrome Protein Calorie Malnutrition Procedures: Principal: EGD with hemoclips and hemostasis Hospital Course: Patient was noted with acute blood loss anemia and melanotic stools. He was placed on protonix drip and received 2 units PRBC. Gastroenterology was consulted, he had urgent EGD showing 2 non bleeding ulcers and hemostasis was achieved with hemoclips and epinephrine. He was placed on protonix and carafate. His anemia was stable during the rest of his stay. He was noted with severe sepsis with E. Coli UTI and Bacteremia, he was transiently placed on zosyn and was transitioned to Ceftriaxone, then keflex based on urine cultures for a 10 day course. His leucocytosis and fevers resolved. He had suspicion for free air in abdomen, however his abdominal exam was benign. Surgery was consulted, and recommended CT Abdomen/pelvis. However family declined further testing. Palliative care was consulted, patient was DNR/ DNI and family were agreable to inpatient hospice and bed at [facility] has been arranged. His further stay was uneventful. Condition: Guarded - Instructions Diet, Activity, Other Instructions: No MRI for 6 months. In case needs MRI, will need abdominal xray beforehand to assess the gastric clips You are being transferred to [facility]. Feeds for comfort. Keflex for additional 5 days, Medication titration per hospice MD. Referrals: Hi Wilcox MD [Primary Care Provider] - Disposition: TRANSFER ACUTE CARE/OTHER HOSP - Home Medications Comprehensive Discharge Medication List: Ambulatory Orders Ascorbic Acid [Vitamin C] 500 mg PO DAILY 11/17/16 Atorvastatin Ca [Lipitor] 10 mg PO HS 11/17/16 Benzocaine/Menthol [Cepacol Sore Throat Lozenge] 1 each MM PRN PRN 11/17/16 Calcium Carbonate/Vitamin D3 [Oyster Shell 500-Vit D3 200 Tb] 1 each PO DAILY Carvedilol [Coreg -] 25 mg PO BID 11/17/16 Docusate Sodium [Colace -] 200 mg PO DAILY 11/17/16 Donepezil HCl [Aricept -] 10 mg PO DAILY 11/17/16 Ferrous Sulfate 325 mg PO DAILY 11/17/16 Hydralazine HCl [Apresoline -] 25 mg PO BID 11/17/16 Isosorbide Dinitrate [Isordil -] 30 mg PO DAILY 11/17/16 Levothyroxine [Synthroid -] 125 mcg PO DAILY 11/17/16 Polyethylene Glycol 3350 [Gavilax] 17 gm PO BID 11/17/16 Tamsulosin HCl 0.4 mg PO DAILY 11/17/16 Vitamin B Comp W-C [Nephro-Humble -] 1 tablet PO DAILY 11/17/16 Sennosides [Senna] 2 tab PO DAILY 12/07/16 Acetaminophen [Tylenol .Regular Strength -] 650 mg PO Q4H PRN #0 tablet Cephalexin Monohydrate [Keflex -] 250 mg PO TID 5 Days 12/12/16 Pantoprazole Sodium [Protonix -] 40 mg PO BID 30 Days 12/12/16 This patient is new to me today: No Emergency Visit: No Critical Care patient: No - Discharge Referral Referred to [facility] No
== END 2016-12-12 14:11 | disposition hospice, inpatient (51) | DRG 871 ==
LOC: JER 23:14 → JERBED 12-07 07:38 → JICU 12-07 16:30 → J6S 12-09 14:55
PROVIDERS: ADMIT Internal Medicine; ATTEND Hospitalist
PROC: 0W3P8ZZ Control Bleeding in Gastrointestinal Tract, Via Natural or Artificial Opening Endoscopic (ICD-10-PCS; 2016-12-07)
PROC: 30233N1 Transfusion of Nonautologous Red Blood Cells into Peripheral Vein, Percutaneous Approach (ICD-10-PCS; 2016-12-07)
PROC: 3E0G8GC Introduction of Other Therapeutic Substance into Upper GI, Via Natural or Artificial Opening Endoscopic (ICD-10-PCS; principal; 2016-12-07 15:00)
DX: A41.51 Sepsis due to Escherichia coli [E. coli] (principal); G93.41 Metabolic encephalopathy; N17.9 Acute kidney failure, unspecified; K92.2 Gastrointestinal hemorrhage, unspecified; D62 Acute posthemorrhagic anemia; N39.0 Urinary tract infection, site not specified; I50.22 Chronic systolic (congestive) heart failure; I13.0 Hypertensive heart and chronic kidney disease with heart failure and stage 1 through stage 4 chronic kidney disease, or unspecified chronic kidney disease; C34.90 Malignant neoplasm of unspecified part of unspecified bronchus or lung; R64 Cachexia; R65.20 Severe sepsis without septic shock; R55 Syncope and collapse; N18.3 Chronic kidney disease, stage 3 (moderate); F03.90 Unspecified dementia, unspecified severity, without behavioral disturbance, psychotic disturbance, mood disturbance, and anxiety; E03.9 Hypothyroidism, unspecified; D64.9 Anemia, unspecified; I25.10 Atherosclerotic heart disease of native coronary artery without angina pectoris; E78.5 Hyperlipidemia, unspecified; N40.1 Benign prostatic hyperplasia with lower urinary tract symptoms; R33.8 Other retention of urine; R00.0 Tachycardia, unspecified; E83.39 Other disorders of phosphorus metabolism; L89.152 Pressure ulcer of sacral region, stage 2; I71.4 Abdominal aortic aneurysm, without rupture; B96.29 Other Escherichia coli [E. coli] as the cause of diseases classified elsewhere; K60.4 Rectal fistula; K59.09 Other constipation; K25.9 Gastric ulcer, unspecified as acute or chronic, without hemorrhage or perforation; R06.09 Other forms of dyspnea; Z95.810 Presence of automatic (implantable) cardiac defibrillator; Z51.5 Encounter for palliative care; Z66 Do not resuscitate; Z68.23 Body mass index [BMI] 23.0-23.9, adult
CPT/HCPCS: 36415; 36430; 70450-TC; 71010-TC; 74176-TC; 80048; 80053; 81003; 81015; 82247; 82272; 83605; 83735; 84100; 85025; 85027; 85610; 85730; 86078; 86850; 86900; 86901; 86922; 87040; 87086; 87186; 93005; 93010; 94640; 94660; 97116-GP; 97161-GP; 99285-25; P9038; P9058